=== PATIENT | female | born 1935 | race Caucasian/White ===

== ENCOUNTER 2017-03-09 10:00 | Emergency (ER) | payer MEDICARE ==
[2017-03-09] MEDS ORDERED: Hydromorphone 1 mg/ml Ampule IV ONE (10:33)
[2017-03-09] MEDS ORDERED: Hydromorphone 1 mg/ml Ampule ONE (10:43)
--- NOTE | 2017-03-09 10:46 | ERPHSYRPT ---
- History of Present Illness Time Seen by Provider: 03/09/17 10:02 Source: patient, family () Patient Subjective Stated Complaint: Pt c/o lower back pain radiating into BLEs for 6-8 months. She said the last couple of days it has gotten to where she just can't take the pain anymore. She had an MRI and CT scan here several months ago and was referred to alan ricardo for a possible epidural, but she got to feeling a little better so she cancelled it. Denies any tingling/numbness or loss of bowel or bladder control. States the pain gets better when she stands up. Triage Nursing Assessment: Pt alert and oriented x3. skin pink warm and dry. afebrile. no bruising or swelling noted Physician History: CC: back pain Hx: 82 y/o with hx of back pain in the past for which she had MRI and saw Dr Serrato. Was supposed to have injections but that fell thru and her pain was improved. She has not been treated with opioids. She had prior MRI. She has no fall or injury. No fever or chills. Normal urination. No rash. Pain worse for the past few days. No N/T/W. She is scheduled to have her legs check next week for arterial disease. Timing/Duration: day(s) (few) Allergies/Adverse Reactions: No Known Drug Allergies Allergy (Verified 03/09/17 10:16) Home Medications: Amlodipine Besylate 10 mg [Norvasc 10 MG] 10 mg PO DAILY 08/29/15 [History] Benazepril HCl 20 mg PO DAILY 08/29/15 [History] Clonidine HCl 0.1 mg [Catapres 0.1 MG] 0.1 mg PO BID 08/29/15 [History] Hydrochlorothiazide 25 mg [hydroDIURIL 25 MG] 25 mg PO DAILY 08/29/15 [ History] Nateglinide 60 mg PO TID 11/22/16 [History] Hx Tetanus, Diphtheria Vaccination/Date Given: Yes Hx Influenza Vaccination/Date Given: Yes Hx Pneumococcal Vaccination/Date Given: Yes - Review of Systems Constitutional: No Fever, No Chills Cardiac: No Chest Pain Abdominal/Gastrointestinal: No Abdominal Pain Genitourinary Symptoms: No Dysuria, No Incontinence Musculoskeletal: Back Pain Skin: No Rash Neurological: No Focal Weakness, No Headache, No Parasthesia - Past Medical History Pertinent Past Medical History: Yes Cardiac History: Hypertension Endocrine Medical History: Diabetes Type II History: Renal Disease - Past Surgical History Past Surgical History: Yes Gastrointestinal: Cholecystectomy Other Surgical History: Tonsils out, cataract surgery bilat - Social History Smoking Status: Never smoker Exposure to second hand smoke: Yes Drug Use: none Patient Lives Alone: No - Nursing Vital Signs Temperature: 97.8 F Temperature Source: Oral Pulse Rate: 81 Respiratory Rate: 16 Pain Intensity: 7 - Physical Exam General Appearance: alert Eye Exam: PERRL/EOMI Ears, Nose, Throat Exam: moist mucous membranes Neck Exam: normal inspection, non-tender, supple Respiratory Exam: normal breath sounds, lungs clear Cardiovascular Exam: regular rate/rhythm Gastrointestinal Exam: soft, No tenderness, No distention Back Exam: normal inspection, vertebral tenderness (mild low point) Extremity Exam: normal inspection, normal range of motion Neurologic Exam: alert, oriented x 3, cooperative, 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 tested, sensation nml, other (2+ patellar MSR's), No motor deficits Skin Exam: warm, dry, No rash SpO2 Interpretation: normal SpO2: 98 Oxygen Delivery: Room Air - Course Nursing assessment & vital signs reviewed: Yes - Radiology Exams lumbar X-ray Interpretation: Reviewed by me, No Fracture, Other (mild scoliosis and degenerative change) Ordered Tests: Active Orders 24 hr Category Date Time Status IV Insertion STAT Care 03/09/17 10:33 Active LUMBAR LIMITED (2 OR 3 VIEWS) Stat Exams 03/09/17 10:34 Taken Medication Summary Discontinued Medications Generic Name Dose Route Start Last Admin Trade Name Carlo PRN Reason Stop Dose Admin Hydromorphone HCl 0.5 mg 03/09/17 10:33 03/09/17 10:45 Hydromorphone 1 Mg/Ml Ampule IV 03/09/17 10:34 0.5 mg STAT ONE Administration Hydromorphone HCl Confirm 03/09/17 10:43 Hydromorphone 1 Mg/Ml Ampule Administered 03/09/17 10:44 Dose 1 mg .ROUTE .STK-MED ONE - Progress Progress Note: 03/09/17 11:04 Pt medicated for pain. This appears to be re-exacerbation of her chronic pain. She was formerly enrolled to have pain injections but doctor left town. Referred to Dr Roper whom has seen in past. Counseled pt/family regarding: diagnosis, need for follow-up, rad results - Departure Time of Disposition: 11:05 Departure Disposition: Home Clinical Impression: Lumbago Qualifiers: Chronicity: chronic Back pain laterality: midline Sciatica presence: without sciatica Qualified Code(s): M54.5 - Low back pain; G89.29 - Other chronic pain Condition: Stable Critical Care Time: No Referrals: SIVA RODRIGUES [Primary Care Provider] - ETHAN ROPER MD [CONSULTING PHYSICIAN] - Instructions: Low Back Pain Additional Instructions: BACK INJURY 1. May apply moist heat frequently for relief of pain. Take care not to burn the skin. Do not use heat for more than 30 minutes at a time. 2. Try to sleep on a firm bed, flat on your back. 3. If no improvement is noticed in 2-3 days, follow up with your family physician. 4. If you notice any numbness, tingling, weakness, or problems with your bowel or bladder, you should call your family physician or return to the emergency department. No driving. Return for problems or concerns. Rx norco. Follow up with Dr Roper as instructed. Prescriptions: Hydrocodone Bit/Acetaminophen [[address] 5-325 Tablet] 1 each PO Q6H PRN PRN #20 tablet PRN Reason: Pain
[2017-03-09 11:32] VITALS: BP 119/78; PULSE 78; O2SAT 97
--- NOTE | 2017-03-09 23:02 | XRAY ---
Indication: Low back pain radiating down legs. Comparison: September 19, 2016. 3 views of the lumbar spine unchanged again demonstrating 5 lumbar vertebral segments with osteopenia, mild lower lumbar levorotoscoliosis, and multilevel degenerative disc disease greatest at the L4-S1 levels. Again no acute fracture or subluxation. Stable mild scattered vascular calcifications and cholecystectomy clips. Impression: Stable nonacute lumbar spine again with chronic features.
== END 2017-03-09 11:30 | disposition home or self-care (01) ==
LOC: ED 10:00
DX: M54.5 Low back pain (principal); G89.29 Other chronic pain; I10 Essential (primary) hypertension; E11.9 Type 2 diabetes mellitus without complications; Z79.899 Other long term (current) drug therapy
CPT/HCPCS: 36000; 72100; 96374; 99284; J1170

== ENCOUNTER 2017-05-23 20:44 | Emergency (ER) | payer MEDICARE ==
--- NOTE | 2017-05-23 21:36 | ERPHSYRPT ---
- History of Present Illness Time Seen by Provider: 05/23/17 21:16 Source: patient, family Exam Limitations: no limitations Patient Subjective Stated Complaint: pt states she has been having pain in her rt lower leg rated a 9/10 prior to arrival. Triage Nursing Assessment: pt alert and oriented, answers qeustins approp. pt transfer from wheelchair to stretcher with minimal asisst. respirations nonlabored with lungs cta. mild edema to bilat ankles and feet, pt states normal for her. no injury to rt leg. pedal pulse wnl. Physician History: The patient is an 82-year-old female with her and daughter complaining of worsening right lower leg pain today. She has chronic leg pain in both legs for the past 8-[address] Roper today for follow-up of the leg pain and was told to walk and exercise more. She had a CT scan of the lower extremities of June 2016. She had an MRI of the L-spine in September 2016. She had L-spine x-ray in March 2017. Then she had an arterial ultrasound of both lower legs in March 2017. She had an epidural in her lower spine which helped her back pain for 3 months but it is now started to return. Today she took [place] when the pain worsen. The [place] did not relieve the pain. Tonight she comes in wanting some relief. Past medical history is significant for chronic bilateral leg pain, back pain, hypertension. Method of Injury: unknown Occurred: other (8 to 10 months) Quality: intermittent, aching Lower Extremities Pain: leg: right Modifying Factors: Improves With: pain medication Associated Symptoms: other (hurts to walk ) Allergies/Adverse Reactions: No Known Drug Allergies Allergy (Verified 05/23/17 21:08) Home Medications: Amlodipine Besylate 10 mg [Norvasc 10 MG] 10 mg PO DAILY 08/29/15 [History] Benazepril HCl 20 mg PO DAILY 08/29/15 [History] Clonidine HCl 0.1 mg [Catapres 0.1 MG] 0.1 mg PO BID 08/29/15 [History] Hydrochlorothiazide 25 mg [hydroDIURIL 25 MG] 25 mg PO DAILY 08/29/15 [ History] Nateglinide 60 mg PO TID 11/22/16 [History] Hx Tetanus, Diphtheria Vaccination/Date Given: Yes Hx Influenza Vaccination/Date Given: Yes Hx Pneumococcal Vaccination/Date Given: Yes Immunizations Up to Date: Yes - Review of Systems Constitutional: No Fever, No Chills Eyes: No Symptoms Ears, Nose, & Throat: No Symptoms Respiratory: No Cough, No Dyspnea Cardiac: No Chest Pain, No Edema, No Syncope Abdominal/Gastrointestinal: No Abdominal Pain, No Nausea, No Vomiting, No Diarrhea Genitourinary Symptoms: No Dysuria Musculoskeletal: Back Pain, Myalgias Skin: No Rash Neurological: No Dizziness, No Focal Weakness, No Sensory Changes Psychological: No Symptoms Endocrine: No Symptoms Hematologic/Lymphatic: No Symptoms Immunological/Allergic: No Symptoms All Other Systems: Reviewed and Negative - Past Medical History Pertinent Past Medical History: Yes Cardiac History: Hypertension Endocrine Medical History: Diabetes Type II History: Renal Disease Other Medical History: chronic pain- sees dr roper - Past Surgical History Past Surgical History: Yes Gastrointestinal: Cholecystectomy Other Surgical History: Tonsils out, cataract surgery bilat - Social History Smoking Status: Never smoker Exposure to second hand smoke: Yes Drug Use: none Patient Lives Alone: No - Female History Hx Last Menstrual Period: post - Nursing Vital Signs Nursing Vital Signs: Initial Vital Signs Temperature 98.1 F Temperature Source Oral Pulse Rate 74 Respiratory Rate 16 Blood Pressure [Right Arm] 142/63 Pain Intensity [Left Lower 5 Calf] Pain Intensity 5 - Physical Exam General Appearance: alert Eyes, Ears, Nose, Throat Exam: moist mucous membranes Neck Exam: non-tender, supple Cardiovascular/Respiratory Exam: chest non-tender, normal breath sounds, regular rate/rhythm, no respiratory distress Gastrointestinal/Abdominal Exam: non-tender, guarding Back Exam: normal inspection, No vertebral tenderness Hips Exam: bilateral: non-tender, normal inspection Legs Exam: right leg: soft tissue tenderness (Physical examination of the right lower leg is significant for tenderness to palpation in the mid section of the lateral aspect of the musculature. Palpation reproduces the pain she was having before entry into the ER. Physical examination does not reveal any cords , swelling or mass. Flexion extension lateral or medial movement of the foot does not elicit any pain response in that region.), left leg: non-tender, normal inspection Knees Exam: bilateral knee: non-tender, normal inspection Ankle Exam: bilateral ankle: non-tender, normal inspection Foot Exam: bilateral foot: non-tender, normal inspection Neuro/Tendon Exam: normal sensation, normal motor functions Mental Status Exam: alert, oriented x 3, cooperative Skin Exam: normal color, warm, dry SpO2 Interpretation: normal SpO2: 96 Oxygen Delivery: Room Air Ordered Tests: Active Orders 24 hr Category Date Time Status IV Insertion STAT Care 05/23/17 21:55 Active Medication Summary Discontinued Medications Generic Name Dose Route Start Last Admin Trade Name Carlo PRN Reason Stop Dose Admin Hydromorphone HCl 1 mg 05/23/17 21:55 05/23/17 22:04 Hydromorphone 1 Mg/Ml Ampule IV 05/23/17 21:56 1 mg STAT ONE Administration Hydromorphone HCl Confirm 05/23/17 22:03 Hydromorphone 1 Mg/Ml Ampule Administered 05/23/17 22:04 Dose 1 mg .ROUTE .STK-MED ONE Ondansetron HCl 4 mg 05/23/17 21:55 05/23/17 22:06 Zofran 4 Mg/2 Ml Vial IV 05/23/17 21:56 4 mg STAT ONE Administration Ondansetron HCl Confirm 05/23/17 22:02 Zofran 4 Mg/2 Ml Vial Administered 05/23/17 22:03 Dose 4 mg .ROUTE .STK-MED ONE - Progress Progress: improved Progress Note: 05/23/17 21:53 I reviewed the past ER visit dated 03/09/17 as well as the imaging studies. The patient was given Dilaudid 1 mg by IV. Counseled pt/family regarding: diagnosis, need for follow-up - Departure Time of Disposition: 22:52 Departure Disposition: Home Clinical Impression: Muscle pain Condition: Stable Critical Care Time: No Additional Instructions: You have right leg muscle pain from an unknown cause. You were given Dilaudid 1 mg IV and Zofran 4 mg IV in the ER. Follow-up with physical therapy for evaluation and treatment of your leg pain. Continue with all other medications as directed. Follow-up with your doctor for the abdominal pain.
[2017-05-23] MEDS ORDERED: Hydromorphone 1 mg/ml Ampule IV ONE (21:55)
[2017-05-23] MEDS ORDERED: Zofran 4 MG/2 ML VIAL IV ONE (21:55)
[2017-05-23] MEDS ORDERED: Zofran 4 MG/2 ML VIAL ONE (22:02)
[2017-05-23] MEDS ORDERED: Hydromorphone 1 mg/ml Ampule ONE (22:03)
[2017-05-23 23:15] VITALS: BP 128/72; PULSE 78; O2SAT 94
== END 2017-05-23 23:16 | disposition home or self-care (01) ==
LOC: ED 20:44
DX: M79.1 Myalgia (principal); M79.661 Pain in right lower leg; M54.9 Dorsalgia, unspecified; I10 Essential (primary) hypertension; Z79.891 Long term (current) use of opiate analgesic; Z79.899 Other long term (current) drug therapy; E11.9 Type 2 diabetes mellitus without complications
CPT/HCPCS: 36000; 96374; 96375; 99283; 99284; J1170; J2405

== ENCOUNTER 2017-06-14 12:52 | Emergency (ER) | payer MEDICARE ==
[2017-06-14] MEDS ORDERED: Hydromorphone 1 mg/ml Ampule IV ONE (13:25)
[2017-06-14] MEDS ORDERED: Zofran 4 MG/2 ML VIAL IV ONE (13:26)
[2017-06-14] MEDS ORDERED: Zofran 4 MG/2 ML VIAL ONE (13:31)
--- NOTE | 2017-06-14 13:31 | ERPHSYRPT ---
- History of Present Illness Time Seen by Provider: 06/14/17 13:26 Source: patient Exam Limitations: no limitations Patient Subjective Stated Complaint: Pt c/o lower back and right lower leg pain. Pt states it has gotten worse over the last 2 weeks. Triage Nursing Assessment: Pt alert and oriented x3. skin pink warm and dry. afebrile. no bruising/ swelling noted to RLE. pt ambulated from waiting room to exam room 4 without difficulties Physician History: 82 y/o female with history of herniated disc who has had multiple imaging of lower back and legs comes to the ER with complaints of right anterior lower leg pain since yesterday. Pt describes the pain as sharp, constant, 8/10, and not relieved by norco 5/325. Pt had an epidural done 3 weeks ago. Pt has been taking norco 10/325 but started feeling sick on this dose. Pt denies any fever, chills, leg weakness or bowel/urinary incontinence. Pt also admits to having right sided buttock pain that she rates as a 5/10. Timing/Duration: yesterday Method of Injury: unknown Quality: sharp Back Pain Radiation: buttocks, lower legs Severity of Pain-Max: severe Severity of Pain-Current: severe Modifying Factors: Improves With: nothing Allergies/Adverse Reactions: No Known Drug Allergies Allergy (Verified 05/23/17 21:08) Home Medications: Amlodipine Besylate 10 mg [Norvasc 10 MG] 10 mg PO DAILY 08/29/15 [History] Benazepril HCl 20 mg PO DAILY 08/29/15 [History] Clonidine HCl 0.1 mg [Catapres 0.1 MG] 0.1 mg PO BID 08/29/15 [History] Hydrochlorothiazide 25 mg [hydroDIURIL 25 MG] 25 mg PO DAILY 08/29/15 [ History] Nateglinide 60 mg PO TID 11/22/16 [History] Hx Tetanus, Diphtheria Vaccination/Date Given: Yes Hx Influenza Vaccination/Date Given: Yes Hx Pneumococcal Vaccination/Date Given: Yes - Review of Systems Constitutional: No Fever, No Chills Eyes: No Symptoms Ears, Nose, & Throat: No Symptoms Respiratory: No Cough, No Dyspnea Cardiac: No Chest Pain, No Edema, No Syncope Abdominal/Gastrointestinal: No Abdominal Pain, No Nausea, No Vomiting, No Diarrhea Genitourinary Symptoms: No Dysuria Musculoskeletal: Back Pain, Myalgias, No Neck Pain Skin: No Rash Neurological: No Dizziness, No Focal Weakness, No Sensory Changes Psychological: No Symptoms Endocrine: No Symptoms All Other Systems: Reviewed and Negative - Past Medical History Pertinent Past Medical History: Yes Cardiac History: Hypertension Endocrine Medical History: Diabetes Type II History: Renal Disease Other Medical History: chronic pain- sees dr frost - Past Surgical History Past Surgical History: Yes Gastrointestinal: Cholecystectomy Other Surgical History: Tonsils out, cataract surgery bilat - Social History Smoking Status: Never smoker Exposure to second hand smoke: Yes Drug Use: none Patient Lives Alone: No - Nursing Vital Signs Nursing Vital Signs: Initial Vital Signs Temperature 98.0 F Temperature Source Oral Pulse Rate 74 Respiratory Rate 16 Blood Pressure [Right Arm] 136/56 Pain Intensity 5 - Physical Exam General Appearance: no apparent distress, alert Eye Exam: PERRL/EOMI, eyes nml inspection Neck Exam: normal inspection, non-tender, supple, full range of motion, No meningismus, No midline tenderness Respiratory Exam: normal breath sounds, lungs clear, No respiratory distress Cardiovascular Exam: regular rate/rhythm, normal heart sounds Gastrointestinal Exam: soft, No tenderness, No mass Back Exam: normal inspection, decreased range of motion, No CVA tenderness Extremity Exam: normal inspection, normal range of motion, tenderness, No calf tenderness, No pedal edema Neurologic Exam: alert, oriented x 3, cooperative, labor expediter II-XII nml as tested, normal mood/affect, nml station & gait, sensation nml, No motor deficits Skin Exam: normal color, warm, dry, No rash SpO2: 97 Oxygen Delivery: Room Air - Course Nursing assessment & vital signs reviewed: Yes Ordered Tests: Active Orders 24 hr Category Date Time Status IV Insertion STAT Care 06/14/17 13:26 Active Medication Summary Discontinued Medications Generic Name Dose Route Start Last Admin Trade Name Freq PRN Reason Stop Dose Admin Hydromorphone HCl 1 mg 06/14/17 13:25 06/14/17 13:32 Hydromorphone 1 Mg/Ml Ampule IV 06/14/17 13:26 1 mg STAT ONE Administration Hydromorphone HCl Confirm 06/14/17 13:32 Hydromorphone 1 Mg/Ml Ampule Administered 06/14/17 13:33 Dose 1 mg .ROUTE .STK-MED ONE Ondansetron HCl 4 mg 06/14/17 13:26 06/14/17 13:32 Zofran 4 Mg/2 Ml Vial IV 06/14/17 13:27 4 mg STAT ONE Administration Ondansetron HCl Confirm 06/14/17 13:31 Zofran 4 Mg/2 Ml Vial Administered 06/14/17 13:32 Dose 4 mg .ROUTE .STK-MED ONE - Progress Progress: improved Progress Note: 06/14/17 14:22 Pt rates her leg pain 5/10 after receiving dilaudid. Pt was advised to start on norco 10/325 and will need to start on miralax and senna as a bowel regimen. Pt was also advised to F/U with her pain doctor in the next few days. - Departure Time of Disposition: 14:24 Departure Disposition: Home Clinical Impression: Leg pain Qualifiers: Laterality: right Qualified Code(s): M79.604 - Pain in right leg Condition: Stable Critical Care Time: No Referrals: SIVA RODRIGUES [Primary Care Provider] - Additional Instructions: Follow up with your pain doctor in the next few days. Start taking [place] 10/325 after starting the following bowel regimen: 1) Miralax 17 grams once daily 2) Senna 1 tablet twice daily Prescriptions: Polyethylene Glycol 3350 17 gm [Miralax Powder 17GM PACKET] 17 gm PO DAILY # 30 packet Sennosides [Senna] 8.6 mg PO BID #60 tablet
[2017-06-14] MEDS ORDERED: Hydromorphone 1 mg/ml Ampule ONE (13:32)
[2017-06-14 14:55] VITALS: BP 129/72; PULSE 67; O2SAT 100
== END 2017-06-14 14:55 | disposition home or self-care (01) ==
LOC: ED 12:52
DX: M79.604 Pain in right leg (principal); M54.5 Low back pain; I10 Essential (primary) hypertension; E11.9 Type 2 diabetes mellitus without complications; Z79.899 Other long term (current) drug therapy
CPT/HCPCS: 36000; 96374; 96375; 99283; 99284; J1170; J2405

== ENCOUNTER 2017-06-30 03:14 | Emergency (ER) | payer MEDICARE ==
[2017-06-30] MEDS ORDERED: Sodium Chloride 0.9% 1000 ML 1,000 ML IV STA (03:44)
[2017-06-30] MEDS ORDERED: Zofran 4 MG/2 ML VIAL IV ONE (03:44)
[2017-06-30] MEDS ORDERED: MORPHINE SULFATE 2 MG INJ IV ONE (03:44)
[2017-06-30] MEDS ORDERED: Sodium Chloride 0.9% 1000 ML 1,000 ML ONE (03:48)
[2017-06-30] MEDS ORDERED: Zofran 4 MG/2 ML VIAL ONE (03:48)
[2017-06-30] MEDS ORDERED: MORPHINE SULFATE 2 MG INJ ONE (03:48)
--- NOTE | 2017-06-30 03:48 | ERPHSYRPT ---
- History of Present Illness Time Seen by Provider: 06/30/17 03:46 Historian: patient, family Exam Limitations: no limitations Patient Subjective Stated Complaint: Pt C/O supra pubic pain for several days, unsure of exact onset with worsening tonight. Pt unable to sleep due to discomfort. Denies pain with urination or urinary symptoms. Describes as a burning sensation rating 7-8/10. Dx with urine infection, given Keflex abx but pt cannot tolerate due to diarrhea. Triage Nursing Assessment: Pt alert, answers questions appropriately. Ambulatory to tx room holding suprapubic area. Steady gait noted. Lung sounds CTA bilat non-labored. ABD soft, non-tender x 4 quadrants, no increased pain with palpation suprapubic area. + bowel sounds noted. Physician History: Pt C/O supra pubic pain for several days, unsure of exact onset with worsening tonight. Pt unable to sleep due to discomfort. Denies pain with urination or urinary symptoms. Describes as a burning sensation rating 7-8/10. Dx with urine infection, given Keflex abx but pt cannot tolerate due to diarrhea. Timing/Duration: day(s), gradual onset Activities at Onset: none Quality: cramping, stabbing Abdominal Pain Onset Location: suprapubic Pain Radiation: no radiation Severity of Pain-Max: moderate Severity of Pain-Current: moderate Modifying Factors: Improves With: nothing Associated Symptoms: diarrhea, weakness Previous symptoms: no prior history Allergies/Adverse Reactions: cephalexin [From Keflex] Adverse Reaction (Intermediate, Verified 06/30/17 03:33 ) Diarrhea Home Medications: Amlodipine Besylate 10 mg [Norvasc 10 MG] 10 mg PO DAILY 08/29/15 [History] Benazepril HCl 20 mg PO DAILY 08/29/15 [History] Clonidine HCl 0.1 mg [Catapres 0.1 MG] 0.1 mg PO BID 08/29/15 [History] Hydrochlorothiazide 25 mg [hydroDIURIL 25 MG] 25 mg PO DAILY 08/29/15 [ History] Nateglinide 60 mg PO TID 11/22/16 [History] Hx Tetanus, Diphtheria Vaccination/Date Given: Yes Hx Influenza Vaccination/Date Given: Yes Hx Pneumococcal Vaccination/Date Given: Yes Immunizations Up to Date: Yes - Review of Systems Constitutional: No Fever, No Chills Eyes: No Symptoms Ears, Nose, & Throat: No Symptoms Respiratory: No Cough, No Dyspnea Cardiac: No Chest Pain, No Edema, No Syncope Abdominal/Gastrointestinal: Abdominal Pain, Diarrhea, No Nausea, No Vomiting Genitourinary Symptoms: No Dysuria Musculoskeletal: No Back Pain, No Neck Pain Skin: No Rash Neurological: No Dizziness, No Focal Weakness, No Sensory Changes Psychological: No Symptoms Endocrine: No Symptoms All Other Systems: Reviewed and Negative - Past Medical History Pertinent Past Medical History: Yes Cardiac History: Hypertension Endocrine Medical History: Diabetes Type II History: Renal Disease Other Medical History: chronic pain- sees dr frost - Past Surgical History Past Surgical History: Yes Gastrointestinal: Cholecystectomy Other Surgical History: Tonsils out, cataract surgery bilat - Social History Smoking Status: Never smoker Exposure to second hand smoke: No Drug Use: none Patient Lives Alone: No - Nursing Vital Signs Nursing Vital Signs: Initial Vital Signs Temperature 97.6 F 06/30/17 03:18 Pulse Rate 79 06/30/17 03:18 Respiratory Rate 20 06/30/17 03:18 Blood Pressure 165/66 06/30/17 03:18 O2 Sat by Pulse Oximetry 95 06/30/17 03:18 Pain Scale Pain Intensity 4 - Physical Exam General Appearance: no apparent distress, alert Eye Exam: PERRL/EOMI, eyes nml inspection Ears, Nose, Throat Exam: normal ENT inspection, pharynx normal, moist mucous membranes Neck Exam: normal inspection, non-tender, supple, full range of motion Respiratory Exam: normal breath sounds, lungs clear, No respiratory distress Cardiovascular Exam: regular rate/rhythm, normal heart sounds Gastrointestinal/Abdomen Exam: soft, No tenderness, No mass Back Exam: normal inspection, normal range of motion, No CVA tenderness, No vertebral tenderness Extremity Exam: normal inspection, normal range of motion, pelvis stable Neurologic Exam: alert, oriented x 3, cooperative, normal mood/affect, nml cerebellar function, sensation nml, No motor deficits Skin Exam: normal color, warm, dry SpO2: 95 Oxygen Delivery: Room Air - Course Nursing assessment & vital signs reviewed: Yes - CT Exams Abdomen/Pelvis CT Interpretation: Tele-radiologist Report (no acute changes) Ordered Tests: Active Orders 24 hr Category Date Time Status ABDOMEN AND PELVIS W/0 CONTRAS [CT] Stat Exams 06/30/17 03:45 Taken AMYLASE Stat Lab 06/30/17 03:55 Completed CBC W DIFF Stat Lab 06/30/17 03:55 Completed CMP Stat Lab 06/30/17 03:55 Completed CULTURE,URINE Stat Lab 06/30/17 03:55 Received LIPASE Stat Lab 06/30/17 03:55 Completed Lactic Acid Stat Lab 06/30/17 03:51 Completed UA W/ MICROSCOPIC Stat Lab 06/30/17 03:55 Completed Medication Summary Generic Name Dose Route Start Last Admin Trade Name Freq PRN Reason Stop Dose Admin Ceftriaxone Sodium/Dextrose 1 g in 50 mls @ 100 mls/hr 06/30/17 04:50 04:56 Rocephin 1 Gm-D5w 50 Ml Bag IV 06/30/17 05:19 100 mls/hr STAT STA Administration Discontinued Medications Generic Name Dose Route Start Last Admin Trade Name Freq PRN Reason Stop Dose Admin Sodium Chloride 1,000 mls @ 999 mls/hr 06/30/17 03:44 06/30/17 03:51 Sodium Chloride 0.9% 1000 Ml IV 06/30/17 04:44 999 mls/hr .Q1H1M STA Administration Sodium Chloride Confirm 06/30/17 03:48 Sodium Chloride 0.9% 1000 Ml Administered 06/30/17 03:49 Dose 1,000 mls @ ud .ROUTE .STK-MED ONE Ceftriaxone Sodium/Dextrose Confirm 06/30/17 04:49 Rocephin 1 Gm-D5w 50 Ml Bag Administered 06/30/17 04:50 Dose 1 g in 50 mls @ ud IV .STK-MED ONE Morphine Sulfate 2 mg 06/30/17 03:44 06/30/17 03:51 Morphine Sulfate 2 Mg Inj IV 06/30/17 03:45 2 mg STAT ONE Administration Morphine Sulfate Confirm 06/30/17 03:48 Morphine Sulfate 2 Mg Inj Administered 06/30/17 03:49 Dose 2 mg .ROUTE .STK-MED ONE Ondansetron HCl 4 mg 06/30/17 03:44 06/30/17 03:50 Zofran 4 Mg/2 Ml Vial IV 06/30/17 03:45 4 mg STAT ONE Administration Ondansetron HCl Confirm 06/30/17 03:48 Zofran 4 Mg/2 Ml Vial Administered 06/30/17 03:49 Dose 4 mg .ROUTE .STK-MED ONE Lab/Rad Data: Laboratory Result Diagrams 06/30/17 03:55 06/30/17 03:55 Laboratory Results 06/30/17 06/30/17 06/30/17 Range/Units 03:55 03:55 03:55 WBC 7.2 (4.0-10.5) K/mm3 RBC 3.83 L (4.1-5.4) M/mm3 Hgb 11.7 L (12.0-16.0) gm/dl Hct 35.4 (35-47) % MCV 92.4 (78-100) fl MCH 30.5 (26-32) pg MCHC 33.1 (32-36) g/dl RDW 14.3 H (11.5-14.0) % Plt Count 247 (150-450) K/mm3 MPV 11.0 H (6-9.5) fl Gran % 61.3 (36.0-66.0) % Lymphocytes % 24.8 (24.0-44.0) % Monocytes % 9.6 (0.0-12.0) % Eosinophils % 3.9 (0.00-5.0) % Basophils % 0.4 (0.0-0.4) % Basophils # 0.03 (0-0.4) Sodium 136 (136-145) mEq/L Potassium 4.0 (3.5-5.1) mEq/L Chloride 100 (98-107) mEq/L Carbon Dioxide 24.1 (21-32) mEq/L Anion Gap 15.8 H (5-15) MEQ/L BUN 23 H (9-20) mg/dL Creatinine 1.39 H (0.55-1.30) mg/dl Estimated GFR 39 ML/MIN Glucose 145 H (70-110) MG/DL Lactic Acid (0.4-2.0) Calcium 9.5 (8.5-10.1) mg/dL Total Bilirubin 0.30 (0.2-1.0) mg/dL AST 14 L (15-37) U/L ALT 21 (12-78) U/L Alkaline Phosphatase 85 (46-116) U/L Serum Total Protein 7.4 (6.4-8.2) gm/dL Albumin 3.9 (3.4-5.0) g/dL Amylase 78 (25-115) U/L Lipase 216 (73-393) U/L Ur Collection Type CLEAN CATCH Urine Color LT.YELLOW (YELLOW) Urine Appearance SLIGHTLY CLOUDY (CLEAR) Urine pH 6.0 (5-6) Ur Specific [place] 1.010 (1.005-1.025) Urine Protein NEGATIVE (Negative) Urine Ketones NEGATIVE (NEGATIVE) Urine Blood NEGATIVE (0-5) Rafita/ul Urine Nitrite NEGATIVE (NEGATIVE) Urine Bilirubin NEGATIVE (NEGATIVE) Urine Urobilinogen NORMAL (0-1) mg/dL Ur Leukocyte Esterase 1+ (NEGATIVE) Urine Microscopic RBC 5-10 (0-2) /HPF Urine Microscopic WBC 15-25 (0-5) /HPF Ur Epithelial Cells MANY (FEW) /HPF Urine Bacteria MODERATE (NEGATIVE) /HPF Urine Yeast FEW (NEGATIVE) /HPF Urine Glucose NEGATIVE (NEGATIVE) mg/dL Specimen Received 06/30/17 0400 06/30/17 Range/Units 03:51 WBC (4.0-10.5) K/mm3 RBC (4.1-5.4) M/mm3 Hgb (12.0-16.0) gm/dl Hct (35-47) % MCV (78-100) fl MCH (26-32) pg MCHC (32-36) g/dl RDW (11.5-14.0) % Plt Count (150-450) K/mm3 MPV (6-9.5) fl Gran % (36.0-66.0) % Lymphocytes % (24.0-44.0) % Monocytes % (0.0-12.0) % Eosinophils % (0.00-5.0) % Basophils % (0.0-0.4) % Basophils # (0-0.4) Sodium (136-145) mEq/L Potassium (3.5-5.1) mEq/L Chloride (98-107) mEq/L Carbon Dioxide (21-32) mEq/L Anion Gap (5-15) MEQ/L BUN (9-20) mg/dL Creatinine (0.55-1.30) mg/dl Estimated GFR ML/MIN Glucose (70-110) MG/DL Lactic Acid 1.5 (0.4-2.0) Calcium (8.5-10.1) mg/dL Total Bilirubin (0.2-1.0) mg/dL AST (15-37) U/L ALT (12-78) U/L Alkaline Phosphatase (46-116) U/L Serum Total Protein (6.4-8.2) gm/dL Albumin (3.4-5.0) g/dL Amylase (25-115) U/L Lipase (73-393) U/L Ur Collection Type Urine Color (YELLOW) Urine Appearance (CLEAR) Urine pH (5-6) Ur Specific [place] (1.005-1.025) Urine Protein (Negative) Urine Ketones (NEGATIVE) Urine Blood (0-5) Rafita/ul Urine Nitrite (NEGATIVE) Urine Bilirubin (NEGATIVE) Urine Urobilinogen (0-1) mg/dL Ur Leukocyte Esterase (NEGATIVE) Urine Microscopic RBC (0-2) /HPF Urine Microscopic WBC (0-5) /HPF Ur Epithelial Cells (FEW) /HPF Urine Bacteria (NEGATIVE) /HPF Urine Yeast (NEGATIVE) /HPF Urine Glucose (NEGATIVE) mg/dL Specimen Received - Progress Progress: improved Counseled pt/family regarding: lab results, diagnosis, need for follow-up, rad results - Departure Time of Disposition: 04:51 Departure Disposition: Home Clinical Impression: UTI (urinary tract infection), bacterial Condition: Stable Critical Care Time: Yes Critical Care Time(excluding separately billable procedures): 30-74 minutes Referrals: SIVA RODRIGUES [Primary Care Provider] - Instructions: Pelvic Pain, Urinary Tract Infection (UTI) Additional Instructions: URINARY TRACT INFECTION 1. You will need to drink plenty of fluids in order to keep your urinary system flushed. These fluids should mainly consist of water and juices. 2. Take medications as directed. You need to completely finish any antiobiotic prescription given. 3. Try to avoid coffee, tea, alcohol, and seasoned foods as they may cause bladder irritation. 4. If signs and symptoms persist after 3-4 days, you will need to follow up with your family physician. 5. Female Patients: A. Avoid intercourse for 3-4 days. B. Empty bladder before and after intercourse to reduce risk of re- infection. C. After emptying bladder, wipe from front to back to reduce the risk of re- infection. Prescriptions: Ciprofloxacin [Cipro 500 MG] 500 mg PO BIDAC #15 tablet
[2017-06-30 04:08] LABS: BASOPHIL % 0.4 % (0.0-0.4); Eosinophil % 3.9 % (0.00-5.0); Granulocytes % 61.3 % (36.0-66.0); Lymphocytes % 24.8 % (24.0-44.0); Mean Cell Volume 92.4 fl (78-100); Mean Corpuscular Hemoglobin 30.5 pg (26-32); Monocytes % 9.6 % (0.0-12.0); Platelet Count 247 K/mm3 (150-450); Red Blood Count 3.83 M/mm3 (4.1-5.4); Red Cell Distribution Width 14.3 % (11.5-14.0); White Blood Count 7.2 K/mm3 (4.0-10.5)
[2017-06-30 04:19] LABS: ALBUMIN 3.9 g/dL (3.4-5.0); ANION GAP 15.8 MEQ/L (5-15); BILIRUBIN,TOTAL 0.3 mg/dL (0.2-1.0); Carbon Dioxide 24.1 mEq/L (21-32); Total Protein 7.4 gm/dL (6.4-8.2)
[2017-06-30 04:35] LABS: Collection Type CLEAN CATCH
[2017-06-30 04:36] LABS: ADD URINE CULTURE? YES (NO); Bacteria MODERATE /HPF (NEGATIVE); Bilirubin NEGATIVE (NEGATIVE); Blood NEGATIVE Ery/ul (0-5); COMPLETE URINE MICROSCOPIC? YES; Epithelial Cells MANY /HPF (FEW); Glucose NEGATIVE (NEGATIVE); Leukocyte Esterase 1+ (NEGATIVE); WBC 15-25 /HPF (0-5); Yeast FEW /HPF (NEGATIVE)
[2017-06-30] MEDS ORDERED: ROCEPHIN 1 Gm-D5w 50 ml Bag** 1 G/50 ML IVPB IV ONE (04:49)
[2017-06-30] MEDS ORDERED: ROCEPHIN 1 Gm-D5w 50 ml Bag** 1 G/50 ML IVPB IV STA (04:50)
[2017-06-30 05:26] VITALS: BP 128/60; PULSE 68; O2SAT 93
--- NOTE | 2017-06-30 09:26 | XRAY ---
Indication: Suprapubic pain for 4 days. Diagnosed bladder infection. Multiple contiguous axial images obtained through the abdomen and pelvis without contrast as ordered. Comparison: None Lung bases demonstrates minimal bibasilar atelectasis/scarring and left lower lobe calcified granuloma. Heart is not enlarged. Small hiatal hernia. Noncontrasted systolic and bowel loops appear nonobstructed. No free fluid/air. 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 No renal calculus in either system. 1 cm left adrenal adenoma. Previous cholecystectomy. Remaining liver, pancreas, spleen, right adrenal gland, left kidney, left ureter, bladder, and uterus appear unremarkable for noncontrast exam. Minimal aortoiliac calcifications without AAA. Calcifications at the origin of the left and right main renal arteries. Osseous structures intact with moderate degenerative changes of the L3-S1 levels. Impression: 1. 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 Findings can be seen with passage of calculus or reflux. Correlate clinically. 2. Incidental left adrenal adenoma and small hiatal hernia. Comment: Preliminary interpretation was made by C. No critical discrepancy. CTDI 27.10
== END 2017-06-30 05:32 | disposition home or self-care (01) ==
LOC: ED 03:14
DX: N39.0 Urinary tract infection, site not specified (principal)
CPT/HCPCS: 36000; 36415; 74176; 80053; 81000; 82150; 83605; 83690; 85025; 87086; 96360; 96365; 96374; 96375; 99284; J0696; J2270; J2405

== ENCOUNTER 2017-07-02 11:14 | Inpatient (IN) | payer MEDICARE ==
[2017-07-02] MEDS ORDERED: Zofran 4 MG/2 ML VIAL IV PRN (11:20)
[2017-07-02 11:56] LABS: BASOPHIL % 0.3 % (0.0-0.4); Eosinophil % 2.2 % (0.00-5.0); Granulocytes % 67.2 % (36.0-66.0); Lymphocytes % 21.2 % (24.0-44.0); Mean Corpuscular Hemoglobin 30.5 pg (26-32); Mean Platelet Volume 10.7 fl (6-9.5); Monocytes % 9.1 % (0.0-12.0); Platelet Count 239 K/mm3 (150-450); Red Cell Distribution Width 14.1 % (11.5-14.0); White Blood Count 6.4 K/mm3 (4.0-10.5)
[2017-07-02 12:27] LABS: ALBUMIN 3.9 g/dL (3.4-5.0); ANION GAP 12.3 MEQ/L (5-15); BILIRUBIN,TOTAL 0.4 mg/dL (0.2-1.0); Carbon Dioxide 25.1 mEq/L (21-32); Potassium 4.3 mEq/L (3.5-5.1); Total Protein 7.4 gm/dL (6.4-8.2)
[2017-07-02] MEDS: ROCEPHIN 1 Gm-D5w 50 ml Bag** 1 G/50 ML IVPB IV SCH (12:33)
[2017-07-02] MEDS: Sodium Chloride 0.9% 1000 ML 1,000 ML IV SCH ×2 (12:33→23:06)
--- NOTE | 2017-07-02 13:19 | XRAY ---
Indication: Abdomen, back, and left leg pain. UTI. Comparison: None 2 views of the abdomen nonacute and nonobstructed with previous cholecystectomy. Solid organs unremarkable. Osseous structures intact with mild osteopenia and degenerative changes of the mid to lower lumbar spine. Lung bases clear with incidental left base calcified granuloma. Impression: Nonacute nonobstructed abdomen.
[2017-07-02] MEDS: MORPHINE SULFATE 4 MG INJ IV PRN ×3 (15:11→23:42)
[2017-07-02 16:06] LABS: Bilirubin NEGATIVE (NEGATIVE); Blood NEGATIVE Ery/ul (0-5); COMPLETE URINE MICROSCOPIC? YES; Collection Type CCMS; Glucose 50 mg/dL (NEGATIVE); Leukocyte Esterase 1+ (NEGATIVE)
[2017-07-02 16:07] LABS: Bacteria RARE /HPF (NEGATIVE); Epithelial Cells FEW /HPF (FEW)
[2017-07-02] MEDS ORDERED: STARLIX 120 MG PO SCH (16:30)
[2017-07-02] MEDS ORDERED: MEDICATION INTERVENTION MC PRN (16:43)
[2017-07-02] MEDS ORDERED: Restoril 15 MG PO PRN (17:13)
[2017-07-02] MEDS ORDERED: xanAX 0.25 MG PO PRN (17:15)
[2017-07-02] MEDS: PATIENT OWN MEDICATION PO SCH (17:52)
[2017-07-02] MEDS ORDERED: NATEGLINIDE 60 MG PO SCH (22:00)
[2017-07-02] MEDS: Catapres 0.1 MG PO SCH (23:06)
[2017-07-03] MEDS: PATIENT OWN MEDICATION PO PRN (00:06)
[2017-07-03] MEDS: MORPHINE SULFATE 4 MG INJ IV PRN ×2 (06:34→20:26)
[2017-07-03] MEDS: PATIENT OWN MEDICATION PO SCH ×3 (08:07→16:41)
--- NOTE | 2017-07-03 09:09 | PCM.NOTE ---
Date and Time: 07/03/17905 Subjective Assessment: Admitted from office wht abd pain, UTI has been treated but sx have not left. Also intractable L LE pain. This morning her abd pain is much better, still having leg pain, treated with IV pain medicine. Objective Exam General Appearance: no apparent distress Neurologic Exam: alert, oriented x 3, cooperative Skin Exam: normal color, warm, dry Neck Exam: normal inspection, supple Respiratory Exam: normal breath sounds, lungs clear, No crackles/rales, No rhonchi, No wheezing Cardiovascular Exam: regular rate/rhythm, normal heart sounds, No murmur Gastrointestinal/Abdomen Exam: soft, normal bowel sounds, No tenderness, No distention, No mass, No guarding, No rebound Extremity Exam: No pedal edema, No swelling OBJECTIVE DATA Vital Signs: Vital Signs - 24 hr Temp Pulse Resp BP Pulse Ox 07/03/17 07:00 98.0 F 74 18 145/65 97 07/03/17 03:59 98.6 F 68 17 125/61 93 L 07/03/17 00:00 98.6 F 78 18 161/72 93 L 07/02/17 19:55 98.5 F 78 18 143/65 91 L 07/02/17 16:00 98.9 F 73 18 141/66 97 07/02/17 11:38 98.6 F 79 20 141/69 95 07/02/17 11:25 98.6 F 79 141/69 07/02/17 11:16 98.6 F 79 18 141/69 95 Pain Assessment - Last Documented Pain Intensity 8 Pain Scale Used 0-10 Pain Scale Intake and Output: Intake & Output 06/30/17 07/01/17 07/02/17 07/03/17 11:59 11:59 11:59 11:59 Intake Total 2140 Output Total 2450 Balance -310 Weight 84.453 kg Lab Results: Lab Results-Last 24 Hours 07/02/17 07/02/17 07/02/17 Range/Units 11:49 11:49 11:50 WBC 6.4 (4.0-10.5) K/mm3 RBC 4.00 L (4.1-5.4) M/mm3 Hgb 12.2 (12.0-16.0) gm/dl Hct 36.8 (35-47) % MCV 92.0 (78-100) fl MCH 30.5 (26-32) pg MCHC 33.2 (32-36) g/dl RDW 14.1 H (11.5-14.0) % Plt Count 239 (150-450) K/mm3 MPV 10.7 H (6-9.5) fl Gran % 67.2 H (36.0-66.0) % Lymphocytes % 21.2 L (24.0-44.0) % Monocytes % 9.1 (0.0-12.0) % Eosinophils % 2.2 (0.00-5.0) % Basophils % 0.3 (0.0-0.4) % Basophils # 0.02 (0-0.4) Sodium 132 L (136-145) mEq/L Potassium 4.3 (3.5-5.1) mEq/L Chloride 99 (98-107) mEq/L Carbon Dioxide 25.1 (21-32) mEq/L Anion Gap 12.3 (5-15) MEQ/L BUN 18 (9-20) mg/dL Creatinine 1.42 H (0.55-1.30) mg/dl Estimated GFR 38 ML/MIN Glucose 104 (70-110) MG/DL Lactic Acid 0.9 (0.4-2.0) Calcium 9.6 (8.5-10.1) mg/dL Total Bilirubin 0.40 (0.2-1.0) mg/dL AST 26 (15-37) U/L ALT 34 (12-78) U/L Alkaline Phosphatase 77 (46-116) U/L Serum Total Protein 7.4 (6.4-8.2) gm/dL Albumin 3.9 (3.4-5.0) g/dL Amylase 61 (25-115) U/L Lipase 145 (73-393) U/L Ur Collection Type Urine Color (YELLOW) Urine Appearance (CLEAR) Urine pH (5-6) Ur Specific [place] (1.005-1.025) Urine Protein (Negative) Urine Ketones (NEGATIVE) Urine Blood (0-5) Rafita/ul Urine Nitrite (NEGATIVE) Urine Bilirubin (NEGATIVE) Urine Urobilinogen (0-1) mg/dL Ur Leukocyte Esterase (NEGATIVE) Urine Microscopic RBC (0-2) /HPF Urine Microscopic WBC (0-5) /HPF Ur Epithelial Cells (FEW) /HPF Urine Bacteria (NEGATIVE) /HPF Urine Glucose (NEGATIVE) mg/dL Specimen Received 07/02/17 Range/Units 15:45 WBC (4.0-10.5) K/mm3 RBC (4.1-5.4) M/mm3 Hgb (12.0-16.0) gm/dl Hct (35-47) % MCV (78-100) fl MCH (26-32) pg MCHC (32-36) g/dl RDW (11.5-14.0) % Plt Count (150-450) K/mm3 MPV (6-9.5) fl Gran % (36.0-66.0) % Lymphocytes % (24.0-44.0) % Monocytes % (0.0-12.0) % Eosinophils % (0.00-5.0) % Basophils % (0.0-0.4) % Basophils # (0-0.4) Sodium (136-145) mEq/L Potassium (3.5-5.1) mEq/L Chloride (98-107) mEq/L Carbon Dioxide (21-32) mEq/L Anion Gap (5-15) MEQ/L BUN (9-20) mg/dL Creatinine (0.55-1.30) mg/dl Estimated GFR ML/MIN Glucose (70-110) MG/DL Lactic Acid (0.4-2.0) Calcium (8.5-10.1) mg/dL Total Bilirubin (0.2-1.0) mg/dL AST (15-37) U/L ALT (12-78) U/L Alkaline Phosphatase (46-116) U/L Serum Total Protein (6.4-8.2) gm/dL Albumin (3.4-5.0) g/dL Amylase (25-115) U/L Lipase (73-393) U/L Ur Collection Type CCMS Urine Color YELLOW (YELLOW) Urine Appearance CLEAR (CLEAR) Urine pH 6.0 (5-6) Ur Specific [place] 1.010 (1.005-1.025) Urine Protein NEGATIVE (Negative) Urine Ketones NEGATIVE (NEGATIVE) Urine Blood NEGATIVE (0-5) Rafita/ul Urine Nitrite NEGATIVE (NEGATIVE) Urine Bilirubin NEGATIVE (NEGATIVE) Urine Urobilinogen NORMAL (0-1) mg/dL Ur Leukocyte Esterase 1+ (NEGATIVE) Urine Microscopic RBC 0-2 (0-2) /HPF Urine Microscopic WBC 5-10 (0-5) /HPF Ur Epithelial Cells FEW (FEW) /HPF Urine Bacteria RARE (NEGATIVE) /HPF Urine Glucose 50 (NEGATIVE) mg/dL Specimen Received 07-02-17 1605 Radiology Exams: Radiology Procedures Category Date Time Status ABDOMEN 2 VIEW Routine Exams 07/02/17 11:30 Completed Assessment/Plan (1) Abdominal pain Current Visit: Yes Status: Acute Assessment & Plan: much improved. Code(s): R10.9 - UNSPECIFIED ABDOMINAL PAIN (2) Failure of outpatient treatment Current Visit: Yes Status: Acute Assessment & Plan: on IV rocephin, will tx x 3d Code(s): Z78.9 - OTHER SPECIFIED HEALTH STATUS (3) UTI (urinary tract infection), bacterial Current Visit: Yes Status: Acute Code(s): N39.0 - URINARY TRACT INFECTION, SITE NOT SPECIFIED; A49.9 - BACTERIAL INFECTION, UNSPECIFIED (4) Leg pain Current Visit: No Status: Acute Assessment & Plan: will change to po pain meds, have PT consult. Chiropractic was helping before this UTI.
[2017-07-03] MEDS: Sodium Chloride 0.9% 1000 ML 1,000 ML IV SCH ×2 (09:47→20:55)
[2017-07-03] MEDS: hydroDIURIL 25 MG PO SCH (09:48)
[2017-07-03] MEDS: Lotensin 10 MG PO SCH (09:48)
[2017-07-03] MEDS: ROCEPHIN 1 Gm-D5w 50 ml Bag** 1 G/50 ML IVPB IV SCH (09:49)
[2017-07-03] MEDS: NORVASC 5 MG PO SCH (09:49)
[2017-07-03] MEDS: Catapres 0.1 MG PO SCH ×2 (09:50→20:56)
[2017-07-03] MEDS ORDERED: NON-FORMULARY ITEM (Amlodipine Besylate 10 Mg [Norvasc 10 Mg] 10 MG) PO SCH (10:00)
[2017-07-03] MEDS ORDERED: BENAZEPRIL HCL 20 MG PO SCH (10:00)
[2017-07-03] MEDS: Miralax Powder 17GM PACKET PO SCH (14:15)
[2017-07-03] MEDS ORDERED: Diflucan 100 MG PO ONE (20:15)
[2017-07-04] MEDS: PATIENT OWN MEDICATION PO PRN ×2 (00:31→21:30)
[2017-07-04] MEDS: Sodium Chloride 0.9% 1000 ML 1,000 ML IV SCH ×2 (06:57→19:37)
[2017-07-04] MEDS: Miralax Powder 17GM PACKET PO SCH (08:33)
[2017-07-04] MEDS: hydroDIURIL 25 MG PO SCH (08:33)
[2017-07-04] MEDS: NORVASC 5 MG PO SCH (08:34)
[2017-07-04] MEDS: Lotensin 10 MG PO SCH (08:34)
[2017-07-04] MEDS: PATIENT OWN MEDICATION PO SCH ×3 (08:35→15:51)
[2017-07-04] MEDS: Catapres 0.1 MG PO SCH ×3 (08:35→21:25)
[2017-07-04] MEDS: ROCEPHIN 1 Gm-D5w 50 ml Bag** 1 G/50 ML IVPB IV SCH ×2 (08:36→10:40)
[2017-07-04] MEDS ORDERED: Ativan 0.5 MG PO PRN (08:45)
[2017-07-04] MEDS: OXYCODONE-ACETAMINOPHEN 10-325 PO PRN ×2 (08:46→15:51)
--- NOTE | 2017-07-04 08:53 | PCM.NOTE ---
Date and Time: 07/04/17 0848 Subjective Assessment: She is still c/o lower abdominal pain an dburning. She got some vagisil last night and it helped a little. Was given a po diflucan last night. She still c/ o leg pain but is not concerned about that, was seeing chiropractor with some relief prior to admission. Feels that her walking is worsening, she has to use a walker all the time. Feels she can't totally empty her bladder. States she feels like she can go "through the roof" due to her increased anxiety. - Review of Systems Constitutional: No Fever Abdominal/Gastrointestinal: Abdominal Pain Objective Exam General Appearance: no apparent distress Neurologic Exam: alert, oriented x 3, cooperative Skin Exam: normal color, warm, dry Respiratory Exam: normal breath sounds, lungs clear, No crackles/rales, No rhonchi, No wheezing Cardiovascular Exam: regular rate/rhythm, normal heart sounds, No murmur Gastrointestinal/Abdomen Exam: soft, normal bowel sounds, No tenderness ( completely nttp), No distention, No mass Extremity Exam: No pedal edema, No swelling Back Exam: normal inspection OBJECTIVE DATA Vital Signs: Vital Signs - 24 hr Temp Pulse Resp BP Pulse Ox 07/04/17 07:16 96.8 F 75 20 157/69 96 07/04/17 04:00 98.4 F 74 17 150/67 96 07/04/17 00:24 98.6 F 83 17 159/72 94 L 07/03/17 23:46 16 07/03/17 19:56 98.5 F 80 18 161/72 94 L 07/03/17 16:00 97.9 F 79 17 179/75 96 07/03/17 11:51 98.5 F 81 18 162/67 96 Pain Assessment - Last Documented Pain Intensity 7 Pain Scale Used 0-10 Pain Scale Intake and Output: Intake & Output 07/01/17 07/02/17 07/03/17 07/04/17 11:59 11:59 11:59 11:59 Intake Total 2140 4088 Output Total 2450 2200 Balance -310 1888 Weight 84.453 kg Radiology Exams: Radiology Procedures Category Date Time Status ABDOMEN 2 VIEW Routine Exams 07/02/17 11:30 Completed BLADDER [US] Routine Exams 07/04/17 08:45 Ordered Assessment/Plan (1) Abdominal pain Current Visit: Yes Status: Acute Assessment & Plan: WIll do bladder scan (post void residual). On admission she had CT abd/pelvis and she had evidence of possible passage of renal stone recently. Code(s): R10.9 - UNSPECIFIED ABDOMINAL PAIN (2) Failure of outpatient treatment Current Visit: Yes Status: Acute Assessment & Plan: On IV rocephin for question of UTI. Will go ahead and change IV rocephin to IV unasyn (pt actually has listed allergy to cephalosporins). Code(s): Z78.9 - OTHER SPECIFIED HEALTH STATUS (3) UTI (urinary tract infection), bacterial Current Visit: Yes Status: Acute Assessment & Plan: Treating based on 06/25/17 UCx that was positive (cultures since then were done while she was on antibiotics). Code(s): N39.0 - URINARY TRACT INFECTION, SITE NOT SPECIFIED; A49.9 - BACTERIAL INFECTION, UNSPECIFIED (4) Leg pain Current Visit: No Status: Acute Assessment & Plan: with urinary retention; will re-MRI the lumbar spine. She hasn't taken any of the percocet for pain yet. (5) Urinary retention Current Visit: Yes Status: Acute Assessment & Plan: post void residual. Code(s): R33.9 - RETENTION OF URINE, UNSPECIFIED (6) HTN (hypertension) Current Visit: Yes Status: Acute Assessment & Plan: High here, 150s systolic. will increase clonidine to 0.2mg po BID. May need to decrease before discharging to home if her increased BP was due to increase in pain. Code(s): I10 - ESSENTIAL (PRIMARY) HYPERTENSION (7) Anxiety Current Visit: Yes Status: Acute Assessment & Plan: will add prn ativan. Code(s): F41.9 - ANXIETY DISORDER, UNSPECIFIED
--- NOTE | 2017-07-04 10:37 | XRAY ---
Indication: Low back pain radiating down right leg. Urinary retention. Sagittal and axial MRI lumbar spine performed without contrast using T1 and T2 weighted sequences. Comparison: September 24, 2016. Sagittal MRI images demonstrates normal lumbar lordosis with again mild levoscoliosis centered at the L3 level. There are stable multilevel degenerative disc desiccation signal with disc space narrowing at the L4-S1 levels and also opposing endplate degenerative discogenic signal changes, Modic type II. No acute fracture, subluxation, or abnormal bone marrow signal. Conus medullaris again terminates at the L1 level. Sagittal images through the T12-L3 levels again negative for disc herniation, spinal canal, or foraminal stenosis. Axial images at the L3-L4-L5 levels again demonstrates mild annular disc osteophyte complex effacing the thecal sac and producing foraminal narrowing, left greater than right. No disc herniation or spinal canal stenosis. Stable mild bilateral degenerative facet and ligament flavum hypertrophy. At the L5-S1 level, there is stable minimal broad-based left paracentral disc bulge with posterior annular tear effacing the thecal sac. Also stable left foraminal stenosis due to broad-based disc bulge and facet hypertrophy with again slight impingement of the exiting left L5 nerve root. No disc extrusion or canal stenosis. Right foramina patent. Impression: Stable MRI lumbar spine again demonstrating multilevel degenerative disc disease detailed level by level. Greatest extent again at L5-S1 level. Negative for disc herniation or spinal canal stenosis.
--- NOTE | 2017-07-04 12:13 | XRAY ---
Indication: Retention. Two-dimensional ultrasound of the urinary bladder was performed per Comparison: None Urinary bladder normally distended without focal mass or wall thickening. Prevoid volume is 109 cc. Postvoid volume is 67 cc. Impression: Urinary bladder residual on post void as detailed. Remaining bladder sonogram is negative.
[2017-07-04 15:12] LABS: Bilirubin NEGATIVE (NEGATIVE); COMPLETE URINE MICROSCOPIC? YES; Collection Type CCMS; Glucose 250 mg/dL (NEGATIVE); Leukocyte Esterase 2+ (NEGATIVE)
[2017-07-04 15:34] LABS: Bacteria MODERATE /HPF (NEGATIVE); Epithelial Cells PACKED /HPF (FEW); WBC >100 /HPF (0-5)
[2017-07-04] MEDS: NYSTOP 30 GM CREAM TOP SCH ×2 (15:47→21:28)
[2017-07-05] MEDS: OXYCODONE-ACETAMINOPHEN 10-325 PO PRN (02:13)
[2017-07-05] MEDS: Sodium Chloride 0.9% 1000 ML 1,000 ML IV SCH (05:26)
[2017-07-05] MEDS: PATIENT OWN MEDICATION PO SCH ×2 (07:16→11:05)
[2017-07-05] MEDS: ROCEPHIN 1 Gm-D5w 50 ml Bag** 1 G/50 ML IVPB IV SCH (09:57)
[2017-07-05] MEDS: NORVASC 5 MG PO SCH (09:58)
[2017-07-05] MEDS: Lotensin 10 MG PO SCH (09:58)
[2017-07-05] MEDS: NYSTOP 30 GM CREAM TOP SCH (09:59)
[2017-07-05] MEDS: Catapres 0.1 MG PO SCH (09:59)
[2017-07-05] MEDS: Miralax Powder 17GM PACKET PO SCH (09:59)
[2017-07-05] MEDS: hydroDIURIL 25 MG PO SCH (09:59)
[2017-07-05 12:51] VITALS: BP 127/61; PULSE 66; O2SAT 96
--- NOTE | 2017-07-05 15:15 | PCM.DS ---
Discharge Summary Date of Admission: 07/02/17 11:14 Admitting Physician: SIVA RODRIGUES Primary Care Provider: SIVA RODRIGUES Allergies Allergies cephalexin [From Keflex] Adverse Reaction (Intermediate, Verified 06/30/17 03:33 ) Diarrhea Hospital Summary - Hospital Course Hospital Course: Pt admitted with abdominal pain, recent UTI, and leg pain. She was put on IV rocephin and observed. Initially she said she was feeling better, then yesterday said she was not better (family is concerned about some dementia). RN saw that her labia were excoriated and red, so in addition to a diflucan po, nystatin cream was started. A bladder ultrasound was negative aside from a post void residual of 64 cc (in a bladder that was originally filled between 100 -150 cc urine). The urine had a lot of sediment, lots of WBC when sent to lab. Since then the urine is very light yellow and clear. Today the pt denies any discomfort and would like to go home. She is walking well with PT per pt report. She will be discharged on some pain medicine for the legs and follow up with me next week. - Vitals & Intake/Output Vital Signs: Vital Signs Temperature 98.3 F 07/05/17 12:00 Pulse Rate 66 07/05/17 12:00 Respiratory Rate 20 07/05/17 12:00 Blood Pressure 127/61 07/05/17 12:00 O2 Sat by Pulse Oximetry 96 07/05/17 12:00 Intake & Output: Intake & Output 07/03/17 07/04/17 07/05/17 07/06/17 11:59 11:59 11:59 11:59 Intake Total 2140 4208 3642 480 Output Total 2450 2200 4700 Balance -310 2007 -1057 480 Weight 84.453 kg - Lab Result Diagrams: 07/02/17 11:49 07/02/17 11:49 Lab Results-Last 24 Hrs: Lab Results-Last 24 Hours 07/04/17 Range/Units 14:45 Ur Collection Type CCMS Urine Color YELLOW (YELLOW) Urine Appearance HAZY (CLEAR) Urine pH 5.0 (5-6) Ur Specific [place] 1.010 (1.005-1.025) Urine Protein NEGATIVE (Negative) Urine Ketones NEGATIVE (NEGATIVE) Urine Blood 5-10 (0-5) Rafita/ul Urine Nitrite NEGATIVE (NEGATIVE) Urine Bilirubin NEGATIVE (NEGATIVE) Urine Urobilinogen NORMAL (0-1) mg/dL Ur Leukocyte Esterase 2+ (NEGATIVE) Urine Microscopic RBC 0-2 (0-2) /HPF Urine Microscopic WBC >100 (0-5) /HPF Ur Epithelial Cells PACKED (FEW) /HPF Urine Bacteria MODERATE (NEGATIVE) /HPF Urine Glucose 250 (NEGATIVE) mg/dL Specimen Received 07/04/17 1431 Micro Results-Entire Visit: Microbiology 07/04/17 14:45 - Preliminary Urine, Indwelling Catheter NO GROWTH TO DATE 07/02/17 16:15 - Final Urine, Void NO GROWTH - Radiology Exams Ordered Rad Exams-Entire Visit: Radiology Procedures Category Date Time Status BLADDER [US] Routine Exams 07/04/17 08:45 Completed MRI L-SPINE WITHOUT CONTRAST [MRI] Routine Exams 07/04/17 08:49 Completed - Procedures and Test Procedures and Tests throughout Hospitalization: Therapy Orders & Screens 07/03/17 09:07 PT Eval & Treat (MD Order) ROUTINE Evaluate: Yes Treat: Yes Reason for Eval:: leg pain Diagnosis: UTI,failed Outpatient,abd pain,back pain, left leg pain 07/04/17 08:46 PT Eval & Treat (MD Order) ROUTINE Evaluate: Yes Treat: Yes Reason for Eval:: Leg pain Diagnosis: UTI,failed Outpatient,abd pain,back pain, left leg pain Discharge Exam General Appearance: no apparent distress Neurologic Exam: alert, oriented x 3, cooperative Skin Exam: normal color, warm, dry Respiratory Exam: normal breath sounds, lungs clear, No crackles/rales, No rhonchi, No wheezing Cardiovascular Exam: regular rate/rhythm, normal heart sounds, No murmur Gastrointestinal/Abdomen Exam: soft, normal bowel sounds, No tenderness Extremity Exam: No pedal edema, No swelling Final Diagnosis/Problem List - Final Discharge Diagnosis/Problem (1) Abdominal pain Current Visit: Yes Status: Acute Assessment & Plan: Much improved. Likely from the UTI, or possibly related to urinary retention. She was treated for 4d with IV antibiotics so will not discharge her on any antibiotic. (2) Failure of outpatient treatment Current Visit: Yes Status: Acute (3) UTI (urinary tract infection), bacterial Current Visit: Yes Status: Acute (4) Leg pain Current Visit: No Status: Acute Assessment & Plan: MRI with some foraminal stenosis; she was seeing chiropracter on admission and fine to see after discharge. Will give a small amount of percocet po; concern for increased falls, increased respiratory depression, and addiction. (5) Urinary retention Current Visit: Yes Status: Acute Assessment & Plan: I have been unable to discuss with urology. Will try to remove the post; if pt doesn't urinate then would replace the post and have her d/c home with it; follow up with urology next week either way. (6) HTN (hypertension) Current Visit: Yes Status: Acute Assessment & Plan: Clonidine increased from 0.1mg po BID to 0.2mg po BID; BP have been well controlled since then, although she did have one in the 100s systolic. Would watch for dizziness/hypotension; could increase falls. Would encourage to help her rise very slowly from bed. (7) Anxiety Current Visit: Yes Status: Chronic Assessment & Plan: With acute exacerbation. Seemed to be better this morning. - Discharge Disposition: Home, Self-Care Condition: Stable Prescriptions: New Clonidine HCl 0.2 mg PO BID #60 tablet Polyethylene Glycol 3350 17 gm [Miralax Powder 17GM PACKET] 17 gm PO DAILY PRN #30 packet PRN Reason: Constipation Nystatin Cream 30 gm [Nystop 30 gm Cream] 1 gm TOP TID #01 tube Oxycodone HCl/Acetaminophen [Oxycodone-Acetaminophen 5-325] 1 each PO TID PRN #15 tablet PRN Reason: Severe Pain Continue Hydrochlorothiazide 25 mg [hydroDIURIL 25 MG] 25 mg PO DAILY Amlodipine Besylate 10 mg [Norvasc 10 MG] 10 mg PO DAILY Benazepril HCl 20 mg PO DAILY Nateglinide 60 mg PO TID Alprazolam 0.25 mg [xanAX 0.25 MG] 1 - 2 tab PO UD PRN PRN Reason: Anxiety Temazepam 15 mg [Restoril 15 MG] 7.5 mg PO HS PRN PRN #15 capsule PRN Reason: Insomnia Discontinued Clonidine HCl 0.1 mg [Catapres 0.1 MG] 0.1 mg PO BID Instructions: Care for Your Post Catheter -- Female, Urinary Retention in Women Follow up with: SIVA RODRIGUES [Primary Care Provider] - 07/12/17 10:45 am Forms: Discharge Instructions, Patient Portal Information
== END 2017-07-05 16:30 | disposition home or self-care (01) | DRG 690 ==
LOC: MED SURG 11:14
PROVIDERS: ADMIT Family Medicine; ATTEND Family Medicine
DX: N39.0 Urinary tract infection, site not specified (principal); A49.9 Bacterial infection, unspecified; R33.9 Retention of urine, unspecified; R10.9 Unspecified abdominal pain; M79.606 Pain in leg, unspecified; I10 Essential (primary) hypertension; F41.9 Anxiety disorder, unspecified; E11.9 Type 2 diabetes mellitus without complications; N28.9 Disorder of kidney and ureter, unspecified; Z78.9 Other specified health status
CPT/HCPCS: 36415; 72148; 74020; 76705; 80053; 81000; 82150; 83605; 83690; 85025; 87086; J0696; J2270; A9270-GY

== ENCOUNTER 2017-07-26 07:04 | Emergency (ER) | payer MEDICARE ==
[2017-07-26 07:30] LABS: Bilirubin NEGATIVE (NEGATIVE); Blood NEGATIVE Ery/ul (0-5); COMPLETE URINE MICROSCOPIC? YES; Collection Type VOID; Epithelial Cells MODERATE /HPF (FEW); Glucose NEGATIVE (NEGATIVE); Leukocyte Esterase TRACE (NEGATIVE)
[2017-07-26 07:31] LABS: ADD URINE CULTURE? YES (NO); Bacteria FEW /HPF (NEGATIVE)
--- NOTE | 2017-07-26 07:31 | ERPHSYRPT ---
- History of Present Illness Time Seen by Provider: 07/26/17 07:14 Source: patient Patient Subjective Stated Complaint: pt pink, warm, dry. pt ambulated into ER without difficulty. pt afebrile. abdomen soft. nontender. Triage Nursing Assessment: see above Physician History: CC: dysuria Hx: [address] Caba scheduled for back surgery procedure this AM per Dr Kurtz. She had recent UTI. She reports feeling anxious, burning with urination, and some bilateral flank pain since early AM today. No fever. Some nausea. No vomiting. No abd pain. No vaginal disch but has used yeast cream since prior hospitalization. Allergic to keflex. Timing/Duration: today Severity of Pain-Max: moderate Severity of Pain-Current: mild Allergies/Adverse Reactions: cephalexin [From Keflex] Adverse Reaction (Intermediate, Verified 07/26/17 07:24 ) Diarrhea Home Medications: Amlodipine Besylate 10 mg [Norvasc 10 MG] 10 mg PO DAILY 08/29/15 [History] Benazepril HCl 20 mg PO DAILY 08/29/15 [History] Hydrochlorothiazide 25 mg [hydroDIURIL 25 MG] 25 mg PO DAILY 08/29/15 [ History] Nateglinide 60 mg PO TID 11/22/16 [History] Alprazolam 0.25 mg [xanAX 0.25 MG] 1 - 2 tab PO UD PRN 07/02/17 [History] Hx Tetanus, Diphtheria Vaccination/Date Given: Yes (up to date) Hx Influenza Vaccination/Date Given: Yes Hx Pneumococcal Vaccination/Date Given: No - Review of Systems Constitutional: Malaise, No Fever, No Chills Eyes: No Symptoms Ears, Nose, & Throat: No Symptoms Respiratory: No Cough, No Dyspnea Cardiac: No Chest Pain Abdominal/Gastrointestinal: Nausea, No Abdominal Pain, No Vomiting, No Diarrhea Genitourinary Symptoms: Dysuria Musculoskeletal: Back Pain, No Fall, No Injury Neurological: No Focal Weakness, No Parasthesia All Other Systems: Reviewed and Negative - Past Medical History Pertinent Past Medical History: Yes Neurological History: No Pertinent History ENT History: Cataracts Cardiac History: Hypertension Respiratory History: No Pertinent History Endocrine Medical History: Diabetes Type II Musculoskeletal History: No Pertinent History GI Medical History: GERD History: No Pertinent History Psycho-Social History: No Pertinent History Female Reproductive Disorders: No Pertinent History Other Medical History: chronic pain- sees dr frost - Past Surgical History Past Surgical History: Yes Neuro Surgical History: No Pertinent History Cardiac: No Pertinent History Respiratory: No Pertinent History Gastrointestinal: Cholecystectomy Genitourinary: No Pertinent History Musculoskeletal: No Pertinent History Female Surgical History: No Pertinent History Other Surgical History: Tonsils out, cataract surgery bilat - Social History Smoking Status: Never smoker Exposure to second hand smoke: No Drug Use: none Patient Lives Alone: No - Nursing Vital Signs Nursing Vital Signs: Initial Vital Signs Temperature 98.5 F 07/26/17 07:17 Pulse Rate 59 L 07/26/17 07:17 Respiratory Rate 20 07/26/17 07:17 Blood Pressure 134/61 07/26/17 07:17 O2 Sat by Pulse Oximetry 96 07/26/17 07:17 Pain Scale Pain Intensity 7 - Physical Exam General Appearance: alert Eye Exam: PERRL/EOMI Ears, Nose, Throat Exam: normal ENT inspection, moist mucous membranes Neck Exam: normal inspection, non-tender, supple Respiratory Exam: normal breath sounds Cardiovascular Exam: regular rate/rhythm Gastrointestinal/Abdomen Exam: soft, No tenderness, No distention Extremity Exam: normal inspection, normal range of motion, No pedal edema Neurologic Exam: alert, oriented x 3, cooperative, sensation nml, No motor deficits Skin Exam: warm, dry, No rash SpO2 Interpretation: normal SpO2: 96 Oxygen Delivery: Room Air - Course Nursing assessment & vital signs reviewed: Yes Ordered Tests: Active Orders 24 hr Category Date Time Status Clean Catch Urine Specimen STAT Care 07/26/17 07:14 Active BMP Stat Lab 07/26/17 07:35 Completed CBC W DIFF Stat Lab 07/26/17 07:35 Completed CULTURE,URINE Stat Lab 07/26/17 07:14 Received Lactic Acid Stat Lab 07/26/17 07:40 Completed UA W/ MICROSCOPIC Stat Lab 07/26/17 07:14 Completed Lab/Rad Data: Laboratory Result Diagrams 07/26/17 07:35 07/26/17 07:35 Laboratory Results 07/26/17 07/26/17 07/26/17 Range/Units 07:40 07:35 07:35 WBC 5.8 (4.0-10.5) K/mm3 RBC 4.01 L (4.1-5.4) M/mm3 Hgb 12.1 (12.0-16.0) gm/dl Hct 37.5 (35-47) % MCV 93.5 (78-100) fl MCH 30.1 (26-32) pg MCHC 32.3 (32-36) g/dl RDW 14.3 H (11.5-14.0) % Plt Count 246 (150-450) K/mm3 MPV 11.3 H (6-9.5) fl Gran % 57.0 (36.0-66.0) % Lymphocytes % 29.0 (24.0-44.0) % Monocytes % 9.7 (0.0-12.0) % Eosinophils % 4.0 (0.00-5.0) % Basophils % 0.3 (0.0-0.4) % Basophils # 0.02 (0-0.4) Sodium 136 (136-145) mEq/L Potassium 4.8 (3.5-5.1) mEq/L Chloride 102 (98-107) mEq/L Carbon Dioxide 26.3 (21-32) mEq/L Anion Gap 12.9 (5-15) MEQ/L BUN 26 H (9-20) mg/dL Creatinine 1.50 H (0.55-1.30) mg/dl Estimated GFR 35 ML/MIN Glucose 162 H (70-110) MG/DL Lactic Acid 1.7 (0.4-2.0) Calcium 9.6 (8.5-10.1) mg/dL Ur Collection Type Urine Color (YELLOW) Urine Appearance (CLEAR) Urine pH (5-6) Ur Specific [place] (1.005-1.025) Urine Protein (Negative) Urine Ketones (NEGATIVE) Urine Blood (0-5) Rafita/ul Urine Nitrite (NEGATIVE) Urine Bilirubin (NEGATIVE) Urine Urobilinogen (0-1) mg/dL Ur Leukocyte Esterase (NEGATIVE) Urine Microscopic WBC (0-5) /HPF Ur Epithelial Cells (FEW) /HPF Urine Bacteria (NEGATIVE) /HPF Urine Glucose (NEGATIVE) mg/dL Specimen Received 07/26/17 Range/Units 07:14 WBC (4.0-10.5) K/mm3 RBC (4.1-5.4) M/mm3 Hgb (12.0-16.0) gm/dl Hct (35-47) % MCV (78-100) fl MCH (26-32) pg MCHC (32-36) g/dl RDW (11.5-14.0) % Plt Count (150-450) K/mm3 MPV (6-9.5) fl Gran % (36.0-66.0) % Lymphocytes % (24.0-44.0) % Monocytes % (0.0-12.0) % Eosinophils % (0.00-5.0) % Basophils % (0.0-0.4) % Basophils # (0-0.4) Sodium (136-145) mEq/L Potassium (3.5-5.1) mEq/L Chloride (98-107) mEq/L Carbon Dioxide (21-32) mEq/L Anion Gap (5-15) MEQ/L BUN (9-20) mg/dL Creatinine (0.55-1.30) mg/dl Estimated GFR ML/MIN Glucose (70-110) MG/DL Lactic Acid (0.4-2.0) Calcium (8.5-10.1) mg/dL Ur Collection Type VOID Urine Color YELLOW (YELLOW) Urine Appearance CLEAR (CLEAR) Urine pH 5.0 (5-6) Ur Specific [place] 1.010 (1.005-1.025) Urine Protein TRACE (Negative) Urine Ketones NEGATIVE (NEGATIVE) Urine Blood NEGATIVE (0-5) Rafita/ul Urine Nitrite NEGATIVE (NEGATIVE) Urine Bilirubin NEGATIVE (NEGATIVE) Urine Urobilinogen NORMAL (0-1) mg/dL Ur Leukocyte Esterase TRACE (NEGATIVE) Urine Microscopic WBC 5-10 (0-5) /HPF Ur Epithelial Cells MODERATE (FEW) /HPF Urine Bacteria FEW (NEGATIVE) /HPF Urine Glucose NEGATIVE (NEGATIVE) mg/dL Specimen Received 07/26/17 0730 - Progress Progress Note: 07/26/17 08:57 Pt is stable, afebrile, reassuring labs. Called Dr Kurtz and Dr Caba and will culture urine. She will have her preop abtx prior to OR. Will release for her normal preop care. Counseled pt/family regarding: lab results, diagnosis, need for follow-up - Departure Time of Disposition: 08:58 Departure Disposition: Home Clinical Impression: Dysuria Condition: Stable Critical Care Time: No Referrals: SIVA CABA [Primary Care Provider] - Instructions: Dysuria -- Adult Additional Instructions: Normal preoperative care. Your urine was sent for a culture and Dr Caba can follow up.
[2017-07-26 07:46] LABS: BASOPHIL % 0.3 % (0.0-0.4); Mean Cell Volume 93.5 fl (78-100); Mean Platelet Volume 11.3 fl (6-9.5); Monocytes % 9.7 % (0.0-12.0); Platelet Count 246 K/mm3 (150-450); Red Blood Count 4.01 M/mm3 (4.1-5.4); Red Cell Distribution Width 14.3 % (11.5-14.0); White Blood Count 5.8 K/mm3 (4.0-10.5)
[2017-07-26 07:49] LABS: Mean Corpuscular Hemoglobin 30.1 pg (26-32)
[2017-07-26 08:08] LABS: ANION GAP 12.9 MEQ/L (5-15); Carbon Dioxide 26.3 mEq/L (21-32); Potassium 4.8 mEq/L (3.5-5.1)
[2017-07-26] MEDS ORDERED: NORCO 5/325 MG PO ONE (09:01)
[2017-07-26] MEDS ORDERED: NORCO 5/325 MG ONE (09:04)
[2017-07-26 09:22] VITALS: BP 139/62; PULSE 80; O2SAT 97
== END 2017-07-26 09:23 | disposition home or self-care (01) ==
LOC: ED 07:04
DX: R30.0 Dysuria (principal); R10.9 Unspecified abdominal pain; R11.0 Nausea; Z87.440 Personal history of urinary (tract) infections
CPT/HCPCS: 36415; 80048; 81000; 83605; 85025; 87086; 99283; A9270-GY

== ENCOUNTER 2018-05-09 08:21 | Observation (INO) | payer MEDICARE ==
[2018-05-09] MEDS ORDERED: DUONEB 0.5-3 MG/3 ml Neb IH ONE ×2 (08:59→09:14)
--- NOTE | 2018-05-09 09:04 | ERPHSYRPT ---
- History of Present Illness Time Seen by Provider: 05/09/18 08:53 Source: patient Exam Limitations: no limitations Patient Subjective Stated Complaint: pt reports productive cough with yellow sputum-states it feels like it has settled in her chest-tx at [facility] a few days ago with no relief Triage Nursing Assessment: pt pink warm and dry-no sob noted-harsh deep cough noted intermittant throughout triage-no retractions noted Physician History: 83-year-old white female with history of cataracts, high blood pressure, diabetes, GERD, chronic pain She arrives with complaint of coughing since yesterday she was seen at [facility] she states she has no better she states she feels raw from her epigastric region up to her jugular notch. . She has not had any fever she states she's had a cough productive of white sputum. Past medical history includes cataracts, high blood pressure, diabetes, chronic pain. Past surgical history includes cholecystectomy tonsils cataracts Timing/Duration: yesterday Severity: moderate Modifying Factors: Improves With: nothing Associated Symptoms: cough, No nausea, No vomiting, No abdominal pain, No shortness of breath, No heartburn, No diaphoresis, No chills, No chest pain, No fever, No headaches, No loss of appetite, No malaise, No rash, No syncope, No seizure, No weakness Allergies/Adverse Reactions: cephalexin [From Keflex] Adverse Reaction (Intermediate, Verified 05/09/18 08:42 ) Diarrhea Home Medications: Dicyclomine HCl 10 mg PO UD 05/09/18 [History] Donepezil HCl [Donepezil HCl] 5 mg PO UD 05/09/18 [History] Glipizide Xl 10 mg [Glucotrol Xl 10 MG] 10 mg PO UD 05/09/18 [History] Lisinopril [Zestril] 2.5 mg PO UD 05/09/18 [History] Pramipexole Di-HCl [Pramipexole Dihydrochloride] 0.25 mg PO UD 05/09/18 [History ] Sertraline HCl [Sertraline HCl] 25 mg PO UD 05/09/18 [History] Sitagliptin Phosphate 50 MG [Januvia 50 MG] 50 mg PO UD 05/09/18 [History] Temazepam [Temazepam] 7.5 mg PO UD 05/09/18 [History] cloNIDine HCl [Clonidine HCl] 0.2 mg PO UD 05/09/18 [History] hydroCHLOROthiazide [Hydrochlorothiazide] 25 mg PO UD 05/09/18 [History] Hx Tetanus, Diphtheria Vaccination/Date Given: Yes Hx Influenza Vaccination/Date Given: Yes Hx Pneumococcal Vaccination/Date Given: No Immunizations Up to Date: Yes - Review of Systems Constitutional: No Fever, No Chills Eyes: No Symptoms Ears, Nose, & Throat: No Symptoms Respiratory: Cough, Dyspnea, Wheezing, No Cyanosis, No Dyspnea on Exertion (YI) Cardiac: Other (substernal region raw with breathing) Abdominal/Gastrointestinal: No Abdominal Pain, No Nausea, No Vomiting, No Diarrhea Genitourinary Symptoms: No Dysuria Musculoskeletal: No Back Pain, No Neck Pain Skin: No Rash Neurological: No Dizziness, No Focal Weakness, No Sensory Changes Psychological: No Symptoms Endocrine: No Symptoms All Other Systems: Reviewed and Negative - Past Medical History Pertinent Past Medical History: Yes Neurological History: No Pertinent History ENT History: Cataracts Cardiac History: Hypertension Respiratory History: No Pertinent History Endocrine Medical History: Adrenal Insufficiency, Diabetes Type II Musculoskeletal History: Degenerative Disk Disease, Osteoarthritis GI Medical History: GERD History: No Pertinent History Psycho-Social History: No Pertinent History Female Reproductive Disorders: No Pertinent History Other Medical History: chronic pain- sees dr frost - Past Surgical History Past Surgical History: Yes Neuro Surgical History: No Pertinent History Cardiac: No Pertinent History Respiratory: No Pertinent History Gastrointestinal: Cholecystectomy Genitourinary: No Pertinent History Musculoskeletal: No Pertinent History Female Surgical History: No Pertinent History Other Surgical History: Tonsils out, cataract surgery bilat - Social History Smoking Status: Never smoker Exposure to second hand smoke: No Drug Use: none Patient Lives Alone: No - Female History Hx Now: No - Nursing Vital Signs Nursing Vital Signs: Initial Vital Signs Respiratory Rate 20 05/09/18 08:38 O2 Sat by Pulse Oximetry 97 05/09/18 08:38 Pain Scale Pain Intensity 0 - Physical Exam General Appearance: no apparent distress, alert Eye Exam: PERRL/EOMI, eyes nml inspection Ears, Nose, Throat Exam: normal ENT inspection, TMs normal, pharynx normal, moist mucous membranes Neck Exam: normal inspection, non-tender, supple, full range of motion Respiratory Exam: other (Scattered wheezes forced wheezing) Cardiovascular Exam: regular rate/rhythm, normal heart sounds, normal peripheral pulses Gastrointestinal/Abdomen Exam: soft, normal bowel sounds, No tenderness, No mass Back Exam: normal inspection Extremity Exam: normal inspection, normal range of motion, pelvis stable Neurologic Exam: alert, oriented x 3, cooperative, house painter II-XII nml as tested, normal mood/affect, nml cerebellar function, nml station & gait, sensation nml, No motor deficits Skin Exam: normal color, warm, dry, No rash Lymphatic Exam: No adenopathy SpO2 Interpretation: normal (96%) SpO2: 96 Oxygen Delivery: Room Air - Course Nursing assessment & vital signs reviewed: Yes EKG Interpreted by Me: RATE (83 bpm), Sinus Rhythm, Left [place] Deviation, Other ( EKG sinus rhythm 83 beats for minute left axis deviation no acute ST or T wave changes noted) - Radiology Exams Chest X-ray Interpretation: Discussed w/ radiologist (stable nonacute chest with chronic features) Ordered Tests: Active Orders 24 hr Category Date Time Status EKG-ER Only STAT Care 05/09/18 08:59 Active IV Insertion STAT Care 05/09/18 08:59 Active CHEST 1 VIEW (PORTABLE) Stat Exams 05/09/18 09:00 Completed CBC W DIFF Stat Lab 05/09/18 08:59 Completed CMP Stat Lab 05/09/18 08:59 Completed Manual Differential NC Stat Lab 05/09/18 08:59 Completed TROPONIN Q3H Lab 05/09/18 09:00 Completed TROPONIN Q3H Lab 05/09/18 12:00 Ordered TROPONIN Q3H Lab 05/09/18 15:00 Ordered TROPONIN Q3H Lab 05/09/18 18:00 Ordered TROPONIN Q3H Lab 05/09/18 21:00 Ordered Respiratory Nebulizer STAT RT 05/09/18 09:01 Completed Medication Summary Discontinued Medications Generic Name Dose Route Start Last Admin Trade Name Freq PRN Reason Stop Dose Admin Albuterol/Ipratropium 3 ml 05/09/18 08:59 05/09/18 09:17 Duoneb 0.5-3 Mg/3 Ml Neb IH 05/09/18 09:00 3 ml STAT ONE Administration Albuterol/Ipratropium Confirm 05/09/18 09:14 Duoneb 0.5-3 Mg/3 Ml Neb Administered 05/09/18 09:15 Dose 3 ml IH .STK-MED ONE Methylprednisolone Sodium Succinate 125 mg 05/09/18 10:17 05/09/18 10:20 Solu-Medrol 125 Mg IV 05/09/18 10:18 125 mg STAT ONE Administration Methylprednisolone Sodium Succinate Confirm 05/09/18 10:20 Solu-Medrol 125 Mg Administered 05/09/18 10:21 Dose 125 mg .ROUTE .STK-MED ONE Lab/Rad Data: Laboratory Result Diagrams 05/09/18 08:59 05/09/18 08:59 Laboratory Results 05/09/18 05/09/18 05/09/18 Range/Units 09:00 08:59 08:59 WBC 10.1 (4.0-10.5) K/mm3 RBC 4.60 (4.1-5.4) M/mm3 Hgb 13.3 (12.0-16.0) gm/dl Hct 40.5 (35-47) % MCV 88.0 (78-100) fl MCH 28.9 (26-32) pg MCHC 32.8 (32-36) g/dl RDW 15.5 H (11.5-14.0) % Plt Count 282 (150-450) K/mm3 MPV 11.6 H (6-9.5) fl Absolute Granulocytes 6.90 (1.4-6.9) Segmented Neutrophils 57 (36.0-66.0) % Band Neutrophils 3 H (0.0-2.0) % Lymphocytes (Manual) 32 (24-44) % Monocytes (Manual) 8 (0.0-12.0) % Platelet Estimate NORMAL (NORMAL) RBC Morphology NORMAL Sodium 140 (137-145) mmol/L Potassium 4.2 (3.5-5.1) mmol/L Chloride 103 (98-107) mmol/L Carbon Dioxide 24 (22-30) mmol/L Anion Gap 17.5 H (5-15) MEQ/L BUN 28 H (7-17) mg/dL Creatinine 1.12 H (0.52-1.04) mg/dL Estimated GFR 49.5 ML/MIN Glucose 181 H (74-106) mg/dL Calcium 10.3 H (8.4-10.2) mg/dL Total Bilirubin 0.40 (0.2-1.3) mg/dL AST 22 (14-36) U/L ALT 23 (0-35) U/L Alkaline Phosphatase 110 (38-126) U/L Troponin I < 0.012 (0.000-0.034) ng/mL Serum Total Protein 8.4 H (6.3-8.2) g/dL Albumin 4.6 (3.5-5.0) g/dL - Progress Progress: improved Progress Note: 05/09/18 10:17 83-year-old white female she arrives with complaint of cough congestion symptoms for several days she states she was seen in [facility] clinic several days ago she states that she is continuing to cough she has a burning in her anterior sternal area with coughing she is not vomiting no diarrhea. She states she feels like she is having a hard time breathing. On physical examination patient had forced wheezes and some scattered wheezing bilaterally. Patient is given a DuoNeb treatment. She states she still doesn't feel good she states she was up all night. Will give patient Solu-Medrol 125 mg IV. Chest x-ray is unremarkable EKG shows sinus rhythm 83 beats per minute left axis deviation troponin is within normal limits Will discuss case with Dr. Garcia tongue presser for Dr. Caba 05/09/18 10:[address] Garcia. Will place patient on observation diagnosis shortness of breath. Bronchitis with bronchospasm. Will provide IV antibiotics, DuoNeb treatments. Will continue monitor. - Departure Time of Disposition: 10:40 Departure Disposition: Observation (Keep him a 6) Clinical Impression: Shortness of breath, Bronchitis with bronchospasm Condition: Fair Critical Care Time: No Referrals: SIVA CABA [Primary Care Provider] -
--- NOTE | 2018-05-09 09:25 | XRAY ---
Indication: Cough and congestion. Comparison: August 30, 2015. Portable chest remains clear with stable incidental left base calcified granuloma. Heart and mediastinal structures within normal limits. Bony thorax intact again with mild degenerative changes. Impression: Stable nonacute chest with chronic features.
[2018-05-09 09:37] LABS: Hematocrit 40.5 % (35-47); Hemoglobin 13.3 gm/dl (12.0-16.0); Mean Corpuscular Hemoglobin 28.9 pg (26-32); Mean Corpuscular Hgb Concent. 32.8 g/dl (32-36); Mean Platelet Volume 11.6 fl (6-9.5); Platelet Count 282 K/mm3 (150-450); Red Cell Distribution Width 15.5 % (11.5-14.0); White Blood Count 10.1 K/mm3 (4.0-10.5)
[2018-05-09 09:52] LABS: ALBUMIN 4.6 g/dL (3.5-5.0); ANION GAP 17.5 MEQ/L (5-15); BILIRUBIN,TOTAL 0.4 mg/dL (0.2-1.3); Calcium 10.3 mg/dL (8.4-10.2); Creatinine 1 1.12 mg/dL (0.52-1.04); Potassium 4.2 mmol/L (3.5-5.1); Total Protein 8.4 g/dL (6.3-8.2)
[2018-05-09] MEDS ORDERED: solu-MEDROL 125 MG IV ONE (10:17)
[2018-05-09] MEDS ORDERED: solu-MEDROL 125 MG ONE (10:20)
[2018-05-09 10:33] LABS: BAND 3 % (0.0-2.0); Lymphocytes 32 % (24-44); Monocyte 8 % (0.0-12.0); Neutrophils 57 % (36.0-66.0); Total Cells Counted 100
[2018-05-09 10:34] LABS: Platelet Estimate NORMAL (NORMAL)
[2018-05-09] MEDS ORDERED: Levofloxacin 500MG/100ML D5W 500 MG/100 ML BAG IV STA (10:41)
[2018-05-09] MEDS ORDERED: Levofloxacin 500MG/100ML D5W 500 MG/100 ML BAG IV ONE (10:46)
[2018-05-09] MEDS ORDERED: DUONEB 0.5-3 MG/3 ml Neb IH PRN (11:13)
[2018-05-09] MEDS ORDERED: PROVENTIL 2.5 MG/3 ML NEB IH PRN (11:41)
[2018-05-09] MEDS ORDERED: Sodium Chloride 0.9% 10 ML FLUSH Syringe IV PRN (11:50)
[2018-05-09] MEDS ORDERED: TEMAZEPAM 7.5 MG PO PRN (13:14)
[2018-05-09] MEDS ORDERED: BENTYL 20 MG PO PRN (13:20)
[2018-05-09] MEDS ORDERED: MEDICATION INTERVENTION MC SCH (13:30)
[2018-05-09] MEDS ORDERED: Zestril 5 MG PO SCH (13:30)
[2018-05-09] MEDS: Sodium Chloride 0.9% 10 ML FLUSH Syringe IV SCH ×2 (14:05→21:38)
[2018-05-09] MEDS: DUONEB 0.5-3 MG/3 ml Neb IH SCH ×3 (14:41→23:15)
--- NOTE | 2018-05-09 16:06 | PCM.HP ---
History of Present Illness - Chief Complaint Chief Complaint: Shortness of Breath History of Present Illness: is a 83 year old female patient of Dr Caba who presented to the ER with a 2 day history of cough productive of green sputum with wheezing and shortness of breath. She was seen at [facility] and given a shot and worsened over the last 2 days. No fever, no nausea, vomiting or diarrhea. No other complaints, no chest pain. - Review of Systems Constitutional: No Fever, No Chills Respiratory: Cough, Short Of Breath Cardiac: No Chest Pain, No Edema, No Syncope Abdominal/Gastrointestinal: No Symptoms Genitourinary Symptoms: No Dysuria Skin: No Rash All Other Systems: Reviewed and Negative Medications & Allergies Home Medications: Home Medication List Dicyclomine HCl 10 mg PO TID PRN PRN 05/09/18 [History Confirmed 05/09/18] Donepezil HCl [Donepezil HCl] 5 mg PO HS 05/09/18 [History Confirmed 05/09/18] Glipizide Xl 10 mg [Glucotrol Xl 10 MG] 10 mg PO DAILY 05/09/18 [History Confirmed 05/09/18] Lisinopril [Zestril] 2.5 mg PO DAILY 05/09/18 [History Confirmed 05/09/18] Pramipexole Di-HCl [Pramipexole Dihydrochloride] 0.25 mg PO HS 05/09/18 [ History Confirmed 05/09/18] Sertraline HCl [Sertraline HCl] 25 mg PO HS 05/09/18 [History Confirmed 05/09/18 ] Sitagliptin Phosphate 50 MG [Januvia 50 MG] 50 mg PO DAILY 05/09/18 [ History Confirmed 05/09/18] Temazepam [Temazepam] 7.5 mg PO HS PRN PRN 05/09/18 [History Confirmed 05/09/18] cloNIDine HCl [Clonidine HCl] 0.2 mg PO BID 05/09/18 [History Confirmed 05/09/18 ] hydroCHLOROthiazide [Hydrochlorothiazide] 25 mg PO DAILY 05/09/18 [History Confirmed 05/09/18] Allergies/Adverse Reactions: Allergies Allergy/AdvReac Type Severity Reaction Status Date / Time cephalexin [From Keflex] AdvReac Intermediate Diarrhea Verified 05/09/18 08:42 - Past Medical History Past Medical History: Yes Neurological History: No Pertinent History ENT History: Cataracts Cardiac History: Hypertension Respiratory History: No Pertinent History Endocrine Medical History: Adrenal Insufficiency, Diabetes Type II Musculoskelatal History: Degenerative Disk Disease, Osteoarthritis GI Medical History: GERD History: No Pertinent History Pyscho-Social History: No Pertinent History Reproductive Disorders: No Pertinent History Comment: chronic pain- sees dr frost - Female History Are you now?: No - Past Surgical History Past Surgical History: Yes Neuro Surgical History: No Pertinent History Cardiac History: No Pertinent History Respiratory Surgery: No Pertinent History GI Surgical History: Cholecystectomy Genitourinary Surgical Hx: No Pertinent History Musculskeletal Surgical Hx: No Pertinent History Female Surgical History: No Pertinent History Other Surgical History: Tonsils out, cataract surgery bilat - Social History Smoking Status: Never smoker Exposure to second hand smoke: No Alcohol: None Drug Use: none - Physical Exam Vital Signs: Vital Signs - 24 hr Temp Pulse Resp BP Pulse Ox 05/09/18 14:44 87 20 93 L 05/09/18 11:44 85 18 95 05/09/18 11:20 98.6 F 82 16 144/58 97 05/09/18 10:52 82 16 144/58 97 05/09/18 10:41 96 05/09/18 10:21 75 14 144/58 95 05/09/18 09:47 78 16 155/60 96 05/09/18 09:01 89 20 96 05/09/18 08:39 98.6 F 72 20 179/73 96 05/09/18 08:38 20 97 General Appearance: no apparent distress, alert Respiratory Exam: rhonchi, wheezing, No accessory muscle use Cardiovascular Exam: regular rate/rhythm, normal heart sounds, normal peripheral pulses Gastrointestinal/Abdomen Exam: soft, normal bowel sounds, No tenderness, No mass Extremity Exam: normal inspection, normal range of motion, pelvis stable Skin Exam: normal color, warm, dry, No rash Results - Labs Lab/Micro Results: Accuchecks Date 05/09/18 Time 11:30 Accucheck Value: 199 Lab Results-Last 24 Hours 05/09/18 05/09/18 Range/Units 12:00 15:14 Troponin I < 0.012 < 0.012 (0.000-0.034) ng/mL Accuchecks Date 05/09/18 Time 11:30 Accucheck Value: 199 - Other Procedures and Tests Respiratory Therapy 05/09/18 11:44 Respiratory Nebulizer UD 05/09/18 15:00 Respiratory Nebulizer Q4H Assessment/Plan (1) Bronchitis with bronchospasm Current Visit: Yes Status: Acute Assessment & Plan: continue levaquin, IV solu medrol and nebulizer therapy at this time. Code(s): J20.9 - ACUTE BRONCHITIS, UNSPECIFIED (2) Failure of outpatient treatment Current Visit: No Status: Acute Code(s): Z78.9 - OTHER SPECIFIED HEALTH STATUS
[2018-05-09] MEDS ORDERED: TYLENOL 325 MG PO PRN (16:07)
[2018-05-09] MEDS ORDERED: Zofran 4 MG/2 ML VIAL IV PRN (16:07)
[2018-05-09] MEDS: solu-MEDROL 125 MG IV SCH ×2 (17:49→23:30)
[2018-05-09] MEDS: NovoLOG Insulin SQ PRN ×2 (17:50→21:33)
[2018-05-09] MEDS ORDERED: Mirapex 0.5 MG Tablet PO SCH (22:00)
[2018-05-09] MEDS ORDERED: Aricept 10 MG PO SCH (22:00)
[2018-05-09] MEDS ORDERED: Catapres 0.1 MG PO SCH (22:00)
[2018-05-10] MEDS: DUONEB 0.5-3 MG/3 ml Neb IH SCH ×2 (03:11→08:20)
[2018-05-10] MEDS: Sodium Chloride 0.9% 10 ML FLUSH Syringe IV SCH (05:40)
[2018-05-10] MEDS: solu-MEDROL 125 MG IV SCH (05:40)
[2018-05-10 05:58] LABS: Granulocyte Absolute (ANC) 11.39 (1.4-6.9); Hematocrit 36.2 % (35-47); Hemoglobin 11.7 gm/dl (12.0-16.0); Mean Cell Volume 88.7 fl (78-100); Mean Corpuscular Hgb Concent. 32.3 g/dl (32-36); Mean Platelet Volume 11.4 fl (6-9.5); Platelet Count 269 K/mm3 (150-450); Red Blood Count 4.08 M/mm3 (4.1-5.4); Red Cell Distribution Width 15.6 % (11.5-14.0); White Blood Count 12.3 K/mm3 (4.0-10.5)
[2018-05-10 06:13] LABS: ALBUMIN 3.9 g/dL (3.5-5.0); ANION GAP 18.9 MEQ/L (5-15); BILIRUBIN,TOTAL 0.2 mg/dL (0.2-1.3); Calcium 9.4 mg/dL (8.4-10.2); Creatinine 1 1.37 mg/dL (0.52-1.04); Potassium 3.8 mmol/L (3.5-5.1); Total Protein 6.9 g/dL (6.3-8.2)
[2018-05-10 06:17] LABS: Mean Corpuscular Hemoglobin 28.6 pg (26-32)
[2018-05-10 06:52] VITALS: BP 140/66; O2SAT 94
[2018-05-10 08:27] VITALS: PULSE 99
[2018-05-10] MEDS: NovoLOG Insulin SQ PRN (08:45)
--- NOTE | 2018-05-10 09:15 | PCM.DS ---
Discharge Summary Date of Admission: 05/09/18 11:09 Admitting Physician: MONIQUE ABRAHAM Primary Care Provider: SIVA RODRIGUES Allergies Allergies cephalexin [From Keflex] Adverse Reaction (Intermediate, Verified 05/09/18 08:42 ) Diarrhea Hospital Summary - Hospital Course Hospital Course: patient was admitted with cough, wheezing and shortness of breath. has improved since admission. oxygen sats are normal, has no oxygen requirement. will d/c to home on po abx, steroids and albuterol hfa - Vitals & Intake/Output Vital Signs: Vital Signs Temperature 98.1 F 05/10/18 06:51 Pulse Rate 99 H 05/10/18 08:21 Respiratory Rate 18 05/10/18 08:21 Blood Pressure 140/66 05/10/18 06:51 O2 Sat by Pulse Oximetry 94 L 05/10/18 08:27 Intake & Output: Intake & Output 05/07/18 05/08/18 05/09/18 05/10/18 11:59 11:59 11:59 11:59 Intake Total 1620 Output Total 550 Balance 1070 Weight 87.543 kg 87.6 kg - Lab Result Diagrams: 05/10/18 05:40 05/10/18 05:40 Lab Results-Last 24 Hrs: Accuchecks Date 05/10/18 Date 05/09/18 Date 05/09/18 Time 07:30 Time 16:30 Time 11:30 Accucheck Value: 377 Accucheck Value: 384 Accucheck Value: 360 Accucheck Value: 199 Lab Results-Last 24 Hours 05/09/18 05/09/18 05/09/18 Range/Units 12:00 15:14 18:30 WBC (4.0-10.5) K/mm3 RBC (4.1-5.4) M/mm3 Hgb (12.0-16.0) gm/dl Hct (35-47) % MCV (78-100) fl MCH (26-32) pg MCHC (32-36) g/dl RDW (11.5-14.0) % Plt Count (150-450) K/mm3 MPV (6-9.5) fl Absolute Granulocytes (1.4-6.9) Sodium (137-145) mmol/L Potassium (3.5-5.1) mmol/L Chloride (98-107) mmol/L Carbon Dioxide (22-30) mmol/L Anion Gap (5-15) MEQ/L BUN (7-17) mg/dL Creatinine (0.52-1.04) mg/dL Estimated GFR ML/MIN Glucose (74-106) mg/dL Calcium (8.4-10.2) mg/dL Total Bilirubin (0.2-1.3) mg/dL AST (14-36) U/L ALT (0-35) U/L Alkaline Phosphatase (38-126) U/L Troponin I < 0.012 < 0.012 < 0.012 (0.000-0.034) ng/mL Serum Total Protein (6.3-8.2) g/dL Albumin (3.5-5.0) g/dL 05/09/18 05/10/18 05/10/18 Range/Units 21:14 05:40 05:40 WBC 12.3 H (4.0-10.5) K/mm3 RBC 4.08 L (4.1-5.4) M/mm3 Hgb 11.7 L (12.0-16.0) gm/dl Hct 36.2 (35-47) % MCV 88.7 (78-100) fl MCH 28.6 (26-32) pg MCHC 32.3 (32-36) g/dl RDW 15.6 H (11.5-14.0) % Plt Count 269 (150-450) K/mm3 MPV 11.4 H (6-9.5) fl Absolute Granulocytes 11.39 H (1.4-6.9) Sodium 136 L (137-145) mmol/L Potassium 3.8 (3.5-5.1) mmol/L Chloride 101 (98-107) mmol/L Carbon Dioxide 20 L (22-30) mmol/L Anion Gap 18.9 H (5-15) MEQ/L BUN 42 H (7-17) mg/dL Creatinine 1.37 H (0.52-1.04) mg/dL Estimated GFR 39.2 ML/MIN Glucose 376 H (74-106) mg/dL Calcium 9.4 (8.4-10.2) mg/dL Total Bilirubin 0.20 (0.2-1.3) mg/dL AST 20 (14-36) U/L ALT 25 (0-35) U/L Alkaline Phosphatase 98 (38-126) U/L Troponin I 0.012 (0.000-0.034) ng/mL Serum Total Protein 6.9 (6.3-8.2) g/dL Albumin 3.9 (3.5-5.0) g/dL Micro Results-Entire Visit: Accuchecks Date 05/10/18 Date 05/09/18 Date 05/09/18 Time 07:30 Time 16:30 Time 11:30 Accucheck Value: 377 Accucheck Value: 384 Accucheck Value: 360 Accucheck Value: 199 - Procedures and Test Procedures and Tests throughout Hospitalization: Therapy Orders & Screens 05/09/18 11:44 Respiratory Nebulizer UD Comment: ALBUTEROL Q2PRN Diagnosis: Shortness of Breath 05/09/18 15:00 Respiratory Nebulizer Q4H Comment: DUONEB Q4 Diagnosis: Shortness of Breath Discharge Exam General Appearance: no apparent distress, alert Skin Exam: normal color, warm, dry Respiratory Exam: normal breath sounds, lungs clear, No respiratory distress Cardiovascular Exam: regular rate/rhythm, normal heart sounds Gastrointestinal/Abdomen Exam: soft, No tenderness, No mass Extremity Exam: normal inspection, normal range of motion Final Diagnosis/Problem List - Final Discharge Diagnosis/Problem (1) Bronchitis with bronchospasm Current Visit: Yes Status: Acute (2) Failure of outpatient treatment Current Visit: No Status: Acute - Discharge Disposition: Home, Self-Care Condition: Fair Prescriptions: New Albuterol Sulfate [Albuterol Sulfate Hfa] 2 puffs IH Q4-6HPRN PRN #1 [id number] PRN Reason: Cough Levofloxacin [Levaquin] 500 mg PO DAILY #7 tablet Methylprednisolone Packet [Medrol Dosepack] 4 mg PO UD #30 packet Continue hydroCHLOROthiazide [Hydrochlorothiazide] 25 mg PO DAILY cloNIDine HCl [Clonidine HCl] 0.2 mg PO BID Temazepam 7.5 mg PO HS PRN PRN PRN Reason: Insomnia Sitagliptin Phosphate 50 MG [Januvia 50 MG] 50 mg PO DAILY Sertraline HCl 25 mg PO HS Pramipexole Di-HCl [Pramipexole Dihydrochloride] 0.25 mg PO HS Lisinopril [Zestril] 2.5 mg PO DAILY Glipizide Xl 10 mg [Glucotrol Xl 10 MG] 10 mg PO DAILY Donepezil HCl 5 mg PO HS Dicyclomine HCl 10 mg PO TID PRN PRN PRN Reason: Diarrhea Melatonin/Pyridoxine [Melatonin 5 mg Tablet] 2 each PO HS Follow up with: SIVA RODRIGUES [Primary Care Provider] - 1 Week
[2018-05-10 09:19] LABS: BAND 5 % (0.0-2.0); Lymphocytes 3 % (24-44); Monocyte 1 % (0.0-12.0); Neutrophils 91 % (36.0-66.0); Platelet Estimate NORMAL (NORMAL); Total Cells Counted 100
[2018-05-10 09:20] LABS: Hypochromia 1+
[2018-05-10] MEDS ORDERED: ZOLOFT 50 MG TABLET PO SCH (10:00)
[2018-05-10] MEDS ORDERED: hydroDIURIL 25 MG PO SCH (10:00)
[2018-05-10] MEDS ORDERED: ENOXAPARIN SODIUM SQ SCH (10:00)
[2018-05-11] MEDS ORDERED: Levofloxacin 500MG/100ML D5W 500 MG/100 ML BAG IV SCH (10:00)
== END 2018-05-10 09:56 | disposition home or self-care (01) ==
LOC: ED 08:21 → MED SURG 11:09
PROVIDERS: ADMIT Family Medicine; ATTEND Family Medicine
DX: J20.9 Acute bronchitis, unspecified (principal); Z78.9 Other specified health status; E11.9 Type 2 diabetes mellitus without complications; M19.90 Unspecified osteoarthritis, unspecified site; K21.9 Gastro-esophageal reflux disease without esophagitis
CPT/HCPCS: 36000; 36415; 71045; 80053; 84484; 85025; 93005; 93268; 94150; 94640; 94760; 96365; 96374; 99285; J1956; J2930; A9270-GY; G0378

== ENCOUNTER 2018-10-17 18:21 | Emergency (ER) | payer MEDICARE ==
--- NOTE | 2018-10-17 20:12 | ERPHSYRPT ---
- History of Present Illness Time Seen by Provider: 10/17/18 20:07 Source: patient Exam Limitations: no limitations Patient Subjective Stated Complaint: pt here for pain and swelling to left leg for a couple days now, had a doppler done at dr be office today, Triage Nursing Assessment: pt arrived per wc, alert, resp easy, skin w/d/p. edema to both legs, left lower leg tender totouch +2 edema and with hard area behind knee Physician History: The patient is an 83-year-old female with family complaining of pain on her left knee down to her left ankle. The pain has worsened over the last 3 days. She had some minor arthroscopic surgery 1 month ago to her left knee. The surgery was performed by Dr. Choi. The patient saw Dr. Choi today because of the pain. The patient states that a Doppler was performed in his office and was negative for blood clot. The patient states that in addition to the pain from her left knee down to her left ankle, she has a hard spot behind her knee towards the inside. She denies shortness of breath. She called her family doctor after seeing Dr. Choi and was told to come to the ER before she could obtain any narcotic medicines. Her past medical history is significant for recent left knee arthroscopic surgery, diabetes, hypertension, and asthma. Method of Injury: unknown Occurred: days ago (3) Quality: constant Severity of Pain-Max: severe Severity of Pain-Current: severe Lower Extremities Pain: leg: left, knee: left, ankle: left Modifying Factors: Improves With: nothing Associated Symptoms: none Allergies/Adverse Reactions: cephalexin [From Keflex] Adverse Reaction (Intermediate, Verified 10/17/18 18:54 ) Diarrhea Home Medications: Dicyclomine HCl 10 mg PO TID PRN PRN 05/09/18 [History] Donepezil HCl 5 mg PO HS 05/09/18 [History] Glipizide Xl 10 mg [Glucotrol Xl 10 MG] 10 mg PO DAILY 05/09/18 [History] Lisinopril [Zestril] 2.5 mg PO DAILY 05/09/18 [History] Pramipexole Di-HCl [Pramipexole Dihydrochloride] 0.25 mg PO HS 05/09/18 [History ] Sertraline HCl 25 mg PO HS 05/09/18 [History] Sitagliptin Phosphate 50 MG [Januvia 50 MG] 50 mg PO DAILY 05/09/18 [ History] Temazepam 7.5 mg PO HS PRN PRN 05/09/18 [History] cloNIDine HCl [Clonidine HCl] 0.2 mg PO BID 05/09/18 [History] hydroCHLOROthiazide [Hydrochlorothiazide] 25 mg PO DAILY 05/09/18 [History] Melatonin/Pyridoxine [Melatonin 5 mg Tablet] 2 each PO HS 05/10/18 [History] Hx Tetanus, Diphtheria Vaccination/Date Given: Yes Hx Influenza Vaccination/Date Given: Yes Hx Pneumococcal Vaccination/Date Given: No Immunizations Up to Date: Yes - Review of Systems Constitutional: No Fever, No Chills Eyes: No Symptoms Ears, Nose, & Throat: No Symptoms Respiratory: No Cough, No Dyspnea Cardiac: No Chest Pain, No Edema, No Syncope Abdominal/Gastrointestinal: No Abdominal Pain, No Nausea, No Vomiting, No Diarrhea Genitourinary Symptoms: No Dysuria Musculoskeletal: No Back Pain, No Neck Pain Skin: No Rash Neurological: No Dizziness, No Focal Weakness, No Sensory Changes Psychological: No Symptoms Endocrine: No Symptoms Hematologic/Lymphatic: No Symptoms Immunological/Allergic: No Symptoms All Other Systems: Reviewed and Negative - Past Medical History Pertinent Past Medical History: Yes Neurological History: No Pertinent History ENT History: Cataracts Cardiac History: Hypertension Respiratory History: No Pertinent History Endocrine Medical History: Adrenal Insufficiency, Diabetes Type II Musculoskeletal History: Degenerative Disk Disease, Osteoarthritis GI Medical History: GERD History: No Pertinent History Psycho-Social History: No Pertinent History Female Reproductive Disorders: No Pertinent History Other Medical History: chronic pain- sees dr frost - Past Surgical History Past Surgical History: Yes Neuro Surgical History: No Pertinent History Cardiac: No Pertinent History Respiratory: No Pertinent History Gastrointestinal: Cholecystectomy Genitourinary: No Pertinent History Musculoskeletal: No Pertinent History Female Surgical History: No Pertinent History Other Surgical History: Tonsils out, cataract surgery bilat - Social History Smoking Status: Never smoker Exposure to second hand smoke: No Drug Use: none Patient Lives Alone: No - Female History Hx Last Menstrual Period: post - Nursing Vital Signs Nursing Vital Signs: Initial Vital Signs Temperature 98.8 F 10/17/18 18:49 Pulse Rate 80 10/17/18 18:49 Respiratory Rate 18 10/17/18 18:49 Blood Pressure 167/54 10/17/18 18:49 O2 Sat by Pulse Oximetry 97 10/17/18 18:49 Pain Scale Pain Intensity 2 - Physical Exam General Appearance: alert Eyes, Ears, Nose, Throat Exam: moist mucous membranes Neck Exam: non-tender, supple Cardiovascular/Respiratory Exam: chest non-tender, normal breath sounds, regular rate/rhythm, no respiratory distress Gastrointestinal/Abdominal Exam: non-tender, guarding Back Exam: normal inspection, No vertebral tenderness Hips Exam: bilateral: non-tender, normal inspection Legs Exam: left leg: pain, soft tissue tenderness, swelling (3+ edema), other ( small hard tender mass to posterio-lateral knee) Neuro/Tendon Exam: normal sensation, normal motor functions Mental Status Exam: alert, oriented x 3, cooperative Skin Exam: normal color, warm, dry SpO2 Interpretation: normal SpO2: 97 Oxygen Delivery: Room Air - Course EKG Interpreted by Me: RATE, Sinus Rhythm, Left [place] Deviation, NORMAL INTERVALS , NORMAL QRS, NORMAL ST-T, Other (no change compared to EKG from 09/04/18.) - Radiology Ultrasound Exam Left Venous Lower Extremity Ultrasound: tele radiology report (per [facility] tech), negative (no DVT per [facility] tech) , Other (significant "pocketing" edema) Ordered Tests: Active Orders 24 hr Category Date Time Status EKG-ER Only STAT Care 10/17/18 20:14 Active IV Insertion STAT Care 10/17/18 20:16 Active VENOUS UNILAT/LIMITED EXTREMIT [US] Stat Exams 10/17/18 Ordered CBC W DIFF Stat Lab 10/17/18 20:30 Completed CMP Stat Lab 10/17/18 20:30 Completed D-DIMER QUANTITATION Stat Lab 10/17/18 20:30 Completed NT PRO BNP Stat Lab 10/17/18 20:30 Completed Lab/Rad Data: Laboratory Result Diagrams 10/17/18 20:30 10/17/18 20:30 Laboratory Results 10/17/18 10/17/18 10/17/18 Range/Units 20:30 20:30 20:30 WBC 6.8 (4.0-10.5) K/mm3 RBC 3.95 L (4.1-5.4) M/mm3 Hgb 11.5 L (12.0-16.0) gm/dl Hct 36.7 (35-47) % MCV 92.9 (78-100) fl MCH 29.1 (26-32) pg MCHC 31.3 L (32-36) g/dl RDW 16.0 H (11.5-14.0) % Plt Count 249 (150-450) K/mm3 MPV 10.5 H (6-9.5) fl Gran % 60.3 (36.0-66.0) % Eos # (Auto) 0.22 (0-0.5) Absolute Lymphs (auto) 1.93 (1.0-4.6) Absolute Monos (auto) 0.52 (0.0-1.3) Lymphocytes % 28.6 (24.0-44.0) % Monocytes % 7.7 (0.0-12.0) % Eosinophils % 3.3 (0.00-5.0) % Basophils % 0.1 (0.0-0.4) % Absolute Granulocytes 4.07 (1.4-6.9) Basophils # 0.01 (0-0.4) D-Dimer 1512 H* (215-500) ng/mL Sodium 139 (137-145) mmol/L Potassium 4.2 (3.5-5.1) mmol/L Chloride 103 (98-107) mmol/L Carbon Dioxide 25 (22-30) mmol/L Anion Gap 14.8 (5-15) MEQ/L BUN 20 H (7-17) mg/dL Creatinine 0.97 (0.52-1.04) mg/dL Estimated GFR 58.4 ML/MIN Glucose 111 H (74-106) mg/dL Calcium 10.0 (8.4-10.2) mg/dL Total Bilirubin 0.30 (0.2-1.3) mg/dL AST 19 (14-36) U/L ALT 16 (0-35) U/L Alkaline Phosphatase 100 (38-126) U/L NT-Pro-B Natriuret Pep 477 (0-1800) pg/mL Serum Total Protein 7.7 (6.3-8.2) g/dL Albumin 4.5 (3.5-5.0) g/dL - Progress Progress: improved Progress Note: 10/17/18 22:01 Pt's left lower leg is warm and with edema. Pt given clindamycin 600 mg IV for possible cellulitis. Counseled pt/family regarding: lab results, diagnosis, need for follow-up, rad results - Departure Time of Disposition: 22:02 Departure Disposition: Home Clinical Impression: Cellulitis Condition: Stable Critical Care Time: No Referrals: SIVA RODRIGUES [Primary Care Provider] - Additional Instructions: You have possible cellulitis of your left lower leg. The ultrasound of your leg did not show a DVT. You were given Toradol 15 mg and clindamycin 600 mg by IV in the ER. For tonight take one [place] every 4-6 hours as needed for pain. Tomorrow pickup the pain medicine prescription from the pharmacy that is waiting for you that was prescribed by your surgeon. Also start clindamycin 300 mg 4 times a day for 10 days. Follow-up with your primary medical doctor on Saturday. Prescriptions: Clindamycin HCl 1 cap PO QID #40 capsule
[2018-10-17 20:35] LABS: BASOPHIL % 0.1 % (0.0-0.4); Basophil (Absolute #) 0.01 (0-0.4); Eosinophil % 3.3 % (0.00-5.0); Eosinophil (Absolute #) 0.22 (0-0.5); Granulocyte Absolute (ANC) 4.07 (1.4-6.9); Granulocytes % 60.3 % (36.0-66.0); Hematocrit 36.7 % (35-47); Hemoglobin 11.5 gm/dl (12.0-16.0); Lymphocyte (Absolute #) 1.93 (1.0-4.6); Lymphocytes % 28.6 % (24.0-44.0); Mean Cell Volume 92.9 fl (78-100); Mean Corpuscular Hemoglobin 29.1 pg (26-32); Mean Corpuscular Hgb Concent. 31.3 g/dl (32-36); Mean Platelet Volume 10.5 fl (6-9.5); Monocyte (Absolute #) 0.52 (0.0-1.3); Monocytes % 7.7 % (0.0-12.0); Platelet Count 249 K/mm3 (150-450); Red Blood Count 3.95 M/mm3 (4.1-5.4); White Blood Count 6.8 K/mm3 (4.0-10.5)
[2018-10-17 21:02] LABS: ALBUMIN 4.5 g/dL (3.5-5.0); ANION GAP 14.8 MEQ/L (5-15); BILIRUBIN,TOTAL 0.3 mg/dL (0.2-1.3); Creatinine 1 0.97 mg/dL (0.52-1.04); Potassium 4.2 mmol/L (3.5-5.1); Total Protein 7.7 g/dL (6.3-8.2)
[2018-10-17] MEDS ORDERED: TORAdol 30 mg Injection IV ONE (22:00)
[2018-10-17] MEDS ORDERED: CLINDAMYCIN-D5W 600 MG/50 ML*** 600 MG/50 ML BAG IV STA (22:00)
[2018-10-17] MEDS ORDERED: NORCO 5/325 MG PO ONE (22:03)
[2018-10-17] MEDS ORDERED: TORAdol 30 mg Injection ONE (22:04)
[2018-10-17] MEDS ORDERED: CLINDAMYCIN-D5W 600 MG/50 ML*** 600 MG/50 ML BAG IV ONE (22:05)
[2018-10-17] MEDS ORDERED: NORCO 5/325 MG ONE (22:30)
[2018-10-17 22:43] VITALS: BP 152/60; PULSE 76; O2SAT 94
--- NOTE | 2018-10-18 09:04 | XRAY ---
Indication: Left leg pain and edema. Status post knee surgery 6 weeks ago. Two-dimensional sonogram and color Doppler imaging of the major venous vessels of the left leg was performed. Comparison: None No thrombus seen in the examined deep venous vessels of the left leg including greater saphenous vein. Veins demonstrate normal compressibility. Venous waveforms are normal with and without augmentation. Impression: Left leg negative for DVT. Comment: Preliminary report was given.
== END 2018-10-17 22:44 | disposition home or self-care (01) ==
LOC: ED 18:21
DX: L03.116 Cellulitis of left lower limb (principal); Z79.899 Other long term (current) drug therapy; E11.9 Type 2 diabetes mellitus without complications; Z79.84 Long term (current) use of oral hypoglycemic drugs; I10 Essential (primary) hypertension; Z98.890 Other specified postprocedural states; M79.605 Pain in left leg; M79.89 Other specified soft tissue disorders
CPT/HCPCS: 36000; 36415; 80053; 83880; 85025; 85379; 93005; 93971; 96365; 96374; 99284; J1885; A9270-GY

== ENCOUNTER 2018-11-03 04:31 | Observation (INO) | payer MEDICARE ==
[2018-11-03] MEDS ORDERED: Sodium Chloride 0.9% 1000 ML 1,000 ML IV SCH ×2 (04:45→08:08)
--- NOTE | 2018-11-03 04:49 | ERPHSYRPT ---
- History of Present Illness Time Seen by Provider: 11/03/18 04:43 Source: patient Exam Limitations: no limitations Patient Subjective Stated Complaint: Numbness to left side of tongue and face. Nausea. Difficulty swallowing. Falls x 2 at home - last fall 11/01/18. Symptoms began 2 weeks ago. S/S worse this morning than what it has been. Triage Nursing Assessment: Pt alert and answers questions appropriately. Face flushed. Bruise to left forehead. Physician History: 83-year-old white female arrives with complaint. Of paresthesia to the left side of her face and tongue symptoms since this morning patient also states that she's felt weak for the past 2 months she states that she fell hit her head one week ago and then again 2 days ago. She does not have any loss of consciousness. She is not having problems speaking she is not having any problems moving. Past medical history includes high blood pressure, cataracts, adrenal insufficiency, diabetes type 2, degenerative disc disease, osteoarthritis, reflux, chronic pain,. Past surgical history includes left knee arthroplasty, cholecystectomy, tonsils , cataracts. Timing/Duration: other (patient states felt weak left side x 2 months, states fell and hit her head a week ago fell again 2 days ago) Modifying Factors: Improves With: nothing Associated Symptoms: weakness ([place] weak on the left side 2 months felt weak on the left si), No nausea, No vomiting, No abdominal pain, No shortness of breath, No heartburn, No diaphoresis, No cough, No chills, No chest pain, No fever, No headaches, No loss of appetite, No malaise, No rash, No syncope, No seizure Allergies/Adverse Reactions: cephalexin [From Keflex] Adverse Reaction (Intermediate, Verified 11/03/18 05:26 ) Diarrhea Home Medications: Dicyclomine HCl 10 mg PO TID PRN PRN 05/09/18 [History] Donepezil HCl 5 mg PO HS 05/09/18 [History] Glipizide Xl 10 mg [Glucotrol Xl 10 MG] 10 mg PO DAILY 05/09/18 [History] Lisinopril [Zestril] 2.5 mg PO DAILY 05/09/18 [History] Pramipexole Di-HCl [Pramipexole Dihydrochloride] 0.25 mg PO HS 05/09/18 [History ] Sertraline HCl 25 mg PO HS 05/09/18 [History] Sitagliptin Phosphate 50 MG [Januvia 50 MG] 50 mg PO DAILY 05/09/18 [ History] Temazepam 7.5 mg PO HS PRN PRN 05/09/18 [History] cloNIDine HCl [Clonidine HCl] 0.2 mg PO BID 05/09/18 [History] hydroCHLOROthiazide [Hydrochlorothiazide] 25 mg PO DAILY 05/09/18 [History] Melatonin/Pyridoxine [Melatonin 5 mg Tablet] 2 each PO HS 05/10/18 [History] Hx Tetanus, Diphtheria Vaccination/Date Given: Yes Hx Influenza Vaccination/Date Given: Yes Hx Pneumococcal Vaccination/Date Given: No - Review of Systems Constitutional: Weakness ([place] weak on the left side x 2 months), No Fever, No Chills Eyes: No Symptoms Ears, Nose, & Throat: No Symptoms Respiratory: No Cough, No Dyspnea Cardiac: No Chest Pain, No Edema, No Syncope Abdominal/Gastrointestinal: No Abdominal Pain, No Nausea, No Vomiting, No Diarrhea Genitourinary Symptoms: No Dysuria Musculoskeletal: No Back Pain, No Neck Pain Skin: No Rash Neurological: No Symptoms, Focal Weakness (weak on left side x 2 months), Parasthesia (parasthesia to tongue and left side of face since this am), Other ( frequent falls for the last week), No Seizure Psychological: No Symptoms Endocrine: No Symptoms All Other Systems: Reviewed and Negative - Past Medical History Pertinent Past Medical History: Yes Neurological History: No Pertinent History ENT History: Cataracts Cardiac History: Hypertension Respiratory History: No Pertinent History Endocrine Medical History: Adrenal Insufficiency, Diabetes Type II Musculoskeletal History: Degenerative Disk Disease, Osteoarthritis GI Medical History: GERD History: No Pertinent History Psycho-Social History: No Pertinent History Female Reproductive Disorders: No Pertinent History Other Medical History: chronic pain- sees dr frost - Past Surgical History Past Surgical History: Yes Neuro Surgical History: No Pertinent History Cardiac: No Pertinent History Respiratory: No Pertinent History Gastrointestinal: Cholecystectomy Genitourinary: No Pertinent History Musculoskeletal: No Pertinent History Female Surgical History: No Pertinent History Other Surgical History: Tonsils out, cataract surgery bilat - Social History Smoking Status: Never smoker Exposure to second hand smoke: No Drug Use: none Patient Lives Alone: No - Nursing Vital Signs Nursing Vital Signs: Initial Vital Signs Temperature 97.6 F 11/03/18 04:32 Pulse Rate 79 11/03/18 04:32 Respiratory Rate 10 L 11/03/18 04:32 Blood Pressure 158/58 11/03/18 04:32 O2 Sat by Pulse Oximetry 96 11/03/18 04:32 Pain Scale Pain Intensity 0 - Physical Exam General Appearance: no apparent distress, alert, other (brown ecchymosis left forehead) Eye Exam: PERRL/EOMI, eyes nml inspection, other (fundi unremarkable) Ears, Nose, Throat Exam: normal ENT inspection, TMs normal, pharynx normal, moist mucous membranes Neck Exam: normal inspection, non-tender, supple, full range of motion Respiratory Exam: normal breath sounds, lungs clear, No respiratory distress Cardiovascular Exam: regular rate/rhythm, normal heart sounds, normal peripheral pulses Gastrointestinal/Abdomen Exam: soft, normal bowel sounds, No tenderness, No mass Back Exam: normal inspection, normal range of motion, No CVA tenderness, No vertebral tenderness Extremity Exam: normal inspection, normal range of motion, pelvis stable Neurologic Exam: alert, oriented x 3, cooperative, hvac lead II-XII nml as tested, normal mood/affect, nml cerebellar function, nml station & gait, sensation nml, other (patient alert, oriented x 3, ethnic studies professor equal 5/5. no facial droop , speech normal finger to nose bilaterally, no pronator drift , sensation intact to all extremities. full range of motion to all extremities. ), No motor deficits Skin Exam: ecchymosis (brown exxhymosis left forehead) SpO2 Interpretation: normal (99%) Oxygen Delivery: Room Air - Course Nursing assessment & vital signs reviewed: Yes EKG Interpreted by Me: RATE (74 bpm), Sinus Rhythm, NORMAL AXIS, LAFB, Other ( EKG: Sinus rhythm with artifact, 74 beats per minute. Left axis deviation, left anterior fascicular block, no acute ST or T wave changes. Compared to October 17, 2018) - CT Exams Head CT Interpretation: Tele-radiologist Report (head CT: Impression: No acute intracranial abnormality.) Ordered Tests: Active Orders 24 hr Category Date Time Status Accucheck STAT Care 11/03/18 04:42 Active EKG-ER Only STAT Care 11/03/18 04:41 Active IV Insertion STAT Care 11/03/18 04:41 Active Pulse Oximetry (ED) STAT Care 11/03/18 04:41 Active HEAD WITHOUT CONTRAST [CT] Stat Exams 11/03/18 04:41 Taken CBC W DIFF Stat Lab 11/03/18 05:11 Completed CMP Stat Lab 11/03/18 05:11 Completed PROTIME WITH INR Stat Lab 11/03/18 05:11 Completed PTT Stat Lab 11/03/18 05:11 Completed UA W/RFX UR CULTURE Stat Lab 11/03/18 04:41 Uncollected Medication Summary Generic Name Dose Route Start Last Admin Trade Name Freq PRN Reason Stop Dose Admin Sodium Chloride 1,000 mls @ 100 mls/hr 11/03/18 04:45 11/03/18 05:05 Sodium Chloride 0.9% 1000 Ml IV 12/03/18 04:44 100 mls/hr .Q10H [place] Administration Discontinued Medications Generic Name Dose Route Start Last Admin Trade Name Freq PRN Reason Stop Dose Admin Aspirin 162 mg 11/03/18 06:43 Baby Aspirin 81 Mg Chew PO 11/03/18 06:44 STAT ONE Lab/Rad Data: Laboratory Result Diagrams 11/03/18 05:11 11/03/18 05:11 Laboratory Results 11/03/18 11/03/18 11/03/18 Range/Units 05:11 05:11 05:11 WBC 5.8 (4.0-10.5) K/mm3 RBC 3.87 L (4.1-5.4) M/mm3 Hgb 11.3 L (12.0-16.0) gm/dl Hct 35.5 (35-47) % MCV 91.7 (78-100) fl MCH 29.1 (26-32) pg MCHC 31.8 L (32-36) g/dl RDW 15.8 H (11.5-14.0) % Plt Count 246 (150-450) K/mm3 MPV 11.0 H (6-9.5) fl Gran % 54.6 (36.0-66.0) % Eos # (Auto) 0.21 (0-0.5) Absolute Lymphs (auto) 1.69 (1.0-4.6) Absolute Monos (auto) 0.69 (0.0-1.3) Lymphocytes % 29.4 (24.0-44.0) % Monocytes % 12.0 (0.0-12.0) % Eosinophils % 3.7 (0.00-5.0) % Basophils % 0.3 (0.0-0.4) % Absolute Granulocytes 3.14 (1.4-6.9) Basophils # 0.02 (0-0.4) PT 13.3 H (9.95-12.35) SECONDS INR 1.14 (0.8-3.0) APTT 31.4 (25.3-37.0) SECONDS Sodium 136 L (137-145) mmol/L Potassium 3.8 (3.5-5.1) mmol/L Chloride 99 (98-107) mmol/L Carbon Dioxide 28 (22-30) mmol/L Anion Gap 12.7 (5-15) MEQ/L BUN 25 H (7-17) mg/dL Creatinine 1.22 H (0.52-1.04) mg/dL Estimated GFR 44.8 ML/MIN Glucose 90 (74-106) mg/dL Calcium 9.5 (8.4-10.2) mg/dL Total Bilirubin 0.40 (0.2-1.3) mg/dL AST 17 (14-36) U/L ALT 14 (0-35) U/L Alkaline Phosphatase 91 (38-126) U/L Serum Total Protein 6.9 (6.3-8.2) g/dL Albumin 4.1 (3.5-5.0) g/dL - Progress Progress: improved Progress Note: 11/03/18 06:37 This is an 83-year-old white female with history of high blood pressure, cataracts, adrenal insufficiency, diabetes type 2, degenerative disc disease, osteoarthritis and chronic pain. She has been complaining of weakness on her left side for 2 months she states that she has been falling frequently for the past 2 weeks and it actually fallen one week ago and 2 days ago. She arrives with some brown bruising on the left forehead. She states that she woke up this morning she felt paresthesias on the left side of her face and she had also paresthesias to her tongue. She was not having any trouble speaking she is moving all her extremities her ethnic studies professor are equal and symmetrical 5 over 5 there is no pronator drift no facial droop speech is normal Dariela Coma Scale is 15 she has full range of motion to all of her extremities cranial nerves II through XII are intact sensation intact to all extremities. Head CT is obtained remarkable for no acute intracranial abnormality patient's EKG is obtained noted to be of sinus rhythm 74 beats for minute left axis deviation left anterior fascicular block no acute ST or T wave changes. Patient's CBC remarkable for white count 5.8 hemoglobin 11.3 hematocrit 35.5 patient's chemistries sodium 136 potassium 3.8 chloride 99 bicarbonate 28 BUN 25 creatinine 1.22 glucose is 90 I have obtained a neurology consult through tele-neurology with Dr. Williams Zhu, he is recommended MRI of the patient's brain. I've discussed the case with Dr. Garcia will give patient aspirin [address] on telemetry observation we will order an MRI serial neuro checks every 4 hours Accu-Cheks. Urinalysis has been obtained on this patient results are pending. - Departure Time of Disposition: 06:42 Departure Disposition: Observation Clinical Impression: Facial paresthesia, Frequent falls, Left-sided weakness CVA (cerebral vascular accident) Qualifiers: CVA mechanism: unspecified Qualified Code(s): I63.9 - Cerebral infarction, unspecified Condition: Fair Critical Care Time: No Referrals: SIVA RODRIGUES [Primary Care Provider] -
[2018-11-03 05:20] LABS: BASOPHIL % 0.3 % (0.0-0.4); Basophil (Absolute #) 0.02 (0-0.4); Eosinophil % 3.7 % (0.00-5.0); Eosinophil (Absolute #) 0.21 (0-0.5); Granulocyte Absolute (ANC) 3.14 (1.4-6.9); Granulocytes % 54.6 % (36.0-66.0); Hematocrit 35.5 % (35-47); Hemoglobin 11.3 gm/dl (12.0-16.0); Lymphocyte (Absolute #) 1.69 (1.0-4.6); Lymphocytes % 29.4 % (24.0-44.0); Mean Cell Volume 91.7 fl (78-100); Mean Corpuscular Hgb Concent. 31.8 g/dl (32-36); Monocyte (Absolute #) 0.69 (0.0-1.3); Platelet Count 246 K/mm3 (150-450); Red Blood Count 3.87 M/mm3 (4.1-5.4); Red Cell Distribution Width 15.8 % (11.5-14.0); White Blood Count 5.8 K/mm3 (4.0-10.5)
[2018-11-03 05:23] LABS: Mean Corpuscular Hemoglobin 29.1 pg (26-32)
[2018-11-03 05:33] LABS: ALBUMIN 4.1 g/dL (3.5-5.0); ANION GAP 12.7 MEQ/L (5-15); BILIRUBIN,TOTAL 0.4 mg/dL (0.2-1.3); Calcium 9.5 mg/dL (8.4-10.2); Creatinine 1 1.22 mg/dL (0.52-1.04); Potassium 3.8 mmol/L (3.5-5.1); Total Protein 6.9 g/dL (6.3-8.2)
[2018-11-03 05:39] LABS: PTT 31.4 SECONDS (25.3-37.0)
[2018-11-03 05:50] LABS: INR 1.14 (0.8-3.0)
[2018-11-03] MEDS ORDERED: BABY ASPIRIN 81 MG CHEW PO ONE (06:43)
[2018-11-03 07:09] LABS: Appearance CLOUDY (CLEAR); Bilirubin NEGATIVE (NEGATIVE); Blood SMALL Ery/ul (0-5); Glucose NEGATIVE (NEGATIVE); Ketones NEGATIVE (NEGATIVE); Leukocyte Esterase LARGE (NEGATIVE); Nitrite NEGATIVE (NEGATIVE); Protein,Urine Dip NEGATIVE (Negative); Specific Gravity 1.004 (1.005-1.025); Urobilinogen NEGATIVE mg/dL (0-1)
[2018-11-03] MEDS ORDERED: NovoLOG Insulin SQ PRN (08:08)
--- NOTE | 2018-11-03 08:52 | XRAY ---
Indication: Left-sided weakness and headache. Tongue numbness. Multiple falls. Multiple contiguous axial images obtained through the head without contrast. Comparison: None Age-appropriate global atrophy and minimal periventricular degenerative micro-ischemia bilaterally. No acute intracranial hemorrhage, abnormal extra-axial fluid collection, or mass effect. Fourth ventricle is midline without hydrocephalus. Bony calvarium intact with hyperostosis frontalis interna. Visualized paranasal sinuses and mastoid air cells are clear. Impression: Nonacute senile brain. Comment: Preliminary interpretation was made by [facility]. No discrepancy. CT DI 64.68
[2018-11-03] MEDS ORDERED: Ventolin Hfa MDI IH PRN (09:26)
[2018-11-03] MEDS ORDERED: TEMAZEPAM 7.5 MG PO PRN (09:26)
[2018-11-03] MEDS ORDERED: BENTYL 20 MG PO PRN (09:30)
[2018-11-03] MEDS ORDERED: MEDICATION INTERVENTION MC PRN (09:34)
[2018-11-03] MEDS ORDERED: PROVENTIL COMMON CANISTER IH PRN (09:39)
[2018-11-03] MEDS ORDERED: MEDICATION INTERVENTION MC SCH (09:45)
[2018-11-03] MEDS: Catapres 0.1 MG PO SCH ×2 (11:03→20:47)
[2018-11-03] MEDS: Aricept 10 MG PO SCH ×2 (11:04→20:47)
[2018-11-03] MEDS: Januvia 50 MG PO SCH (11:04)
[2018-11-03] MEDS: Zestril 5 MG PO SCH (11:06)
[2018-11-03] MEDS: hydroDIURIL 25 MG PO SCH (11:07)
--- NOTE | 2018-11-03 11:21 | XRAY ---
Indication: Headache. Left facial numbness 2 weeks. Sagittal, coronal, and axial MRI brain was performed using T1, T2, FLAIR, diffusion, and ADC sequences. Comparison: None Age-appropriate global atrophy and minimal periventricular degenerative signal bilaterally. No acute intracranial hemorrhage, abnormal extra-axial fluid collection, or mass effect. Diffusion images negative for restricted signal. Fourth ventricle is midline without hydrocephalus. 7/8 cranial nerve complex bilaterally symmetric. Normal flow void signal within the major intercerebral circulation. Normal appearing craniocervical junction and sella turcica. Paranasal sinuses are clear. Impression: 1. Normal aging brain including atrophy and degenerative micro-ischemia. 2. No acute intracranial abnormalities or evidence evolving large vessel territorial stroke.
[2018-11-03] MEDS ORDERED: ENOXAPARIN SODIUM SQ SCH (13:45)
[2018-11-03] MEDS ORDERED: APRESOLINE 20 MG/ML INJ IV PRN (16:03)
--- NOTE | 2018-11-03 17:08 | PCM.HP ---
History of Present Illness - Chief Complaint Chief Complaint: CVA, Left sided weakness, frequent falls History of Present Illness: is a 83 year old female pt of mine from [facility] with dementia, HTN, adrenal insufficiency, DM II, DJD, OA, GERD, and chronic pain who was admitted to the ER with R sided facial and tongue tingling. She c/o the tingling for about 2 days, then it was worse about 4 am and she came to the ER. She denies any paresthesias in the rest of her body. C/o dizziness and feeling weak for the past 2 weeks. Her did not observe any slurred speech. In the past week or so she has fallen x 1, with no LOC. She states she gets lightheaded when she stands up and has to wait a minute until she walks. She's been using a cane at home. - Review of Systems Skin: Cellulitis (LLE recently; finished abx and much better) Neurological: Parasthesia, Other (lightheadedness on standing) All Other Systems: Reviewed and Negative (ROS somewhat difficult, pt has a hard time explaining at times) Medications & Allergies Home Medications: Home Medication List Dicyclomine HCl 10 mg PO TID PRN PRN 05/09/18 [History Confirmed 11/03/18] Donepezil HCl 5 mg PO HS 05/09/18 [History Confirmed 11/03/18] Glipizide Xl 10 mg [Glucotrol Xl 10 MG] 10 mg PO DAILY 05/09/18 [History Confirmed 11/03/18] Lisinopril [Zestril] 2.5 mg PO DAILY 05/09/18 [History Confirmed 11/03/18] Pramipexole Di-HCl [Pramipexole Dihydrochloride] 0.25 mg PO HS 05/09/18 [ History Confirmed 11/03/18] Sertraline HCl 25 mg PO HS 05/09/18 [History Confirmed 11/03/18] Sitagliptin Phosphate 50 MG [Januvia 50 MG] 50 mg PO DAILY 05/09/18 [ History Confirmed 11/03/18] Temazepam 7.5 mg PO HS PRN PRN 05/09/18 [History Confirmed 11/03/18] cloNIDine HCl [Clonidine HCl] 0.2 mg PO BID 05/09/18 [History Confirmed 11/03/18 ] hydroCHLOROthiazide [Hydrochlorothiazide] 25 mg PO DAILY 05/09/18 [History Confirmed 11/03/18] Albuterol Sulfate [Albuterol Sulfate Hfa] 2 puffs IH Q4-6HPRN PRN #1 [id number] 05/10/18 [Rx Confirmed 11/03/18] Melatonin/Pyridoxine [Melatonin 5 mg Tablet] 2 each PO HS 05/10/18 [History Confirmed 11/03/18] Allergies/Adverse Reactions: Allergies Allergy/AdvReac Type Severity Reaction Status Date / Time cephalexin [From Keflex] AdvReac Intermediate Diarrhea Verified 11/03/18 05:26 oats AdvReac Diarrhea Verified 11/03/18 08:34 wheat AdvReac Diarrhea Verified 11/03/18 08:34 - Past Medical History Past Medical History: Yes Neurological History: Dementia, Stroke ENT History: Cataracts Cardiac History: Hypertension Respiratory History: No Pertinent History Endocrine Medical History: Adrenal Insufficiency, Diabetes Type II Musculoskelatal History: Degenerative Disk Disease, Osteoarthritis GI Medical History: GERD History: Other Pyscho-Social History: Anxiety Reproductive Disorders: No Pertinent History Comment: chronic pain- sees dr frost, CKD, - Female History Are you now?: No - Past Surgical History Past Surgical History: Yes Neuro Surgical History: No Pertinent History Cardiac History: No Pertinent History Respiratory Surgery: No Pertinent History GI Surgical History: Cholecystectomy Genitourinary Surgical Hx: No Pertinent History Musculskeletal Surgical Hx: Orthopedic Surgery Female Surgical History: No Pertinent History Other Surgical History: Tonsils out, cataract surgery bilat , back surgery ( unsure of what kind) - Social History Smoking Status: Never smoker Exposure to second hand smoke: No Alcohol: None Drug Use: none - Physical Exam Vital Signs: Vital Signs - 24 hr Temp Pulse Resp BP Pulse Ox 11/03/18 16:00 18 11/03/18 15:48 98.7 F 70 18 156/69 94 L 11/03/18 12:00 18 11/03/18 11:58 98.7 F 74 18 158/67 96 11/03/18 11:55 96 11/03/18 09:00 95 11/03/18 08:57 98.6 F 80 18 183/77 94 L 11/03/18 08:08 98.6 F 80 18 183/77 94 L 11/03/18 07:35 73 16 116/76 97 11/03/18 06:40 79 18 175/83 94 L 11/03/18 05:50 68 18 126/53 95 11/03/18 05:22 74 12 150/75 93 L 11/03/18 04:45 96 11/03/18 04:32 97.6 F 79 10 L 158/58 96 General Appearance: no apparent distress, alert Neurologic Exam: cooperative, casino banker II-XII nml as tested, normal mood/affect, other (crystalizer 5/5 bilat. Quadriceps 5/5 bilat. Dorsi- and plantar-flexion 5/5 bilat. Sensation intact LE bilat.), No motor deficits, No agitation, No slurred speech Eye Exam: PERRL/EOMI, eyes nml inspection Ears, Nose, Throat Exam: normal ENT inspection (aside from red soft palate - pt states has been eating red mints) Neck Exam: normal inspection, non-tender, supple, No lymphadenopathy Respiratory Exam: normal breath sounds, lungs clear, No crackles/rales, No rhonchi, No wheezing Gastrointestinal/Abdomen Exam: soft, No normal bowel sounds (hyperactive), No tenderness, No distention, No mass, No guarding, No rebound Extremity Exam: other (L knee generally enlarge; mild ttp medially. no erythema distal LLE) Skin Exam: warm, dry, No rash Results - Labs Lab/Micro Results: Accuchecks Date 11/03/18 Time 11:30 Accucheck Value: 200 Accucheck Value: 83 Lab Results-Last 24 Hours 11/03/18 11/03/18 11/03/18 Range/Units 05:11 05:11 05:11 WBC 5.8 (4.0-10.5) K/mm3 RBC 3.87 L (4.1-5.4) M/mm3 Hgb 11.3 L (12.0-16.0) gm/dl Hct 35.5 (35-47) % MCV 91.7 (78-100) fl MCH 29.1 (26-32) pg MCHC 31.8 L (32-36) g/dl RDW 15.8 H (11.5-14.0) % Plt Count 246 (150-450) K/mm3 MPV 11.0 H (6-9.5) fl Gran % 54.6 (36.0-66.0) % Eos # (Auto) 0.21 (0-0.5) Absolute Lymphs (auto) 1.69 (1.0-4.6) Absolute Monos (auto) 0.69 (0.0-1.3) Lymphocytes % 29.4 (24.0-44.0) % Monocytes % 12.0 (0.0-12.0) % Eosinophils % 3.7 (0.00-5.0) % Basophils % 0.3 (0.0-0.4) % Absolute Granulocytes 3.14 (1.4-6.9) Basophils # 0.02 (0-0.4) PT 13.3 H (9.95-12.35) SECONDS INR 1.14 (0.8-3.0) APTT 31.4 (25.3-37.0) SECONDS Sodium 136 L (137-145) mmol/L Potassium 3.8 (3.5-5.1) mmol/L Chloride 99 (98-107) mmol/L Carbon Dioxide 28 (22-30) mmol/L Anion Gap 12.7 (5-15) MEQ/L BUN 25 H (7-17) mg/dL Creatinine 1.22 H (0.52-1.04) mg/dL Estimated GFR 44.8 ML/MIN Glucose 90 (74-106) mg/dL Calcium 9.5 (8.4-10.2) mg/dL Total Bilirubin 0.40 (0.2-1.3) mg/dL AST 17 (14-36) U/L ALT 14 (0-35) U/L Alkaline Phosphatase 91 (38-126) U/L Serum Total Protein 6.9 (6.3-8.2) g/dL Albumin 4.1 (3.5-5.0) g/dL Urine Color (YELLOW) Urine Appearance (CLEAR) Urine pH (5-6) Ur Specific Henderson (1.005-1.025) Urine Protein (Negative) Urine Ketones (NEGATIVE) Urine Blood (0-5) Rafita/ul Urine Nitrite (NEGATIVE) Urine Bilirubin (NEGATIVE) Urine Urobilinogen (0-1) mg/dL Ur Leukocyte Esterase (NEGATIVE) Urine WBC (Auto) (0-5) /HPF Urine RBC (Auto) (0-2) /HPF U Epithel Cells (Auto) (FEW) /HPF Urine Bacteria (Auto) (NEGATIVE) /HPF U Non-Squamous Epi Cells (FEW) /HPF Urine Mucus (Auto) (NEGATIVE) /HPF Urine Culture Reflexed (NO) Urine Glucose (NEGATIVE) mg/dL 11/03/18 Range/Units 06:53 WBC (4.0-10.5) K/mm3 RBC (4.1-5.4) M/mm3 Hgb (12.0-16.0) gm/dl Hct (35-47) % MCV (78-100) fl MCH (26-32) pg MCHC (32-36) g/dl RDW (11.5-14.0) % Plt Count (150-450) K/mm3 MPV (6-9.5) fl Gran % (36.0-66.0) % Eos # (Auto) (0-0.5) Absolute Lymphs (auto) (1.0-4.6) Absolute Monos (auto) (0.0-1.3) Lymphocytes % (24.0-44.0) % Monocytes % (0.0-12.0) % Eosinophils % (0.00-5.0) % Basophils % (0.0-0.4) % Absolute Granulocytes (1.4-6.9) Basophils # (0-0.4) PT (9.95-12.35) SECONDS INR (0.8-3.0) APTT (25.3-37.0) SECONDS Sodium (137-145) mmol/L Potassium (3.5-5.1) mmol/L Chloride (98-107) mmol/L Carbon Dioxide (22-30) mmol/L Anion Gap (5-15) MEQ/L BUN (7-17) mg/dL Creatinine (0.52-1.04) mg/dL Estimated GFR ML/MIN Glucose (74-106) mg/dL Calcium (8.4-10.2) mg/dL Total Bilirubin (0.2-1.3) mg/dL AST (14-36) U/L ALT (0-35) U/L Alkaline Phosphatase (38-126) U/L Serum Total Protein (6.3-8.2) g/dL Albumin (3.5-5.0) g/dL Urine Color STRAW (YELLOW) Urine Appearance CLOUDY (CLEAR) Urine pH 7.0 (5-6) Ur Specific Henderson 1.004 (1.005-1.025) Urine Protein NEGATIVE (Negative) Urine Ketones NEGATIVE (NEGATIVE) Urine Blood SMALL (0-5) Rafita/ul Urine Nitrite NEGATIVE (NEGATIVE) Urine Bilirubin NEGATIVE (NEGATIVE) Urine Urobilinogen NEGATIVE (0-1) mg/dL Ur Leukocyte Esterase LARGE (NEGATIVE) Urine WBC (Auto) >100 (0-5) /HPF Urine RBC (Auto) 6-10 (0-2) /HPF U Epithel Cells (Auto) FEW (FEW) /HPF Urine Bacteria (Auto) FEW (NEGATIVE) /HPF U Non-Squamous Epi Cells RARE (FEW) /HPF Urine Mucus (Auto) SLIGHT (NEGATIVE) /HPF Urine Culture Reflexed YES (NO) Urine Glucose NEGATIVE (NEGATIVE) mg/dL Accuchecks Date 11/03/18 Time 11:30 Accucheck Value: 200 Accucheck Value: 83 - Radiology Impressions Radiology Exams & Impressions: Radiology Procedures Category Date Time Status HEAD WITHOUT CONTRAST [CT] Stat Exams 11/03/18 04:41 Completed MRI BRAIN W/O CONTRAST [MRI] Routine Exams 11/03/18 09:25 Completed Assessment/Plan (1) Facial paresthesia Current Visit: Yes Status: Acute Onset Date: ~11/03/18 Assessment & Plan: concern for CVA; see below. Code(s): R20.9 - UNSPECIFIED DISTURBANCES OF SKIN SENSATION (2) CVA (cerebral vascular accident) Current Visit: Yes Status: Acute Onset Date: ~11/03/18 Qualifiers: CVA mechanism: unspecified Qualified Code(s): I63.9 - Cerebral infarction, unspecified Assessment & Plan: Dx by teleneurology, but MRI is neg. The neurologist suggested MRA neck/head - will recheck renal function in the morning then discuss with radiology. Ordering echo, lipid, a1c, tsh, cmp, esr, cpk, B12, and ua. PT to be consulted. Fall precautions. 325mg ASA daily. SCDs. Outpatient neurology f/u. Plan is to watch at least 24 hours, get the testing done, then likely d/c pt to home. Code(s): I63.9 - CEREBRAL INFARCTION, UNSPECIFIED (3) Diabetes mellitus Current Visit: Yes Status: Chronic Qualifiers: Diabetes mellitus type: type 2 Diabetes mellitus ferry terminal supervisor insulin use: without fdc use Diabetes mellitus complication detail: with chronic kidney disease Chronic kidney disease stage: stage 3 (moderate) Assessment & Plan: BS 83 and 200 here. Code(s): E11.9 - TYPE 2 DIABETES MELLITUS WITHOUT COMPLICATIONS (4) Frequent falls Current Visit: Yes Status: Acute Onset Date: ~11/03/18 Assessment & Plan: orthostats Code(s): R29.6 - REPEATED FALLS (5) Renal failure Current Visit: No Status: Chronic Qualifiers: Renal failure chronicity: chronic Chronic kidney disease stage: stage 3 ( moderate) Qualified Code(s): N18.3 - Chronic kidney disease, stage 3 (moderate ) Assessment & Plan: Will recheck renal function in the morning. Will set up outpatient appt with new medical secretary teacher.
[2018-11-03] MEDS ORDERED: Mirapex 0.5 MG Tablet PO SCH (22:00)
[2018-11-03] MEDS ORDERED: MELATONIN PO SCH (22:00)
[2018-11-03] MEDS ORDERED: PYRIDOXINE PO SCH (22:00)
[2018-11-03] MEDS ORDERED: ZOLOFT 50 MG TABLET PO SCH (22:00)
[2018-11-04 05:38] LABS: BASOPHIL % 0.3 % (0.0-0.4); Basophil (Absolute #) 0.02 (0-0.4); Eosinophil (Absolute #) 0.43 (0-0.5); Granulocyte Absolute (ANC) 3.82 (1.4-6.9); Granulocytes % 53.8 % (36.0-66.0); Hematocrit 32.4 % (35-47); Hemoglobin 10.1 gm/dl (12.0-16.0); Lymphocyte (Absolute #) 2.17 (1.0-4.6); Lymphocytes % 30.5 % (24.0-44.0); Mean Cell Volume 93.4 fl (78-100); Mean Corpuscular Hemoglobin 29.1 pg (26-32); Mean Corpuscular Hgb Concent. 31.2 g/dl (32-36); Mean Platelet Volume 11.2 fl (6-9.5); Monocyte (Absolute #) 0.67 (0.0-1.3); Monocytes % 9.4 % (0.0-12.0); Platelet Count 231 K/mm3 (150-450); Red Blood Count 3.47 M/mm3 (4.1-5.4); Red Cell Distribution Width 15.8 % (11.5-14.0); White Blood Count 7.1 K/mm3 (4.0-10.5)
[2018-11-04 05:59] LABS: ALBUMIN 3.2 g/dL (3.5-5.0); ANION GAP 12.5 MEQ/L (5-15); BILIRUBIN,TOTAL 0.2 mg/dL (0.2-1.3); Calcium 9.3 mg/dL (8.4-10.2); Creatinine 1 1.18 mg/dL (0.52-1.04); Total Protein 5.6 g/dL (6.3-8.2)
[2018-11-04 06:27] LABS: Risk Ratio 3.9; TSH, 3RD Generation 0.813 mIU/L (0.47-4.68)
[2018-11-04 06:50] LABS: Potassium 4.7 mmol/L (3.5-5.1)
--- NOTE | 2018-11-04 09:11 | PCM.DS ---
Discharge Summary Date of Admission: 11/03/18 08:01 Admitting Physician: SIVA RODRIGUES Primary Care Provider: SIVA RODRIGUES Allergies Allergies cephalexin [From Keflex] Adverse Reaction (Intermediate, Verified 11/03/18 05:26 ) Diarrhea oats Adverse Reaction (Verified 11/03/18 08:34) Diarrhea wheat Adverse Reaction (Verified 11/03/18 08:34) Diarrhea Hospital Summary - Hospital Course Hospital Course: Pt is 83 yo female pt of mine from [facility] with HTN, dementia, and DM who was admitted through ER with numbness and tingling of L face and tongue. She had also fallen x 2 this week. Neuro exam was nonfocal. CT head was nonacute. Teleneurology advised MRI brain, MRA brain, and additional lab work. UA showed UTI for which she is starting augmentin this morning. Pt is asymptomatic. MRI brain non acute. Vitamin B12 is low; pt opts for po supplementation. She is to work with PT today and if doing well can discharge to home. - Vitals & Intake/Output Vital Signs: Vital Signs Temperature 98.2 F 11/04/18 07:27 Pulse Rate 80 11/04/18 07:27 Respiratory Rate 16 11/04/18 08:00 Blood Pressure 144/67 11/04/18 07:27 O2 Sat by Pulse Oximetry 94 L 11/04/18 07:27 Intake & Output: Intake & Output 11/01/18 11/02/18 11/03/18 11/04/18 11:59 11:59 11:59 11:59 Intake Total 480 2712 Output Total 1000 2750 Balance -520 -38 Weight 89.9 kg 92.1 kg - Lab Result Diagrams: 11/04/18 05:13 11/04/18 05:13 Lab Results-Last 24 Hrs: Accuchecks Date 11/04/18 Date 11/03/18 Date 11/03/18 Date 11/03/18 Time 07:30 Time 22:00 Time 16:30 Time 11:30 Accucheck Value: 122 Accucheck Value: 139 Accucheck Value: 117 Accucheck Value: 200 Lab Results-Last 24 Hours 11/03/18 11/03/18 11/04/18 Range/Units 05:11 05:11 05:13 WBC 7.1 (4.0-10.5) K/mm3 RBC 3.47 L (4.1-5.4) M/mm3 Hgb 10.1 L (12.0-16.0) gm/dl Hct 32.4 L (35-47) % MCV 93.4 (78-100) fl MCH 29.1 (26-32) pg MCHC 31.2 L (32-36) g/dl RDW 15.8 H (11.5-14.0) % Plt Count 231 (150-450) K/mm3 MPV 11.2 H (6-9.5) fl Gran % 53.8 (36.0-66.0) % Eos # (Auto) 0.43 (0-0.5) Absolute Lymphs (auto) 2.17 (1.0-4.6) Absolute Monos (auto) 0.67 (0.0-1.3) Lymphocytes % 30.5 (24.0-44.0) % Monocytes % 9.4 (0.0-12.0) % Eosinophils % 6.0 H (0.00-5.0) % Basophils % 0.3 (0.0-0.4) % Absolute Granulocytes 3.82 (1.4-6.9) Basophils # 0.02 (0-0.4) ESR (0-20) mm/hr Sodium (137-145) mmol/L Potassium (3.5-5.1) mmol/L Chloride (98-107) mmol/L Carbon Dioxide (22-30) mmol/L Anion Gap (5-15) MEQ/L BUN (7-17) mg/dL Creatinine (0.52-1.04) mg/dL Estimated GFR ML/MIN Glucose (74-106) mg/dL Hemoglobin A1c 6.48 H (4.5-6.0) % Calcium (8.4-10.2) mg/dL Total Bilirubin (0.2-1.3) mg/dL AST (14-36) U/L ALT (0-35) U/L Alkaline Phosphatase (38-126) U/L Creatine Kinase (30-135) U/L Serum Total Protein (6.3-8.2) g/dL Albumin (3.5-5.0) g/dL Triglycerides (30-150) mg/dL Cholesterol (50-200) mg/dL LDL Cholesterol (30-100) mg/dL HDL Cholesterol (40-60) mg/dL Heart Disease Risk Ratio Vitamin B12 219 L (239-931) pg/mL TSH 3rd Generation (0.47-4.68) mIU/L 11/04/18 11/04/18 11/04/18 Range/Units 05:13 05:13 05:13 WBC (4.0-10.5) K/mm3 RBC (4.1-5.4) M/mm3 Hgb (12.0-16.0) gm/dl Hct (35-47) % MCV (78-100) fl MCH (26-32) pg MCHC (32-36) g/dl RDW (11.5-14.0) % Plt Count (150-450) K/mm3 MPV (6-9.5) fl Gran % (36.0-66.0) % Eos # (Auto) (0-0.5) Absolute Lymphs (auto) (1.0-4.6) Absolute Monos (auto) (0.0-1.3) Lymphocytes % (24.0-44.0) % Monocytes % (0.0-12.0) % Eosinophils % (0.00-5.0) % Basophils % (0.0-0.4) % Absolute Granulocytes (1.4-6.9) Basophils # (0-0.4) ESR 11 (0-20) mm/hr Sodium 137 (137-145) mmol/L Potassium 4.7 D (3.5-5.1) mmol/L Chloride 103 (98-107) mmol/L Carbon Dioxide 26 (22-30) mmol/L Anion Gap 12.5 (5-15) MEQ/L BUN 27 H (7-17) mg/dL Creatinine 1.18 H (0.52-1.04) mg/dL Estimated GFR 46.6 ML/MIN Glucose 122 H (74-106) mg/dL Hemoglobin A1c (4.5-6.0) % Calcium 9.3 (8.4-10.2) mg/dL Total Bilirubin 0.20 (0.2-1.3) mg/dL AST 13 L (14-36) U/L ALT 12 (0-35) U/L Alkaline Phosphatase 83 (38-126) U/L Creatine Kinase 53 (30-135) U/L Serum Total Protein 5.6 L (6.3-8.2) g/dL Albumin 3.2 L (3.5-5.0) g/dL Triglycerides 105 (30-150) mg/dL Cholesterol 133 (50-200) mg/dL LDL Cholesterol 73 (30-100) mg/dL HDL Cholesterol 34 L (40-60) mg/dL Heart Disease Risk Ratio 3.9 Vitamin B12 (239-931) pg/mL TSH 3rd Generation 0.813 (0.47-4.68) mIU/L Micro Results-Entire Visit: Microbiology 11/03/18 06:53 Urine Culture - Preliminary Clean Catch Midstream GRAM POSITIVE ID AND SENSITIVITY PENDING Accuchecks Date 11/04/18 Date 11/03/18 Date 11/03/18 Date 11/03/18 Time 07:30 Time 22:00 Time 16:30 Time 11:30 Accucheck Value: 122 Accucheck Value: 139 Accucheck Value: 117 Accucheck Value: 200 - Radiology Exams Ordered Rad Exams-Entire Visit: Radiology Procedures Category Date Time Status ECHO W/2D AND DOPPLER [US] Routine Exams 11/04/18 Ordered HEAD WITHOUT CONTRAST [CT] Stat Exams 11/03/18 04:41 Completed MRI BRAIN W/O CONTRAST [MRI] Routine Exams 11/03/18 09:25 Completed - Procedures and Test Procedures and Tests throughout Hospitalization: Therapy Orders & Screens 11/03/18 08:08 Respiratory Therapy Consult ROUTINE Comment: Reason For Exam: 11/03/18 09:22 ST Screen per Nursing Assess once Comment: Protocol Order Physician Instructions: Greater than [address] Admission Screening Reason For Exam: Triggered on Admission Diagnosis: CVA, Left sided weakness, frequent falls CVA/Dyshpagia/Aphasia: Yes Cognitive Deficits: No Dehydration/Nutrition Deficit: No Reflux: Yes Oral-Motor Difficulties: No Pneumonia: No Longterm Resident: No Total Points: 8 11/03/18 16:40 Speech Therapy Eval & Treat [ Eval & Treat ( Order)] .as ordered Comment: Physician Instructions: Reason For Exam: left sided weakness,cva,frequent falls,hemiparesis Evaluate: Yes Treat: Yes Reason for Eval: swallow eval Diagnosis: CVA, Left sided weakness, frequent falls 11/03/18 17:18 PT Eval & Treat (MD Order) ROUTINE Reason for Eval:: CVA - now asx. Also L knee pain(PT sched OP) Diagnosis: CVA, Left sided weakness, frequent falls Discharge Exam General Appearance: no apparent distress, alert Neurologic Exam: cooperative, No slurred speech Skin Exam: normal color, warm, dry, No rash Ears, Nose, Throat Exam: moist mucous membranes Respiratory Exam: normal breath sounds, lungs clear, No crackles/rales, No rhonchi, No wheezing Cardiovascular Exam: regular rate/rhythm, normal heart sounds, No murmur Gastrointestinal/Abdomen Exam: soft, normal bowel sounds, No tenderness, No distention, No mass, No guarding, No rebound Extremity Exam: normal inspection, No pedal edema, No swelling Final Diagnosis/Problem List - Final Discharge Diagnosis/Problem (1) Facial paresthesia Current Visit: Yes Status: Resolved Onset Date: ~11/03/18 (2) CVA (cerebral vascular accident) Current Visit: Yes Status: Acute Onset Date: ~11/03/18 Assessment & Plan: Doing well. Home on 325mg ASA daily, after cleared by PT. Discussed risk v benefit of MRA with pt and radiology and all agree we will not do the MRA. (3) UTI (urinary tract infection) Current Visit: Yes Status: Acute Assessment & Plan: Home on augmentin. (4) Diabetes mellitus Current Visit: Yes Status: Chronic (5) Frequent falls Current Visit: Yes Status: Acute Onset Date: ~11/03/18 Assessment & Plan: likely due to UTI. (6) Renal failure Current Visit: No Status: Chronic Assessment & Plan: improved this morning. - Discharge Disposition: Home, Self-Care Condition: Stable Prescriptions: No Action hydroCHLOROthiazide [Hydrochlorothiazide] 25 mg PO DAILY cloNIDine HCl [Clonidine HCl] 0.2 mg PO BID Temazepam 7.5 mg PO HS PRN PRN PRN Reason: Insomnia Sitagliptin Phosphate 50 MG [Januvia 50 MG] 50 mg PO DAILY Sertraline HCl 25 mg PO HS Pramipexole Di-HCl [Pramipexole Dihydrochloride] 0.25 mg PO HS Lisinopril [Zestril] 2.5 mg PO DAILY Glipizide Xl 10 mg [Glucotrol Xl 10 MG] 10 mg PO DAILY Donepezil HCl 5 mg PO HS Dicyclomine HCl 10 mg PO TID PRN PRN PRN Reason: Diarrhea Melatonin/Pyridoxine [Melatonin 5 mg Tablet] 2 each PO HS Albuterol Sulfate [Albuterol Sulfate Hfa] 2 puffs IH Q4-6HPRN PRN #1 [email or web address] PRN Reason: Cough Follow up with: SIVA RODRIGUES [Primary Care Provider] - 1 Week
[2018-11-04] MEDS: Aricept 10 MG PO SCH (09:33)
[2018-11-04] MEDS: Zestril 5 MG PO SCH (09:33)
[2018-11-04] MEDS: Januvia 50 MG PO SCH (09:33)
[2018-11-04] MEDS: Catapres 0.1 MG PO SCH (09:33)
[2018-11-04] MEDS: hydroDIURIL 25 MG PO SCH (09:34)
[2018-11-04] MEDS ORDERED: Ecotrin 325 MG PO SCH (10:00)
[2018-11-04] MEDS ORDERED: Augmentin 875-125 Tablet PO SCH (10:00)
[2018-11-04 11:52] VITALS: BP 130/60; PULSE 60; O2SAT 96
--- NOTE | 2018-11-04 15:33 | PCM.DCORD ---
- Discharge Disposition: Home, Self-Care Condition: Stable Prescriptions: New Amox Tr/Potass Clav. 875 mg [Augmentin 875-125 Tablet] 875 mg PO BID # 10 tablet Aspirin EC 325 mg [Ecotrin 325 MG] 325 mg PO QAM #30 tablet.ec Cyanocobalamin 500 Mcg [Vitamin B-12 500 MCG] 1,000 mcg PO DAILY #60 tablet Continue hydroCHLOROthiazide [Hydrochlorothiazide] 25 mg PO DAILY cloNIDine HCl [Clonidine HCl] 0.2 mg PO BID Temazepam 7.5 mg PO HS PRN PRN PRN Reason: Insomnia Sitagliptin Phosphate 50 MG [Januvia 50 MG] 50 mg PO DAILY Sertraline HCl 25 mg PO HS Pramipexole Di-HCl [Pramipexole Dihydrochloride] 0.25 mg PO HS Lisinopril [Zestril] 2.5 mg PO DAILY Glipizide Xl 10 mg [Glucotrol Xl 10 MG] 10 mg PO DAILY Donepezil HCl 5 mg PO HS Dicyclomine HCl 10 mg PO TID PRN PRN PRN Reason: Diarrhea Melatonin/Pyridoxine [Melatonin 5 mg Tablet] 2 each PO HS Albuterol Sulfate [Albuterol Sulfate Hfa] 2 puffs IH Q4-6HPRN PRN #1 [email or web address] PRN Reason: Cough Follow up with: DEVON KIMBLE [CONSULTING PHYSICIAN] - 12/22/18 2:40 pm ([facility] office) SIVA RODRIGUES [Primary Care Provider] - 11/12/18 10:45 am ([facility] )
== END 2018-11-04 16:20 | disposition home or self-care (01) ==
LOC: ED 04:31 → MED SURG 08:01
PROVIDERS: ADMIT Family Medicine; ATTEND Family Medicine
DX: R20.2 Paresthesia of skin (principal); I63.9 Cerebral infarction, unspecified; N39.0 Urinary tract infection, site not specified; R29.6 Repeated falls; F03.90 Unspecified dementia, unspecified severity, without behavioral disturbance, psychotic disturbance, mood disturbance, and anxiety; E11.9 Type 2 diabetes mellitus without complications; N18.9 Chronic kidney disease, unspecified; K21.9 Gastro-esophageal reflux disease without esophagitis; R42 Dizziness and giddiness; E27.40 Unspecified adrenocortical insufficiency; M19.90 Unspecified osteoarthritis, unspecified site; Z79.899 Other long term (current) drug therapy; F41.9 Anxiety disorder, unspecified
CPT/HCPCS: 36415; 70450; 70551; 80053; 80061; 81001; 82550; 82607; 82962; 83036; 83721; 84443; 85025; 85610; 85652; 85730; 87086; 93005; 93268; 93306; 94760; 96360; 96361; 99285; J1650; A9270-GY; G0378

== ENCOUNTER 2019-03-20 11:36 | Emergency (ER) | payer MEDICARE ==
[2019-03-20] MEDS ORDERED: Sodium Chloride 0.9% 1000 ML 1,000 ML IV SCH (12:45)
[2019-03-20 13:04] LABS: BASOPHIL % 0.1 % (0.0-0.4); Basophil (Absolute #) 0.01 (0-0.4); Eosinophil (Absolute #) 0 (0-0.5); Granulocyte Absolute (ANC) 6.94 (1.4-6.9); Granulocytes % 89.2 % (36.0-66.0); Hematocrit 38.4 % (35-47); Hemoglobin 12.4 gm/dl (12.0-16.0); Lymphocyte (Absolute #) 0.45 (1.0-4.6); Lymphocytes % 5.8 % (24.0-44.0); Mean Corpuscular Hgb Concent. 32.3 g/dl (32-36); Mean Platelet Volume 10.7 fl (6-9.5); Monocyte (Absolute #) 0.38 (0.0-1.3); Monocytes % 4.9 % (0.0-12.0); Platelet Count 231 K/mm3 (150-450); Red Blood Count 4.13 M/mm3 (4.1-5.4); Red Cell Distribution Width 15.5 % (11.5-14.0); White Blood Count 7.8 K/mm3 (4.0-10.5)
[2019-03-20] MEDS ORDERED: Sodium Chloride 0.9% 1000 ML 1,000 ML ONE (13:09)
[2019-03-20 13:14] LABS: Appearance CLEAR (CLEAR); Bilirubin NEGATIVE (NEGATIVE); Blood NEGATIVE Ery/ul (0-5); Glucose NEGATIVE (NEGATIVE); Ketones NEGATIVE (NEGATIVE); Leukocyte Esterase NEGATIVE (NEGATIVE); Nitrite NEGATIVE (NEGATIVE); Protein,Urine Dip NEGATIVE (Negative); Specific Gravity 1.015 (1.005-1.025); Urobilinogen NEGATIVE mg/dL (0-1)
[2019-03-20 13:16] LABS: ANION GAP 15.5 MEQ/L (5-15); Calcium 9.9 mg/dL (8.4-10.2); Creatinine 1 1.39 mg/dL (0.52-1.04); Potassium 3.8 mmol/L (3.5-5.1)
[2019-03-20 13:24] LABS: Bacteria NONE SEEN /HPF (NEGATIVE)
--- NOTE | 2019-03-20 13:25 | XRAY ---
Indication: Pain following fall. Multiple contiguous axial images obtained through the head without contrast. Comparison: November 03, 2018. Stable age-appropriate global atrophy and minimal periventricular degenerative micro-ischemia. No acute intracranial hemorrhage, abnormal extra-axial fluid collection, or mass effect. Fourth ventricle is midline without hydrocephalus. Bony calvarium intact again with hyperostosis frontalis interna. Visualized paranasal sinuses and mastoid air cells are clear. Impression: Stable nonacute senile brain. CT DI 50.23
--- NOTE | 2019-03-20 13:29 | XRAY ---
Indication: Pain following fall one day earlier. Comparison: None Single AP pelvis demonstrates osteopenia, mild degenerative changes of both hips, moderate L4-S1 degenerative spondylosis, L3-L4 posterior fusion, and scattered vascular calcifications. No other bony, articular, or soft tissue abnormalities.
--- NOTE | 2019-03-20 14:28 | ERPHSYRPT ---
- History of Present Illness Time Seen by Provider: 03/20/19 12:30 Source: patient Exam Limitations: clinical condition Patient Subjective Stated Complaint: states fell yesterday evening when going to bed. denies any injury but states lower legs have been hurting for several weeks and has had diarrhea and nausea for several weeks. is seeing dr. bui for these complaints but states she isnt getting any better. Triage Nursing Assessment: to room per w/c accompanied by . skin w/d, color normal, resp easy. patient denies any injury from fall last night. bilat pedal pulses normal. feet warm to touch. a/o times three. Physician History: PATIENT WITH A HISTORY OF CHRONIC BILATERAL LEG PAIN, NEUROPATHY FOR YEARS, AND CHRONIC DIARRHEA, AMBULATES USING CANE, FELL LAST NIGHT, DENIES INJURY TO HEAD, NECK OR HIPS. BROUGHT TO EMERGENCY PER SPOUSE WHO WANTS PATIENT CHECKED OUT. Timing/Duration: yesterday Modifying Factors: Improves With: other (DENIES PAIN DISCOMFORT) Associated Symptoms: denies symptoms Allergies/Adverse Reactions: cephalexin [From Keflex] Adverse Reaction (Intermediate, Verified 03/20/19 12:26 ) Diarrhea oats Adverse Reaction (Verified 03/20/19 12:26) Diarrhea wheat Adverse Reaction (Verified 03/20/19 12:26) Diarrhea Home Medications: Donepezil HCl 5 mg PO HS 05/09/18 [History] Glipizide Xl 10 mg [Glucotrol Xl 10 MG] 10 mg PO DAILY 05/09/18 [History] Lisinopril [Zestril] 2.5 mg PO DAILY 05/09/18 [History] Pramipexole Di-HCl [Pramipexole Dihydrochloride] 0.25 mg PO HS 05/09/18 [History ] Sertraline HCl 25 mg PO HS 05/09/18 [History] cloNIDine HCl [Clonidine HCl] 0.2 mg PO BID 05/09/18 [History] hydroCHLOROthiazide [Hydrochlorothiazide] 25 mg PO DAILY 05/09/18 [History] Amlodipine Besylate [Norvasc] 10 mg PO BID 03/20/19 [History] Cyanocobalamin 500 Mcg [Vitamin B-12 500 MCG] 500 mcg PO BID 03/20/19 [ History] Loratadine 10 mg [Claritin 10 mg] 10 mg PO DAILY 03/20/19 [History] Memantine HCl [Memantine HCl ER] 14 mg PO DAILY 03/20/19 [History] Pioglitazone HCl [Actos] 30 mg PO DAILY 03/20/19 [History] Hx Tetanus, Diphtheria Vaccination/Date Given: No Hx Influenza Vaccination/Date Given: Yes Hx Pneumococcal Vaccination/Date Given: Yes - Review of Systems Constitutional: No Fever, No Chills Eyes: No Symptoms Ears, Nose, & Throat: No Symptoms Respiratory: No Symptoms, No Cough, No Dyspnea Cardiac: No Symptoms, No Chest Pain, No Edema, No Syncope Abdominal/Gastrointestinal: No Symptoms, No Abdominal Pain, No Nausea, No Vomiting, No Diarrhea Genitourinary Symptoms: No Symptoms, No Dysuria Musculoskeletal: No Symptoms, No Back Pain, No Neck Pain Skin: No Symptoms, No Rash Neurological: No Dizziness, No Focal Weakness, No Sensory Changes Psychological: No Symptoms Endocrine: No Symptoms All Other Systems: Reviewed and Negative - Past Medical History Pertinent Past Medical History: Yes Neurological History: Dementia ENT History: Cataracts Cardiac History: Hypertension Respiratory History: No Pertinent History Endocrine Medical History: Adrenal Insufficiency, Diabetes Type II Musculoskeletal History: Degenerative Disk Disease, Osteoarthritis GI Medical History: GERD History: Other Psycho-Social History: Anxiety Female Reproductive Disorders: No Pertinent History Other Medical History: chronic pain- sees dr frost, CKD, - Past Surgical History Past Surgical History: Yes Neuro Surgical History: No Pertinent History Cardiac: No Pertinent History Respiratory: No Pertinent History Gastrointestinal: Cholecystectomy Genitourinary: No Pertinent History Musculoskeletal: Orthopedic Surgery Female Surgical History: No Pertinent History Other Surgical History: Tonsils out, cataract surgery bilat , back surgery ( unsure of what kind) - Social History Smoking Status: Never smoker Exposure to second hand smoke: No Drug Use: none Patient Lives Alone: No - Female History Hx Now: No - Nursing Vital Signs Nursing Vital Signs: Initial Vital Signs Temperature 98.8 F 03/20/19 12:16 Pulse Rate 66 03/20/19 12:16 Respiratory Rate 16 03/20/19 12:16 Blood Pressure 165/67 03/20/19 12:16 O2 Sat by Pulse Oximetry 98 03/20/19 12:16 Pain Scale Pain Intensity [Left Calf] 3 Pain Intensity 3 - Physical Exam General Appearance: no apparent distress, alert Eye Exam: PERRL/EOMI, eyes nml inspection Ears, Nose, Throat Exam: normal ENT inspection, TMs normal, pharynx normal, moist mucous membranes Neck Exam: normal inspection, non-tender, supple, full range of motion Respiratory Exam: normal breath sounds, lungs clear, No respiratory distress Cardiovascular Exam: regular rate/rhythm, normal heart sounds, normal peripheral pulses Gastrointestinal/Abdomen Exam: soft, normal bowel sounds, No tenderness, No mass Back Exam: normal inspection, normal range of motion, No CVA tenderness, No vertebral tenderness Extremity Exam: normal inspection, normal range of motion, pelvis stable Neurologic Exam: alert, oriented x 3, cooperative, normal mood/affect, nml cerebellar function, nml station & gait, sensation nml, No motor deficits Skin Exam: normal color, warm, dry, No rash Lymphatic Exam: No adenopathy SpO2 Interpretation: normal SpO2: 95 - Course EKG Interpreted by Me: RATE, Sinus Rhythm, Left [place] Deviation - Radiology Exams Pelvis X-ray Interpretation: Discussed w/ radiologist - CT Exams Head CT Interpretation: Discussed w/radiologist, No/Intracranial Hemorrhag Ordered Tests: Active Orders 24 hr Category Date Time Status Service Tech/Welder STAT Care 03/20/19 12:42 Active Clean Catch Urine Specimen STAT Care 03/20/19 12:41 Active EKG-ER Only STAT Care 03/20/19 12:41 Active HEAD WITHOUT CONTRAST [CT] Stat Exams 03/20/19 12:41 Completed PELVIS (1 OR 2 VIEWS) Stat Exams 03/20/19 12:45 Completed BMP Stat Lab 03/20/19 13:00 Completed CBC W DIFF Stat Lab 03/20/19 13:00 Completed CULTURE,URINE Stat Lab 03/20/19 13:00 Received MAGNESIUM Stat Lab 03/20/19 13:00 Completed UA W/RFX UR CULTURE Stat Lab 03/20/19 13:00 Completed Medication Summary Generic Name Dose Route Start Last Admin Trade Name Freq PRN Reason Stop Dose Admin Sodium Chloride 1,000 mls @ 100 mls/hr 03/20/19 12:45 03/20/19 13:22 Sodium Chloride 0.9% 1000 Ml IV 04/19/19 12:44 100 mls/hr .Q10H [place] Administration Lab/Rad Data: Laboratory Result Diagrams 03/20/19 13:00 03/20/19 13:00 Laboratory Results 03/20/19 03/20/19 03/20/19 Range/Units 13:00 13:00 13:00 WBC (4.0-10.5) K/mm3 RBC (4.1-5.4) M/mm3 Hgb (12.0-16.0) gm/dl Hct (35-47) % MCV (78-100) fl MCH (26-32) pg MCHC (32-36) g/dl RDW (11.5-14.0) % Plt Count (150-450) K/mm3 MPV (6-9.5) fl Gran % (36.0-66.0) % Eos # (Auto) (0-0.5) Absolute Lymphs (auto) (1.0-4.6) Absolute Monos (auto) (0.0-1.3) Lymphocytes % (24.0-44.0) % Monocytes % (0.0-12.0) % Eosinophils % (0.00-5.0) % Basophils % (0.0-0.4) % Absolute Granulocytes (1.4-6.9) Basophils # (0-0.4) Sodium 134 L (137-145) mmol/L Potassium 3.8 (3.5-5.1) mmol/L Chloride 97 L (98-107) mmol/L Carbon Dioxide 25 (22-30) mmol/L Anion Gap 15.5 H (5-15) MEQ/L BUN 23 H (7-17) mg/dL Creatinine 1.39 H (0.52-1.04) mg/dL Estimated GFR 38.5 ML/MIN Glucose 137 H (74-106) mg/dL Calcium 9.9 (8.4-10.2) mg/dL Magnesium 1.6 (1.6-2.3) mg/dL Urine Color YELLOW (YELLOW) Urine Appearance CLEAR (CLEAR) Urine pH 6.0 (5-6) Ur Specific [place] 1.015 (1.005-1.025) Urine Protein NEGATIVE (Negative) Urine Ketones NEGATIVE (NEGATIVE) Urine Blood NEGATIVE (0-5) Rafita/ul Urine Nitrite NEGATIVE (NEGATIVE) Urine Bilirubin NEGATIVE (NEGATIVE) Urine Urobilinogen NEGATIVE (0-1) mg/dL Ur Leukocyte Esterase NEGATIVE (NEGATIVE) Urine WBC (Auto) NONE (0-5) /HPF Urine RBC (Auto) NONE (0-2) /HPF U Epithel Cells (Auto) NONE (FEW) /HPF Urine Bacteria (Auto) NONE SEEN (NEGATIVE) /HPF Urine Culture Reflexed YES (NO) Urine Glucose NEGATIVE (NEGATIVE) mg/dL Slides for Path Review 03/20/19 Range/Units 13:00 WBC 7.8 (4.0-10.5) K/mm3 RBC 4.13 (4.1-5.4) M/mm3 Hgb 12.4 (12.0-16.0) gm/dl Hct 38.4 (35-47) % MCV 93.0 (78-100) fl MCH 30.0 (26-32) pg MCHC 32.3 (32-36) g/dl RDW 15.5 H (11.5-14.0) % Plt Count 231 (150-450) K/mm3 MPV 10.7 H (6-9.5) fl Gran % 89.2 H (36.0-66.0) % Eos # (Auto) 0 (0-0.5) Absolute Lymphs (auto) 0.45 L (1.0-4.6) Absolute Monos (auto) 0.38 (0.0-1.3) Lymphocytes % 5.8 L (24.0-44.0) % Monocytes % 4.9 (0.0-12.0) % Eosinophils % 0.0 (0.00-5.0) % Basophils % 0.1 (0.0-0.4) % Absolute Granulocytes 6.94 H (1.4-6.9) Basophils # 0.01 (0-0.4) Sodium (137-145) mmol/L Potassium (3.5-5.1) mmol/L Chloride (98-107) mmol/L Carbon Dioxide (22-30) mmol/L Anion Gap (5-15) MEQ/L BUN (7-17) mg/dL Creatinine (0.52-1.04) mg/dL Estimated GFR ML/MIN Glucose (74-106) mg/dL Calcium (8.4-10.2) mg/dL Magnesium (1.6-2.3) mg/dL Urine Color (YELLOW) Urine Appearance (CLEAR) Urine pH (5-6) Ur Specific [place] (1.005-1.025) Urine Protein (Negative) Urine Ketones (NEGATIVE) Urine Blood (0-5) Rafita/ul Urine Nitrite (NEGATIVE) Urine Bilirubin (NEGATIVE) Urine Urobilinogen (0-1) mg/dL Ur Leukocyte Esterase (NEGATIVE) Urine WBC (Auto) (0-5) /HPF Urine RBC (Auto) (0-2) /HPF U Epithel Cells (Auto) (FEW) /HPF Urine Bacteria (Auto) (NEGATIVE) /HPF Urine Culture Reflexed (NO) Urine Glucose (NEGATIVE) mg/dL Slides for Path Review - Progress Progress Note: 03/20/19 14:26 ALL LAB TEST REVIEWED AND ARE NORMAL EXCEPT FOR CREA-1.39 Counseled pt/family regarding: lab results, diagnosis, need for follow-up, rad results - Departure Departure Disposition: Home Clinical Impression: WEAKNESS Condition: Stable Critical Care Time: No Referrals: SIVA BUI [Primary Care Provider] - Additional Instructions: CONTINUE ALL CURRENT MEDICATIONS DIRECTED. CONSULT YOUR PRIMARY CARE PROVIDER FOR EVALUATION IN 1 WEEK. AMBULATE WITH WALKER ASSISTANCE.
[2019-03-20 15:40] VITALS: BP 110/78; PULSE 75; O2SAT 94
[2019-03-20 16:18] LABS: 027 TOX PROD PRESUMPTIVE NEGATIVE (NEGATIVE); TOXIGENIC C. DIFF ORG NEGATIVE (NEGATIVE)
[2019-03-21 11:08] LABS: Source: Feces
[2019-03-21 15:34] LABS: Giardia Antigen EIA Negative (Negative)
== END 2019-03-20 16:02 | disposition home or self-care (01) ==
LOC: ED 11:36
DX: R53.1 Weakness (principal); M79.662 Pain in left lower leg; M79.661 Pain in right lower leg; G62.9 Polyneuropathy, unspecified; Z79.899 Other long term (current) drug therapy; E11.9 Type 2 diabetes mellitus without complications; E27.40 Unspecified adrenocortical insufficiency; K21.9 Gastro-esophageal reflux disease without esophagitis; M19.90 Unspecified osteoarthritis, unspecified site; F41.9 Anxiety disorder, unspecified; N18.9 Chronic kidney disease, unspecified
CPT/HCPCS: 36000; 36415; 70450; 72170; 80048; 81001; 83735; 85025; 87045; 87046; 87086; 87177; 87209; 87335; 87493; 93005; 93041; 96360; 96361; 99285; P9612

== ENCOUNTER 2019-03-22 23:28 | Observation (INO) | payer MEDICARE ==
[2019-03-22] MEDS ORDERED: Sodium Chloride 0.9% 1000 ML 1,000 ML IV STA (23:52)
[2019-03-23] MEDS ORDERED: Sodium Chloride 0.9% 1000 ML 1,000 ML ONE ×2 (00:19→02:01)
[2019-03-23 00:27] LABS: BASOPHIL % 0.2 % (0.0-0.4); Basophil (Absolute #) 0.02 (0-0.4); Eosinophil % 2.8 % (0.00-5.0); Eosinophil (Absolute #) 0.26 (0-0.5); Granulocytes % 70.9 % (36.0-66.0); Hematocrit 36.3 % (35-47); Hemoglobin 11.7 gm/dl (12.0-16.0); Lymphocyte (Absolute #) 1.45 (1.0-4.6); Lymphocytes % 15.8 % (24.0-44.0); Mean Cell Volume 91.4 fl (78-100); Mean Corpuscular Hgb Concent. 32.2 g/dl (32-36); Mean Platelet Volume 10.8 fl (6-9.5); Monocyte (Absolute #) 0.94 (0.0-1.3); Monocytes % 10.3 % (0.0-12.0); Platelet Count 232 K/mm3 (150-450); Red Blood Count 3.97 M/mm3 (4.1-5.4); Red Cell Distribution Width 15.6 % (11.5-14.0); White Blood Count 9.2 K/mm3 (4.0-10.5)
[2019-03-23 00:33] LABS: Mean Corpuscular Hemoglobin 29.4 pg (26-32)
[2019-03-23 00:35] LABS: ANION GAP 15.8 MEQ/L (5-15); BILIRUBIN,TOTAL 0.3 mg/dL (0.2-1.3); Calcium 9.3 mg/dL (8.4-10.2); Creatinine 1 1.93 mg/dL (0.52-1.04); Potassium 3.1 mmol/L (3.5-5.1); Total Protein 7.4 g/dL (6.3-8.2)
[2019-03-23] MEDS: POTASSIUM CHLORIDE 20 mEq IN WATER 100ML 20 MEQ/100 ML BAG IV SCH ×2 (02:07→04:29)
[2019-03-23] MEDS: Sodium Chloride 0.9% 1000 ML 1,000 ML IV SCH ×3 (02:13→22:40)
[2019-03-23 02:26] LABS: C. Difficile Organism NEGATIVE (NEGATIVE); Campylobacter NEGATIVE (NEGATIVE); Cyclospora cayentanensis NEGATIVE (NEGATIVE); Enteroaggregative E.coli NEGATIVE (NEGATIVE); Salmonella NEGATIVE (NEGATIVE); Shiga-like toxin prod.E.coli NEGATIVE (NEGATIVE); Vibrio NEGATIVE (NEGATIVE)
[2019-03-23 02:27] LABS: Adenovirus F 40/41 NEGATIVE (NEGATIVE); Astrovirus POSITIVE (NEGATIVE); Entamoeaba histolytica NEGATIVE (NEGATIVE); Giardia lamblia NEGATIVE (NEGATIVE); Rotavirus A NEGATIVE (NEGATIVE); Sapovirus NEGATIVE (NEGATIVE)
--- NOTE | 2019-03-23 05:27 | ERPHSYRPT ---
- History of Present Illness Historian: patient, family Exam Limitations: no limitations Patient Subjective Stated Complaint: states that she hs had loose stools about every 30 minutes for the last 4 days. states that she has no other complaints Triage Nursing Assessment: pink/warm/dry able to answer simple questions appropriately. family in room with patient. pt has hx of dementia. hyperactive stools. pt reports no pain with palpating abdomen. no stool assessed at this time Physician History: Pt is an 84 y/o female that presented to the ED with severe diarrhea. She came to the ER a few days ago, and was d/c to home. She then went to [facility] ED and had a CT that diagnosed her with ileus and was placed on Bentyl caps, and was d/c. Today pt had complete watery diarrhea, and needed multiple changes , and secondary to lose of control completely, she presented here again. Pt denies F/C/S. No SOB or cough. No chest pain or palpitations. Pt denies vomiting. No abdominal pain. Timing/Duration: day(s) Activities at Onset: none Modifying Factors: Improves With: nothing Allergies/Adverse Reactions: cephalexin [From Keflex] Adverse Reaction (Intermediate, Verified 03/20/19 12:26 ) Diarrhea oats Adverse Reaction (Verified 03/20/19 12:26) Diarrhea wheat Adverse Reaction (Verified 03/20/19 12:26) Diarrhea Home Medications: Donepezil HCl 10 mg PO HS 05/09/18 [History] Glipizide Xl 10 mg [Glucotrol Xl 10 MG] 10 mg PO DAILY 05/09/18 [History] Lisinopril [Zestril] 2.5 mg PO DAILY 05/09/18 [History] Pramipexole Di-HCl [Pramipexole Dihydrochloride] 0.25 mg PO HS 05/09/18 [History ] Sertraline HCl 25 mg PO HS 05/09/18 [History] cloNIDine HCl [Clonidine HCl] 0.2 mg PO BID 05/09/18 [History] hydroCHLOROthiazide [Hydrochlorothiazide] 25 mg PO DAILY 05/09/18 [History] Amlodipine Besylate [Norvasc] 10 mg PO DAILY 03/20/19 [History] Cyanocobalamin 500 Mcg [Vitamin B-12 500 MCG] 500 mcg PO BID 03/20/19 [ History] Loratadine 10 mg [Claritin 10 mg] 10 mg PO DAILY 03/20/19 [History] Memantine HCl [Memantine HCl ER] 14 mg PO DAILY 03/20/19 [History] Pioglitazone HCl [Actos] 15 mg PO DAILY 03/20/19 [History] Dicyclomine HCl 20 mg [Bentyl 20 mg] 20 mg PO QID 03/23/19 [History] Hx Tetanus, Diphtheria Vaccination/Date Given: (unsure) Hx Influenza Vaccination/Date Given: Yes (09/2018) Hx Pneumococcal Vaccination/Date Given: (has had one but its been years) - Review of Systems Constitutional: Fatigue, Lethargy Eyes: No Symptoms Ears, Nose, & Throat: No Symptoms Respiratory: No Cough, No Dyspnea Cardiac: No Chest Pain, No Edema, No Syncope Abdominal/Gastrointestinal: Diarrhea, No Abdominal Pain, No Nausea, No Vomiting Genitourinary Symptoms: No Dysuria Musculoskeletal: No Back Pain, No Neck Pain Skin: No Rash Neurological: No Dizziness, No Focal Weakness, No Sensory Changes Psychological: No Symptoms - Past Medical History Pertinent Past Medical History: Yes Neurological History: Dementia ENT History: Cataracts Cardiac History: Hypertension Respiratory History: No Pertinent History Endocrine Medical History: Adrenal Insufficiency, Diabetes Type II Musculoskeletal History: Degenerative Disk Disease, Osteoarthritis GI Medical History: GERD History: Other Psycho-Social History: Anxiety Female Reproductive Disorders: No Pertinent History Other Medical History: Chronic kidney disease - Past Surgical History Past Surgical History: Yes Neuro Surgical History: No Pertinent History Cardiac: No Pertinent History Respiratory: No Pertinent History Gastrointestinal: Cholecystectomy Genitourinary: No Pertinent History Musculoskeletal: Orthopedic Surgery Female Surgical History: No Pertinent History Other Surgical History: Tonsils out, cataract surgery bilat , back surgery ( unsure of what kind) - Social History Smoking Status: Never smoker Exposure to second hand smoke: Yes (as a child) Drug Use: none Patient Lives Alone: No - Nursing Vital Signs Nursing Vital Signs: Initial Vital Signs Temperature 98 F 03/22/19 23:52 Pulse Rate 66 03/22/19 23:52 Respiratory Rate 20 03/22/19 23:52 Blood Pressure 135/52 03/22/19 23:52 O2 Sat by Pulse Oximetry 95 03/22/19 23:52 Pain Scale Pain Intensity 0 - Physical Exam General Appearance: no apparent distress, alert Eye Exam: PERRL/EOMI, eyes nml inspection Ears, Nose, Throat Exam: normal ENT inspection, pharynx normal, moist mucous membranes Neck Exam: normal inspection, non-tender, supple, full range of motion Respiratory Exam: normal breath sounds, lungs clear, No respiratory distress Cardiovascular Exam: regular rate/rhythm, normal heart sounds Gastrointestinal/Abdomen Exam: soft, No tenderness, No mass Back Exam: normal inspection, normal range of motion, No CVA tenderness, No vertebral tenderness Extremity Exam: normal inspection, normal range of motion, pelvis stable Neurologic Exam: alert, oriented x 3, cooperative, normal mood/affect, nml cerebellar function, sensation nml, No motor deficits SpO2: 98 - Course Nursing assessment & vital signs reviewed: Yes Ordered Tests: Active Orders 24 hr Category Date Time Status IV Insertion STAT Care 03/22/19 23:52 Active Orthostatic Vital Signs STAT Care 03/22/19 23:52 Active BMP Stat Lab 03/23/19 04:59 Ordered CULTURE,URINE Stat Lab 03/22/19 23:53 Ordered Medication Summary Generic Name Dose Route Start Last Admin Trade Name Freq PRN Reason Stop Dose Admin Potassium Chloride 20 meq in 100 mls @ 50 mls/hr 03/23/19 02:00 03/23/19 04: 29 Potassium Chloride 20 Meq In Water 100ml IV 03/23/19 05:59 50 mls/hr Q2H [place] Administration Sodium Chloride 1,000 mls @ 100 mls/hr 03/23/19 02:15 03/23/19 02:13 Sodium Chloride 0.9% 1000 Ml IV 04/22/19 02:14 100 mls/hr .Q10H [place] Administration Discontinued Medications Generic Name Dose Route Start Last Admin Trade Name Freq PRN Reason Stop Dose Admin Sodium Chloride 1,000 mls @ 999 mls/hr 03/22/19 23:52 03/23/19 01:20 Sodium Chloride 0.9% 1000 Ml IV 03/23/19 00:52 Infused .Q1H1M STA Infusion Sodium Chloride Confirm 03/23/19 00:19 Sodium Chloride 0.9% 1000 Ml Administered 03/23/19 00:20 Dose 1,000 mls @ ud .ROUTE .STK-MED ONE Sodium Chloride Confirm 03/23/19 02:01 Sodium Chloride 0.9% 1000 Ml Administered 03/23/19 02:02 Dose 1,000 mls @ ud .ROUTE .K-MED ONE Lab/Rad Data: Laboratory Result Diagrams 03/22/19 00:20 03/22/19 00:20 Laboratory Results 03/23/19 03/22/19 03/22/19 Range/Units 00:58 00:20 00:20 WBC 9.2 (4.0-10.5) K/mm3 RBC 3.97 L (4.1-5.4) M/mm3 Hgb 11.7 L (12.0-16.0) gm/dl Hct 36.3 (35-47) % MCV 91.4 (78-100) fl MCH 29.4 (26-32) pg MCHC 32.2 (32-36) g/dl RDW 15.6 H (11.5-14.0) % Plt Count 232 (150-450) K/mm3 MPV 10.8 H (6-9.5) fl Gran % 70.9 H (36.0-66.0) % Eos # (Auto) 0.26 (0-0.5) Absolute Lymphs (auto) 1.45 (1.0-4.6) Absolute Monos (auto) 0.94 (0.0-1.3) Lymphocytes % 15.8 L (24.0-44.0) % Monocytes % 10.3 (0.0-12.0) % Eosinophils % 2.8 (0.00-5.0) % Basophils % 0.2 (0.0-0.4) % Absolute Granulocytes 6.50 (1.4-6.9) Basophils # 0.02 (0-0.4) Sodium 135 L (137-145) mmol/L Potassium 3.1 L (3.5-5.1) mmol/L Chloride 104 (98-107) mmol/L Carbon Dioxide 18 L (22-30) mmol/L Anion Gap 15.8 H (5-15) MEQ/L BUN 28 H (7-17) mg/dL Creatinine 1.93 H (0.52-1.04) mg/dL Estimated GFR 26.4 ML/MIN Glucose 130 H (74-106) mg/dL Calcium 9.3 (8.4-10.2) mg/dL Total Bilirubin 0.30 (0.2-1.3) mg/dL AST 30 (14-36) U/L ALT 20 (0-35) U/L Alkaline Phosphatase 73 (38-126) U/L Serum Total Protein 7.4 (6.3-8.2) g/dL Albumin 4.0 (3.5-5.0) g/dL Stl C. cayetanensis PCR NEGATIVE (NEGATIVE) Stl Adenov F 40/41 PCR NEGATIVE (NEGATIVE) Stool Astrovirus (PCR) POSITIVE A (NEGATIVE) Stool Cryptosporidium PCR NEGATIVE (NEGATIVE) Stool EPEC (PCR) NEGATIVE (NEGATIVE) Stool EAEC (PCR) NEGATIVE (NEGATIVE) Stl E. histolytica PCR NEGATIVE (NEGATIVE) Stl P. shigelloides PCR NEGATIVE (NEGATIVE) Stool Sapovirus (PCR) NEGATIVE (NEGATIVE) St Y.enterocolitica PCR NEGATIVE (NEGATIVE) Stool Vibrio (PCR) NEGATIVE (NEGATIVE) Stl Vibrio cholerae PCR NEGATIVE (NEGATIVE) Stl Norovirus GI/GII PCR NEGATIVE (NEGATIVE) Campylobacter (PCR) NEGATIVE (NEGATIVE) C. difficile Toxin A&B NEGATIVE (NEGATIVE) Enterotoxigenic E. coli NEGATIVE (NEGATIVE) E.coli Shiga Toxins NEGATIVE (NEGATIVE) Giardia lamblia NEGATIVE (NEGATIVE) Rotavirus A (PCR) NEGATIVE (NEGATIVE) Salmonella (PCR) NEGATIVE (NEGATIVE) Shigella (PCR) NEGATIVE (NEGATIVE) - Progress Progress: unchanged Progress Note: 03/23/19 05:32 Pt had GI pannel that came positive for Astrovirus. The pt was somewhat dry with slightly elevated sCr, and hypokalemia. IV KCl 40meq was ordered. Pt was having diarrhea through the night. As pt did not improve, Dr Hull was contacted, and pt was accepted for Observation for hydration and electrolytes correction. 03/23/19 05:44 Discussed with : Della Will see patient in: hospital (observation) - Departure Departure Disposition: Observation Clinical Impression: Astrovirus enteritis Condition: Fair Critical Care Time: No Referrals: SIVA RODRIGUES [Primary Care Provider] -
[2019-03-23] MEDS ORDERED: Sodium Chloride 0.9% 1000 ML 1,000 ML IV SCH (05:45)
--- NOTE | 2019-03-23 09:07 | PCM.HP ---
History of Present Illness - Chief Complaint Chief Complaint: Astrovirus Enteritis History of Present Illness: is a 84 year old female pt of mine from [facility] with DM II, chronic diarrhea, and chronic renal insufficiency who was admitted through the ER for viral diarrhea. She was seen 5d ago in ER for some diarrhea and leg pain bilaterally from the knees down. She was discharged to home, then had much more diarrhea and was seen in [facility], diagnosed with ileus and discharged to home. When she continued having diarrhea and came to our ER last night, rapid GI panel showed Astrovirus. She was also found to be hypokalemic and her potassium was restored. She denies fever or abd pain. no vomiting. Last diarrhea was yesterday. Has been tolerating fluids. Her renal function is decreased from baseline - eGFR generally between 40-50, and this morning was 26.4. - Review of Systems Abdominal/Gastrointestinal: Diarrhea, Appetite Changes (eating bananas and apple sauce) Musculoskeletal: Other (leg pain, lower legs bilat; has resolved) Medications & Allergies Home Medications: Home Medication List Donepezil HCl 10 mg PO HS 05/09/18 [History Confirmed 03/23/19] Glipizide Xl 10 mg [Glucotrol Xl 10 MG] 10 mg PO DAILY 05/09/18 [History Confirmed 03/23/19] Lisinopril [Zestril] 2.5 mg PO DAILY 05/09/18 [History Confirmed 03/23/19] Pramipexole Di-HCl [Pramipexole Dihydrochloride] 0.25 mg PO HS 05/09/18 [ History Confirmed 03/23/19] Sertraline HCl 25 mg PO HS 05/09/18 [History Confirmed 03/23/19] cloNIDine HCl [Clonidine HCl] 0.2 mg PO BID 05/09/18 [History Confirmed 03/23/19 ] hydroCHLOROthiazide [Hydrochlorothiazide] 25 mg PO DAILY 05/09/18 [History Confirmed 03/23/19] Aspirin EC 325 mg [Ecotrin 325 MG] 325 mg PO QAM #30 tablet.ec 11/04/18 [ Rx Confirmed 03/23/19] Amlodipine Besylate [Norvasc] 10 mg PO DAILY 03/20/19 [History Confirmed ] Cyanocobalamin 500 Mcg [Vitamin B-12 500 MCG] 500 mcg PO BID 03/20/19 [ History Confirmed 03/23/19] Loratadine 10 mg [Claritin 10 mg] 10 mg PO DAILY 03/20/19 [History Confirmed 03/23/19] Memantine HCl [Memantine HCl ER] 14 mg PO DAILY 03/20/19 [History Confirmed ] Pioglitazone HCl [Actos] 15 mg PO DAILY 03/20/19 [History Confirmed 03/23/19] Dicyclomine HCl 20 mg [Bentyl 20 mg] 20 mg PO QID 03/23/19 [History Confirmed 03/23/19] Allergies/Adverse Reactions: Allergies Allergy/AdvReac Type Severity Reaction Status Date / Time cephalexin [From Keflex] AdvReac Intermediate Diarrhea Verified 03/20/19 12:26 oats AdvReac Diarrhea Verified 03/20/19 12:26 wheat AdvReac Diarrhea Verified 03/20/19 12:26 - Past Medical History Past Medical History: Yes Neurological History: Dementia ENT History: Cataracts Cardiac History: Hypertension Respiratory History: No Pertinent History Endocrine Medical History: Adrenal Insufficiency, Diabetes Type II Musculoskelatal History: Degenerative Disk Disease, Osteoarthritis GI Medical History: GERD History: Renal Disease, Other Pyscho-Social History: Anxiety Reproductive Disorders: No Pertinent History Comment: Chronic kidney disease - Female History Are you now?: No - Past Surgical History Past Surgical History: Yes Neuro Surgical History: No Pertinent History Cardiac History: No Pertinent History Respiratory Surgery: No Pertinent History GI Surgical History: Cholecystectomy Genitourinary Surgical Hx: No Pertinent History Musculskeletal Surgical Hx: Orthopedic Surgery Female Surgical History: No Pertinent History Other Surgical History: Tonsils out, cataract surgery bilat , back surgery ( unsure of what kind) - Social History Smoking Status: Never smoker Exposure to second hand smoke: No Alcohol: None Drug Use: none - Physical Exam Vital Signs: Vital Signs - 24 hr Temp Pulse Resp BP BP Pulse Ox 03/23/19 08:00 98.6 F 77 16 180/76 98 03/23/19 05:52 74 16 132/47 97 03/23/19 05:45 98 03/23/19 05:00 77 18 132/64 97 03/23/19 03:40 74 16 139/57 98 03/23/19 02:33 75 20 117/43 97 03/23/19 01:26 70 132/50 03/22/19 23:52 98 F 66 20 135/52 95 General Appearance: no apparent distress, alert Neurologic Exam: oriented x 3, cooperative Eye Exam: eyes nml inspection Ears, Nose, Throat Exam: moist mucous membranes Neck Exam: normal inspection Respiratory Exam: normal breath sounds, lungs clear, No crackles/rales, No rhonchi, No wheezing Cardiovascular Exam: regular rate/rhythm, normal heart sounds, No murmur Gastrointestinal/Abdomen Exam: soft, normal bowel sounds, No tenderness, No distention, No mass, No guarding, No rebound Back Exam: normal inspection, No rash Extremity Exam: normal inspection, No pedal edema, No swelling, No tenderness Skin Exam: normal color, warm, dry, No rash Results - Labs Lab/Micro Results: Lab Results-Last 24 Hours 03/22/19 03/22/19 03/23/19 Range/Units 00:20 00:20 00:58 WBC 9.2 (4.0-10.5) K/mm3 RBC 3.97 L (4.1-5.4) M/mm3 Hgb 11.7 L (12.0-16.0) gm/dl Hct 36.3 (35-47) % MCV 91.4 (78-100) fl MCH 29.4 (26-32) pg MCHC 32.2 (32-36) g/dl RDW 15.6 H (11.5-14.0) % Plt Count 232 (150-450) K/mm3 MPV 10.8 H (6-9.5) fl Gran % 70.9 H (36.0-66.0) % Eos # (Auto) 0.26 (0-0.5) Absolute Lymphs (auto) 1.45 (1.0-4.6) Absolute Monos (auto) 0.94 (0.0-1.3) Lymphocytes % 15.8 L (24.0-44.0) % Monocytes % 10.3 (0.0-12.0) % Eosinophils % 2.8 (0.00-5.0) % Basophils % 0.2 (0.0-0.4) % Absolute Granulocytes 6.50 (1.4-6.9) Basophils # 0.02 (0-0.4) Sodium 135 L (137-145) mmol/L Potassium 3.1 L (3.5-5.1) mmol/L Chloride 104 (98-107) mmol/L Carbon Dioxide 18 L (22-30) mmol/L Anion Gap 15.8 H (5-15) MEQ/L BUN 28 H (7-17) mg/dL Creatinine 1.93 H (0.52-1.04) mg/dL Estimated GFR 26.4 ML/MIN Glucose 130 H (74-106) mg/dL Calcium 9.3 (8.4-10.2) mg/dL Total Bilirubin 0.30 (0.2-1.3) mg/dL AST 30 (14-36) U/L ALT 20 (0-35) U/L Alkaline Phosphatase 73 (38-126) U/L Serum Total Protein 7.4 (6.3-8.2) g/dL Albumin 4.0 (3.5-5.0) g/dL Stl C. cayetanensis PCR NEGATIVE (NEGATIVE) Stl Adenov F 40/41 PCR NEGATIVE (NEGATIVE) Stool Astrovirus (PCR) POSITIVE A (NEGATIVE) Stool Cryptosporidium PCR NEGATIVE (NEGATIVE) Stool EPEC (PCR) NEGATIVE (NEGATIVE) Stool EAEC (PCR) NEGATIVE (NEGATIVE) Stl E. histolytica PCR NEGATIVE (NEGATIVE) Stl P. shigelloides PCR NEGATIVE (NEGATIVE) Stool Sapovirus (PCR) NEGATIVE (NEGATIVE) St Y.enterocolitica PCR NEGATIVE (NEGATIVE) Stool Vibrio (PCR) NEGATIVE (NEGATIVE) Stl Vibrio cholerae PCR NEGATIVE (NEGATIVE) Stl Norovirus GI/GII PCR NEGATIVE (NEGATIVE) Campylobacter (PCR) NEGATIVE (NEGATIVE) C. difficile Toxin A&B NEGATIVE (NEGATIVE) Enterotoxigenic E. coli NEGATIVE (NEGATIVE) E.coli Shiga Toxins NEGATIVE (NEGATIVE) Giardia lamblia NEGATIVE (NEGATIVE) Rotavirus A (PCR) NEGATIVE (NEGATIVE) Salmonella (PCR) NEGATIVE (NEGATIVE) Shigella (PCR) NEGATIVE (NEGATIVE) Assessment/Plan (1) Dehydration Current Visit: Yes Status: Acute Assessment & Plan: due to enteritis. Code(s): E86.0 - DEHYDRATION (2) Astrovirus enteritis Current Visit: Yes Status: Acute Assessment & Plan: appears to be improving. Will advance diet to bland. Code(s): A08.32 - ASTROVIRUS ENTERITIS (3) Hypokalemia Current Visit: Yes Status: Acute Assessment & Plan: recheck this afternoon. Code(s): E87.6 - HYPOKALEMIA (4) Renal failure Current Visit: No Status: Chronic Qualifiers: Renal failure chronicity: chronic Chronic kidney disease stage: stage 3 ( moderate) Qualified Code(s): N18.3 - Chronic kidney disease, stage 3 (moderate ) Assessment & Plan: worsened - likely secondary to dehydration. recheck this afternoon & in a.m. (5) Diabetes mellitus Current Visit: No Status: Chronic Qualifiers: Diabetes mellitus type: type 2 Diabetes mellitus termite control representative insulin use: without termite control representative use Diabetes mellitus complication detail: with chronic kidney disease Chronic kidney disease stage: stage 3 (moderate) Code(s): E11.9 - TYPE 2 DIABETES MELLITUS WITHOUT COMPLICATIONS
[2019-03-23 09:56] LABS: ANION GAP 13.2 MEQ/L (5-15); Calcium 9.4 mg/dL (8.4-10.2); Creatinine 1 1.41 mg/dL (0.52-1.04); Potassium 3.6 mmol/L (3.5-5.1)
[2019-03-23] MEDS ORDERED: NON-FORMULARY ITEM (Amlodipine Besylate [Norvasc] 10 MG) PO SCH (10:00)
[2019-03-23] MEDS ORDERED: MEMANTINE HCL 14 MG PO SCH (10:00)
[2019-03-23] MEDS ORDERED: MEDICATION INTERVENTION PO SCH (10:15)
[2019-03-23] MEDS: hydroDIURIL 25 MG PO SCH (10:51)
[2019-03-23] MEDS: Vitamin B-12 500 MCG PO SCH ×2 (10:51→21:39)
[2019-03-23] MEDS: Catapres 0.1 MG PO SCH ×2 (10:51→21:39)
[2019-03-23] MEDS: NORVASC 5 MG PO SCH (10:51)
[2019-03-23] MEDS: Ecotrin 325 MG PO SCH (10:51)
[2019-03-23] MEDS: CLARITIN 10 MG PO SCH (10:51)
[2019-03-23] MEDS: Zestril 5 MG PO SCH (10:51)
[2019-03-23] MEDS: Actos 30 MG PO SCH (10:52)
[2019-03-23 15:07] LABS: Calcium 9.2 mg/dL (8.4-10.2); Creatinine 1 1.31 mg/dL (0.52-1.04); MAGNESIUM 1.4 mg/dL (1.6-2.3); Potassium 3.5 mmol/L (3.5-5.1)
[2019-03-23 15:08] LABS: BASOPHIL % 0.2 % (0.0-0.4); Basophil (Absolute #) 0.02 (0-0.4); Eosinophil % 3.6 % (0.00-5.0); Eosinophil (Absolute #) 0.35 (0-0.5); Granulocyte Absolute (ANC) 6.69 (1.4-6.9); Granulocytes % 68.2 % (36.0-66.0); Hematocrit 37.4 % (35-47); Hemoglobin 12.2 gm/dl (12.0-16.0); Lymphocyte (Absolute #) 1.78 (1.0-4.6); Lymphocytes % 18.2 % (24.0-44.0); Mean Cell Volume 91.2 fl (78-100); Mean Corpuscular Hemoglobin 29.8 pg (26-32); Mean Corpuscular Hgb Concent. 32.6 g/dl (32-36); Mean Platelet Volume 11.4 fl (6-9.5); Monocyte (Absolute #) 0.96 (0.0-1.3); Monocytes % 9.8 % (0.0-12.0); Platelet Count 250 K/mm3 (150-450); Red Cell Distribution Width 15.7 % (11.5-14.0); White Blood Count 9.8 K/mm3 (4.0-10.5)
[2019-03-23] MEDS: ZOLOFT 50 MG TABLET PO SCH (21:39)
[2019-03-23] MEDS: Aricept 10 MG PO SCH (21:39)
[2019-03-23] MEDS: Mirapex 0.5 MG Tablet PO SCH (21:40)
[2019-03-23] MEDS ORDERED: DONEPEZIL HCL 10 MG PO SCH (22:00)
[2019-03-24 06:18] LABS: BASOPHIL % 0.5 % (0.0-0.4); Basophil (Absolute #) 0.04 (0-0.4); Eosinophil % 6.5 % (0.00-5.0); Eosinophil (Absolute #) 0.49 (0-0.5); Granulocyte Absolute (ANC) 4.49 (1.4-6.9); Granulocytes % 59.2 % (36.0-66.0); Hematocrit 32.1 % (35-47); Hemoglobin 10.4 gm/dl (12.0-16.0); Lymphocyte (Absolute #) 1.77 (1.0-4.6); Lymphocytes % 23.3 % (24.0-44.0); Mean Cell Volume 92.2 fl (78-100); Mean Corpuscular Hgb Concent. 32.4 g/dl (32-36); Mean Platelet Volume 11.3 fl (6-9.5); Monocytes % 10.5 % (0.0-12.0); Platelet Count 214 K/mm3 (150-450); Red Blood Count 3.48 M/mm3 (4.1-5.4); Red Cell Distribution Width 15.7 % (11.5-14.0); White Blood Count 7.6 K/mm3 (4.0-10.5)
[2019-03-24 06:30] LABS: ALBUMIN 3.2 g/dL (3.5-5.0); ANION GAP 12.4 MEQ/L (5-15); BILIRUBIN,TOTAL 0.3 mg/dL (0.2-1.3); Calcium 8.8 mg/dL (8.4-10.2); Creatinine 1 1.15 mg/dL (0.52-1.04); Potassium 3.5 mmol/L (3.5-5.1); Total Protein 6.2 g/dL (6.3-8.2)
[2019-03-24 06:38] LABS: Mean Corpuscular Hemoglobin 29.8 pg (26-32)
[2019-03-24] MEDS: Sodium Chloride 0.9% 1000 ML 1,000 ML IV SCH ×2 (09:00→19:39)
--- NOTE | 2019-03-24 09:08 | PCM.NOTE ---
Date and Time: 03/24/19905 Subjective Assessment: Pt was feeling good yesterday afternoon, but as she ate more she started having more grumling in the abdomen and had 3 stools overnight (was up with disomfort and itching from her Depends). Tolerated eggs so far this morning. Stools are liquid. - Review of Systems Constitutional: No Fever Abdominal/Gastrointestinal: Diarrhea Objective Exam General Appearance: no apparent distress, alert Neurologic Exam: cooperative, normal mood/affect Skin Exam: normal color, warm, dry, No rash Respiratory Exam: normal breath sounds, lungs clear, No crackles/rales, No rhonchi, No wheezing Cardiovascular Exam: regular rate/rhythm, normal heart sounds, No murmur Gastrointestinal/Abdomen Exam: soft, normal bowel sounds, No tenderness, No distention, No mass, No guarding, No rebound Extremity Exam: normal inspection, No pedal edema, No swelling OBJECTIVE DATA Vital Signs: Vital Signs - 24 hr Temp Pulse Resp BP Pulse Ox 03/24/19 07:13 98.0 F 70 18 150/61 93 L 03/24/19 03:00 20 03/24/19 02:52 98.4 F 77 20 140/52 95 03/24/19 01:51 98.4 F 64 18 124/54 95 03/23/19 23:00 20 03/23/19 20:00 98.7 F 72 20 141/51 97 03/23/19 19:59 18 03/23/19 16:00 18 03/23/19 14:00 98.2 F 86 18 152/67 98 03/23/19 12:00 16 Pain Assessment - Last Documented Pain Intensity 0 Pain Scale Used 0-10 Pain Scale Intake and Output: Intake & Output 03/21/19 03/22/19 03/23/19 03/24/19 11:59 11:59 11:59 11:59 Intake Total 1440 2850 Balance 1440 2850 Weight 90.5 kg Lab Results: Accuchecks Date 03/23/19 Date 03/23/19 Time 16:30 Time 11:30 Accucheck Value: 105 Accucheck Value: 109 Accucheck Value: 97 Lab Results-Last 24 Hours 03/23/19 03/23/19 03/23/19 Range/Units 09:00 14:35 14:35 WBC 9.8 (4.0-10.5) K/mm3 RBC 4.10 (4.1-5.4) M/mm3 Hgb 12.2 (12.0-16.0) gm/dl Hct 37.4 (35-47) % MCV 91.2 (78-100) fl MCH 29.8 (26-32) pg MCHC 32.6 (32-36) g/dl RDW 15.7 H (11.5-14.0) % Plt Count 250 (150-450) K/mm3 MPV 11.4 H (6-9.5) fl Gran % 68.2 H (36.0-66.0) % Eos # (Auto) 0.35 (0-0.5) Absolute Lymphs (auto) 1.78 (1.0-4.6) Absolute Monos (auto) 0.96 (0.0-1.3) Lymphocytes % 18.2 L (24.0-44.0) % Monocytes % 9.8 (0.0-12.0) % Eosinophils % 3.6 (0.00-5.0) % Basophils % 0.2 (0.0-0.4) % Absolute Granulocytes 6.69 (1.4-6.9) Basophils # 0.02 (0-0.4) Sodium 138 136 L (137-145) mmol/L Potassium 3.6 3.5 (3.5-5.1) mmol/L Chloride 109 H 107 (98-107) mmol/L Carbon Dioxide 19 L 18 L (22-30) mmol/L Anion Gap 13.2 15.0 (5-15) MEQ/L BUN 21 H 19 H (7-17) mg/dL Creatinine 1.41 H 1.31 H (0.52-1.04) mg/dL Estimated GFR 37.9 41.2 ML/MIN Glucose 89 128 H (74-106) mg/dL Calcium 9.4 9.2 (8.4-10.2) mg/dL Magnesium 1.4 L (1.6-2.3) mg/dL Total Bilirubin (0.2-1.3) mg/dL AST (14-36) U/L ALT (0-35) U/L Alkaline Phosphatase (38-126) U/L Serum Total Protein (6.3-8.2) g/dL Albumin (3.5-5.0) g/dL 03/24/19 03/24/19 03/24/19 Range/Units 05:20 05:20 08:09 WBC 7.6 (4.0-10.5) K/mm3 RBC 3.48 L (4.1-5.4) M/mm3 Hgb 10.4 L (12.0-16.0) gm/dl Hct 32.1 L (35-47) % MCV 92.2 (78-100) fl MCH 29.8 (26-32) pg MCHC 32.4 (32-36) g/dl RDW 15.7 H (11.5-14.0) % Plt Count 214 (150-450) K/mm3 MPV 11.3 H (6-9.5) fl Gran % 59.2 (36.0-66.0) % Eos # (Auto) 0.49 (0-0.5) Absolute Lymphs (auto) 1.77 (1.0-4.6) Absolute Monos (auto) 0.80 (0.0-1.3) Lymphocytes % 23.3 L (24.0-44.0) % Monocytes % 10.5 (0.0-12.0) % Eosinophils % 6.5 H (0.00-5.0) % Basophils % 0.5 (0.0-0.4) % Absolute Granulocytes 4.49 (1.4-6.9) Basophils # 0.04 (0-0.4) Sodium 138 (137-145) mmol/L Potassium 3.5 3.6 (3.5-5.1) mmol/L Chloride 111 H (98-107) mmol/L Carbon Dioxide 18 L (22-30) mmol/L Anion Gap 12.4 (5-15) MEQ/L BUN 15 (7-17) mg/dL Creatinine 1.15 H (0.52-1.04) mg/dL Estimated GFR 47.9 ML/MIN Glucose 95 (74-106) mg/dL Calcium 8.8 (8.4-10.2) mg/dL Magnesium (1.6-2.3) mg/dL Total Bilirubin 0.30 (0.2-1.3) mg/dL AST 23 (14-36) U/L ALT 16 (0-35) U/L Alkaline Phosphatase 65 (38-126) U/L Serum Total Protein 6.2 L (6.3-8.2) g/dL Albumin 3.2 L (3.5-5.0) g/dL Assessment/Plan (1) Astrovirus enteritis Current Visit: Yes Status: Acute Assessment & Plan: Continues to have liquid stool. I advised try small meals throughout the day. Code(s): A08.32 - ASTROVIRUS ENTERITIS (2) Hypokalemia Current Visit: Yes Status: Resolved Code(s): E87.6 - HYPOKALEMIA (3) Renal failure Current Visit: No Status: Chronic Qualifiers: Renal failure chronicity: chronic Chronic kidney disease stage: stage 3 ( moderate) Qualified Code(s): N18.3 - Chronic kidney disease, stage 3 (moderate ) Assessment & Plan: improved today. (4) Diabetes mellitus Current Visit: No Status: Chronic Qualifiers: Diabetes mellitus type: type 2 Diabetes mellitus termination clerk insulin use: without termination clerk use Diabetes mellitus complication detail: with chronic kidney disease Chronic kidney disease stage: stage 3 (moderate) Code(s): E11.9 - TYPE 2 DIABETES MELLITUS WITHOUT COMPLICATIONS (5) Dehydration Current Visit: Yes Status: Resolved Code(s): E86.0 - DEHYDRATION
[2019-03-24] MEDS ORDERED: Lomotil PO PRN (09:10)
[2019-03-24] MEDS: CLARITIN 10 MG PO SCH (09:36)
[2019-03-24] MEDS: Catapres 0.1 MG PO SCH ×2 (09:36→21:05)
[2019-03-24] MEDS: Vitamin B-12 500 MCG PO SCH ×2 (09:36→21:06)
[2019-03-24] MEDS: Ecotrin 325 MG PO SCH (09:36)
[2019-03-24] MEDS: Actos 30 MG PO SCH (09:37)
[2019-03-24] MEDS: hydroDIURIL 25 MG PO SCH (09:37)
[2019-03-24] MEDS: NORVASC 5 MG PO SCH (09:37)
[2019-03-24] MEDS: Zestril 5 MG PO SCH (09:37)
[2019-03-24] MEDS: Aricept 10 MG PO SCH (21:05)
[2019-03-24] MEDS: Mirapex 0.5 MG Tablet PO SCH (21:05)
[2019-03-24] MEDS: ZOLOFT 50 MG TABLET PO SCH (21:06)
[2019-03-25] MEDS: Sodium Chloride 0.9% 1000 ML 1,000 ML IV SCH (05:46)
[2019-03-25 07:36] VITALS: BP 159/67; PULSE 78; O2SAT 96
[2019-03-25] MEDS: Zestril 5 MG PO SCH (09:06)
[2019-03-25] MEDS: Vitamin B-12 500 MCG PO SCH (09:06)
[2019-03-25] MEDS: CLARITIN 10 MG PO SCH (09:06)
[2019-03-25] MEDS: Ecotrin 325 MG PO SCH (09:07)
[2019-03-25] MEDS: NORVASC 5 MG PO SCH (09:07)
[2019-03-25] MEDS: Actos 30 MG PO SCH (09:07)
[2019-03-25] MEDS: hydroDIURIL 25 MG PO SCH (09:07)
[2019-03-25] MEDS: Catapres 0.1 MG PO SCH (09:07)
--- NOTE | 2019-03-25 09:13 | PCM.DS ---
Discharge Summary Date of Admission: 03/23/19 05:58 Admitting Physician: SIVA RODRIGUES Primary Care Provider: SIVA RODRIGUES Allergies Allergies cephalexin [From Keflex] Adverse Reaction (Intermediate, Verified 03/20/19 12:26 ) Diarrhea oats Adverse Reaction (Verified 03/20/19 12:26) Diarrhea wheat Adverse Reaction (Verified 03/20/19 12:26) Diarrhea Hospital Summary - Hospital Course Hospital Course: Pt is an 84 yo female pt o fmine from [facility] with HTN, diabetes, chronic renal failure, and dementia who was admitted with watery diarrhea and dehydration, found to have Astrovirus. She was put in isolation and given IV fluids. She continued to have watery stools, more so with eating. I instructed her yesterday to eat small meals throughout the day and did start some lomotil. She did not have any stools overnight. Will be discharged to home for lomotil; after 3-4 d can transition back to bentyl prn. RTC in1 week. - Vitals & Intake/Output Vital Signs: Vital Signs Temperature 98.6 F 03/25/19 07:35 Pulse Rate 78 03/25/19 07:35 Respiratory Rate 18 03/25/19 07:35 Blood Pressure 159/67 03/25/19 07:35 O2 Sat by Pulse Oximetry 96 03/25/19 07:35 Intake & Output: Intake & Output 03/22/19 03/23/19 03/24/19 03/25/19 11:59 11:59 11:59 11:59 Intake Total 1440 3330 3728 Output Total 3000 Balance 1440 3330 728 Weight 90.5 kg - Lab Result Diagrams: 03/24/19 05:20 03/24/19 08:09 Lab Results-Last 24 Hrs: Accuchecks Date 03/25/19 Time 07:30 Accucheck Value: 105 Accucheck Value: 112 Accucheck Value: 144 Accucheck Value: 124 Micro Results-Entire Visit: Microbiology 03/22/19 23:53 Urine Culture - Preliminary Clean Catch Midstream GRAM NEGATIVE ID AND SENSITIVITY PENDING Accuchecks Date 03/25/19 Time 07:30 Accucheck Value: 105 Accucheck Value: 112 Accucheck Value: 144 Accucheck Value: 124 Discharge Exam General Appearance: no apparent distress, obese Neurologic Exam: alert, cooperative Skin Exam: normal color, warm, dry, No rash Ears, Nose, Throat Exam: moist mucous membranes Neck Exam: normal inspection Respiratory Exam: normal breath sounds, lungs clear, No crackles/rales, No rhonchi, No wheezing Cardiovascular Exam: regular rate/rhythm, normal heart sounds, No murmur Gastrointestinal/Abdomen Exam: soft, normal bowel sounds, No tenderness, No distention, No mass, No guarding, No rebound Extremity Exam: No pedal edema, No swelling Final Diagnosis/Problem List - Final Discharge Diagnosis/Problem (1) Astrovirus enteritis Current Visit: Yes Status: Acute Assessment & Plan: Much improved; home on lomotil prn. Eat small bland meals throughout the day for several days, returning to normal meal habits as tolerated. Code(s): A08.32 - ASTROVIRUS ENTERITIS (2) Hypokalemia Current Visit: Yes Status: Resolved Code(s): E87.6 - HYPOKALEMIA (3) Renal failure Current Visit: No Status: Chronic (4) Diabetes mellitus Current Visit: No Status: Chronic Code(s): E11.9 - TYPE 2 DIABETES MELLITUS WITHOUT COMPLICATIONS (5) Dehydration Current Visit: Yes Status: Resolved Code(s): E86.0 - DEHYDRATION - Discharge Disposition: Home, Self-Care Condition: Good Prescriptions: New Diphenoxylate HCl/Atropine [Lomotil] 1 tablet PO QID PRN PRN #16 tablet PRN Reason: Diarrhea Continue hydroCHLOROthiazide [Hydrochlorothiazide] 25 mg PO DAILY cloNIDine HCl [Clonidine HCl] 0.2 mg PO BID Sertraline HCl 25 mg PO HS Pramipexole Di-HCl [Pramipexole Dihydrochloride] 0.25 mg PO HS Lisinopril [Zestril] 2.5 mg PO DAILY Glipizide Xl 10 mg [Glucotrol Xl 10 MG] 10 mg PO DAILY Donepezil HCl 10 mg PO HS Aspirin EC 325 mg [Ecotrin 325 MG] 325 mg PO QAM #30 tablet.ec Loratadine 10 mg [Claritin 10 mg] 10 mg PO DAILY Memantine HCl [Memantine HCl ER] 14 mg PO DAILY Amlodipine Besylate [Norvasc] 10 mg PO DAILY Pioglitazone HCl [Actos] 15 mg PO DAILY Cyanocobalamin 500 Mcg [Vitamin B-12 500 MCG] 500 mcg PO BID Changed Dicyclomine HCl 20 mg [Bentyl 20 mg] 20 mg PO QID PRN #90 tablet PRN Reason: Diarrhea Follow up with: SIVA RODRIGUES [Primary Care Provider] - 03/31/19 10:15 am
== END 2019-03-25 10:20 | disposition home or self-care (01) ==
LOC: ED 23:28 → MED SURG 03-23 05:58
PROVIDERS: ADMIT Family Medicine; ATTEND Family Medicine
DX: A08.32 Astrovirus enteritis (principal); E87.6 Hypokalemia; E86.0 Dehydration; I12.9 Hypertensive chronic kidney disease with stage 1 through stage 4 chronic kidney disease, or unspecified chronic kidney disease; E11.22 Type 2 diabetes mellitus with diabetic chronic kidney disease; N18.9 Chronic kidney disease, unspecified; Z79.899 Other long term (current) drug therapy
CPT/HCPCS: 36415; 80048; 80053; 82962; 83735; 84132; 85025; 87077; 87086; 87186; 87507; 96360; 96361; 96365; 96366; 99285; G0378; J3480; A9270-GY

== ENCOUNTER 2019-12-15 21:13 | Emergency (ER) | payer MEDICARE ==
--- NOTE | 2019-12-15 21:23 | ERPHSYRPT ---
- History of Present Illness Time Seen by Provider: 12/15/19 21:23 Source: patient, family Exam Limitations: no limitations, clinical condition Physician History: 84 y/o white female presents with prior dx of bronchitis and placed on steroids after seen at [facility]. sx for at least a week. sx not improving. pt denies cp , denies n/v/d and denies abd pain. Timing/Duration: day(s) (7), worse Cough Quality/Degree: moderate, dry cough Possible Cause: occasional episodes Modifying Factors: Improves With: coughing Associated Symptoms: cough, shortness of breath Allergies/Adverse Reactions: cephalexin [From Keflex] Adverse Reaction (Intermediate, Verified 03/20/19 12:26 ) Diarrhea oats Adverse Reaction (Verified 03/20/19 12:26) Diarrhea wheat Adverse Reaction (Verified 03/20/19 12:26) Diarrhea Home Medications: Donepezil HCl 10 mg PO HS 05/09/18 [History] Glipizide Xl 10 mg [Glucotrol Xl 10 MG] 10 mg PO DAILY 05/09/18 [History] Pramipexole Di-HCl [Pramipexole Dihydrochloride] 0.25 mg PO HS 05/09/18 [History ] Sertraline HCl 25 mg PO HS 05/09/18 [History] cloNIDine HCL [Clonidine HCl] 0.2 mg PO BID 05/09/18 [History] hydroCHLOROthiazide [Hydrochlorothiazide] 25 mg PO DAILY 05/09/18 [History] lisinopriL [Zestril] 2.5 mg PO DAILY 05/09/18 [History] Amlodipine Besylate [Norvasc] 10 mg PO DAILY 03/20/19 [History] Cyanocobalamin 500 Mcg [Vitamin B-12 500 MCG] 500 mcg PO BID 03/20/19 [ History] Loratadine 10 mg [Claritin 10 mg] 10 mg PO DAILY 03/20/19 [History] Memantine HCl [Memantine HCl ER] 14 mg PO DAILY 03/20/19 [History] Pioglitazone HCl [Actos] 15 mg PO DAILY 03/20/19 [History] Hx Tetanus, Diphtheria Vaccination/Date Given: (unsure) Hx Influenza Vaccination/Date Given: Yes (09/2018) Hx Pneumococcal Vaccination/Date Given: (has had one but its been years) - Review of Systems Constitutional: No Symptoms Eyes: No Symptoms Ears, Nose, & Throat: No Symptoms Respiratory: Cough Cardiac: No Symptoms Abdominal/Gastrointestinal: No Symptoms Genitourinary Symptoms: No Symptoms Musculoskeletal: No Symptoms Skin: No Symptoms Neurological: No Symptoms Psychological: No Symptoms Endocrine: No Symptoms Hematologic/Lymphatic: No Symptoms Immunological/Allergic: No Symptoms All Other Systems: Reviewed and Negative - Past Medical History Pertinent Past Medical History: Yes Neurological History: Dementia ENT History: Cataracts Cardiac History: Hypertension Respiratory History: No Pertinent History Endocrine Medical History: Adrenal Insufficiency, Diabetes Type II Musculoskeletal History: Degenerative Disk Disease, Osteoarthritis GI Medical History: GERD History: Renal Disease, Other Psycho-Social History: Anxiety Female Reproductive Disorders: No Pertinent History Other Medical History: Chronic kidney disease - Past Surgical History Past Surgical History: Yes Neuro Surgical History: No Pertinent History Cardiac: No Pertinent History Respiratory: No Pertinent History Gastrointestinal: Cholecystectomy Genitourinary: No Pertinent History Musculoskeletal: Orthopedic Surgery Female Surgical History: No Pertinent History Other Surgical History: Tonsils out, cataract surgery bilat , back surgery ( unsure of what kind) - Social History Smoking Status: Never smoker Exposure to second hand smoke: No Drug Use: none Patient Lives Alone: No - Nursing Vital Signs Nursing Vital Signs: Initial Vital Signs Temperature 98.7 F 12/15/19 21:27 Pulse Rate 91 H 12/15/19 21:27 Respiratory Rate 20 12/15/19 21:27 Blood Pressure 215/82 12/15/19 21:27 O2 Sat by Pulse Oximetry 93 L 12/15/19 21:27 Pain Scale Pain Intensity 2 - Physical Exam General Appearance: mild distress, alert, anxiety Eye Exam: PERRL/EOMI, eyes nml inspection Ears, Nose, Throat Exam: normal ENT inspection, moist mucous membranes Neck Exam: normal inspection, non-tender, supple, full range of motion Respiratory Exam: respiratory distress (mild), airway intact, rhonchi, wheezing Cardiovascular Exam: regular rate/rhythm, normal heart sounds, normal peripheral pulses Gastrointestinal/Abdomen Exam: soft, normal bowel sounds, No tenderness Pelvic Exam: not done Rectal Exam: not done Back Exam: normal inspection, normal range of motion, No CVA tenderness, No vertebral tenderness Extremity Exam: normal inspection, normal range of motion, pelvis stable Neurologic Exam: alert, oriented x 3, cooperative, gizzard puller II-XII nml as tested Skin Exam: normal color, warm, dry Lymphatic Exam: No adenopathy SpO2 Interpretation: normal O2 Delivery: Room Air - Course Nursing assessment & vital signs reviewed: Yes Ordered Tests: Active Orders 24 hr Category Date Time Status [employer] STAT Care 12/15/19 22:52 Active IV Insertion STAT Care 12/15/19 22:51 Active Pulse Oximetry (ED) STAT Care 12/15/19 22:51 Active CHEST 1 VIEW (PORTABLE) Stat Exams 12/15/19 22:52 Taken CBC W DIFF Stat Lab 12/15/19 23:15 Completed CMP Stat Lab 12/15/19 23:15 Completed Lactic Acid Stat Lab 12/15/19 22:51 Completed Manual Differential NC Stat Lab 12/15/19 23:15 Completed Peak Expiratory Flow Rate ONCE RT 12/15/19 23:14 Active Respiratory Therapy Assessment DAILY RT 12/15/19 23:14 Active Medication Summary Generic Name Dose Route Start Last Admin Trade Name Freq PRN Reason Stop Dose Admin Levofloxacin/Dextrose 750 mg in 150 mls @ 100 mls/hr 12/16/19 00:13 Levofloxacin 750mg/150ml D5w IV 12/16/19 01:42 STAT STA Discontinued Medications Generic Name Dose Route Start Last Admin Trade Name Freq PRN Reason Stop Dose Admin Albuterol Sulfate 2.5 mg 12/15/19 23:04 12/15/19 23:10 Proventil 2.5 Mg/3 Ml Neb IH 12/15/19 23:05 2.5 mg STAT ONE Administration Albuterol Sulfate Confirm 12/15/19 23:02 Proventil 2.5 Mg/3 Ml Neb Administered 12/15/19 23:03 Dose 2.5 mg IH .STK-MED ONE Benzonatate 200 mg 12/15/19 22:54 12/15/19 23:08 Tessalon Perles 100 Mg PO 12/15/19 22:55 200 mg STAT ONE Administration Methylprednisolone Sodium Succinate 125 mg 12/15/19 22:53 12/15/19 23:08 Solu-Medrol 125 Mg IV 12/15/19 22:54 125 mg STAT ONE Administration Lab/Rad Data: Laboratory Result Diagrams 12/15/19 23:15 12/15/19 23:15 Laboratory Results 12/15/19 12/15/19 12/15/19 Range/Units 23:20 23:15 23:15 WBC 14.5 H (4.0-10.5) K/mm3 RBC 4.00 L (4.1-5.4) M/mm3 Hgb 11.9 L (12.0-16.0) gm/dl Hct 37.3 (35-47) % MCV 93.3 (78-100) fl MCH 29.8 (26-32) pg MCHC 31.9 L (32-36) g/dl RDW 15.2 H (11.5-14.0) % Plt Count 279 (150-450) K/mm3 MPV 11.0 (7.5-11.0) fl Sodium 134 L (137-145) mmol/L Potassium 4.1 (3.5-5.1) mmol/L Chloride 97 L (98-107) mmol/L Carbon Dioxide 25 (22-30) mmol/L Anion Gap 16.2 H (5-15) MEQ/L BUN 39 H (7-17) mg/dL Creatinine 1.16 H (0.52-1.04) mg/dL Estimated GFR 47.4 ML/MIN Glucose 137 H (74-106) mg/dL Lactic Acid (0.4-2.0) Calcium 9.1 (8.4-10.2) mg/dL Total Bilirubin 0.30 (0.2-1.3) mg/dL AST 25 (14-36) U/L ALT 18 (0-35) U/L Alkaline Phosphatase 105 (38-126) U/L Serum Total Protein 7.9 (6.3-8.2) g/dL Albumin 4.4 (3.5-5.0) g/dL Influenza Type A Ag NEGATIVE (NEGATIVE) Influenza Type B Ag NEGATIVE (NEGATIVE) RSV (PCR) POSITIVE (Negative) 12/15/19 Range/Units 22:51 WBC (4.0-10.5) K/mm3 RBC (4.1-5.4) M/mm3 Hgb (12.0-16.0) gm/dl Hct (35-47) % MCV (78-100) fl MCH (26-32) pg MCHC (32-36) g/dl RDW (11.5-14.0) % Plt Count (150-450) K/mm3 MPV (7.5-11.0) fl Sodium (137-145) mmol/L Potassium (3.5-5.1) mmol/L Chloride (98-107) mmol/L Carbon Dioxide (22-30) mmol/L Anion Gap (5-15) MEQ/L BUN (7-17) mg/dL Creatinine (0.52-1.04) mg/dL Estimated GFR ML/MIN Glucose (74-106) mg/dL Lactic Acid 1.6 (0.4-2.0) Calcium (8.4-10.2) mg/dL Total Bilirubin (0.2-1.3) mg/dL AST (14-36) U/L ALT (0-35) U/L Alkaline Phosphatase (38-126) U/L Serum Total Protein (6.3-8.2) g/dL Albumin (3.5-5.0) g/dL Influenza Type A Ag (NEGATIVE) Influenza Type B Ag (NEGATIVE) RSV (PCR) (Negative) - Progress Progress: improved Air Movement: fair Progress Note: 12/16/19 00:20 cxr-? right lower lobe infiltrate spoke with dr. maya de la cruz,. he accepts pt for transfer. we do not have any beds at our facility and pt and family want to transfer to [facility]. 12/16/19 00:22 bernabe de la cruz do [phone] cell, Counseled pt/family regarding: lab results, diagnosis, rad results - Departure Departure Disposition: Transfer Clinical Impression: Right lower lobe pneumonia, RSV (respiratory syncytial virus infection) Condition: Fair Critical Care Time: No Referrals: SIVA RODRIGUES [Primary Care Provider] -
[2019-12-15] MEDS ORDERED: solu-MEDROL 125 MG IV ONE (22:53)
[2019-12-15] MEDS ORDERED: Tessalon Perles 100 MG PO ONE (22:54)
[2019-12-15] MEDS ORDERED: PROVENTIL 2.5 MG/3 ML NEB IH ONE ×2 (23:02→23:04)
[2019-12-15 23:26] LABS: Hematocrit 37.3 % (35-47); Hemoglobin 11.9 gm/dl (12.0-16.0); Mean Cell Volume 93.3 fl (78-100); Mean Corpuscular Hemoglobin 29.8 pg (26-32); Mean Corpuscular Hgb Concent. 31.9 g/dl (32-36); Platelet Count 279 K/mm3 (150-450); Red Cell Distribution Width 15.2 % (11.5-14.0); White Blood Count 14.5 K/mm3 (4.0-10.5)
[2019-12-15 23:37] LABS: ALBUMIN 4.4 g/dL (3.5-5.0); ANION GAP 16.2 MEQ/L (5-15); BILIRUBIN,TOTAL 0.3 mg/dL (0.2-1.3); Calcium 9.1 mg/dL (8.4-10.2); Creatinine 1 1.16 mg/dL (0.52-1.04); Potassium 4.1 mmol/L (3.5-5.1); Total Protein 7.9 g/dL (6.3-8.2)
[2019-12-15 23:57] LABS: INFLUENZA A NEGATIVE (NEGATIVE); INFLUENZA B NEGATIVE (NEGATIVE)
[2019-12-15 23:58] LABS: RESPIRATORY SYNCTIAL VIRUS POSITIVE (Negative)
[2019-12-16] MEDS ORDERED: LEVOFLOXACIN 750MG/150ML D5W 750 MG/150 ML BAG IV STA (00:13)
[2019-12-16] MEDS ORDERED: LEVOFLOXACIN 750MG/150ML D5W 750 MG/150 ML BAG IV ONE (00:20)
[2019-12-16 00:35] VITALS: PULSE 88; O2SAT 94
[2019-12-16 00:49] VITALS: BP 161/67
[2019-12-16 02:52] LABS: Lymphocytes 13 % (24-44); Monocyte 6 % (0.0-12.0); Neutrophils 81 % (36.0-66.0); Platelet Estimate NORMAL (NORMAL); Total Cells Counted 100; Toxic Granulation RARE
--- NOTE | 2019-12-16 08:59 | XRAY ---
Indication: Cough and congestion. Comparison: May 09, 2018. Portable chest remains clear again with incidental left base calcified granuloma. Heart is not enlarged. Bony thorax intact with mild degenerative changes. Impression: Stable nonacute chest with chronic features.
== END 2019-12-16 01:13 | disposition critical access hospital (66) ==
LOC: ED 21:13
DX: J10.1 Influenza due to other identified influenza virus with other respiratory manifestations (principal); J12.1 Respiratory syncytial virus pneumonia
CPT/HCPCS: 36000; 36415; 71045; 80053; 83605; 85025; 87631; 93041; 94150; 94640; 94760; 96374; 99285; J1956; J2930; J7609; A9270-GY

== ENCOUNTER 2019-12-22 12:42 | Emergency (ER) | payer MEDICARE ==
--- NOTE | 2019-12-22 13:07 | ERPHSYRPT ---
- History of Present Illness Time Seen by Provider: 12/22/19 12:50 Patient Subjective Stated Complaint: Pt was in [facility] last week for pneumonia and is on Doxycycline and for about the past 3 days she has been hurting in her RLQ more with movement and not while laying Triage Nursing Assessment: Pt brought to the ER by her daughter, hypertensive, coughing, coughs up small yellow thick sputum, states that she has a lot of sinus drainage, pulses normal, bowel sounds heard in all 4, walks with a cane, decreased appetite, has been trying to consume fluids, no pain with palpatation of RLQ, rates her abdominal pain as 7/10 with movement Physician History: Patient is a 84yo F who presents to ED with c/o Rt. LQ pain. Pain started approximately 3 days ago and has progressively worsened. Pain described as an ache that is well localized. No radiation. Pain worse worse with movement and palpation. Pain improves with rest. No associated N/V/D. No trauma or fevers. No CP or SOB. Symptoms are moderate in intensity, but patient declined pain medication. Patient is currently being treated for pneumonia. She is on Doxycycline. Patient has a residual cough. Per patient the cough is exacerbating her pain. No history of appendectomy. No trauma. No dysuria or hematuria. Daugher at BS. They voice no other c/o at this time. Timing/Duration: day(s) Quality: aching Abdominal Pain Onset Location: RLQ Pain Radiation: no radiation, RUQ Severity of Pain-Max: moderate Severity of Pain-Current: moderate Modifying Factors: Improves With: movement Associated Symptoms: denies symptoms Allergies/Adverse Reactions: cephalexin [From Keflex] Adverse Reaction (Intermediate, Verified 12/22/19 13:03 ) Diarrhea oats Adverse Reaction (Verified 12/22/19 13:03) Diarrhea wheat Adverse Reaction (Verified 12/22/19 13:03) Diarrhea Home Medications: Donepezil HCl 10 mg PO HS 05/09/18 [History] Glipizide Xl 10 mg [Glucotrol Xl 10 MG] 10 mg PO DAILY 05/09/18 [History] Pramipexole Di-HCl [Pramipexole Dihydrochloride] 0.25 mg PO HS 05/09/18 [History ] Sertraline HCl 25 mg PO HS 05/09/18 [History] hydroCHLOROthiazide [Hydrochlorothiazide] 25 mg PO DAILY 05/09/18 [History] lisinopriL [Zestril] 10 mg PO DAILY 05/09/18 [History] Amlodipine Besylate [Norvasc] 10 mg PO DAILY 03/20/19 [History] Cyanocobalamin 500 Mcg [Vitamin B-12 500 MCG] 500 mcg PO BID 03/20/19 [ History] Loratadine 10 mg [Claritin 10 mg] 10 mg PO DAILY 03/20/19 [History] Memantine HCl [Memantine HCl ER] 14 mg PO DAILY 03/20/19 [History] Hx Tetanus, Diphtheria Vaccination/Date Given: (unsure) Hx Influenza Vaccination/Date Given: Yes (september 2019) Hx Pneumococcal Vaccination/Date Given: Yes - Review of Systems Constitutional: No Fever, No Chills Eyes: No Symptoms Ears, Nose, & Throat: No Symptoms Respiratory: No Cough, No Dyspnea Cardiac: No Chest Pain, No Edema, No Syncope Abdominal/Gastrointestinal: No Abdominal Pain, No Nausea, No Vomiting, No Diarrhea Genitourinary Symptoms: No Dysuria Musculoskeletal: No Back Pain, No Neck Pain Skin: No Rash Neurological: No Dizziness, No Focal Weakness, No Sensory Changes Psychological: No Symptoms Endocrine: No Symptoms All Other Systems: Reviewed and Negative - Past Medical History Pertinent Past Medical History: Yes Neurological History: Dementia ENT History: Cataracts Cardiac History: Hypertension Respiratory History: Pneumonia Endocrine Medical History: Adrenal Insufficiency, Diabetes Type II Musculoskeletal History: Degenerative Disk Disease, Osteoarthritis GI Medical History: GERD History: Renal Disease, Other Psycho-Social History: Anxiety Female Reproductive Disorders: No Pertinent History Other Medical History: Chronic kidney disease - Past Surgical History Past Surgical History: Yes Neuro Surgical History: No Pertinent History Cardiac: No Pertinent History Respiratory: No Pertinent History Gastrointestinal: Cholecystectomy Genitourinary: No Pertinent History Musculoskeletal: Orthopedic Surgery Female Surgical History: No Pertinent History Other Surgical History: Tonsils out, cataract surgery bilat , back surgery ( unsure of what kind) - Social History Smoking Status: Never smoker Exposure to second hand smoke: No Drug Use: none Patient Lives Alone: No - Female History Hx Now: No - Nursing Vital Signs Nursing Vital Signs: Initial Vital Signs Temperature 97.7 F 12/22/19 12:48 Pulse Rate 76 12/22/19 12:48 Respiratory Rate 18 12/22/19 12:48 Blood Pressure 166/73 12/22/19 12:48 O2 Sat by Pulse Oximetry 95 12/22/19 12:48 Pain Scale Pain Intensity 0 - Physical Exam General Appearance: no apparent distress, alert, No lethargy Ears, Nose, Throat Exam: normal ENT inspection Neck Exam: normal inspection Respiratory Exam: other Cardiovascular Exam: regular rate/rhythm, normal heart sounds, No capillary refill 2-3 sec, No edema Gastrointestinal/Abdomen Exam: tenderness, No distention, No guarding, No pulsatile mass Pelvic Exam: not done Back Exam: normal inspection Extremity Exam: normal inspection Neurologic Exam: alert, oriented x 3, cooperative, acquisitions librarian II-XII nml as tested, No motor deficits, No sensory deficit Skin Exam: normal color, warm, dry, No rash, No jaundice, No pale Lymphatic Exam: No adenopathy SpO2 Interpretation: normal SpO2: 95 O2 Delivery: Room Air Ordered Tests: Active Orders 24 hr Category Date Time Status IV Insertion STAT Care 12/22/19 13:13 Active NPO (ED) STAT Care 12/22/19 13:13 Active ABDOMEN AND PELVIS W/0 CONTRAS [CT] Stat Exams 12/22/19 13:14 Completed CBC W DIFF Stat Lab 12/22/19 13:13 Completed CMP Stat Lab 12/22/19 13:13 Completed LIPASE Stat Lab 12/22/19 13:13 Completed UA W/RFX UR CULTURE Stat Lab 12/22/19 15:00 Completed Medication Summary Generic Name Dose Route Start Last Admin Trade Name Freq PRN Reason Stop Dose Admin Sodium Chloride 1,000 mls @ 100 mls/hr 12/22/19 13:15 12/22/19 14:37 Sodium Chloride 0.9% 1000 Ml IV 01/21/20 13:14 100 mls/hr .Q10H [place] Administration Lab/Rad Data: Laboratory Result Diagrams 12/22/19 13:13 12/22/19 13:13 Laboratory Results 12/22/19 12/22/19 12/22/19 Range/Units 15:00 13:13 13:13 WBC 11.8 H (4.0-10.5) K/mm3 RBC 3.99 L (4.1-5.4) M/mm3 Hgb 12.2 (12.0-16.0) gm/dl Hct 37.2 (35-47) % MCV 93.2 (78-100) fl MCH 30.6 (26-32) pg MCHC 32.8 (32-36) g/dl RDW 15.3 H (11.5-14.0) % Plt Count 248 (150-450) K/mm3 MPV 10.7 (7.5-11.0) fl Gran % 75.1 H (36.0-66.0) % Eos # (Auto) 0.17 (0-0.5) Absolute Lymphs (auto) 2.00 (1.0-4.6) Absolute Monos (auto) 0.75 (0.0-1.3) Lymphocytes % 16.9 L (24.0-44.0) % Monocytes % 6.4 (0.0-12.0) % Eosinophils % 1.4 (0.00-5.0) % Basophils % 0.2 (0.0-0.4) % Absolute Granulocytes 8.87 H (1.4-6.9) Basophils # 0.02 (0-0.4) Sodium 131 L (137-145) mmol/L Potassium 4.4 (3.5-5.1) mmol/L Chloride 97 L (98-107) mmol/L Carbon Dioxide 24 (22-30) mmol/L Anion Gap 15.0 (5-15) MEQ/L BUN 24 H (7-17) mg/dL Creatinine 1.17 H (0.52-1.04) mg/dL Estimated GFR 47.0 ML/MIN Glucose 140 H (74-106) mg/dL Calcium 9.4 (8.4-10.2) mg/dL Total Bilirubin 0.50 (0.2-1.3) mg/dL AST 19 (14-36) U/L ALT 15 (0-35) U/L Alkaline Phosphatase 107 (38-126) U/L Serum Total Protein 7.4 (6.3-8.2) g/dL Albumin 4.1 (3.5-5.0) g/dL Lipase 205 (23-300) U/L Urine Color STRAW (YELLOW) Urine Appearance CLEAR (CLEAR) Urine pH 7.0 (5-6) Ur Specific [place] 1.004 (1.005-1.025) Urine Protein NEGATIVE (Negative) Urine Ketones NEGATIVE (NEGATIVE) Urine Blood NEGATIVE (0-5) Rafita/ul Urine Nitrite NEGATIVE (NEGATIVE) Urine Bilirubin NEGATIVE (NEGATIVE) Urine Urobilinogen NEGATIVE (0-1) mg/dL Ur Leukocyte Esterase NEGATIVE (NEGATIVE) Urine WBC (Auto) NONE (0-5) /HPF Urine RBC (Auto) NONE (0-2) /HPF U Epithel Cells (Auto) NONE (FEW) /HPF Urine Bacteria (Auto) NONE (NEGATIVE) /HPF Urine Mucus (Auto) SLIGHT (NEGATIVE) /HPF Urine Culture Reflexed NO (NO) Urine Glucose NEGATIVE (NEGATIVE) mg/dL - Progress Progress: re-examined (Patient re-examined. Pain minimal at this time. Patient decliced pain medication. Bladder was full at time of CT A/P but patient voided after returning from CT scan. We do not have a bladder scanner to assess for post void residual. Patient declined urinary catheter to assess post void residual. at BS. Patient requesting discharge. She states "Im ready to go home" Patient states she has pain medicaion at home and declined prescription. Patient currently on Doxycycline for pneumonia. She will follow up with PMD within 48 hours. 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 The patient was counseled regarding Diagnosis,Lab results, Imaging studies, need for follow up and when to return to the Emergency Room. Prescriptions given: Discharge Note I have spoken with the patient and/or caregivers. I have explained the patient' s condition, diagnosis and treatment plan based on the information available to me at this time. I have answered the patient's and/or caregiver's questions and addressed any concerns. The patient and/or caregivers have as good understanding of the patient's diagnosis, condition and treatment plan as can be expected at this point. The vital signs have been stable. The patient's condition is stable and appropriate for discharge from the emergency department. The patient will pursue further outpatient evaluation with the primary care physician or other designated or consulting physician as outlined in the discharge instructions. The patient and/or caregivers are agreeable to this plan of care and follow-up instructions have been explained in detail. The patient and/or caregivers have received these instruction. The patient/and or caregivers are aware that any significant change in condition or worsening of symptoms should prompt an immediate return to this or the closest emergency department or call 911.
[2019-12-22] MEDS ORDERED: Sodium Chloride 0.9% 1000 ML 1,000 ML IV SCH (13:15)
[2019-12-22 13:32] LABS: Absolute Neutrophil Ct (ANC) 8.87 (1.4-6.9); BASOPHIL % 0.2 % (0.0-0.4); Basophil (Absolute #) 0.02 (0-0.4); Eosinophil % 1.4 % (0.00-5.0); Eosinophil (Absolute #) 0.17 (0-0.5); Hematocrit 37.2 % (35-47); Hemoglobin 12.2 gm/dl (12.0-16.0); Lymphocytes % 16.9 % (24.0-44.0); Mean Cell Volume 93.2 fl (78-100); Mean Corpuscular Hemoglobin 30.6 pg (26-32); Mean Corpuscular Hgb Concent. 32.8 g/dl (32-36); Mean Platelet Volume 10.7 fl (7.5-11.0); Monocyte (Absolute #) 0.75 (0.0-1.3); Monocytes % 6.4 % (0.0-12.0); Neutrophil % 75.1 % (36.0-66.0); Platelet Count 248 K/mm3 (150-450); Red Blood Count 3.99 M/mm3 (4.1-5.4); Red Cell Distribution Width 15.3 % (11.5-14.0); White Blood Count 11.8 K/mm3 (4.0-10.5)
[2019-12-22 13:43] LABS: ALBUMIN 4.1 g/dL (3.5-5.0); BILIRUBIN,TOTAL 0.5 mg/dL (0.2-1.3); Calcium 9.4 mg/dL (8.4-10.2); Creatinine 1 1.17 mg/dL (0.52-1.04); Potassium 4.4 mmol/L (3.5-5.1); Total Protein 7.4 g/dL (6.3-8.2)
[2019-12-22] MEDS ORDERED: Sodium Chloride 0.9% 1000 ML 1,000 ML ONE (14:36)
--- NOTE | 2019-12-22 14:49 | XRAY ---
Indication: Right abdomen pain 1 week. Multiple contiguous axial images obtained through the abdomen and pelvis without contrast as ordered. Comparison: June 30, 2017. Lung bases again demonstrates bibasilar atelectasis/scarring and small left lower lobe calcified granuloma. No infiltrate or effusion. Heart is not enlarged. Stable small hiatal hernia. Noncontrasted stomach and bowel loops again nonobstructed. Normal appendix. There is increasing mild diffuse scattered colonic fecal debris throughout. No free fluid/air. Again previous cholecystectomy. No free fluid/air. 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 No distal ureteral calculus. Urinary bladder is now moderately distended possibly outlet obstruction versus neurogenic bladder. Stable small left adrenal adenoma. Remaining liver, pancreas, spleen, adrenal glands, kidneys, ureters, bladder, and uterus appear unremarkable for noncontrast exam. Stable minimal aortoiliac calcifications including both main renal arteries. Osseous structures again demonstrates osteopenia and mild/moderate degenerative changes throughout the thoracolumbar spine. New L3-L4 posterior spinous process fusion hardware. Impression: 1. Distended urinary bladder. Rule out outlet obstruction versus neurogenic bladder. 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 Query vesicoureteral reflux from distended bladder. 2. New mild diffuse fecal stasis without obstruction. 3. Stable small hiatal hernia, small left adrenal adenoma, and incidental chronic bony findings.
[2019-12-22 15:08] LABS: Appearance CLEAR (CLEAR); Bilirubin NEGATIVE (NEGATIVE); Blood NEGATIVE Ery/ul (0-5); Glucose NEGATIVE (NEGATIVE); Ketones NEGATIVE (NEGATIVE); Leukocyte Esterase NEGATIVE (NEGATIVE); Mucus SLIGHT /HPF (NEGATIVE); Nitrite NEGATIVE (NEGATIVE); Protein,Urine Dip NEGATIVE (Negative); Specific Gravity 1.004 (1.005-1.025); Urobilinogen NEGATIVE mg/dL (0-1)
[2019-12-22 15:27] VITALS: O2SAT 95
[2019-12-22 15:46] VITALS: BP 155/78; PULSE 80
== END 2019-12-22 15:58 | disposition home or self-care (01) ==
LOC: ED 12:42
DX: R10.31 Right lower quadrant pain (principal); E11.9 Type 2 diabetes mellitus without complications; F03.90 Unspecified dementia, unspecified severity, without behavioral disturbance, psychotic disturbance, mood disturbance, and anxiety; E86.0 Dehydration; E27.40 Unspecified adrenocortical insufficiency; F42.9 Obsessive-compulsive disorder, unspecified; I12.9 Hypertensive chronic kidney disease with stage 1 through stage 4 chronic kidney disease, or unspecified chronic kidney disease; N18.9 Chronic kidney disease, unspecified; J84.10 Pulmonary fibrosis, unspecified; K59.00 Constipation, unspecified; D35.02 Benign neoplasm of left adrenal gland; K44.9 Diaphragmatic hernia without obstruction or gangrene; Z79.899 Other long term (current) drug therapy
CPT/HCPCS: 36000; 36415; 74176; 80053; 81001; 83690; 85025; 96360; 96361; 99284

== ENCOUNTER 2020-10-12 07:34 | Observation (INO) | payer MEDICARE ==
[2020-10-12 08:02] LABS: Absolute Neutrophil Ct (ANC) 4.53 (1.4-6.9); BASOPHIL % 0.3 % (0.0-0.4); Basophil (Absolute #) 0.02 (0-0.4); Eosinophil % 3.7 % (0.00-5.0); Eosinophil (Absolute #) 0.26 (0-0.5); Hematocrit 42.1 % (35-47); Hemoglobin 13.4 gm/dl (12.0-16.0); Lymphocytes % 24.3 % (24.0-44.0); Mean Cell Volume 93.3 fl (78-100); Mean Corpuscular Hemoglobin 29.7 pg (26-32); Mean Corpuscular Hgb Concent. 31.8 g/dl (32-36); Monocyte (Absolute #) 0.48 (0.0-1.3); Monocytes % 6.9 % (0.0-12.0); Neutrophil % 64.8 % (36.0-66.0); Platelet Count 275 K/mm3 (150-450); Red Blood Count 4.51 M/mm3 (4.1-5.4); Red Cell Distribution Width 15.4 % (11.5-14.0)
[2020-10-12 08:13] LABS: ALBUMIN 4.7 g/dL (3.5-5.0); ANION GAP 10.6 MEQ/L (5-15); BILIRUBIN,TOTAL 0.5 mg/dL (0.2-1.3); Calcium 10.1 mg/dL (8.4-10.2); Creatinine 1 1.08 mg/dL (0.52-1.04); EST GLOMERULAR FILTRATION RATE 51.4 ML/MIN; MAGNESIUM 1.8 mg/dL (1.6-2.3); Potassium 4.1 mmol/L (3.5-5.1); Total Protein 8.4 g/dL (6.3-8.2)
--- NOTE | 2020-10-12 08:15 | ERPHSYRPT ---
- History of Present Illness Source: patient, family Exam Limitations: no limitations Patient Subjective Stated Complaint: dizziness since yesterday, fall yesterday Triage Nursing Assessment: Pt presents with CC of dizziness, onset last night. Dizziness is intermittent. Patient is A & Ox3, answers questions appropriately. Strength is appropriate. Patient denies WAHL, blurred vision, numbness/tingling, or other associated symptoms. Pupils reactive, but pinpoint. NSR noted on monitor. RR and effort WNL. Skin PWD. Physician History: Patient is an 85-year-old female with history of chronic renal failure, hypertension, dementia and type 2 diabetes. Patient is here in the ER for dizziness. Apparently had started after she got out of the shower yesterday evening. Patient apparently fell as well and hit her nose on the floor of the bathroom. Patient denies any loss of consciousness. Patient is not on any anticoagulation. She did have some nosebleed at that time which stopped with pressure. Since then she has been feeling dizzy especially this morning and so is here for evaluation. She recently had some ear issues or drainage where she was given an eardrop. She does not feel that it is helping. Patient denies fever, chest pain, shortness of breath, facial droop, slurring of speech or neurological deficits. Patient also denies any nausea or vomiting from her dizziness and feels that her dizziness is mainly positional as it is worse when she stands up. She states she drinks as much water as she can. She has 1 cup of coffee in the morning otherwise no other caffeinated drinks. She denies alcohol use. She states there has been no changes to her medication recently. Timing/Duration: yesterday, constant Severity: moderate Character of Deficits: general (difuse) Deficits: falling, off balance Baseline/Normal Cognition: alert oriented x 3 Current Cognition: alert oriented x 3 Baseline Gait: walks w/o assistance Associated Symptoms: denies symptoms Allergies/Adverse Reactions: cephalexin [From Keflex] Adverse Reaction (Intermediate, Verified 12/22/19 13:03) Diarrhea oats Adverse Reaction (Verified 12/22/19 13:03) Diarrhea wheat Adverse Reaction (Verified 12/22/19 13:03) Diarrhea Home Medications: Glipizide Xl 10 mg [Glucotrol Xl 10 MG] 10 mg PO DAILY 05/09/18 [History] Pramipexole Di-HCl [Pramipexole Dihydrochloride] 0.25 mg PO HS 05/09/18 [H istory] Sertraline HCl 25 mg PO HS 05/09/18 [History] hydroCHLOROthiazide [Hydrochlorothiazide] 25 mg PO DAILY 05/09/18 [History] lisinopriL [Zestril] 10 mg PO DAILY 05/09/18 [History] Amlodipine Besylate [Norvasc] 10 mg PO DAILY 03/20/19 [History] Cyanocobalamin 500 Mcg [Vitamin B-12 500 MCG] 500 mcg PO BID 03/20/19 [History] Loratadine 10 mg [Claritin 10 mg] 10 mg PO DAILY 03/20/19 [History] Memantine HCl [Memantine HCl ER] 14 mg PO DAILY 03/20/19 [History] Cholecalciferol (Vitamin D3) [Vitamin D3] 25 mcg PO DAILY 10/12/20 [History] Hx Tetanus, Diphtheria Vaccination/Date Given: Yes Hx Influenza Vaccination/Date Given: Yes Hx Pneumococcal Vaccination/Date Given: Yes Immunizations Up to Date: Yes Travel Risk - International Travel Have you traveled outside of the country in past 3 weeks: No - Coronavirus Screening Are you exhibiting any of the following symptoms?: No Close contact with a COVID-19 positive Pt in past 14-21 Days: No - Review of Systems Constitutional: No Fever, No Chills Eyes: No Symptoms Ears, Nose, & Throat: Nose Pain, Epistaxis Respiratory: No Cough, No Dyspnea Cardiac: No Chest Pain, No Edema, No Syncope Abdominal/Gastrointestinal: No Abdominal Pain, No Nausea, No Vomiting, No Diarrhea Genitourinary Symptoms: No Dysuria Musculoskeletal: No Back Pain, No Neck Pain Skin: No Rash Neurological: Dizziness, No Focal Weakness, No Sensory Changes Psychological: No Symptoms Endocrine: No Symptoms Hematologic/Lymphatic: No Symptoms All Other Systems: Reviewed and Negative - Past Medical History Pertinent Past Medical History: Yes Neurological History: Dementia ENT History: Cataracts Cardiac History: Hypertension Respiratory History: Pneumonia Endocrine Medical History: Adrenal Insufficiency, Diabetes Type II Musculoskeletal History: Degenerative Disk Disease, Osteoarthritis GI Medical History: GERD History: Renal Disease, Other Psycho-Social History: Anxiety Female Reproductive Disorders: No Pertinent History Other Medical History: Chronic kidney disease - Past Surgical History Past Surgical History: Yes Neuro Surgical History: No Pertinent History Cardiac: No Pertinent History Respiratory: No Pertinent History Gastrointestinal: Cholecystectomy Genitourinary: No Pertinent History Musculoskeletal: Orthopedic Surgery Female Surgical History: No Pertinent History Other Surgical History: Tonsils out, cataract surgery bilat , back surgery (unsure of what kind) - Social History Smoking Status: Never smoker Exposure to second hand smoke: No Drug Use: none Patient Lives Alone: No - Nursing Vital Signs Nursing Vital Signs: Initial Vital Signs Temperature 97.7 F 10/12/20 07:42 Pulse Rate 72 10/12/20 07:42 Respiratory Rate 12 10/12/20 07:42 Blood Pressure 159/73 10/12/20 07:42 O2 Sat by Pulse Oximetry 97 10/12/20 07:42 Pain Scale Pain Intensity 0 - Eden Coma Scale Best Eye Response (Eden): (4) open spontaneously Best Verbal Response (Dariela): (5) oriented Best Motor Response (Dariela): (6) obeys commands Eden Total: 15 - Physical Exam General Appearance: no apparent distress, alert Eye Exam: bilateral eye: PERRL, EOMI Ears, Nose, Throat Exam: TMs normal, pharynx normal, moist mucous membranes, other (Slight redness over bridge of nose. NO deformity or swelling noted. 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 Exam: tongue midline Coordination/Gait: normal finger to nose, normal gait Skin Exam: normal color, warm, dry, No rash SpO2 Interpretation: normal SpO2: 97 - Course Nursing assessment & vital signs reviewed: Yes EKG Interpreted by Me: Sinus Rhythm, NORMAL AXIS, NORMAL INTERVALS, NORMAL QRS Ordered Tests: Active Orders 24 hr Category Date Time Status Up With Assistance ROUTINE Activity 10/12/20 12:42 Ordered Ambulate Patient ROUTINE Care 10/12/20 11:42 Active Call Admit Doctor for Orders ON ADMISSION Care 10/12/20 12:44 Ordered Morale Officer STAT Care 10/12/20 07:37 Active Code Status Order ROUTINE Care 10/12/20 12:42 Ordered EKG-ER Only STAT Care 10/12/20 07:36 Active Fall Protocol ROUTINE Care 10/12/20 12:45 Ordered IV Care Q6H Care 10/12/20 12:42 Ordered IV Insertion STAT Care 10/12/20 07:37 Active Intake and Output Q12H Care 10/12/20 12:42 Ordered Neuro Checks Q4H Care 10/12/20 12:42 Ordered Orthostatic Vital Signs STAT Care 10/12/20 07:37 Active POCT Glucose Check ACHS Care 10/12/20 12:42 Ordered POCT Glucose Check STAT Care 10/12/20 07:[address] in Observation ROUTINE Care 10/12/20 12:42 Ordered Telemetry q6h Care 10/12/20 12:42 Ordered Heart-Healthy Diet Diet 10/12/20 Dinner Ordered CERVICAL SPINE WO CONTRAST [CT] Stat Exams 10/12/20 08:16 Completed CHEST 2 VIEWS (PA AND LAT) Stat Exams 10/12/20 09:06 Completed FACIAL BONES WO CONTRAST [CT] Stat Exams 10/12/20 08:16 Completed HEAD WITHOUT CONTRAST [CT] Stat Exams 10/12/20 08:16 Completed CBC W DIFF AM.LAB Lab 10/13/20 04:00 Ordered CBC W DIFF Stat Lab 10/12/20 07:59 Completed CMP AM.LAB Lab 10/13/20 04:00 Ordered CMP Stat Lab 10/12/20 07:59 Completed MAGNESIUM Stat Lab 10/12/20 07:59 Completed POCT GLUCOSE Stat Lab 10/12/20 07:49 Completed TROPONIN Q3H Lab 10/12/20 07:59 Completed TROPONIN Q3H Lab 10/12/20 11:00 Completed UA W/RFX UR CULTURE Stat Lab 10/12/20 10:50 Completed Pulse Oximetry CONTINUOUS RT 10/12/20 12:46 Ordered Medication Summary Discontinued Medications Generic Name Dose Route Start Last Admin Trade Name Freq PRN Reason Stop Dose Admin Sodium Chloride 1,000 mls @ 999 mls/hr 10/12/20 09:00 10/12/20 10:05 Sodium Chloride 0.9% 1000 Ml IV 10/12/20 10:00 Infused .Q1H1M STA Infusion Sodium Chloride Confirm 10/12/20 09:01 Sodium Chloride 0.9% 1000 Ml Administered 10/12/20 09:02 Dose 1,000 mls @ ud .ROUTE .STK-MED ONE Sodium Chloride 1,000 mls @ 999 mls/hr 10/12/20 11:01 10/12/20 11:05 Sodium Chloride 0.9% 1000 Ml IV 10/12/20 12:01 999 mls/hr .Q1H1M STA Administration Sodium Chloride Confirm 10/12/20 11:05 Sodium Chloride 0.9% 1000 Ml Administered 10/12/20 11:06 Dose 1,000 mls @ ud .ROUTE .STK-MED ONE Meclizine HCl 25 mg 10/12/20 11:01 10/12/20 11:05 Antivert 25 Mg PO 10/12/20 11:02 25 mg STAT ONE Administration Meclizine HCl Confirm 10/12/20 11:05 Antivert 25 Mg Administered 10/12/20 11:06 Dose 25 mg .ROUTE .STK-MED ONE Lab/Rad Data: Laboratory Result Diagrams 10/12/20 07:59 10/12/20 07:59 Laboratory Results 10/12/20 10/12/20 10/12/20 Range/Units 11:00 10:50 07:59 WBC (4.0-10.5) K/mm3 RBC (4.1-5.4) M/mm3 Hgb (12.0-16.0) gm/dl Hct (35-47) % MCV (78-100) fl MCH (26-32) pg MCHC (32-36) g/dl RDW (11.5-14.0) % Plt Count (150-450) K/mm3 MPV (7.5-11.0) fl Gran % (36.0-66.0) % Eos # (Auto) (0-0.5) Absolute Lymphs (auto) (1.0-4.6) Absolute Monos (auto) (0.0-1.3) Lymphocytes % (24.0-44.0) % Monocytes % (0.0-12.0) % Eosinophils % (0.00-5.0) % Basophils % (0.0-0.4) % Absolute Granulocytes (1.4-6.9) Basophils # (0-0.4) Sodium (137-145) mmol/L Potassium (3.5-5.1) mmol/L Chloride (98-107) mmol/L Carbon Dioxide (22-30) mmol/L Anion Gap (5-15) MEQ/L BUN (7-17) mg/dL Creatinine (0.52-1.04) mg/dL Estimated GFR ML/MIN Glucose (74-106) mg/dL POC Glucometer (74 to 106) mg/dL Calcium (8.4-10.2) mg/dL Magnesium (1.6-2.3) mg/dL Total Bilirubin (0.2-1.3) mg/dL AST (14-36) U/L ALT (0-35) U/L Alkaline Phosphatase (38-126) U/L Troponin I < 0.012 < 0.012 (0.000-0.034) ng/mL Serum Total Protein (6.3-8.2) g/dL Albumin (3.5-5.0) g/dL Urine Color STRAW (YELLOW) Urine Appearance CLEAR (CLEAR) Urine pH 7.0 (5-6) Ur Specific Warren 1.006 (1.005-1.025) Urine Protein NEGATIVE (Negative) Urine Ketones NEGATIVE (NEGATIVE) Urine Blood NEGATIVE (0-5) Rafita/ul Urine Nitrite NEGATIVE (NEGATIVE) Urine Bilirubin NEGATIVE (NEGATIVE) Urine Urobilinogen NEGATIVE (0-1) mg/dL Ur Leukocyte Esterase TRACE (NEGATIVE) Urine WBC (Auto) 3-5 (0-5) /HPF Urine RBC (Auto) 0-2 (0-2) /HPF U Epithel Cells (Auto) NONE (FEW) /HPF Urine Bacteria (Auto) NONE (NEGATIVE) /HPF Urine Culture Reflexed NO (NO) Urine Glucose NEGATIVE (NEGATIVE) mg/dL 10/12/20 10/12/20 10/12/20 Range/Units 07:59 07:59 07:49 WBC 7.0 (4.0-10.5) K/mm3 RBC 4.51 (4.1-5.4) M/mm3 Hgb 13.4 (12.0-16.0) gm/dl Hct 42.1 (35-47) % MCV 93.3 (78-100) fl MCH 29.7 (26-32) pg MCHC 31.8 L (32-36) g/dl RDW 15.4 H (11.5-14.0) % Plt Count 275 (150-450) K/mm3 MPV 11.0 (7.5-11.0) fl Gran % 64.8 (36.0-66.0) % Eos # (Auto) 0.26 (0-0.5) Absolute Lymphs (auto) 1.70 (1.0-4.6) Absolute Monos (auto) 0.48 (0.0-1.3) Lymphocytes % 24.3 (24.0-44.0) % Monocytes % 6.9 (0.0-12.0) % Eosinophils % 3.7 (0.00-5.0) % Basophils % 0.3 (0.0-0.4) % Absolute Granulocytes 4.53 (1.4-6.9) Basophils # 0.02 (0-0.4) Sodium 137 (137-145) mmol/L Potassium 4.1 (3.5-5.1) mmol/L Chloride 101 (98-107) mmol/L Carbon Dioxide 29 (22-30) mmol/L Anion Gap 10.6 (5-15) MEQ/L BUN 21 H (7-17) mg/dL Creatinine 1.08 H (0.52-1.04) mg/dL Estimated GFR 51.4 ML/MIN Glucose 139 H (74-106) mg/dL POC Glucometer 115 H (74 to 106) mg/dL Calcium 10.1 (8.4-10.2) mg/dL Magnesium 1.8 (1.6-2.3) mg/dL Total Bilirubin 0.50 (0.2-1.3) mg/dL AST 23 (14-36) U/L ALT 16 (0-35) U/L Alkaline Phosphatase 105 (38-126) U/L Troponin I (0.000-0.034) ng/mL Serum Total Protein 8.4 H (6.3-8.2) g/dL Albumin 4.7 (3.5-5.0) g/dL Urine Color (YELLOW) Urine Appearance (CLEAR) Urine pH (5-6) Ur Specific Warren (1.005-1.025) Urine Protein (Negative) Urine Ketones (NEGATIVE) Urine Blood (0-5) Rafita/ul Urine Nitrite (NEGATIVE) Urine Bilirubin (NEGATIVE) Urine Urobilinogen (0-1) mg/dL Ur Leukocyte Esterase (NEGATIVE) Urine WBC (Auto) (0-5) /HPF Urine RBC (Auto) (0-2) /HPF U Epithel Cells (Auto) (FEW) /HPF Urine Bacteria (Auto) (NEGATIVE) /HPF Urine Culture Reflexed (NO) Urine Glucose (NEGATIVE) mg/dL - Progress Progress: improved Progress Note: 10/12/20 12:48 Given patient's symptoms and her traumatic fall, will do cardiac work-up along with CT of head, facial bones and C-spine. IV fluids initiated. Orthostatics were positive. Her BUN and creatinine ratio was greater than 20. Patient ambulated to the bathroom and still felt dizzy. Second liter of IV fluids given. Antivert also given for possible symptomatic relief. Patient states she is somewhat better but still feels dizzy when we ambulated her for possible discharge home. Given her age and and having an elderly as well at home, it seems that sending patient home would be inappropriate. Discussed with Dr. Martinez who is in agreement to admit patient in observation and gently hydrate and monitor symptoms. Discussed with : Arin Will see patient in: hospital (observation) Counseled pt/family regarding: lab results, diagnosis, rad results - Departure Departure Disposition: Observation Clinical Impression: Dehydration, Orthostatic dizziness Condition: Stable Critical Care Time: No Referrals: SIVA MARTINEZ [Primary Care Provider] -
[2020-10-12] MEDS ORDERED: Sodium Chloride 0.9% 1000 ML 1,000 ML IV STA ×2 (09:00→11:01)
[2020-10-12] MEDS ORDERED: Sodium Chloride 0.9% 1000 ML 1,000 ML ONE ×2 (09:01→11:05)
--- NOTE | 2020-10-12 09:03 | XRAY ---
Indication: Facial injury following fall. Multiple contiguous axial images obtained through the cervical spine. Sagittal and coronal reformatted images obtained. Comparison: None. Axial images negative for acute fracture, suspicious bony lesions, or spinal canal stenosis. Mild/moderate C4-C7 and degenerative endplate spurring. Also mild/moderate multilevel bilateral degenerative facet hypertrophy. Sagittal and coronal reformatted images demonstrate normal alignment. Mild/moderate multilevel disc space loss greatest C4-C7 levels. No acute compression fracture, subluxation, or jumped facet. Normal appearing craniocervical junction. Visualized noncontrasted soft tissues demonstrates mild carotid calcifications bilaterally. CT head reported separately. Impression: 1. Negative acute fracture/subluxation. 2. Multilevel degenerative changes.
--- NOTE | 2020-10-12 09:03 | XRAY ---
Indication: Facial injury following fall. Multiple contiguous axial images obtained through the head without contrast. Comparison: March 20, 2019. Again age-appropriate global atrophy and minimal periventricular degenerative micro-ischemia bilaterally. No acute intracranial hemorrhage, abnormal extra-axial fluid collection, or mass effect. Fourth ventricle is midline without hydrocephalus. Bony calvarium intact again with hyperostosis frontalis interna. Visualized paranasal sinuses and mastoid air cells are clear. Impression: Continued nonacute senile brain.
--- NOTE | 2020-10-12 09:04 | XRAY ---
Indication: Facial injury following fall. Multiple contiguous axial images obtained through the facial bones. Sagittal and coronal reformatted images obtained. Comparison: None. Bilateral dental amalgams produces beam artifact. No acute fracture, suspicious bony lesions, or radiopaque foreign body. Orbits including roof, villatoro, and floors are intact. Paranasal sinuses and nasal passages are clear. Mild nasal septal deviation to the right. Visualized noncontrasted soft tissues are unremarkable. CT head and CT cervical spine reported separately. Impression: 1. Negative acute fracture. 2. Incidental nasal septal deviation.
--- NOTE | 2020-10-12 09:17 | XRAY ---
Indication: Dizziness. Comparison: December 15, 2019. PA/lateral chest demonstrates new lingula discoid atelectasis/scarring. Remaining heart and lungs normal again with incidental mediastinal/pulmonary calcified granulomas. Bony thorax intact again with mild degenerative changes. Impression: Nonacute chest with chronic features.
[2020-10-12 10:54] LABS: Appearance CLEAR (CLEAR); Bilirubin NEGATIVE (NEGATIVE); Blood NEGATIVE Ery/ul (0-5); Glucose NEGATIVE (NEGATIVE); Ketones NEGATIVE (NEGATIVE); Leukocyte Esterase TRACE (NEGATIVE); Nitrite NEGATIVE (NEGATIVE); Protein,Urine Dip NEGATIVE (Negative); RBC 0-2 /HPF (0-2); Specific Gravity 1.006 (1.005-1.025); Urobilinogen NEGATIVE mg/dL (0-1)
[2020-10-12] MEDS ORDERED: ANTIVERT 25 MG PO ONE (11:01)
[2020-10-12] MEDS ORDERED: ANTIVERT 25 MG ONE (11:05)
[2020-10-12] MEDS ORDERED: TYLENOL 325 MG PO PRN (12:42)
[2020-10-12] MEDS ORDERED: Zofran 4 MG/2 ML VIAL IV PRN (12:42)
[2020-10-12] MEDS: Sodium Chloride 0.9% 1000 ML 1,000 ML IV SCH (14:39)
[2020-10-12] MEDS ORDERED: PYRIDOXINE HCL PO PRN (15:39)
[2020-10-12] MEDS ORDERED: ACETAMINOPHEN PO PRN (15:39)
[2020-10-12] MEDS ORDERED: [UNRECOGNIZED DRUG - OTHER] PO PRN (15:39)
[2020-10-12] MEDS ORDERED: MELATONIN PO PRN (15:39)
[2020-10-12] MEDS ORDERED: DIPHENHYDRAMINE PO PRN (15:39)
[2020-10-12] MEDS ORDERED: TYLENOL EXTRA STRENGTH 500 MG PO PRN (15:49)
[2020-10-12] MEDS ORDERED: BENADRYL 25 MG CAPSULE PO PRN (15:50)
[2020-10-12] MEDS ORDERED: MEDICATION INTERVENTION PO SCH ×2 (16:00)
[2020-10-12] MEDS: CLARITIN 10 MG PO SCH (16:51)
[2020-10-12] MEDS: Ecotrin 325 MG PO SCH (16:51)
[2020-10-12] MEDS: Zestril 10 MG PO SCH (16:51)
[2020-10-12] MEDS: Aricept 10 MG PO SCH (16:51)
[2020-10-12] MEDS ORDERED: PATIENT OWN MEDICATION PO PRN (17:16)
[2020-10-12] MEDS: PATIENT OWN MEDICATION PO SCH (18:07)
[2020-10-12] MEDS: PATIENT OWN MEDICATION OT SCH (21:18)
[2020-10-12] MEDS ORDERED: Ciloxan OPHTH OT SCH (22:00)
[2020-10-12] MEDS ORDERED: ZOLOFT 50 MG TABLET PO SCH (22:00)
[2020-10-12] MEDS ORDERED: Mirapex 0.5 MG Tablet PO SCH (22:00)
[2020-10-13] MEDS: Sodium Chloride 0.9% 1000 ML 1,000 ML IV SCH (00:57)
[2020-10-13 04:54] LABS: Absolute Neutrophil Ct (ANC) 3.29 (1.4-6.9); BASOPHIL % 0.3 % (0.0-0.4); Basophil (Absolute #) 0.02 (0-0.4); Eosinophil % 5.2 % (0.00-5.0); Eosinophil (Absolute #) 0.33 (0-0.5); Hematocrit 37.1 % (35-47); Hemoglobin 11.6 gm/dl (12.0-16.0); Lymphocyte (Absolute #) 2.22 (1.0-4.6); Lymphocytes % 35.2 % (24.0-44.0); Mean Cell Volume 94.6 fl (78-100); Mean Corpuscular Hemoglobin 29.6 pg (26-32); Mean Corpuscular Hgb Concent. 31.3 g/dl (32-36); Mean Platelet Volume 10.9 fl (7.5-11.0); Monocyte (Absolute #) 0.45 (0.0-1.3); Monocytes % 7.1 % (0.0-12.0); Neutrophil % 52.2 % (36.0-66.0); Platelet Count 245 K/mm3 (150-450); Red Blood Count 3.92 M/mm3 (4.1-5.4); Red Cell Distribution Width 15.1 % (11.5-14.0); White Blood Count 6.3 K/mm3 (4.0-10.5)
[2020-10-13 05:18] LABS: ALBUMIN 3.8 g/dL (3.5-5.0); ALKALINE PHOSPHATASE 79 U/L (38-126); ANION GAP 8.2 MEQ/L (5-15); BLOOD UREA NITROGEN 19 mg/dL (7-17); CHLORIDE 105 mmol/L (98-107); Calcium 9.4 mg/dL (8.4-10.2); Carbon Dioxide 27 mmol/L (22-30); Creatinine 1 0.92 mg/dL (0.52-1.04); EST GLOMERULAR FILTRATION RATE > 60.0 ML/MIN; Glucose 122 mg/dL (74-106); Potassium 4.5 mmol/L (3.5-5.1); SGOT/AST 21 U/L (14-36); SGPT/ALT 13 U/L (0-35); SODIUM 136 mmol/L (137-145); Total Protein 6.9 g/dL (6.3-8.2)
[2020-10-13 07:18] VITALS: BP 143/66; PULSE 81; O2SAT 96
--- NOTE | 2020-10-13 09:01 | PCM.SSS ---
History of Present Illness - Chief Complaint Chief Complaint: DEHYDRATION, ORTHOSTASIS History of Present Illness: is a 85 year old female who presented to the ER yesterday, she was di zzy when standing and walking. she reports recent sinus symptoms, no fever, no cough. there was no visual changes, no headache, no numbness, tingling, weakness or paresthesias. she was hydrated and given meclizine in the ER, her symptoms are resolved, she feels steady on her feet and wants to go home today. - Review of Systems Constitutional: No Fever, No Chills Respiratory: No Cough, No Short Of Breath Cardiac: No Chest Pain, No Edema, No Syncope Abdominal/Gastrointestinal: No Abdominal Pain, No Nausea, No Vomiting, No Diarrhea Neurological: Dizziness, No Focal Weakness, No Gait Changes, No Headache Psychological: No Symptoms All Other Systems: Reviewed and Negative Medications & Allergies Home Medications: Home Medication List Glipizide Xl 10 mg [Glucotrol Xl 10 MG] 10 mg PO DAILY 05/09/18 [History Confirmed 10/12/20] Pramipexole Di-HCl [Pramipexole Dihydrochloride] 0.25 mg PO HS 05/09/18 [History Confirmed 10/12/20] Sertraline HCl 25 mg PO HS 05/09/18 [History Confirmed 10/12/20] hydroCHLOROthiazide [Hydrochlorothiazide] 25 mg PO DAILY 05/09/18 [History Confirmed 10/12/20] lisinopriL [Zestril] 10 mg PO DAILY 05/09/18 [History Confirmed 10/12/20] Aspirin EC 325 mg [Ecotrin 325 MG] 325 mg PO QAM #30 tablet.ec 11/04/18 [Rx Confirmed 10/12/20] Amlodipine Besylate [Norvasc] 10 mg PO DAILY 03/20/19 [History Confirmed 10/12/20] Cyanocobalamin 500 Mcg [Vitamin B-12 500 MCG] 500 mcg PO BID 03/20/19 [History Confirmed 10/12/20] Loratadine 10 mg [Claritin 10 mg] 10 mg PO DAILY 03/20/19 [History Confirmed 10/12/20] Memantine HCl [Memantine HCl ER] 21 mg PO DAILY 03/20/19 [History Confirmed 10/12/20] Acetaminophen/Diphenhydramine [Tylenol Pm Ex-Strength Caplet] 1 tablet PO HS PRN 10/12/20 [History Confirmed 10/12/20] Cholecalciferol (Vitamin D3) [Vitamin D3] 25 mcg PO DAILY 10/12/20 [History Confirmed 10/12/20] Ciprofloxacin 0.3% Ophth [Ciloxan OPHTH] 2 drops OP BID 10/12/20 [History Confirmed 10/12/20] Donepezil HCl 10 mg PO DAILY 10/12/20 [History Confirmed 10/12/20] Melatonin/Pyridoxine HCl (B6) [Melatonin 3 mg Tablet] 2 each PO HS PRN 10/12/20 [History Confirmed 10/12/20] Meclizine HCl 12.5 mg PO TID PRN #20 tablet 10/13/20 [Rx] Allergies/Adverse Reactions: Allergies Allergy/AdvReac Type Severity Reaction Status Date / Time cephalexin [From Keflex] AdvReac Intermediate Diarrhea Verified 12/22/19 13:03 oats AdvReac Diarrhea Verified 12/22/19 13:03 wheat AdvReac Diarrhea Verified 12/22/19 13:03 - Past Medical History Past Medical History: Yes Neurological History: Dementia ENT History: Cataracts Cardiac History: Hypertension Respiratory History: Pneumonia Endocrine Medical History: Diabetes Type II Musculoskelatal History: Arthritis, Degenerative Disk Disease, Osteoarthritis GI Medical History: GERD History: Renal Disease Pyscho-Social History: Anxiety Reproductive Disorders: No Pertinent History Comment: Chronic kidney disease - Female History Are you now?: No - Past Surgical History Past Surgical History: Yes Neuro Surgical History: No Pertinent History Cardiac History: No Pertinent History Respiratory Surgery: No Pertinent History GI Surgical History: Cholecystectomy Genitourinary Surgical Hx: No Pertinent History Musculskeletal Surgical Hx: Orthopedic Surgery Female Surgical History: No Pertinent History Other Surgical History: Tonsils out, cataract surgery bilat , back surgery (unsure of what kind) - Social History Smoking Status: Never smoker Exposure to second hand smoke: No Alcohol: None Drug Use: none - Physical Exam Vital Signs: Vital Signs - 24 hr Temp Pulse Resp BP Pulse Ox 10/13/20 08:32 96 10/13/20 07:17 97.8 F 81 22 143/66 96 10/13/20 03:48 98.2 F 79 18 160/69 94 L 10/12/20 23:37 98.5 F 82 19 151/65 93 L 10/12/20 19:28 98.2 F 81 21 175/75 93 L 10/12/20 15:57 99.2 F 79 18 129/70 94 L 10/12/20 15:50 95 10/12/20 13:35 99.4 F 71 18 160/72 92 L 10/12/20 12:50 97 10/12/20 12:46 70 16 171/80 95 10/12/20 11:16 67 16 146/83 97 10/12/20 10:03 68 13 171/71 98 10/12/20 09:00 81 20 167/77 99 General Appearance: no apparent distress, alert Neurologic Exam: alert, oriented x 3, cooperative, normal mood/affect, nml cerebellar function, nml station & gait, sensation nml, No motor deficits Respiratory Exam: normal breath sounds, lungs clear, No respiratory distress Cardiovascular Exam: regular rate/rhythm, normal heart sounds, normal peripheral pulses Gastrointestinal/Abdomen Exam: soft, normal bowel sounds, No tenderness, No mass Extremity Exam: normal inspection, normal range of motion, pelvis stable Skin Exam: normal color, warm, dry, No rash Results - Labs Lab/Micro Results: Lab Results-Last 24 Hours 10/12/20 10/12/20 10/12/20 Range/Units 10:50 11:00 16:38 WBC (4.0-10.5) K/mm3 RBC (4.1-5.4) M/mm3 Hgb (12.0-16.0) gm/dl Hct (35-47) % MCV (78-100) fl MCH (26-32) pg MCHC (32-36) g/dl RDW (11.5-14.0) % Plt Count (150-450) K/mm3 MPV (7.5-11.0) fl Gran % (36.0-66.0) % Eos # (Auto) (0-0.5) Absolute Lymphs (auto) (1.0-4.6) Absolute Monos (auto) (0.0-1.3) Lymphocytes % (24.0-44.0) % Monocytes % (0.0-12.0) % Eosinophils % (0.00-5.0) % Basophils % (0.0-0.4) % Absolute Granulocytes (1.4-6.9) Basophils # (0-0.4) Sodium (137-145) mmol/L Potassium (3.5-5.1) mmol/L Chloride (98-107) mmol/L Carbon Dioxide (22-30) mmol/L Anion Gap (5-15) MEQ/L BUN (7-17) mg/dL Creatinine (0.52-1.04) mg/dL Estimated GFR ML/MIN Glucose (74-106) mg/dL POC Glucometer 175 H (74 to 106) mg/dL Calcium (8.4-10.2) mg/dL Total Bilirubin (0.2-1.3) mg/dL AST (14-36) U/L ALT (0-35) U/L Alkaline Phosphatase (38-126) U/L Troponin I < 0.012 (0.000-0.034) ng/mL Serum Total Protein (6.3-8.2) g/dL Albumin (3.5-5.0) g/dL Urine Color STRAW (YELLOW) Urine Appearance CLEAR (CLEAR) Urine pH 7.0 (5-6) Ur Specific [place] 1.006 (1.005-1.025) Urine Protein NEGATIVE (Negative) Urine Ketones NEGATIVE (NEGATIVE) Urine Blood NEGATIVE (0-5) Rafita/ul Urine Nitrite NEGATIVE (NEGATIVE) Urine Bilirubin NEGATIVE (NEGATIVE) Urine Urobilinogen NEGATIVE (0-1) mg/dL Ur Leukocyte Esterase TRACE (NEGATIVE) Urine WBC (Auto) 3-5 (0-5) /HPF Urine RBC (Auto) 0-2 (0-2) /HPF U Epithel Cells (Auto) NONE (FEW) /HPF Urine Bacteria (Auto) NONE (NEGATIVE) /HPF Urine Culture Reflexed NO (NO) Urine Glucose NEGATIVE (NEGATIVE) mg/dL 10/12/20 10/13/20 10/13/20 Range/Units 20:55 04:35 04:35 WBC 6.3 (4.0-10.5) K/mm3 RBC 3.92 L (4.1-5.4) M/mm3 Hgb 11.6 L (12.0-16.0) gm/dl Hct 37.1 (35-47) % MCV 94.6 (78-100) fl MCH 29.6 (26-32) pg MCHC 31.3 L (32-36) g/dl RDW 15.1 H (11.5-14.0) % Plt Count 245 (150-450) K/mm3 MPV 10.9 (7.5-11.0) fl Gran % 52.2 (36.0-66.0) % Eos # (Auto) 0.33 (0-0.5) Absolute Lymphs (auto) 2.22 (1.0-4.6) Absolute Monos (auto) 0.45 (0.0-1.3) Lymphocytes % 35.2 (24.0-44.0) % Monocytes % 7.1 (0.0-12.0) % Eosinophils % 5.2 H (0.00-5.0) % Basophils % 0.3 (0.0-0.4) % Absolute Granulocytes 3.29 (1.4-6.9) Basophils # 0.02 (0-0.4) Sodium 136 L (137-145) mmol/L Potassium 4.5 (3.5-5.1) mmol/L Chloride 105 (98-107) mmol/L Carbon Dioxide 27 (22-30) mmol/L Anion Gap 8.2 (5-15) MEQ/L BUN 19 H (7-17) mg/dL Creatinine 0.92 (0.52-1.04) mg/dL Estimated GFR > 60.0 ML/MIN Glucose 122 H (74-106) mg/dL POC Glucometer 88 (74 to 106) mg/dL Calcium 9.4 (8.4-10.2) mg/dL Total Bilirubin 0.50 (0.2-1.3) mg/dL AST 21 (14-36) U/L ALT 13 (0-35) U/L Alkaline Phosphatase 79 (38-126) U/L Troponin I (0.000-0.034) ng/mL Serum Total Protein 6.9 (6.3-8.2) g/dL Albumin 3.8 (3.5-5.0) g/dL Urine Color (YELLOW) Urine Appearance (CLEAR) Urine pH (5-6) Ur Specific [place] (1.005-1.025) Urine Protein (Negative) Urine Ketones (NEGATIVE) Urine Blood (0-5) Rafita/ul Urine Nitrite (NEGATIVE) Urine Bilirubin (NEGATIVE) Urine Urobilinogen (0-1) mg/dL Ur Leukocyte Esterase (NEGATIVE) Urine WBC (Auto) (0-5) /HPF Urine RBC (Auto) (0-2) /HPF U Epithel Cells (Auto) (FEW) /HPF Urine Bacteria (Auto) (NEGATIVE) /HPF Urine Culture Reflexed (NO) Urine Glucose (NEGATIVE) mg/dL 10/13/20 Range/Units 06:56 WBC (4.0-10.5) K/mm3 RBC (4.1-5.4) M/mm3 Hgb (12.0-16.0) gm/dl Hct (35-47) % MCV (78-100) fl MCH (26-32) pg MCHC (32-36) g/dl RDW (11.5-14.0) % Plt Count (150-450) K/mm3 MPV (7.5-11.0) fl Gran % (36.0-66.0) % Eos # (Auto) (0-0.5) Absolute Lymphs (auto) (1.0-4.6) Absolute Monos (auto) (0.0-1.3) Lymphocytes % (24.0-44.0) % Monocytes % (0.0-12.0) % Eosinophils % (0.00-5.0) % Basophils % (0.0-0.4) % Absolute Granulocytes (1.4-6.9) Basophils # (0-0.4) Sodium (137-145) mmol/L Potassium (3.5-5.1) mmol/L Chloride (98-107) mmol/L Carbon Dioxide (22-30) mmol/L Anion Gap (5-15) MEQ/L BUN (7-17) mg/dL Creatinine (0.52-1.04) mg/dL Estimated GFR ML/MIN Glucose (74-106) mg/dL POC Glucometer 128 H (74 to 106) mg/dL Calcium (8.4-10.2) mg/dL Total Bilirubin (0.2-1.3) mg/dL AST (14-36) U/L ALT (0-35) U/L Alkaline Phosphatase (38-126) U/L Troponin I (0.000-0.034) ng/mL Serum Total Protein (6.3-8.2) g/dL Albumin (3.5-5.0) g/dL Urine Color (YELLOW) Urine Appearance (CLEAR) Urine pH (5-6) Ur Specific [place] (1.005-1.025) Urine Protein (Negative) Urine Ketones (NEGATIVE) Urine Blood (0-5) Rafita/ul Urine Nitrite (NEGATIVE) Urine Bilirubin (NEGATIVE) Urine Urobilinogen (0-1) mg/dL Ur Leukocyte Esterase (NEGATIVE) Urine WBC (Auto) (0-5) /HPF Urine RBC (Auto) (0-2) /HPF U Epithel Cells (Auto) (FEW) /HPF Urine Bacteria (Auto) (NEGATIVE) /HPF Urine Culture Reflexed (NO) Urine Glucose (NEGATIVE) mg/dL Accuchecks Date 10/13/20 Date 10/12/20 Date 10/12/20 Time 06:56 Time 22:00 Time 16:30 - Radiology Impressions Radiology Exams & Impressions: Radiology Procedures Category Date Time Status CERVICAL SPINE WO CONTRAST [CT] Stat Exams 10/12/20 08:16 Completed CHEST 2 VIEWS (PA AND LAT) Stat Exams 10/12/20 09:06 Completed FACIAL BONES WO CONTRAST [CT] Stat Exams 10/12/20 08:16 Completed HEAD WITHOUT CONTRAST [CT] Stat Exams 10/12/20 08:16 Completed Assessment/Plan (1) Dehydration Current Visit: Yes Status: Acute Assessment & Plan: rehydrated and symptoms are resolved Code(s): E86.0 - DEHYDRATION (2) Orthostatic dizziness Current Visit: Yes Status: Acute Assessment & Plan: resolved with hydration, will send meclizine for recurrence of symptoms since she responded to dose in ER yesterday Code(s): R42 - DIZZINESS AND GIDDINESS (3) Diabetes mellitus Current Visit: No Status: Chronic Qualifiers: Diabetes mellitus type: type 2 Diabetes mellitus senior care insulin use: without long term care social worker use Diabetes mellitus complication detail: with chronic kidney disease Chronic kidney disease stage: stage 3 (moderate) Code(s): E11.9 - TYPE 2 DIABETES MELLITUS WITHOUT COMPLICATIONS Hospital Summary - Vitals & Intake/Output Vital Signs: Vital Signs Temperature 97.8 F 10/13/20 07:17 Pulse Rate 81 10/13/20 07:17 Respiratory Rate 22 10/13/20 07:17 Blood Pressure 143/66 10/13/20 07:17 O2 Sat by Pulse Oximetry 96 10/13/20 08:32 Intake & Output: Intake & Output 10/10/20 10/11/20 10/12/20 10/13/20 11:59 11:59 11:59 11:59 Intake Total 960 Output Total 1400 Balance -440 Weight 86.183 kg 87.5 kg - Lab Result Diagrams: 10/13/20 04:35 10/13/20 04:35 Lab Results-Last 24 Hrs: Lab Results-Last 24 Hours 10/12/20 10/12/20 10/12/20 Range/Units 10:50 11:00 16:38 WBC (4.0-10.5) K/mm3 RBC (4.1-5.4) M/mm3 Hgb (12.0-16.0) gm/dl Hct (35-47) % MCV (78-100) fl MCH (26-32) pg MCHC (32-36) g/dl RDW (11.5-14.0) % Plt Count (150-450) K/mm3 MPV (7.5-11.0) fl Gran % (36.0-66.0) % Eos # (Auto) (0-0.5) Absolute Lymphs (auto) (1.0-4.6) Absolute Monos (auto) (0.0-1.3) Lymphocytes % (24.0-44.0) % Monocytes % (0.0-12.0) % Eosinophils % (0.00-5.0) % Basophils % (0.0-0.4) % Absolute Granulocytes (1.4-6.9) Basophils # (0-0.4) Sodium (137-145) mmol/L Potassium (3.5-5.1) mmol/L Chloride (98-107) mmol/L Carbon Dioxide (22-30) mmol/L Anion Gap (5-15) MEQ/L BUN (7-17) mg/dL Creatinine (0.52-1.04) mg/dL Estimated GFR ML/MIN Glucose (74-106) mg/dL POC Glucometer 175 H (74 to 106) mg/dL Calcium (8.4-10.2) mg/dL Total Bilirubin (0.2-1.3) mg/dL AST (14-36) U/L ALT (0-35) U/L Alkaline Phosphatase (38-126) U/L Troponin I < 0.012 (0.000-0.034) ng/mL Serum Total Protein (6.3-8.2) g/dL Albumin (3.5-5.0) g/dL Urine Color STRAW (YELLOW) Urine Appearance CLEAR (CLEAR) Urine pH 7.0 (5-6) Ur Specific [place] 1.006 (1.005-1.025) Urine Protein NEGATIVE (Negative) Urine Ketones NEGATIVE (NEGATIVE) Urine Blood NEGATIVE (0-5) Rafita/ul Urine Nitrite NEGATIVE (NEGATIVE) Urine Bilirubin NEGATIVE (NEGATIVE) Urine Urobilinogen NEGATIVE (0-1) mg/dL Ur Leukocyte Esterase TRACE (NEGATIVE) Urine WBC (Auto) 3-5 (0-5) /HPF Urine RBC (Auto) 0-2 (0-2) /HPF U Epithel Cells (Auto) NONE (FEW) /HPF Urine Bacteria (Auto) NONE (NEGATIVE) /HPF Urine Culture Reflexed NO (NO) Urine Glucose NEGATIVE (NEGATIVE) mg/dL 10/12/20 10/13/20 10/13/20 Range/Units 20:55 04:35 04:35 WBC 6.3 (4.0-10.5) K/mm3 RBC 3.92 L (4.1-5.4) M/mm3 Hgb 11.6 L (12.0-16.0) gm/dl Hct 37.1 (35-47) % MCV 94.6 (78-100) fl MCH 29.6 (26-32) pg MCHC 31.3 L (32-36) g/dl RDW 15.1 H (11.5-14.0) % Plt Count 245 (150-450) K/mm3 MPV 10.9 (7.5-11.0) fl Gran % 52.2 (36.0-66.0) % Eos # (Auto) 0.33 (0-0.5) Absolute Lymphs (auto) 2.22 (1.0-4.6) Absolute Monos (auto) 0.45 (0.0-1.3) Lymphocytes % 35.2 (24.0-44.0) % Monocytes % 7.1 (0.0-12.0) % Eosinophils % 5.2 H (0.00-5.0) % Basophils % 0.3 (0.0-0.4) % Absolute Granulocytes 3.29 (1.4-6.9) Basophils # 0.02 (0-0.4) Sodium 136 L (137-145) mmol/L Potassium 4.5 (3.5-5.1) mmol/L Chloride 105 (98-107) mmol/L Carbon Dioxide 27 (22-30) mmol/L Anion Gap 8.2 (5-15) MEQ/L BUN 19 H (7-17) mg/dL Creatinine 0.92 (0.52-1.04) mg/dL Estimated GFR > 60.0 ML/MIN Glucose 122 H (74-106) mg/dL POC Glucometer 88 (74 to 106) mg/dL Calcium 9.4 (8.4-10.2) mg/dL Total Bilirubin 0.50 (0.2-1.3) mg/dL AST 21 (14-36) U/L ALT 13 (0-35) U/L Alkaline Phosphatase 79 (38-126) U/L Troponin I (0.000-0.034) ng/mL Serum Total Protein 6.9 (6.3-8.2) g/dL Albumin 3.8 (3.5-5.0) g/dL Urine Color (YELLOW) Urine Appearance (CLEAR) Urine pH (5-6) Ur Specific [place] (1.005-1.025) Urine Protein (Negative) Urine Ketones (NEGATIVE) Urine Blood (0-5) Rafita/ul Urine Nitrite (NEGATIVE) Urine Bilirubin (NEGATIVE) Urine Urobilinogen (0-1) mg/dL Ur Leukocyte Esterase (NEGATIVE) Urine WBC (Auto) (0-5) /HPF Urine RBC (Auto) (0-2) /HPF U Epithel Cells (Auto) (FEW) /HPF Urine Bacteria (Auto) (NEGATIVE) /HPF Urine Culture Reflexed (NO) Urine Glucose (NEGATIVE) mg/dL 10/13/20 Range/Units 06:56 WBC (4.0-10.5) K/mm3 RBC (4.1-5.4) M/mm3 Hgb (12.0-16.0) gm/dl Hct (35-47) % MCV (78-100) fl MCH (26-32) pg MCHC (32-36) g/dl RDW (11.5-14.0) % Plt Count (150-450) K/mm3 MPV (7.5-11.0) fl Gran % (36.0-66.0) % Eos # (Auto) (0-0.5) Absolute Lymphs (auto) (1.0-4.6) Absolute Monos (auto) (0.0-1.3) Lymphocytes % (24.0-44.0) % Monocytes % (0.0-12.0) % Eosinophils % (0.00-5.0) % Basophils % (0.0-0.4) % Absolute Granulocytes (1.4-6.9) Basophils # (0-0.4) Sodium (137-145) mmol/L Potassium (3.5-5.1) mmol/L Chloride (98-107) mmol/L Carbon Dioxide (22-30) mmol/L Anion Gap (5-15) MEQ/L BUN (7-17) mg/dL Creatinine (0.52-1.04) mg/dL Estimated GFR ML/MIN Glucose (74-106) mg/dL POC Glucometer 128 H (74 to 106) mg/dL Calcium (8.4-10.2) mg/dL Total Bilirubin (0.2-1.3) mg/dL AST (14-36) U/L ALT (0-35) U/L Alkaline Phosphatase (38-126) U/L Troponin I (0.000-0.034) ng/mL Serum Total Protein (6.3-8.2) g/dL Albumin (3.5-5.0) g/dL Urine Color (YELLOW) Urine Appearance (CLEAR) Urine pH (5-6) Ur Specific [place] (1.005-1.025) Urine Protein (Negative) Urine Ketones (NEGATIVE) Urine Blood (0-5) Rafita/ul Urine Nitrite (NEGATIVE) Urine Bilirubin (NEGATIVE) Urine Urobilinogen (0-1) mg/dL Ur Leukocyte Esterase (NEGATIVE) Urine WBC (Auto) (0-5) /HPF Urine RBC (Auto) (0-2) /HPF U Epithel Cells (Auto) (FEW) /HPF Urine Bacteria (Auto) (NEGATIVE) /HPF Urine Culture Reflexed (NO) Urine Glucose (NEGATIVE) mg/dL Micro Results-Entire Visit: Accuchecks Date 10/13/20 Date 10/12/20 Date 10/12/20 Time 06:56 Time 22:00 Time 16:30 - Radiology Exams Ordered Rad Exams-Entire Visit: Radiology Procedures Category Date Time Status CERVICAL SPINE WO CONTRAST [CT] Stat Exams 10/12/20 08:16 Completed CHEST 2 VIEWS (PA AND LAT) Stat Exams 10/12/20 09:06 Completed FACIAL BONES WO CONTRAST [CT] Stat Exams 10/12/20 08:16 Completed HEAD WITHOUT CONTRAST [CT] Stat Exams 10/12/20 08:16 Completed - Discharge Disposition: Home, Self-Care Condition: Stable Prescriptions: New Meclizine HCl 12.5 mg PO TID PRN #20 tablet Continue hydroCHLOROthiazide [Hydrochlorothiazide] 25 mg PO DAILY Sertraline HCl 25 mg PO HS Pramipexole Di-HCl [Pramipexole Dihydrochloride] 0.25 mg PO HS lisinopriL [Zestril] 10 mg PO DAILY Glipizide Xl 10 mg [Glucotrol Xl 10 MG] 10 mg PO DAILY Aspirin EC 325 mg [Ecotrin 325 MG] 325 mg PO QAM #30 tablet.ec Loratadine 10 mg [Claritin 10 mg] 10 mg PO DAILY Memantine HCl [Memantine HCl ER] 21 mg PO DAILY Amlodipine Besylate [Norvasc] 10 mg PO DAILY Cyanocobalamin 500 Mcg [Vitamin B-12 500 MCG] 500 mcg PO BID Cholecalciferol (Vitamin D3) [Vitamin D3] 25 mcg PO DAILY Donepezil HCl 10 mg PO DAILY Ciprofloxacin 0.3% Ophth [Ciloxan OPHTH] 2 drops OP BID Melatonin/Pyridoxine HCl (B6) [Melatonin 3 mg Tablet] 2 each PO HS PRN PRN Reason: Insomnia Acetaminophen/Diphenhydramine [Tylenol Pm Ex-Strength Caplet] 1 tablet PO HS PRN PRN Reason: Insomnia Additional Instructions: use antivert as needed if dizziness returns, drink plenty of water. f/u with Dr Martinez in 1 week Follow up with: SIVA MARTINEZ [Primary Care Provider] -
[2020-10-13] MEDS: Aricept 10 MG PO SCH (09:03)
[2020-10-13] MEDS: Ecotrin 325 MG PO SCH (09:03)
[2020-10-13] MEDS: Zestril 10 MG PO SCH (09:03)
[2020-10-13] MEDS: CLARITIN 10 MG PO SCH (09:03)
[2020-10-13] MEDS: PATIENT OWN MEDICATION OT SCH (09:04)
[2020-10-13] MEDS: PATIENT OWN MEDICATION PO SCH (09:04)
[2020-10-13] MEDS ORDERED: MEMANTINE HCL 14 MG PO SCH (10:00)
[2020-10-13] MEDS ORDERED: LISINOPRIL 10 MG PO SCH (10:00)
[2020-10-13] MEDS ORDERED: NON-FORMULARY ITEM PO SCH (10:00)
== END 2020-10-13 10:00 | disposition home or self-care (01) ==
LOC: ED 07:34 → MED SURG 13:06
PROVIDERS: ADMIT Family Medicine; ATTEND Family Medicine
DX: E86.0 Dehydration (principal); R42 Dizziness and giddiness; I10 Essential (primary) hypertension; E11.9 Type 2 diabetes mellitus without complications; W19.XXXA Unspecified fall, initial encounter; Y93.9 Activity, unspecified; Y92.002 Bathroom of unspecified non-institutional (private) residence as the place of occurrence of the external cause; Z79.899 Other long term (current) drug therapy; J34.89 Other specified disorders of nose and nasal sinuses; R04.0 Epistaxis
CPT/HCPCS: 36000; 36415; 70450; 70486; 71046; 72125; 80053; 81001; 82947; 83735; 84484; 85025; 93005; 93041; 94762; 96360; 96361; 99285; G0378; A9270-GY

== ENCOUNTER 2021-09-26 19:37 | Emergency (ER) | payer MEDICARE ==
--- NOTE | 2021-09-26 20:02 | ERPHSYRPT ---
- History of Present Illness Time Seen by Provider: 09/26/21 19:41 Source: patient Exam Limitations: no limitations Physician History: 86 years old female with history of hypertension, hyperlipidemia, dementia presented to the ER with chief complaint of difficulty urination since morning. Patient reports she has been drinking but is unable to go. She feels fullness i n the lower abdomen with minimal discomfort. Denies any nausea vomiting or flank pain. Does report having some kidney problems in the past but no urinary retention. Timing/Duration: today, constant, gradual onset, worse Pain Radiation: suprapubic Severity of Pain-Max: mild Severity of Pain-Current: mild Sexual intercourse history: non-contributory Allergies/Adverse Reactions: cephalexin [From Keflex] Adverse Reaction (Intermediate, Verified 09/26/21 19:49) Diarrhea oats Adverse Reaction (Verified 09/26/21 19:49) Diarrhea wheat Adverse Reaction (Verified 09/26/21 19:49) Diarrhea Home Medications: Glipizide Xl 10 mg [Glucotrol Xl 10 MG] 10 mg PO DAILY 05/09/18 [History] Pramipexole Di-HCl [Pramipexole Dihydrochloride] 0.25 mg PO HS 05/09/18 [History] Sertraline HCl 25 mg PO HS 05/09/18 [History] hydroCHLOROthiazide [Hydrochlorothiazide] 25 mg PO DAILY 05/09/18 [History] lisinopriL [Zestril] 10 mg PO DAILY 05/09/18 [History] Amlodipine Besylate [Norvasc] 10 mg PO DAILY 03/20/19 [History] Cyanocobalamin 500 Mcg [Vitamin B-12 500 MCG] 500 mcg PO BID 03/20/19 [History] Loratadine 10 mg [Claritin 10 mg] 10 mg PO DAILY 03/20/19 [History] Memantine HCl [Memantine HCl ER] 21 mg PO DAILY 03/20/19 [History] Acetaminophen/Diphenhydramine [Tylenol Pm Ex-Strength Caplet] 1 tablet PO HS PRN 10/12/20 [History] Cholecalciferol (Vitamin D3) [Vitamin D3] 25 mcg PO DAILY 10/12/20 [History] Ciprofloxacin 0.3% Ophth [Ciloxan OPHTH] 2 drops OP BID 10/12/20 [History] Donepezil HCl 10 mg PO DAILY 10/12/20 [History] Melatonin/Pyridoxine HCl (B6) [Melatonin-Vit B6 3-10 mg Tab] 2 each PO HS PRN 10/12/20 [History] Hx Tetanus, Diphtheria Vaccination/Date Given: Yes Hx Influenza Vaccination/Date Given: Yes Hx Pneumococcal Vaccination/Date Given: Yes Travel Risk - Vaccine Status Have you recieved a Covid-19 vaccination: No - Review of Systems Constitutional: No Symptoms Ears, Nose, & Throat: No Symptoms Respiratory: No Symptoms Cardiac: No Symptoms Abdominal/Gastrointestinal: No Symptoms Genitourinary Symptoms: Other Musculoskeletal: No Symptoms Skin: No Symptoms Endocrine: No Symptoms Hematologic/Lymphatic: No Symptoms - Past Medical History Pertinent Past Medical History: Yes Neurological History: Dementia ENT History: Cataracts Cardiac History: Hypertension Respiratory History: Pneumonia Endocrine Medical History: Diabetes Type II Musculoskeletal History: Arthritis, Degenerative Disk Disease, Osteoarthritis GI Medical History: GERD History: Renal Disease Psycho-Social History: Anxiety Female Reproductive Disorders: No Pertinent History Other Medical History: Chronic kidney disease - Past Surgical History Past Surgical History: Yes Neuro Surgical History: No Pertinent History Cardiac: No Pertinent History Respiratory: No Pertinent History Gastrointestinal: Cholecystectomy Genitourinary: No Pertinent History Musculoskeletal: Orthopedic Surgery Female Surgical History: No Pertinent History Other Surgical History: Tonsils out, cataract surgery bilat , back surgery (unsure of what kind) - Social History Smoking Status: Never smoker Exposure to second hand smoke: No Drug Use: none Patient Lives Alone: No - Nursing Vital Signs Nursing Vital Signs: Initial Vital Signs Temperature 98.3 F 09/26/21 19:49 Pulse Rate 75 09/26/21 19:49 Respiratory Rate 20 09/26/21 19:49 Blood Pressure 166/79 09/26/21 19:49 O2 Sat by Pulse Oximetry 97 09/26/21 19:49 Pain Scale Pain Intensity 0 - Physical Exam General Appearance: no apparent distress, alert Eye Exam: PERRL/EOMI Neck Exam: normal inspection, full range of motion Respiratory Exam: normal breath sounds, lungs clear Cardiovascular Exam: regular rate/rhythm, normal heart sounds Gastrointestinal/Abdomen Exam: soft, normal bowel sounds, other (Palpable bladder), No tenderness Back Exam: normal inspection, normal range of motion, No CVA tenderness Extremity Exam: normal inspection Neurologic Exam: alert, oriented x 3, cooperative Skin Exam: normal color SpO2 Interpretation: normal SpO2: 96 O2 Delivery: Room Air Ordered Tests: Active Orders 24 hr Category Date Time Status CBC W DIFF Stat Lab 09/26/21 20:20 Completed CMP Stat Lab 09/26/21 20:20 Completed UA W/RFX UR CULTURE Stat Lab 09/26/21 20:17 Completed Medication Summary Discontinued Medications Generic Name Dose Route Start Last Admin Trade Name Carlo PRN Reason Stop Dose Admin Levofloxacin 250 mg 09/26/21 21:49 09/26/21 21:53 Levofloxacin 250 Mg Tab PO 09/26/21 21:50 250 mg STAT ONE Administration Levofloxacin Confirm 09/26/21 21:52 Levofloxacin 250 Mg Tab Administered 09/26/21 21:53 Dose 250 mg .ROUTE .STK-MED ONE Lab/Rad Data: Laboratory Result Diagrams 09/26/21 20:20 09/26/21 20:20 Laboratory Results 09/26/21 09/26/21 09/26/21 Range/Units 20:20 20:20 20:17 WBC 7.1 (4.0-10.5) K/mm3 RBC 3.90 L (4.1-5.4) M/mm3 Hgb 11.7 L (12.0-16.0) gm/dl Hct 36.9 (35-47) % MCV 94.6 (78-100) fl MCH 30.0 (26-32) pg MCHC 31.7 L (32-36) g/dl RDW 15.0 H (11.5-14.0) % Plt Count 226 (150-450) K/mm3 MPV 11.2 H (7.5-11.0) fl Gran % 54.6 (36.0-66.0) % Eos # (Auto) 0.34 (0-0.5) Absolute Lymphs (auto) 2.23 (1.0-4.6) Absolute Monos (auto) 0.65 (0.0-1.3) Lymphocytes % 31.2 (24.0-44.0) % Monocytes % 9.1 (0.0-12.0) % Eosinophils % 4.8 (0.00-5.0) % Basophils % 0.3 (0.0-0.4) % Absolute Granulocytes 3.90 (1.4-6.9) Basophils # 0.02 (0-0.4) Sodium 131 L (137-145) mmol/L Potassium 4.2 (3.5-5.1) mmol/L Chloride 96 L (98-107) mmol/L Carbon Dioxide 24 (22-30) mmol/L Anion Gap 15.7 H (5-15) MEQ/L BUN 26 H (7-17) mg/dL Creatinine 1.16 H (0.52-1.04) mg/dL Estimated GFR 47.2 ML/MIN Glucose 106 (74-106) mg/dL Calcium 9.5 (8.4-10.2) mg/dL Total Bilirubin 0.30 (0.2-1.3) mg/dL AST 23 (14-36) U/L ALT 15 (0-35) U/L Alkaline Phosphatase 109 (38-126) U/L Serum Total Protein 7.3 (6.3-8.2) g/dL Albumin 4.3 (3.5-5.0) g/dL Urine Color STRAW (YELLOW) Urine Appearance CLEAR (CLEAR) Urine pH 6.0 (5-6) Ur Specific Josephine 1.005 (1.005-1.025) Urine Protein NEGATIVE (Negative) Urine Ketones NEGATIVE (NEGATIVE) Urine Blood NEGATIVE (0-5) Rafita/ul Urine Nitrite NEGATIVE (NEGATIVE) Urine Bilirubin NEGATIVE (NEGATIVE) Urine Urobilinogen NEGATIVE (0-1) mg/dL Ur Leukocyte Esterase NEGATIVE (NEGATIVE) Urine WBC (Auto) NONE (0-5) /HPF Urine Culture Reflexed NO (NO) Urine Glucose NEGATIVE (NEGATIVE) mg/dL - Progress Progress: improved Air Movement: good Progress Note: 09/26/21 21:50 86 years old is evaluated for inability to urinate. Bedside ultrasound showed tented bladder. Indwelling catheter is placed and retrieved almost a liter. Baseline lab work grossly unremarkable. Placed on prophylactic antibiotics and outpatient primary care/urology follow-up recommended. Does not have any abdominal tenderness, do not think needs any imaging at this point. Discussed signs symptoms of worsening needing return to ER which patient seems understanding. Blood Culture(s) Obtained: No Antibiotics given: Yes Counseled pt/family regarding: lab results, diagnosis, need for follow-up - Departure Departure Disposition: Home Clinical Impression: Acute urinary retention Condition: Stable Critical Care Time: No Referrals: SIVA DYKES [Primary Care Provider] - (Call tomorrow for reevaluation) GERI NEVAREZ [COURTESY STAFF] - (Call tomorrow for reevaluation) Instructions: Urinary Retention (DC) Additional Instructions: Drink plenty of fluids. Follow-up with primary care and urology for reevaluation and catheter removal in 3 to 5 days. Continue with antibiotics. Return to ER for difficulty urination, flank pain, fever chills etc. Prescriptions: Ciprofloxacin HCl [Cipro] 250 mg PO BID 5 Days #9 tablet
[2021-09-26 20:35] LABS: BASOPHIL % 0.3 % (0.0-0.4); Basophil (Absolute #) 0.02 (0-0.4); Eosinophil % 4.8 % (0.00-5.0); Eosinophil (Absolute #) 0.34 (0-0.5); Hematocrit 36.9 % (35-47); Hemoglobin 11.7 gm/dl (12.0-16.0); Lymphocyte (Absolute #) 2.23 (1.0-4.6); Lymphocytes % 31.2 % (24.0-44.0); Mean Cell Volume 94.6 fl (78-100); Mean Corpuscular Hgb Concent. 31.7 g/dl (32-36); Mean Platelet Volume 11.2 fl (7.5-11.0); Monocyte (Absolute #) 0.65 (0.0-1.3); Monocytes % 9.1 % (0.0-12.0); Neutrophil % 54.6 % (36.0-66.0); Platelet Count 226 K/mm3 (150-450); White Blood Count 7.1 K/mm3 (4.0-10.5)
[2021-09-26 20:39] LABS: Appearance CLEAR (CLEAR); Bilirubin NEGATIVE (NEGATIVE); Blood NEGATIVE Ery/ul (0-5); Glucose NEGATIVE (NEGATIVE); Ketones NEGATIVE (NEGATIVE); Leukocyte Esterase NEGATIVE (NEGATIVE); Nitrite NEGATIVE (NEGATIVE); Protein,Urine Dip NEGATIVE (Negative); Specific Gravity 1.005 (1.005-1.025); Urobilinogen NEGATIVE mg/dL (0-1)
[2021-09-26 20:55] LABS: ALBUMIN 4.3 g/dL (3.5-5.0); ANION GAP 15.7 MEQ/L (5-15); BILIRUBIN,TOTAL 0.3 mg/dL (0.2-1.3); Calcium 9.5 mg/dL (8.4-10.2); Creatinine 1 1.16 mg/dL (0.52-1.04); EST GLOMERULAR FILTRATION RATE 47.2 ML/MIN; Potassium 4.2 mmol/L (3.5-5.1); Total Protein 7.3 g/dL (6.3-8.2)
[2021-09-26] MEDS ORDERED: Levofloxacin 250MG Tablet ONE (21:52)
[2021-09-26] MEDS: Levofloxacin 250MG Tablet PO ONE (21:53)
[2021-09-26 22:17] VITALS: BP 139/53; PULSE 73
[2021-09-26 22:32] VITALS: O2SAT 96
== END 2021-09-26 22:30 | disposition home or self-care (01) ==
LOC: ED 19:37
DX: R33.9 Retention of urine, unspecified (principal)
CPT/HCPCS: 36000; 36415; 51702; 80053; 81001; 85025; 99284; A9270-GY

== ENCOUNTER 2024-01-11 11:02 | Observation (INO) | payer MEDICARE ==
[2024-01-11] MEDS: Sodium Chloride 0.9% 1000 ML 1,000 ML IV SCH ×2 (11:52→16:00)
[2024-01-11 12:12] LABS: Absolute Neutrophil Ct (ANC) 14.34 x10^3/uL (1.4-6.9); BASOPHIL % 0.3 % (0.0-0.4); Basophil (Absolute #) 0.04 x10^3/uL (0-0.4); Eosinophil (Absolute #) 0 x10^3/uL (0-0.5); Hematocrit 38.5 % (35-47); Hemoglobin 12.1 g/dL (12.0-16.0); IMMATURE GRAN # 0.08 x10^3u/L (0.00-0.03); IMMATURE GRAN % 0.5 % (0.00-0.4); Lymphocytes % 3.2 % (24.0-44.0); Mean Cell Volume 94.1 fL (78-100); Mean Corpuscular Hemoglobin 29.6 pg (26-32); Mean Corpuscular Hgb Concent. 31.4 g/dL (32-36); Mean Platelet Volume 11.2 fL (7.5-11.0); Monocytes % 3.9 % (0.0-12.0); Neutrophil % 92.1 % (36.0-66.0); Platelet Count 238 x10^3/uL (150-450); Red Blood Count 4.09 x10^6/uL (4.1-5.4); Red Cell Distribution Width 15.2 % (11.5-14.0); White Blood Count 15.6 x10^3/uL (4.0-10.5)
[2024-01-11 12:28] LABS: Appearance Clear (Clear); Bacteria Rare /HPF (None Seen); Bilirubin Negative (Negative); Blood Large (Negative); Epithelial Cells None Seen /HPF (None Seen); Glucose, Urine 250 mg/dL (Negative); Ketones Trace (Negative); Leukocyte Esterase Negative (Negative); Nitrite Negative (Negative); Ph 5.5 (4.6-8.0); Protein,Urine Dip 100 (Negative); RBC 0-2 /HPF (0-5); Urobilinogen 0.2 mg/dL (0.2); WBC 0-2 /HPF (0-5)
[2024-01-11 12:29] LABS: ADD URINE CULTURE? ORDERED SEPARATELY (NO)
[2024-01-11 12:31] LABS: ALBUMIN 4.4 g/dL (3.5-5.0); BILIRUBIN,TOTAL 0.7 mg/dL (0.2-1.3); Calcium 9.7 mg/dL (8.4-10.2); Creatinine 1 1.6 mg/dL (0.52-1.04); MAGNESIUM 1.9 mg/dL (1.6-2.3); Potassium 3.8 mmol/L (3.5-5.1); Total Protein 7.8 g/dL (6.3-8.2)
[2024-01-11 12:53] LABS: INFLUENZA A NEGATIVE (NEGATIVE); INFLUENZA B NEGATIVE (NEGATIVE); RESPIRATORY SYNCTIAL VIRUS NEGATIVE (NEGATIVE); SARS-CoV-2 Xpert Express NEGATIVE (NEGATIVE)
--- NOTE | 2024-01-11 14:13 | ERPHSYRPT ---
- History of Present Illness Time Seen by Provider: 01/11/24 11:08 Source: patient, family, EMS Exam Limitations: no limitations Patient Subjective Stated Complaint: fall Triage Nursing Assessment: Patient reports to ER via [facility] after reports of falling at home twice. Patient denies pain at this time, is able to move all extremities, and states she uses a cane to ambulate. Patient states that she was weak and couldnt walk so she lowered herself down to the floor. Patient denies hitting her head. Patient does have purple bruising to bilateral knees. Patient has a history of dementia and is oriented to person and place. Patient reported the year as 2013. Per EMS report patient patients states she has had increased weakness over the last couple of days and fell out of bed twice. EMS checked glucose on route and report result of 316. Patient states that her sugar is never that high. Patient only complaint is dry mouth. Physician History: 88-year-old female with history of hypertension, diabetes mellitus, GERD, CKD, some element of dementia is brought in the ER with chief complaint of fall. Patient has multiple falls lately where she tries to get up and ambulate and collapses. She did twice today while walking around the bed without her cane. Did not hit her head. Per daughter patient was confused earlier but on presentation in the ER she is awake alert and oriented x 4. She is not in any distress. Denies any chest pain palpitations or shortness of breath. Denies hitting her head or LOC. No abdominal pain nausea or vomiting reported. Denies any focal numbness tingling or weakness. Not a good historian and history is limited. Family is concerned about patient safety because of repeated falls. Allergies/Adverse Reactions: cephalexin [From Keflex] Adverse Reaction (Intermediate, Verified 01/11/24 11:06) Diarrhea oats Adverse Reaction (Verified 01/11/24 11:06) Diarrhea wheat Adverse Reaction (Verified 01/11/24 11:06) Diarrhea Home Medications: Pramipexole Di-HCl [Pramipexole Dihydrochloride] 0.25 mg PO HS 05/09/18 [History] Sertraline HCl 25 mg PO HS 05/09/18 [History] Cyanocobalamin 500 Mcg [Vitamin B-12 500 MCG] 500 mcg PO BID 03/20/19 [History] Loratadine 10 mg [Claritin 10 mg] 10 mg PO DAILY 03/20/19 [History] Memantine HCl [Memantine HCl ER] 21 mg PO DAILY 03/20/19 [History] Cholecalciferol (Vitamin D3) [Vitamin D3] 25 mcg PO DAILY 10/12/20 [History] Donepezil HCl 10 mg PO HS 10/12/20 [History] Bumetanide 1 mg PO DAILY 09/02/23 [History] Aspirin EC 81 mg [Ecotrin 81 mg] 81 mg PO DAILY 01/11/24 [History] Colestipol HCl [Colestid] 5 gm PO DAILY PRN PRN 01/11/24 [History] Colestipol HCl [Colestid] 5 gm PO QAM 01/11/24 [History] Losartan Potassium 50 mg [Cozaar 50 MG] 25 mg PO DAILY 01/11/24 [History] glipiZIDE [Glipizide ER] 2.5 mg PO DAILY 01/11/24 [History] Hx Tetanus, Diphtheria Vaccination/Date Given: Yes Hx Influenza Vaccination/Date Given: Yes Hx Pneumococcal Vaccination/Date Given: Yes Travel Risk - International Travel Have you traveled outside of the country in past 3 weeks: No - Coronavirus Screening Are you exhibiting any of the following symptoms?: No Close contact with a COVID-19 positive Pt in past 14-21 Days: No - Vaccine Status Have you recieved a Covid-19 vaccination: No Child Development Professor: Unknown - Vaccination Dates Date of 2cond Vaccination (if applicable): 08/22 Dates if Unknown: unknown - Review of Systems Constitutional: No Symptoms Eyes: No Symptoms Ears, Nose, & Throat: No Symptoms Respiratory: No Symptoms Cardiac: No Symptoms Abdominal/Gastrointestinal: No Symptoms Genitourinary Symptoms: No Symptoms Musculoskeletal: Fall Skin: No Symptoms Neurological: No Symptoms Endocrine: No Symptoms Hematologic/Lymphatic: No Symptoms - Past Medical History Pertinent Past Medical History: Yes Neurological History: Dementia ENT History: Cataracts Cardiac History: Hypertension Respiratory History: No Pertinent History Endocrine Medical History: Diabetes Type II Musculoskeletal History: Arthritis, Degenerative Disk Disease, Osteoarthritis GI Medical History: GERD History: Renal Disease Psycho-Social History: Anxiety Female Reproductive Disorders: No Pertinent History Other Medical History: Chronic kidney disease - Past Surgical History Past Surgical History: Yes Neuro Surgical History: No Pertinent History Cardiac: No Pertinent History Respiratory: No Pertinent History Gastrointestinal: Cholecystectomy Genitourinary: No Pertinent History Musculoskeletal: Orthopedic Surgery Female Surgical History: No Pertinent History Other Surgical History: Tonsils out, cataract surgery bilat , back surgery (unsure of what kind) - Social History Smoking Status: Never smoker Exposure to second hand smoke: No Drug Use: none Patient Lives Alone: No - Nursing Vital Signs Nursing Vital Signs: Initial Vital Signs Pulse Rate 84 01/11/24 11:06 Respiratory Rate 21 01/11/24 11:06 Blood Pressure 149/55 01/11/24 11:06 O2 Sat by Pulse Oximetry 95 01/11/24 11:06 Pain Scale Pain Intensity 0 - Physical Exam General Appearance: no apparent distress, alert Eye Exam: PERRL/EOMI Ears, Nose, Throat Exam: normal ENT inspection Neck Exam: normal inspection, supple, full range of motion Respiratory Exam: normal breath sounds, lungs clear Cardiovascular Exam: regular rate/rhythm, normal heart sounds Back Exam: normal inspection, normal range of motion Extremity Exam: normal inspection, normal range of motion Neurologic Exam: alert, oriented x 3, cooperative, 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 as tested, nml cerebellar function, sensation nml, No normal mood/affect, No motor deficits Skin Exam: normal color SpO2 Interpretation: normal SpO2: 95 O2 Delivery: Room Air Ordered Tests: Active Orders 24 hr Category Date Time Status Bedrest ROUTINE Activity 01/11/24 14:41 Active Up With Assistance ROUTINE Activity 01/11/24 14:41 Active Call Admit Doctor for Orders ON ADMISSION Care 01/11/24 14:41 Active Tea And Spice Supervisor STAT Care 01/11/24 11:40 Completed Code Status Order ROUTINE Care 01/11/24 14:41 Active Fall Protocol Q1H Care 01/11/24 14:41 Active POCT Glucose Check ACHS Care 01/11/24 14:[address] in Observation ROUTINE Care 01/11/24 14:41 Active Consistent Carbohydrate Diet 1800 Calorie Diet 01/11/24 Dinner Active CHEST 1 VIEW (PORTABLE) Stat Exams 01/11/24 11:39 Taken BLOOD CULTURE Stat Lab 01/11/24 11:56 Received CBC W DIFF Stat Lab 01/11/24 11:39 Completed CMP Stat Lab 01/11/24 11:56 Completed CULTURE,URINE Stat Lab 01/11/24 11:43 Received Lactic Acid Stat Lab 01/11/24 11:39 Completed Lactic Acid Stat Lab 01/11/24 13:59 Completed MAGNESIUM Stat Lab 01/11/24 11:56 Completed NT PRO BNPII Stat Lab 01/11/24 11:56 Completed TROPONIN Q4H Lab 01/11/24 11:56 Completed TROPONIN Q4H Lab 01/11/24 17:21 Completed TROPONIN Q4H Lab 01/11/24 19:45 Ordered UA W/RFX UR CULTURE Stat Lab 01/11/24 11:43 Completed Respiratory Therapy Consult ONCE RT 01/11/24 14:41 Completed Transfer Order Routine Transfer 01/11/24 Completed Medication Summary Generic Name Dose Route Start Last Admin Trade Name Freq PRN Reason Stop Dose Admin Acetaminophen 650 mg 01/11/24 14:47 Acetaminophen 325 Mg Tablet PO 02/10/24 14:46 Q4H PRN PRN PAIN, FEVER, HEADACHE Aspirin 81 mg 01/12/24 10:00 Aspirin 81 Mg Tablet.Ec PO 02/11/24 09:59 DAILY [facility] Cholecalciferol 1,000 unit 01/12/24 10:00 Cholecalciferol (Vitamin D3) 1000 Unit Tablet PO 02/11/24 09:59 DAILY [place] Cyanocobalamin 500 mcg 01/11/24 22:00 Cyanocobalamin 500 Mcg Tablet PO 02/10/24 21:59 BID [place] Donepezil HCl 10 mg 01/11/24 22:00 Donepezil Hcl 10 Mg Tablet PO 02/10/24 21:59 HS [place] Sodium Chloride 1,000 mls @ 100 mls/hr 01/11/24 15:00 Sodium Chloride 0.9% 1000 Ml IV 02/10/24 14:59 .Q10H [place] Ceftriaxone Sodium 1 gm in 100 mls @ 200 mls/hr 01/11/24 16:00 01/11/24 16:50 Rocephin 1 Gm / 100 Ml Nacl IV 02/10/24 15:59 200 mls/hr Q24H [place] Administration Insulin Human Lispro 0 unit 01/11/24 14:47 Insulin Lispro 1 Unit SQ 02/10/24 14:46 UD PRN HYPERGLYCEMIA Loratadine 10 mg 01/12/24 10:00 Loratadine 10 Mg Tablet PO 02/11/24 09:59 DAILY [place] Losartan Potassium 25 mg 01/12/24 10:00 Losartan Potassium 50 Mg Tablet PO 02/11/24 09:59 DAILY [place] Memantine 7.5 mg 01/11/24 22:00 Memantine Hcl 5 Mg Tablet PO 02/10/24 21:59 BID [place] Ondansetron HCl 4 mg 01/11/24 14:47 Ondansetron Hcl 4 Mg/2 Ml Vial IV 02/10/24 14:46 Q6H PRN PRN NAUSEA/VOMITING Patient Own Med : 1 each 01/12/24 10:00 Colestipol 5 Gm PO 02/11/24 09:59 Powder QAM M[place] Patient Own Med : 1 each 01/11/24 16:38 Colestipol 5 Gram PO 02/10/24 16:37 Powder DAILY PRN PRN DIARRHEA Pramipexole Dihydrochloride 0.25 mg 01/11/24 22:00 Pramipexole Di-Hcl 0.5 Mg Tab PO 02/10/24 21:59 HS [place] Sertraline HCl 25 mg 01/11/24 22:00 Sertraline Hcl 50 Mg Tab PO 02/10/24 21:59 HS [facility] Discontinued Medications Generic Name Dose Route Start Last Admin Trade Name Freq PRN Reason Stop Dose Admin Sodium Chloride 1,000 mls @ 100 mls/hr 01/11/24 11:45 01/11/24 11:52 Sodium Chloride 0.9% 1000 Ml IV 02/10/24 11:44 100 mls/hr .Q10H [place] Administration Lab/Rad Data: Laboratory Result Diagrams 01/11/24 11:39 01/11/24 11:56 Laboratory Results 01/11/24 01/11/24 01/11/24 Range/Units 13:59 11:56 11:56 WBC (4.0-10.5) x10^3/uL RBC (4.1-5.4) x10^6/uL Hgb (12.0-16.0) g/dL Hct (35-47) % MCV (78-100) fL MCH (26-32) pg MCHC (32-36) g/dL RDW (11.5-14.0) % Plt Count (150-450) x10^3/uL MPV (7.5-11.0) fL Gran % (36.0-66.0) % Immature Gran % (Auto) (0.00-0.4) % Nucleat RBC Rel Count (0.00-0.1) % Eos # (Auto) (0-0.5) x10^3/uL Immature Gran # (Auto) (0.00-0.03) x10^3u/L Absolute Lymphs (auto) (1.0-4.6) x10^3/uL Absolute Monos (auto) (0.0-1.3) x10^3/uL Absolute Nucleated RBC (0.00-0.01) x10^3u/L Lymphocytes % (24.0-44.0) % Monocytes % (0.0-12.0) % Eosinophils % (0.00-5.0) % Basophils % (0.0-0.4) % Absolute Granulocytes (1.4-6.9) x10^3/uL Basophils # (0-0.4) x10^3/uL Sodium (137-145) mmol/L Potassium (3.5-5.1) mmol/L Chloride (98-107) mmol/L Carbon Dioxide (22-30) mmol/L Anion Gap (5-15) MEQ/L BUN (7-17) mg/dL Creatinine (0.52-1.04) mg/dL Estimated GFR ML/MIN Glucose (74-106) mg/dL Hemoglobin A1c 8.12 H (4.5-6.0) % Lactic Acid 1.5 (0.4-2.0) Calcium (8.4-10.2) mg/dL Magnesium (1.6-2.3) mg/dL Total Bilirubin (0.2-1.3) mg/dL AST (14-36) U/L ALT (0-35) U/L Alkaline Phosphatase (38-126) U/L Troponin I (0.000-0.034) ng/mL NT-Pro-B Natriuret Pep (<300) pg/mL Serum Total Protein (6.3-8.2) g/dL Albumin (3.5-5.0) g/dL Procalcitonin (0.030-0.080) ng/mL TSH 3rd Generation 3.250 (0.47-4.68) mIU/L Urine Color (Yellow) Urine Appearance (Clear) Urine pH (4.6-8.0) Ur Specific Drummond (1.005-1.030) Urine Protein (Negative) Urine Glucose (UA) (Negative) mg/dL Urine Ketones (Negative) Urine Blood (Negative) Urine Nitrite (Negative) Urine Bilirubin (Negative) Urine Urobilinogen (0.2) mg/dL Ur Leukocyte Esterase (Negative) U Hyaline Cast (Auto) (0-2) /LPF Urine Microscopic RBC (0-5) /HPF Urine Microscopic WBC (0-5) /HPF Ur Epithelial Cells (None Seen) /HPF Urine Bacteria (None Seen) /HPF Urine Culture Reflexed (NO) Influenza Type A Ag (NEGATIVE) Influenza Type B Ag (NEGATIVE) RSV (PCR) (NEGATIVE) SARS-CoV-2 (PCR) (NEGATIVE) Slides for Path Review 01/11/24 01/11/24 01/11/24 Range/Units 11:56 11:56 11:56 WBC (4.0-10.5) x10^3/uL RBC (4.1-5.4) x10^6/uL Hgb (12.0-16.0) g/dL Hct (35-47) % MCV (78-100) fL MCH (26-32) pg MCHC (32-36) g/dL RDW (11.5-14.0) % Plt Count (150-450) x10^3/uL MPV (7.5-11.0) fL Gran % (36.0-66.0) % Immature Gran % (Auto) (0.00-0.4) % Nucleat RBC Rel Count (0.00-0.1) % Eos # (Auto) (0-0.5) x10^3/uL Immature Gran # (Auto) (0.00-0.03) x10^3u/L Absolute Lymphs (auto) (1.0-4.6) x10^3/uL Absolute Monos (auto) (0.0-1.3) x10^3/uL Absolute Nucleated RBC (0.00-0.01) x10^3u/L Lymphocytes % (24.0-44.0) % Monocytes % (0.0-12.0) % Eosinophils % (0.00-5.0) % Basophils % (0.0-0.4) % Absolute Granulocytes (1.4-6.9) x10^3/uL Basophils # (0-0.4) x10^3/uL Sodium 136 L (137-145) mmol/L Potassium 3.8 (3.5-5.1) mmol/L Chloride 100 (98-107) mmol/L Carbon Dioxide 27 (22-30) mmol/L Anion Gap 13.0 (5-15) MEQ/L BUN 26 H (7-17) mg/dL Creatinine 1.60 H (0.52-1.04) mg/dL Estimated GFR 31.0 ML/MIN Glucose 233 H (74-106) mg/dL Hemoglobin A1c (4.5-6.0) % Lactic Acid (0.4-2.0) Calcium 9.7 (8.4-10.2) mg/dL Magnesium 1.9 (1.6-2.3) mg/dL Total Bilirubin 0.70 (0.2-1.3) mg/dL AST 39 H (14-36) U/L ALT 23 (0-35) U/L Alkaline Phosphatase 126 (38-126) U/L Troponin I 0.013 (0.000-0.034) ng/mL NT-Pro-B Natriuret Pep 281 (<300) pg/mL Serum Total Protein 7.8 (6.3-8.2) g/dL Albumin 4.4 (3.5-5.0) g/dL Procalcitonin (0.030-0.080) ng/mL TSH 3rd Generation (0.47-4.68) mIU/L Urine Color (Yellow) Urine Appearance (Clear) Urine pH (4.6-8.0) Ur Specific Drummond (1.005-1.030) Urine Protein (Negative) Urine Glucose (UA) (Negative) mg/dL Urine Ketones (Negative) Urine Blood (Negative) Urine Nitrite (Negative) Urine Bilirubin (Negative) Urine Urobilinogen (0.2) mg/dL Ur Leukocyte Esterase (Negative) U Hyaline Cast (Auto) (0-2) /LPF Urine Microscopic RBC (0-5) /HPF Urine Microscopic WBC (0-5) /HPF Ur Epithelial Cells (None Seen) /HPF Urine Bacteria (None Seen) /HPF Urine Culture Reflexed (NO) Influenza Type A Ag NEGATIVE (NEGATIVE) Influenza Type B Ag NEGATIVE (NEGATIVE) RSV (PCR) NEGATIVE (NEGATIVE) SARS-CoV-2 (PCR) NEGATIVE (NEGATIVE) Slides for Path Review 01/11/24 01/11/24 01/11/24 Range/Units 11:43 11:39 11:39 WBC 15.6 H (4.0-10.5) x10^3/uL RBC 4.09 L (4.1-5.4) x10^6/uL Hgb 12.1 (12.0-16.0) g/dL Hct 38.5 (35-47) % MCV 94.1 (78-100) fL MCH 29.6 (26-32) pg MCHC 31.4 L (32-36) g/dL RDW 15.2 H (11.5-14.0) % Plt Count 238 (150-450) x10^3/uL MPV 11.2 H (7.5-11.0) fL Gran % 92.1 H (36.0-66.0) % Immature Gran % (Auto) 0.5 H (0.00-0.4) % Nucleat RBC Rel Count 0.0 (0.00-0.1) % Eos # (Auto) 0 (0-0.5) x10^3/uL Immature Gran # (Auto) 0.08 H (0.00-0.03) x10^3u/L Absolute Lymphs (auto) 0.50 L (1.0-4.6) x10^3/uL Absolute Monos (auto) 0.60 (0.0-1.3) x10^3/uL Absolute Nucleated RBC 0.00 (0.00-0.01) x10^3u/L Lymphocytes % 3.2 L (24.0-44.0) % Monocytes % 3.9 (0.0-12.0) % Eosinophils % 0.0 (0.00-5.0) % Basophils % 0.3 (0.0-0.4) % Absolute Granulocytes 14.34 H (1.4-6.9) x10^3/uL Basophils # 0.04 (0-0.4) x10^3/uL Sodium (137-145) mmol/L Potassium (3.5-5.1) mmol/L Chloride (98-107) mmol/L Carbon Dioxide (22-30) mmol/L Anion Gap (5-15) MEQ/L BUN (7-17) mg/dL Creatinine (0.52-1.04) mg/dL Estimated GFR ML/MIN Glucose (74-106) mg/dL Hemoglobin A1c (4.5-6.0) % Lactic Acid 2.7 H (0.4-2.0) Calcium (8.4-10.2) mg/dL Magnesium (1.6-2.3) mg/dL Total Bilirubin (0.2-1.3) mg/dL AST (14-36) U/L ALT (0-35) U/L Alkaline Phosphatase (38-126) U/L Troponin I (0.000-0.034) ng/mL NT-Pro-B Natriuret Pep (<300) pg/mL Serum Total Protein (6.3-8.2) g/dL Albumin (3.5-5.0) g/dL Procalcitonin (0.030-0.080) ng/mL TSH 3rd Generation (0.47-4.68) mIU/L Urine Color Yellow (Yellow) Urine Appearance Clear (Clear) Urine pH 5.5 (4.6-8.0) Ur Specific Drummond 1.020 (1.005-1.030) Urine Protein 100 A (Negative) Urine Glucose (UA) 250 A (Negative) mg/dL Urine Ketones Trace A (Negative) Urine Blood Large A (Negative) Urine Nitrite Negative (Negative) Urine Bilirubin Negative (Negative) Urine Urobilinogen 0.2 (0.2) mg/dL Ur Leukocyte Esterase Negative (Negative) U Hyaline Cast (Auto) 3-5 A (0-2) /LPF Urine Microscopic RBC 0-2 (0-5) /HPF Urine Microscopic WBC 0-2 (0-5) /HPF Ur Epithelial Cells None Seen (None Seen) /HPF Urine Bacteria Rare A (None Seen) /HPF Urine Culture Reflexed ORDERED SEPARATELY (NO) Influenza Type A Ag (NEGATIVE) Influenza Type B Ag (NEGATIVE) RSV (PCR) (NEGATIVE) SARS-CoV-2 (PCR) (NEGATIVE) Slides for Path Review YES 01/11/24 Range/Units 06:50 WBC (4.0-10.5) x10^3/uL RBC (4.1-5.4) x10^6/uL Hgb (12.0-16.0) g/dL Hct (35-47) % MCV (78-100) fL MCH (26-32) pg MCHC (32-36) g/dL RDW (11.5-14.0) % Plt Count (150-450) x10^3/uL MPV (7.5-11.0) fL Gran % (36.0-66.0) % Immature Gran % (Auto) (0.00-0.4) % Nucleat RBC Rel Count (0.00-0.1) % Eos # (Auto) (0-0.5) x10^3/uL Immature Gran # (Auto) (0.00-0.03) x10^3u/L Absolute Lymphs (auto) (1.0-4.6) x10^3/uL Absolute Monos (auto) (0.0-1.3) x10^3/uL Absolute Nucleated RBC (0.00-0.01) x10^3u/L Lymphocytes % (24.0-44.0) % Monocytes % (0.0-12.0) % Eosinophils % (0.00-5.0) % Basophils % (0.0-0.4) % Absolute Granulocytes (1.4-6.9) x10^3/uL Basophils # (0-0.4) x10^3/uL Sodium (137-145) mmol/L Potassium (3.5-5.1) mmol/L Chloride (98-107) mmol/L Carbon Dioxide (22-30) mmol/L Anion Gap (5-15) MEQ/L BUN (7-17) mg/dL Creatinine (0.52-1.04) mg/dL Estimated GFR ML/MIN Glucose (74-106) mg/dL Hemoglobin A1c (4.5-6.0) % Lactic Acid (0.4-2.0) Calcium (8.4-10.2) mg/dL Magnesium (1.6-2.3) mg/dL Total Bilirubin (0.2-1.3) mg/dL AST (14-36) U/L ALT (0-35) U/L Alkaline Phosphatase (38-126) U/L Troponin I (0.000-0.034) ng/mL NT-Pro-B Natriuret Pep (<300) pg/mL Serum Total Protein (6.3-8.2) g/dL Albumin (3.5-5.0) g/dL Procalcitonin 0.090 H (0.030-0.080) ng/mL TSH 3rd Generation (0.47-4.68) mIU/L Urine Color (Yellow) Urine Appearance (Clear) Urine pH (4.6-8.0) Ur Specific Drummond (1.005-1.030) Urine Protein (Negative) Urine Glucose (UA) (Negative) mg/dL Urine Ketones (Negative) Urine Blood (Negative) Urine Nitrite (Negative) Urine Bilirubin (Negative) Urine Urobilinogen (0.2) mg/dL Ur Leukocyte Esterase (Negative) U Hyaline Cast (Auto) (0-2) /LPF Urine Microscopic RBC (0-5) /HPF Urine Microscopic WBC (0-5) /HPF Ur Epithelial Cells (None Seen) /HPF Urine Bacteria (None Seen) /HPF Urine Culture Reflexed (NO) Influenza Type A Ag (NEGATIVE) Influenza Type B Ag (NEGATIVE) RSV (PCR) (NEGATIVE) SARS-CoV-2 (PCR) (NEGATIVE) Slides for Path Review - Progress Progress: improved Progress Note: 01/11/24 14:11 0 58-year-old is evaluated in the ER for repeated falls lately. She is not confused or altered on presentation. No signs of distress. Nontoxic appearance. Lungs fairly clear to auscultation bilaterally. Chest x-ray negative for any acute cardiopulmonary findings reviewed by me, official report is pending. EKG negative for any acute ST elevations. Negative troponins. Chemistry shows mild ELIDA and has a white count of 15. No UTI. No obvious focus of infection. She is given gentle hydration. Patient with recurrent fall and generalized weakness, and believes she would benefit with PT OT, fluids and cultures are pending, discussed with Dr. Bray, reviewed history, workup and is being admitted for observation. Discussed with DrFilomena: Other (Dr. Bray 1400) Will see patient in: hospital (observation) Counseled pt/family regarding: lab results, diagnosis, rad results Medical Desision Making - Independent Historian Additional History obtained from: Child - Discussion of managment Care discussed with:: hospitalist Reviewed:: Test results Agreed on:: Treatment plan, place in obs Will see patient: in hospital - Diagnostic Testing Diagnostic test were ordered, analyzed, and reviewed by me: Yes Radiological Interpretation: Interpreted by me, Reviewed by me - Risk of complications The pt has a high risk of morbidity or mortality based on: Decision regarding hospitilization or escalation of hosp level of care - Departure Departure Disposition: Observation Clinical Impression: General weakness, Frequent falls Condition: Stable Critical Care Time: No
[2024-01-11 14:17] LABS: Slide Review 1 YES
[2024-01-11] MEDS ORDERED: Zofran 4 MG/2 ML VIAL IV PRN (14:47)
[2024-01-11] MEDS ORDERED: TYLENOL 325 MG PO PRN (14:47)
--- NOTE | 2024-01-11 14:47 | PCM.HP ---
<TREVOR SNELL - Last Filed: 01/11/24 15:10> History of Present Illness - Chief Complaint Chief Complaint: weakness/fall Date: 01/11/24 History of Present Illness: is a 88 year old female with pmhx of dementia, HTN, DMII, DJD, GERD, and CKD who presented to ED 01/11/24 via ambulance for evaluation of a fall at home. Patient states she was ambulating around her bed without her cane and she fell. She denies LOC, trauma to her head, or any dizziness. She does report that this happens to her occasionally where she "just falls." Daughter states that when she does have one of these episodes, she experiences confusion directly after, but then returns to baseline quickly. Denies fever,cough, sob, cp, abdominal pain, WAHL, dizziness, N/V/D. In ED, vitals unremarkable. Lab findings remarkable for leukocytosis with WBC at 15.6, ELIDA with BUN at 26, Creat at 1.60 (baseline around 11-1.3), GFR at 31.0, and lactic acid at 2.4. Patient being admitted for frequent falls, weakness, leukocytosis, and ELIDA. Patient given IVF in ED. - Review of Systems Constitutional: Fatigue, Weakness Eyes: No Symptoms Ears, Nose, & Throat: No Symptoms Respiratory: No Symptoms Cardiac: No Symptoms Abdominal/Gastrointestinal: No Symptoms Genitourinary Symptoms: No Symptoms Musculoskeletal: No Symptoms Skin: No Symptoms Neurological: No Symptoms Psychological: No Symptoms Endocrine: No Symptoms Hematologic/Lymphatic: No Symptoms Immunological/Allergic: No Symptoms Medications & Allergies Home Medications: Home Medication List Pramipexole Di-HCl [Pramipexole Dihydrochloride] 0.25 mg PO HS 05/09/18 [History Confirmed 01/11/24] Sertraline HCl 25 mg PO HS 05/09/18 [History Confirmed 01/11/24] Cyanocobalamin 500 Mcg [Vitamin B-12 500 MCG] 500 mcg PO BID 03/20/19 [History Confirmed 01/11/24] Loratadine 10 mg [Claritin 10 mg] 10 mg PO DAILY 03/20/19 [History Confirmed 01/11/24] Memantine HCl [Memantine HCl ER] 21 mg PO DAILY 03/20/19 [History Confirmed 01/11/24] Cholecalciferol (Vitamin D3) [Vitamin D3] 25 mcg PO DAILY 10/12/20 [History Confirmed 01/11/24] Donepezil HCl 10 mg PO HS 10/12/20 [History Confirmed 01/11/24] Bumetanide 1 mg PO DAILY 09/02/23 [History Confirmed 01/11/24] Aspirin EC 81 mg [Ecotrin 81 mg] 81 mg PO DAILY 01/11/24 [History Confirmed 01/11/24] Colestipol HCl [Colestid] 5 gm PO DAILY PRN PRN 01/11/24 [History Confirmed 01/11/24] Colestipol HCl [Colestid] 5 gm PO QAM 01/11/24 [History Confirmed 01/11/24] Losartan Potassium 50 mg [Cozaar 50 MG] 25 mg PO DAILY 01/11/24 [History Confirmed 01/11/24] glipiZIDE [Glipizide ER] 2.5 mg PO DAILY 01/11/24 [History Confirmed 01/11/24] Allergies/Adverse Reactions: Allergies Allergy/AdvReac Type Severity Reaction Status Date / Time cephalexin [From Keflex] AdvReac Intermediate Diarrhea Verified 01/11/24 11:06 oats AdvReac Diarrhea Verified 01/11/24 11:06 wheat AdvReac Diarrhea Verified 01/11/24 11:06 - Past Medical History Past Medical History: Yes Neurological History: Dementia ENT History: Cataracts Cardiac History: Hypertension Respiratory History: No Pertinent History Endocrine Medical History: Diabetes Type II Musculoskelatal History: Arthritis, Degenerative Disk Disease, Osteoarthritis GI Medical History: GERD History: Renal Disease Pyscho-Social History: Anxiety Reproductive Disorders: No Pertinent History Comment: Chronic kidney disease - Past Surgical History Past Surgical History: Yes Neuro Surgical History: No Pertinent History Cardiac History: No Pertinent History Respiratory Surgery: No Pertinent History GI Surgical History: Cholecystectomy Genitourinary Surgical Hx: No Pertinent History Musculskeletal Surgical Hx: Orthopedic Surgery Female Surgical History: No Pertinent History Other Surgical History: Tonsils out, cataract surgery bilat , back surgery (unsure of what kind) - Social History Smoking Status: Never smoker Exposure to second hand smoke: No Alcohol: None Drug Use: none - Physical Exam Vital Signs: Vital Signs - 24 hr Pulse Resp BP BP Pulse Ox 01/11/24 14:13 95 01/11/24 14:00 85 34 H 122/68 95 01/11/24 13:30 83 24 130/50 93 L 01/11/24 13:00 88 24 132/54 93 L 01/11/24 12:30 81 18 137/54 92 L 01/11/24 12:01 79 28 H 143/43 93 L 01/11/24 11:30 82 26 H 133/103 94 L 01/11/24 11:06 84 21 149/55 95 General Appearance: no apparent distress Neurologic Exam: alert, oriented x 3, cooperative Eye Exam: PERRL/EOMI Ears, Nose, Throat Exam: normal ENT inspection Neck Exam: normal inspection Respiratory Exam: normal breath sounds, lungs clear Cardiovascular Exam: regular rate/rhythm, normal heart sounds Gastrointestinal/Abdomen Exam: soft, normal bowel sounds Pelvic Exam: not done Rectal Exam: deferred Back Exam: normal inspection Extremity Exam: normal inspection Skin Exam: normal color Results - Labs Lab/Micro Results: Lab Results-Last 24 Hours 01/11/24 01/11/24 01/11/24 Range/Units 11:39 11:39 11:43 WBC 15.6 H (4.0-10.5) x10^3/uL RBC 4.09 L (4.1-5.4) x10^6/uL Hgb 12.1 (12.0-16.0) g/dL Hct 38.5 (35-47) % MCV 94.1 (78-100) fL MCH 29.6 (26-32) pg MCHC 31.4 L (32-36) g/dL RDW 15.2 H (11.5-14.0) % Plt Count 238 (150-450) x10^3/uL MPV 11.2 H (7.5-11.0) fL Gran % 92.1 H (36.0-66.0) % Immature Gran % (Auto) 0.5 H (0.00-0.4) % Nucleat RBC Rel Count 0.0 (0.00-0.1) % Eos # (Auto) 0 (0-0.5) x10^3/uL Immature Gran # (Auto) 0.08 H (0.00-0.03) x10^3u/L Absolute Lymphs (auto) 0.50 L (1.0-4.6) x10^3/uL Absolute Monos (auto) 0.60 (0.0-1.3) x10^3/uL Absolute Nucleated RBC 0.00 (0.00-0.01) x10^3u/L Lymphocytes % 3.2 L (24.0-44.0) % Monocytes % 3.9 (0.0-12.0) % Eosinophils % 0.0 (0.00-5.0) % Basophils % 0.3 (0.0-0.4) % Absolute Granulocytes 14.34 H (1.4-6.9) x10^3/uL Basophils # 0.04 (0-0.4) x10^3/uL Sodium (137-145) mmol/L Potassium (3.5-5.1) mmol/L Chloride (98-107) mmol/L Carbon Dioxide (22-30) mmol/L Anion Gap (5-15) MEQ/L BUN (7-17) mg/dL Creatinine (0.52-1.04) mg/dL Estimated GFR ML/MIN Glucose (74-106) mg/dL Lactic Acid 2.7 H (0.4-2.0) Calcium (8.4-10.2) mg/dL Magnesium (1.6-2.3) mg/dL Total Bilirubin (0.2-1.3) mg/dL AST (14-36) U/L ALT (0-35) U/L Alkaline Phosphatase (38-126) U/L Troponin I (0.000-0.034) ng/mL NT-Pro-B Natriuret Pep (<300) pg/mL Serum Total Protein (6.3-8.2) g/dL Albumin (3.5-5.0) g/dL Urine Color Yellow (Yellow) Urine Appearance Clear (Clear) Urine pH 5.5 (4.6-8.0) Ur Specific [place] 1.020 (1.005-1.030) Urine Protein 100 A (Negative) Urine Glucose (UA) 250 A (Negative) mg/dL Urine Ketones Trace A (Negative) Urine Blood Large A (Negative) Urine Nitrite Negative (Negative) Urine Bilirubin Negative (Negative) Urine Urobilinogen 0.2 (0.2) mg/dL Ur Leukocyte Esterase Negative (Negative) U Hyaline Cast (Auto) 3-5 A (0-2) /LPF Urine Microscopic RBC 0-2 (0-5) /HPF Urine Microscopic WBC 0-2 (0-5) /HPF Ur Epithelial Cells None Seen (None Seen) /HPF Urine Bacteria Rare A (None Seen) /HPF Urine Culture Reflexed ORDERED SEPARATELY (NO) Influenza Type A Ag (NEGATIVE) Influenza Type B Ag (NEGATIVE) RSV (PCR) (NEGATIVE) SARS-CoV-2 (PCR) (NEGATIVE) Slides for Path Review YES 01/11/24 01/11/24 01/11/24 Range/Units 11:56 11:56 11:56 WBC (4.0-10.5) x10^3/uL RBC (4.1-5.4) x10^6/uL Hgb (12.0-16.0) g/dL Hct (35-47) % MCV (78-100) fL MCH (26-32) pg MCHC (32-36) g/dL RDW (11.5-14.0) % Plt Count (150-450) x10^3/uL MPV (7.5-11.0) fL Gran % (36.0-66.0) % Immature Gran % (Auto) (0.00-0.4) % Nucleat RBC Rel Count (0.00-0.1) % Eos # (Auto) (0-0.5) x10^3/uL Immature Gran # (Auto) (0.00-0.03) x10^3u/L Absolute Lymphs (auto) (1.0-4.6) x10^3/uL Absolute Monos (auto) (0.0-1.3) x10^3/uL Absolute Nucleated RBC (0.00-0.01) x10^3u/L Lymphocytes % (24.0-44.0) % Monocytes % (0.0-12.0) % Eosinophils % (0.00-5.0) % Basophils % (0.0-0.4) % Absolute Granulocytes (1.4-6.9) x10^3/uL Basophils # (0-0.4) x10^3/uL Sodium 136 L (137-145) mmol/L Potassium 3.8 (3.5-5.1) mmol/L Chloride 100 (98-107) mmol/L Carbon Dioxide 27 (22-30) mmol/L Anion Gap 13.0 (5-15) MEQ/L BUN 26 H (7-17) mg/dL Creatinine 1.60 H (0.52-1.04) mg/dL Estimated GFR 31.0 ML/MIN Glucose 233 H (74-106) mg/dL Lactic Acid (0.4-2.0) Calcium 9.7 (8.4-10.2) mg/dL Magnesium 1.9 (1.6-2.3) mg/dL Total Bilirubin 0.70 (0.2-1.3) mg/dL AST 39 H (14-36) U/L ALT 23 (0-35) U/L Alkaline Phosphatase 126 (38-126) U/L Troponin I 0.013 (0.000-0.034) ng/mL NT-Pro-B Natriuret Pep 281 (<300) pg/mL Serum Total Protein 7.8 (6.3-8.2) g/dL Albumin 4.4 (3.5-5.0) g/dL Urine Color (Yellow) Urine Appearance (Clear) Urine pH (4.6-8.0) Ur Specific [place] (1.005-1.030) Urine Protein (Negative) Urine Glucose (UA) (Negative) mg/dL Urine Ketones (Negative) Urine Blood (Negative) Urine Nitrite (Negative) Urine Bilirubin (Negative) Urine Urobilinogen (0.2) mg/dL Ur Leukocyte Esterase (Negative) U Hyaline Cast (Auto) (0-2) /LPF Urine Microscopic RBC (0-5) /HPF Urine Microscopic WBC (0-5) /HPF Ur Epithelial Cells (None Seen) /HPF Urine Bacteria (None Seen) /HPF Urine Culture Reflexed (NO) Influenza Type A Ag NEGATIVE (NEGATIVE) Influenza Type B Ag NEGATIVE (NEGATIVE) RSV (PCR) NEGATIVE (NEGATIVE) SARS-CoV-2 (PCR) NEGATIVE (NEGATIVE) Slides for Path Review - Radiology Impressions Radiology Exams & Impressions: Radiology Procedures Category Date Time Status CHEST 1 VIEW (PORTABLE) Stat Exams 01/11/24 11:39 Taken - Other Procedures and Tests Respiratory Therapy 01/11/24 14:41 Respiratory Therapy Consult ONCE Assessment/Plan (1) Leukocytosis, unspecified Current Visit: Yes Status: Acute Assessment & Plan: -Unknown etiology, could be reactive from fall vs infective process -Blood and urine cultures pending, will add procal, ck -CXR pending -Will treat empirically with ceftriaxone for now, follow cultures Code(s): D72.829 - ELEVATED WHITE BLOOD CELL COUNT, UNSPECIFIED (2) Acute renal injury Current Visit: No Status: Acute Assessment & Plan: -Follows with Dr. Reed as OP -IVF -Avoid JABIER/ARB/NSAIDS/diruetics -Monitor renal/lytes daily Code(s): N17.9 - ACUTE KIDNEY FAILURE, UNSPECIFIED (3) Frequent falls Current Visit: Yes Status: Acute Onset Date: ~11/03/18 Assessment & Plan: -Orthostatic vitals -PT/OT -CT head Code(s): R29.6 - REPEATED FALLS (4) Diabetes mellitus Current Visit: Yes Status: Acute Assessment & Plan: -A1c -SSI - mod -ADA diet Code(s): E11.9 - TYPE 2 DIABETES MELLITUS WITHOUT COMPLICATIONS (5) HTN (hypertension) Current Visit: Yes Status: Acute Assessment & Plan: -Continue home medications Code(s): I10 - ESSENTIAL (PRIMARY) HYPERTENSION (6) Dementia Current Visit: Yes Status: Acute Assessment & Plan: -Continue home meds Code(s): F03.90 - UNSP DEMENTIA, UNSP SEVERITY, WITHOUT BEH/PSYCH/MOOD/ANX (7) General weakness Current Visit: Yes Status: Acute Assessment & Plan: -see frequent falls Code(s): R53.1 - WEAKNESS <AUDI BURRELL - Last Filed: 01/12/24 00:32> History of Present Illness - Chief Complaint History of Present Illness: is a 88 year old female. - Physical Exam Vital Signs: Vital Signs - 24 hr Temp Pulse Resp BP BP Pulse Ox 01/11/24 23:37 98.0 F 88 19 145/65 96 01/11/24 20:22 179/75 01/11/24 20:00 95 01/11/24 19:51 98.2 F 83 20 192/77 94 L 01/11/24 16:26 82 16 94 L 01/11/24 14:48 97.9 F 85 20 188/73 02/10/24 14:00 85 34 H 122/68 95 01/11/24 13:30 83 24 130/50 93 L 01/11/24 13:00 88 24 132/54 93 L 01/11/24 12:30 81 18 137/54 92 L 01/11/24 12:01 79 28 H 143/43 93 L 01/11/24 11:30 82 26 H 133/103 94 L 01/11/24 11:06 84 21 149/55 95 Results - Labs Lab/Micro Results: Lab Results-Last 24 Hours 01/11/24 01/11/24 01/11/24 Range/Units 06:50 11:39 11:39 WBC 15.6 H (4.0-10.5) x10^3/uL RBC 4.09 L (4.1-5.4) x10^6/uL Hgb 12.1 (12.0-16.0) g/dL Hct 38.5 (35-47) % MCV 94.1 (78-100) fL MCH 29.6 (26-32) pg MCHC 31.4 L (32-36) g/dL RDW 15.2 H (11.5-14.0) % Plt Count 238 (150-450) x10^3/uL MPV 11.2 H (7.5-11.0) fL Gran % 92.1 H (36.0-66.0) % Immature Gran % (Auto) 0.5 H (0.00-0.4) % Nucleat RBC Rel Count 0.0 (0.00-0.1) % Eos # (Auto) 0 (0-0.5) x10^3/uL Immature Gran # (Auto) 0.08 H (0.00-0.03) x10^3u/L Absolute Lymphs (auto) 0.50 L (1.0-4.6) x10^3/uL Absolute Monos (auto) 0.60 (0.0-1.3) x10^3/uL Absolute Nucleated RBC 0.00 (0.00-0.01) x10^3u/L Lymphocytes % 3.2 L (24.0-44.0) % Monocytes % 3.9 (0.0-12.0) % Eosinophils % 0.0 (0.00-5.0) % Basophils % 0.3 (0.0-0.4) % Absolute Granulocytes 14.34 H (1.4-6.9) x10^3/uL Basophils # 0.04 (0-0.4) x10^3/uL Sodium (137-145) mmol/L Potassium (3.5-5.1) mmol/L Chloride (98-107) mmol/L Carbon Dioxide (22-30) mmol/L Anion Gap (5-15) MEQ/L BUN (7-17) mg/dL Creatinine (0.52-1.04) mg/dL Estimated GFR ML/MIN Glucose (74-106) mg/dL POC Glucometer (74 to 106) mg/dL Hemoglobin A1c (4.5-6.0) % Lactic Acid 2.7 H (0.4-2.0) Calcium (8.4-10.2) mg/dL Magnesium (1.6-2.3) mg/dL Total Bilirubin (0.2-1.3) mg/dL AST (14-36) U/L ALT (0-35) U/L Alkaline Phosphatase (38-126) U/L Troponin I (0.000-0.034) ng/mL NT-Pro-B Natriuret Pep (<300) pg/mL Serum Total Protein (6.3-8.2) g/dL Albumin (3.5-5.0) g/dL Procalcitonin 0.090 H (0.030-0.080) ng/mL TSH 3rd Generation (0.47-4.68) mIU/L Urine Color (Yellow) Urine Appearance (Clear) Urine pH (4.6-8.0) Ur Specific [place] (1.005-1.030) Urine Protein (Negative) Urine Glucose (UA) (Negative) mg/dL Urine Ketones (Negative) Urine Blood (Negative) Urine Nitrite (Negative) Urine Bilirubin (Negative) Urine Urobilinogen (0.2) mg/dL Ur Leukocyte Esterase (Negative) U Hyaline Cast (Auto) (0-2) /LPF Urine Microscopic RBC (0-5) /HPF Urine Microscopic WBC (0-5) /HPF Ur Epithelial Cells (None Seen) /HPF Urine Bacteria (None Seen) /HPF Urine Culture Reflexed (NO) Influenza Type A Ag (NEGATIVE) Influenza Type B Ag (NEGATIVE) RSV (PCR) (NEGATIVE) SARS-CoV-2 (PCR) (NEGATIVE) Slides for Path Review YES 01/11/24 01/11/24 01/11/24 Range/Units 11:43 11:56 11:56 WBC (4.0-10.5) x10^3/uL RBC (4.1-5.4) x10^6/uL Hgb (12.0-16.0) g/dL Hct (35-47) % MCV (78-100) fL MCH (26-32) pg MCHC (32-36) g/dL RDW (11.5-14.0) % Plt Count (150-450) x10^3/uL MPV (7.5-11.0) fL Gran % (36.0-66.0) % Immature Gran % (Auto) (0.00-0.4) % Nucleat RBC Rel Count (0.00-0.1) % Eos # (Auto) (0-0.5) x10^3/uL Immature Gran # (Auto) (0.00-0.03) x10^3u/L Absolute Lymphs (auto) (1.0-4.6) x10^3/uL Absolute Monos (auto) (0.0-1.3) x10^3/uL Absolute Nucleated RBC (0.00-0.01) x10^3u/L Lymphocytes % (24.0-44.0) % Monocytes % (0.0-12.0) % Eosinophils % (0.00-5.0) % Basophils % (0.0-0.4) % Absolute Granulocytes (1.4-6.9) x10^3/uL Basophils # (0-0.4) x10^3/uL Sodium 136 L (137-145) mmol/L Potassium 3.8 (3.5-5.1) mmol/L Chloride 100 (98-107) mmol/L Carbon Dioxide 27 (22-30) mmol/L Anion Gap 13.0 (5-15) MEQ/L BUN 26 H (7-17) mg/dL Creatinine 1.60 H (0.52-1.04) mg/dL Estimated GFR 31.0 ML/MIN Glucose 233 H (74-106) mg/dL POC Glucometer (74 to 106) mg/dL Hemoglobin A1c (4.5-6.0) % Lactic Acid (0.4-2.0) Calcium 9.7 (8.4-10.2) mg/dL Magnesium 1.9 (1.6-2.3) mg/dL Total Bilirubin 0.70 (0.2-1.3) mg/dL AST 39 H (14-36) U/L ALT 23 (0-35) U/L Alkaline Phosphatase 126 (38-126) U/L Troponin I 0.013 (0.000-0.034) ng/mL NT-Pro-B Natriuret Pep 281 (<300) pg/mL Serum Total Protein 7.8 (6.3-8.2) g/dL Albumin 4.4 (3.5-5.0) g/dL Procalcitonin (0.030-0.080) ng/mL TSH 3rd Generation (0.47-4.68) mIU/L Urine Color Yellow (Yellow) Urine Appearance Clear (Clear) Urine pH 5.5 (4.6-8.0) Ur Specific [place] 1.020 (1.005-1.030) Urine Protein 100 A (Negative) Urine Glucose (UA) 250 A (Negative) mg/dL Urine Ketones Trace A (Negative) Urine Blood Large A (Negative) Urine Nitrite Negative (Negative) Urine Bilirubin Negative (Negative) Urine Urobilinogen 0.2 (0.2) mg/dL Ur Leukocyte Esterase Negative (Negative) U Hyaline Cast (Auto) 3-5 A (0-2) /LPF Urine Microscopic RBC 0-2 (0-5) /HPF Urine Microscopic WBC 0-2 (0-5) /HPF Ur Epithelial Cells None Seen (None Seen) /HPF Urine Bacteria Rare A (None Seen) /HPF Urine Culture Reflexed ORDERED SEPARATELY (NO) Influenza Type A Ag (NEGATIVE) Influenza Type B Ag (NEGATIVE) RSV (PCR) (NEGATIVE) SARS-CoV-2 (PCR) (NEGATIVE) Slides for Path Review 01/11/24 01/11/24 01/11/24 Range/Units 11:56 11:56 11:56 WBC (4.0-10.5) x10^3/uL RBC (4.1-5.4) x10^6/uL Hgb (12.0-16.0) g/dL Hct (35-47) % MCV (78-100) fL MCH (26-32) pg MCHC (32-36) g/dL RDW (11.5-14.0) % Plt Count (150-450) x10^3/uL MPV (7.5-11.0) fL Gran % (36.0-66.0) % Immature Gran % (Auto) (0.00-0.4) % Nucleat RBC Rel Count (0.00-0.1) % Eos # (Auto) (0-0.5) x10^3/uL Immature Gran # (Auto) (0.00-0.03) x10^3u/L Absolute Lymphs (auto) (1.0-4.6) x10^3/uL Absolute Monos (auto) (0.0-1.3) x10^3/uL Absolute Nucleated RBC (0.00-0.01) x10^3u/L Lymphocytes % (24.0-44.0) % Monocytes % (0.0-12.0) % Eosinophils % (0.00-5.0) % Basophils % (0.0-0.4) % Absolute Granulocytes (1.4-6.9) x10^3/uL Basophils # (0-0.4) x10^3/uL Sodium (137-145) mmol/L Potassium (3.5-5.1) mmol/L Chloride (98-107) mmol/L Carbon Dioxide (22-30) mmol/L Anion Gap (5-15) MEQ/L BUN (7-17) mg/dL Creatinine (0.52-1.04) mg/dL Estimated GFR ML/MIN Glucose (74-106) mg/dL POC Glucometer (74 to 106) mg/dL Hemoglobin A1c 8.12 H (4.5-6.0) % Lactic Acid (0.4-2.0) Calcium (8.4-10.2) mg/dL Magnesium (1.6-2.3) mg/dL Total Bilirubin (0.2-1.3) mg/dL AST (14-36) U/L ALT (0-35) U/L Alkaline Phosphatase (38-126) U/L Troponin I (0.000-0.034) ng/mL NT-Pro-B Natriuret Pep (<300) pg/mL Serum Total Protein (6.3-8.2) g/dL Albumin (3.5-5.0) g/dL Procalcitonin (0.030-0.080) ng/mL TSH 3rd Generation 3.250 (0.47-4.68) mIU/L Urine Color (Yellow) Urine Appearance (Clear) Urine pH (4.6-8.0) Ur Specific [place] (1.005-1.030) Urine Protein (Negative) Urine Glucose (UA) (Negative) mg/dL Urine Ketones (Negative) Urine Blood (Negative) Urine Nitrite (Negative) Urine Bilirubin (Negative) Urine Urobilinogen (0.2) mg/dL Ur Leukocyte Esterase (Negative) U Hyaline Cast (Auto) (0-2) /LPF Urine Microscopic RBC (0-5) /HPF Urine Microscopic WBC (0-5) /HPF Ur Epithelial Cells (None Seen) /HPF Urine Bacteria (None Seen) /HPF Urine Culture Reflexed (NO) Influenza Type A Ag NEGATIVE (NEGATIVE) Influenza Type B Ag NEGATIVE (NEGATIVE) RSV (PCR) NEGATIVE (NEGATIVE) SARS-CoV-2 (PCR) NEGATIVE (NEGATIVE) Slides for Path Review 01/11/24 01/11/24 01/11/24 Range/Units 13:59 16:49 17:21 WBC (4.0-10.5) x10^3/uL RBC (4.1-5.4) x10^6/uL Hgb (12.0-16.0) g/dL Hct (35-47) % MCV (78-100) fL MCH (26-32) pg MCHC (32-36) g/dL RDW (11.5-14.0) % Plt Count (150-450) x10^3/uL MPV (7.5-11.0) fL Gran % (36.0-66.0) % Immature Gran % (Auto) (0.00-0.4) % Nucleat RBC Rel Count (0.00-0.1) % Eos # (Auto) (0-0.5) x10^3/uL Immature Gran # (Auto) (0.00-0.03) x10^3u/L Absolute Lymphs (auto) (1.0-4.6) x10^3/uL Absolute Monos (auto) (0.0-1.3) x10^3/uL Absolute Nucleated RBC (0.00-0.01) x10^3u/L Lymphocytes % (24.0-44.0) % Monocytes % (0.0-12.0) % Eosinophils % (0.00-5.0) % Basophils % (0.0-0.4) % Absolute Granulocytes (1.4-6.9) x10^3/uL Basophils # (0-0.4) x10^3/uL Sodium (137-145) mmol/L Potassium (3.5-5.1) mmol/L Chloride (98-107) mmol/L Carbon Dioxide (22-30) mmol/L Anion Gap (5-15) MEQ/L BUN (7-17) mg/dL Creatinine (0.52-1.04) mg/dL Estimated GFR ML/MIN Glucose (74-106) mg/dL POC Glucometer 178 H (74 to 106) mg/dL Hemoglobin A1c (4.5-6.0) % Lactic Acid 1.5 (0.4-2.0) Calcium (8.4-10.2) mg/dL Magnesium (1.6-2.3) mg/dL Total Bilirubin (0.2-1.3) mg/dL AST (14-36) U/L ALT (0-35) U/L Alkaline Phosphatase (38-126) U/L Troponin I 0.023 (0.000-0.034) ng/mL NT-Pro-B Natriuret Pep (<300) pg/mL Serum Total Protein (6.3-8.2) g/dL Albumin (3.5-5.0) g/dL Procalcitonin (0.030-0.080) ng/mL TSH 3rd Generation (0.47-4.68) mIU/L Urine Color (Yellow) Urine Appearance (Clear) Urine pH (4.6-8.0) Ur Specific [place] (1.005-1.030) Urine Protein (Negative) Urine Glucose (UA) (Negative) mg/dL Urine Ketones (Negative) Urine Blood (Negative) Urine Nitrite (Negative) Urine Bilirubin (Negative) Urine Urobilinogen (0.2) mg/dL Ur Leukocyte Esterase (Negative) U Hyaline Cast (Auto) (0-2) /LPF Urine Microscopic RBC (0-5) /HPF Urine Microscopic WBC (0-5) /HPF Ur Epithelial Cells (None Seen) /HPF Urine Bacteria (None Seen) /HPF Urine Culture Reflexed (NO) Influenza Type A Ag (NEGATIVE) Influenza Type B Ag (NEGATIVE) RSV (PCR) (NEGATIVE) SARS-CoV-2 (PCR) (NEGATIVE) Slides for Path Review 01/11/24 01/11/24 Range/Units 20:10 21:30 WBC (4.0-10.5) x10^3/uL RBC (4.1-5.4) x10^6/uL Hgb (12.0-16.0) g/dL Hct (35-47) % MCV (78-100) fL MCH (26-32) pg MCHC (32-36) g/dL RDW (11.5-14.0) % Plt Count (150-450) x10^3/uL MPV (7.5-11.0) fL Gran % (36.0-66.0) % Immature Gran % (Auto) (0.00-0.4) % Nucleat RBC Rel Count (0.00-0.1) % Eos # (Auto) (0-0.5) x10^3/uL Immature Gran # (Auto) (0.00-0.03) x10^3u/L Absolute Lymphs (auto) (1.0-4.6) x10^3/uL Absolute Monos (auto) (0.0-1.3) x10^3/uL Absolute Nucleated RBC (0.00-0.01) x10^3u/L Lymphocytes % (24.0-44.0) % Monocytes % (0.0-12.0) % Eosinophils % (0.00-5.0) % Basophils % (0.0-0.4) % Absolute Granulocytes (1.4-6.9) x10^3/uL Basophils # (0-0.4) x10^3/uL Sodium (137-145) mmol/L Potassium (3.5-5.1) mmol/L Chloride (98-107) mmol/L Carbon Dioxide (22-30) mmol/L Anion Gap (5-15) MEQ/L BUN (7-17) mg/dL Creatinine (0.52-1.04) mg/dL Estimated GFR ML/MIN Glucose (74-106) mg/dL POC Glucometer 163 H (74 to 106) mg/dL Hemoglobin A1c (4.5-6.0) % Lactic Acid (0.4-2.0) Calcium (8.4-10.2) mg/dL Magnesium (1.6-2.3) mg/dL Total Bilirubin (0.2-1.3) mg/dL AST (14-36) U/L ALT (0-35) U/L Alkaline Phosphatase (38-126) U/L Troponin I 0.025 (0.000-0.034) ng/mL NT-Pro-B Natriuret Pep (<300) pg/mL Serum Total Protein (6.3-8.2) g/dL Albumin (3.5-5.0) g/dL Procalcitonin (0.030-0.080) ng/mL TSH 3rd Generation (0.47-4.68) mIU/L Urine Color (Yellow) Urine Appearance (Clear) Urine pH (4.6-8.0) Ur Specific [place] (1.005-1.030) Urine Protein (Negative) Urine Glucose (UA) (Negative) mg/dL Urine Ketones (Negative) Urine Blood (Negative) Urine Nitrite (Negative) Urine Bilirubin (Negative) Urine Urobilinogen (0.2) mg/dL Ur Leukocyte Esterase (Negative) U Hyaline Cast (Auto) (0-2) /LPF Urine Microscopic RBC (0-5) /HPF Urine Microscopic WBC (0-5) /HPF Ur Epithelial Cells (None Seen) /HPF Urine Bacteria (None Seen) /HPF Urine Culture Reflexed (NO) Influenza Type A Ag (NEGATIVE) Influenza Type B Ag (NEGATIVE) RSV (PCR) (NEGATIVE) SARS-CoV-2 (PCR) (NEGATIVE) Slides for Path Review Accuchecks Date 01/11/24 Time 17:04 - Radiology Impressions Radiology Exams & Impressions: Radiology Procedures Category Date Time Status CHEST 1 VIEW (PORTABLE) Stat Exams 01/11/24 11:39 Completed HEAD WITHOUT CONTRAST [CT] Stat Exams 01/11/24 14:50 Completed ANDREW Encounter - ANDREW Encounter Attestation ANDREW Encounter Attestation: "CHAD Castellano andhavediscussed pertinent aspects of their care with Trevor Neff agree with the history, physical exam (any modifications based on my personal exam will be noted below), assessment, and plan as outlined in original note. Please see immediately below for my summary of findings and additional assessment and plan along with any meaningful corrections/explanations to the Subjective/Objective portions of the ANDREW note will be noted." My portion of the encounter took place via telemedicine. -Dementia, mechanical falls, ELIDA. Elevated WBC with no apparent source of infection. Possibly due to dehydration, falls. Follow up labs tomorrow
[2024-01-11] MEDS ORDERED: COLESTIPOL HCL 5 GM PO PRN (16:27)
[2024-01-11] MEDS ORDERED: PATIENT OWN MEDICATION PO PRN (16:38)
[2024-01-11] MEDS: ROCEPHIN 1 GM / 100 ML NaCl 1 GM/100 ML IVPB IV SCH (16:50)
--- NOTE | 2024-01-11 17:25 | XRAY ---
CLINICAL HISTORY: Falls TECHNIQUE: An axial non-contrast CT scan of the brain was performed from the skull base to the high parietal region. COMPARISON: 09/02/2023 FINDINGS: No evidence of acute intracranial hemorrhage or major vascular territory infarct. 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 Patchy areas of parenchymal hypoattenuation are observed in the bilateral periventricular white matter regions, seaman radiata, and centrum semiovale, which are nonspecific and may relate to chronic microvascular ischemic changes. The cortical sulci, fissures, basal cisterns, and ventricles are widened, and the cerebellar folia are shrunken, consistent with volume loss. The atherosclerotic calcific disease is seen in the vertebral and internal carotid arteries. Fajardo-white matter differentiation is maintained. No midline shifts or deformity. Normal CT appearance of the posterior fossa structures namely the cerebellar hemispheres, brainstem, and cerebellar peduncles. The IACs are unremarkable. The cerebello-pontine angles are clear. There is hyperostosis frontalis interna. No definite calvarium fractures. The scanned paranasal sinuses are clear. small right-sided kat bullosa is seen. IMPRESSION: 1. No evidence of acute intracranial hemorrhage or major vascular territory infarct. 2. Chronic microvascular ischemic changes 3. 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 No significant interval change from the previous study. Electronically Signed by: Aide Clark MD. (01/11/2024 17:21:18 EST)
--- NOTE | 2024-01-11 20:39 | XRAY ---
Indication: General weakness. Comparison: January 15, 2023 Portable chest unchanged again demonstrating minimal left base subsegmental atelectasis/scarring and left base calcified granuloma. Remaining lungs clear. Heart not enlarged again with chunky subcarinal calcified nodes. Bony thorax intact again with osteopenia and mild degenerative changes. Impression: Continued nonacute chest with chronic features.
[2024-01-11] MEDS: ZOLOFT 50 MG TABLET PO SCH (21:18)
[2024-01-11] MEDS: Namenda 5 MG PO SCH (21:19)
[2024-01-11] MEDS: Mirapex 0.5 MG Tablet PO SCH (21:19)
[2024-01-11] MEDS: Aricept 10 MG PO SCH (21:19)
[2024-01-11] MEDS: Vitamin B-12 500 MCG PO SCH (21:20)
[2024-01-11] MEDS: HUMALOG SQ PRN (21:41)
[2024-01-11] MEDS ORDERED: SERTRALINE HCL 25 MG PO SCH (22:00)
[2024-01-11] MEDS ORDERED: NON-FORMULARY ITEM (Pramipexole Di-Hcl [Pramipexole Dihydrochloride] 0.25 MG Tablet) PO SCH (22:00)
[2024-01-12 05:40] LABS: Hematocrit 34.4 % (35-47); Hemoglobin 10.6 g/dL (12.0-16.0); Mean Cell Volume 94.5 fL (78-100); Mean Corpuscular Hemoglobin 29.1 pg (26-32); Mean Corpuscular Hgb Concent. 30.8 g/dL (32-36); Mean Platelet Volume 11.1 fL (7.5-11.0); Platelet Count 216 x10^3/uL (150-450); Red Blood Count 3.64 x10^6/uL (4.1-5.4); Red Cell Distribution Width 15.5 % (11.5-14.0); White Blood Count 9.4 x10^3/uL (4.0-10.5)
--- NOTE | 2024-01-12 05:43 | PCM.DS ---
Discharge Summary Date of Admission: 01/11/24 14:34 Date of Discharge: 01/12/24 Admitting Physician: AUDI BURRELL MD Primary Care Provider: JULIO STEINER DO <TREVOR SNELL - Last Filed: 01/12/24 10:52> Date of Admission: 01/11/24 14:34 Admitting Physician: AUDI BURRELL MD Primary Care Provider: JULIO STEINER DO <AUDI BURRELL - Last Filed: 01/12/24 16:50> Allergies <TREVOR SNELL - Last Filed: 01/12/24 10:52> <AUDI BURRELL - Last Filed: 01/12/24 16:50> Allergies cephalexin [From Keflex] Adverse Reaction (Intermediate, Verified 01/11/24 11:06) Diarrhea oats Adverse Reaction (Verified 01/11/24 11:06) Diarrhea wheat Adverse Reaction (Verified 01/11/24 11:06) Diarrhea Hospital Summary - Hospital Course Hospital Course: is a 88 year old female with pmhx of dementia, HTN, DMII, DJD, GERD, and CKD who presented to ED 01/11/24 via ambulance for evaluation of a fall at home. Patient states she was ambulating around her bed without her cane and she fell. She denies LOC, trauma to her head, or any dizziness. She does report that this happens to her occasionally where she "just falls." Daughter states that when she does have one of these episodes, she experiences confusion directly after, but then returns to baseline quickly. Denies fever,cough, sob, cp, abdominal pain, WAHL, dizziness, N/V/D. In ED, vitals unremarkable. Lab findings remarkable for leukocytosis with WBC at 15.6 most likely reactive from her fall, ELIDA with BUN at 26, Creat at 1.60 (baseline around 11-1.3), GFR at 31.0, and lactic acid at 2.4. Patient being admitted for frequent falls, weakness, leukoc ytosis, and ELIDA. Patient given IVF in ED. Treated empirically with ceftriaxone. Patient doing well overnight. Leukocytosis has resolved. ELIDA has resolved, patient now at baseline creat. Advised patient to ensure that she is using her cane and other assistive devices with ambulation. Follow up with PCP. Discharge Note New Diagnosis: Fall New Medications: none Follow Up: PCP Latest Assessment & Plan -Unknown etiology, could be reactive from fall vs infective process -Blood and urine cultures pending, will add procal, ck -CXR pending -Will treat empirically with ceftriaxone for now, follow cultures Code(s): D72.829 - ELEVATED WHITE BLOOD CELL COUNT, UNSPECIFIED (2) Acute renal injury Current Visit: No Status: Acute Assessment & Plan: -Follows with Dr. Reed as OP -IVF -Avoid JABIER/ARB/NSAIDS/diruetics -Monitor renal/lytes daily Code(s): N17.9 - ACUTE KIDNEY FAILURE, UNSPECIFIED (3) Frequent falls Current Visit: Yes Status: Acute Onset Date: ~11/03/18 Assessment & Plan: -Orthostatic vitals -PT/OT -CT head Code(s): R29.6 - REPEATED FALLS (4) Diabetes mellitus Current Visit: Yes Status: Acute Assessment & Plan: -A1c -SSI - mod -ADA diet Code(s): E11.9 - TYPE 2 DIABETES MELLITUS WITHOUT COMPLICATIONS (5) HTN (hypertension) Current Visit: Yes Status: Acute Assessment & Plan: -Continue home medications Code(s): I10 - ESSENTIAL (PRIMARY) HYPERTENSION (6) Dementia Current Visit: Yes Status: Acute Assessment & Plan: -Continue home meds Code(s): F03.90 - UNSP DEMENTIA, UNSP SEVERITY, WITHOUT BEH/PSYCH/MOOD/ANX (7) General weakness Current Visit: Yes Status: Acute Assessment & Plan: -see frequent falls I spent 35 minutes [id number] with the patient on the day of discharge performing discharge exam, discussing hospital stay and discharge instructions with patient and caregivers, preparation of discharge records, prescriptions & referral forms and addressing any questions/concerns the patient had as documented above. - Vitals & Intake/Output Vital Signs: Vital Signs Temperature 98.0 F 01/12/24 04:00 Pulse Rate 88 01/12/24 04:00 Respiratory Rate 20 01/12/24 04:00 Blood Pressure 131/88 01/12/24 04:00 O2 Sat by Pulse Oximetry 95 01/12/24 04:00 Intake & Output: Intake & Output 01/09/24 01/10/24 01/11/24 01/12/24 11:59 11:59 11:59 11:59 Intake Total 1306 Balance 1306 Weight 93.5 kg 90.5 kg - Lab Result Diagrams: 01/12/24 05:35 01/12/24 05:35 Lab Results-Last 24 Hrs: Lab Results-Last 24 Hours 01/11/24 01/11/24 01/11/24 Range/Units 06:50 11:39 11:39 WBC 15.6 H (4.0-10.5) x10^3/uL RBC 4.09 L (4.1-5.4) x10^6/uL Hgb 12.1 (12.0-16.0) g/dL Hct 38.5 (35-47) % MCV 94.1 (78-100) fL MCH 29.6 (26-32) pg MCHC 31.4 L (32-36) g/dL RDW 15.2 H (11.5-14.0) % Plt Count 238 (150-450) x10^3/uL MPV 11.2 H (7.5-11.0) fL Gran % 92.1 H (36.0-66.0) % Immature Gran % (Auto) 0.5 H (0.00-0.4) % Nucleat RBC Rel Count 0.0 (0.00-0.1) % Eos # (Auto) 0 (0-0.5) x10^3/uL Immature Gran # (Auto) 0.08 H (0.00-0.03) x10^3u/L Absolute Lymphs (auto) 0.50 L (1.0-4.6) x10^3/uL Absolute Monos (auto) 0.60 (0.0-1.3) x10^3/uL Absolute Nucleated RBC 0.00 (0.00-0.01) x10^3u/L Lymphocytes % 3.2 L (24.0-44.0) % Monocytes % 3.9 (0.0-12.0) % Eosinophils % 0.0 (0.00-5.0) % Basophils % 0.3 (0.0-0.4) % Absolute Granulocytes 14.34 H (1.4-6.9) x10^3/uL Basophils # 0.04 (0-0.4) x10^3/uL Sodium (137-145) mmol/L Potassium (3.5-5.1) mmol/L Chloride (98-107) mmol/L Carbon Dioxide (22-30) mmol/L Anion Gap (5-15) MEQ/L BUN (7-17) mg/dL Creatinine (0.52-1.04) mg/dL Estimated GFR ML/MIN Glucose (74-106) mg/dL POC Glucometer (74 to 106) mg/dL Hemoglobin A1c (4.5-6.0) % Lactic Acid 2.7 H (0.4-2.0) Calcium (8.4-10.2) mg/dL Magnesium (1.6-2.3) mg/dL Total Bilirubin (0.2-1.3) mg/dL AST (14-36) U/L ALT (0-35) U/L Alkaline Phosphatase (38-126) U/L Troponin I (0.000-0.034) ng/mL NT-Pro-B Natriuret Pep (<300) pg/mL Serum Total Protein (6.3-8.2) g/dL Albumin (3.5-5.0) g/dL Procalcitonin 0.090 H (0.030-0.080) ng/mL TSH 3rd Generation (0.47-4.68) mIU/L Urine Color (Yellow) Urine Appearance (Clear) Urine pH (4.6-8.0) Ur Specific [place] (1.005-1.030) Urine Protein (Negative) Urine Glucose (UA) (Negative) mg/dL Urine Ketones (Negative) Urine Blood (Negative) Urine Nitrite (Negative) Urine Bilirubin (Negative) Urine Urobilinogen (0.2) mg/dL Ur Leukocyte Esterase (Negative) U Hyaline Cast (Auto) (0-2) /LPF Urine Microscopic RBC (0-5) /HPF Urine Microscopic WBC (0-5) /HPF Ur Epithelial Cells (None Seen) /HPF Urine Bacteria (None Seen) /HPF Urine Culture Reflexed (NO) Influenza Type A Ag (NEGATIVE) Influenza Type B Ag (NEGATIVE) RSV (PCR) (NEGATIVE) SARS-CoV-2 (PCR) (NEGATIVE) Slides for Path Review YES 01/11/24 01/11/24 01/11/24 Range/Units 11:43 11:56 11:56 WBC (4.0-10.5) x10^3/uL RBC (4.1-5.4) x10^6/uL Hgb (12.0-16.0) g/dL Hct (35-47) % MCV (78-100) fL MCH (26-32) pg MCHC (32-36) g/dL RDW (11.5-14.0) % Plt Count (150-450) x10^3/uL MPV (7.5-11.0) fL Gran % (36.0-66.0) % Immature Gran % (Auto) (0.00-0.4) % Nucleat RBC Rel Count (0.00-0.1) % Eos # (Auto) (0-0.5) x10^3/uL Immature Gran # (Auto) (0.00-0.03) x10^3u/L Absolute Lymphs (auto) (1.0-4.6) x10^3/uL Absolute Monos (auto) (0.0-1.3) x10^3/uL Absolute Nucleated RBC (0.00-0.01) x10^3u/L Lymphocytes % (24.0-44.0) % Monocytes % (0.0-12.0) % Eosinophils % (0.00-5.0) % Basophils % (0.0-0.4) % Absolute Granulocytes (1.4-6.9) x10^3/uL Basophils # (0-0.4) x10^3/uL Sodium 136 L (137-145) mmol/L Potassium 3.8 (3.5-5.1) mmol/L Chloride 100 (98-107) mmol/L Carbon Dioxide 27 (22-30) mmol/L Anion Gap 13.0 (5-15) MEQ/L BUN 26 H (7-17) mg/dL Creatinine 1.60 H (0.52-1.04) mg/dL Estimated GFR 31.0 ML/MIN Glucose 233 H (74-106) mg/dL POC Glucometer (74 to 106) mg/dL Hemoglobin A1c (4.5-6.0) % Lactic Acid (0.4-2.0) Calcium 9.7 (8.4-10.2) mg/dL Magnesium 1.9 (1.6-2.3) mg/dL Total Bilirubin 0.70 (0.2-1.3) mg/dL AST 39 H (14-36) U/L ALT 23 (0-35) U/L Alkaline Phosphatase 126 (38-126) U/L Troponin I 0.013 (0.000-0.034) ng/mL NT-Pro-B Natriuret Pep 281 (<300) pg/mL Serum Total Protein 7.8 (6.3-8.2) g/dL Albumin 4.4 (3.5-5.0) g/dL Procalcitonin (0.030-0.080) ng/mL TSH 3rd Generation (0.47-4.68) mIU/L Urine Color Yellow (Yellow) Urine Appearance Clear (Clear) Urine pH 5.5 (4.6-8.0) Ur Specific [place] 1.020 (1.005-1.030) Urine Protein 100 A (Negative) Urine Glucose (UA) 250 A (Negative) mg/dL Urine Ketones Trace A (Negative) Urine Blood Large A (Negative) Urine Nitrite Negative (Negative) Urine Bilirubin Negative (Negative) Urine Urobilinogen 0.2 (0.2) mg/dL Ur Leukocyte Esterase Negative (Negative) U Hyaline Cast (Auto) 3-5 A (0-2) /LPF Urine Microscopic RBC 0-2 (0-5) /HPF Urine Microscopic WBC 0-2 (0-5) /HPF Ur Epithelial Cells None Seen (None Seen) /HPF Urine Bacteria Rare A (None Seen) /HPF Urine Culture Reflexed ORDERED SEPARATELY (NO) Influenza Type A Ag (NEGATIVE) Influenza Type B Ag (NEGATIVE) RSV (PCR) (NEGATIVE) SARS-CoV-2 (PCR) (NEGATIVE) Slides for Path Review 01/11/24 01/11/24 01/11/24 Range/Units 11:56 11:56 11:56 WBC (4.0-10.5) x10^3/uL RBC (4.1-5.4) x10^6/uL Hgb (12.0-16.0) g/dL Hct (35-47) % MCV (78-100) fL MCH (26-32) pg MCHC (32-36) g/dL RDW (11.5-14.0) % Plt Count (150-450) x10^3/uL MPV (7.5-11.0) fL Gran % (36.0-66.0) % Immature Gran % (Auto) (0.00-0.4) % Nucleat RBC Rel Count (0.00-0.1) % Eos # (Auto) (0-0.5) x10^3/uL Immature Gran # (Auto) (0.00-0.03) x10^3u/L Absolute Lymphs (auto) (1.0-4.6) x10^3/uL Absolute Monos (auto) (0.0-1.3) x10^3/uL Absolute Nucleated RBC (0.00-0.01) x10^3u/L Lymphocytes % (24.0-44.0) % Monocytes % (0.0-12.0) % Eosinophils % (0.00-5.0) % Basophils % (0.0-0.4) % Absolute Granulocytes (1.4-6.9) x10^3/uL Basophils # (0-0.4) x10^3/uL Sodium (137-145) mmol/L Potassium (3.5-5.1) mmol/L Chloride (98-107) mmol/L Carbon Dioxide (22-30) mmol/L Anion Gap (5-15) MEQ/L BUN (7-17) mg/dL Creatinine (0.52-1.04) mg/dL Estimated GFR ML/MIN Glucose (74-106) mg/dL POC Glucometer (74 to 106) mg/dL Hemoglobin A1c 8.12 H (4.5-6.0) % Lactic Acid (0.4-2.0) Calcium (8.4-10.2) mg/dL Magnesium (1.6-2.3) mg/dL Total Bilirubin (0.2-1.3) mg/dL AST (14-36) U/L ALT (0-35) U/L Alkaline Phosphatase (38-126) U/L Troponin I (0.000-0.034) ng/mL NT-Pro-B Natriuret Pep (<300) pg/mL Serum Total Protein (6.3-8.2) g/dL Albumin (3.5-5.0) g/dL Procalcitonin (0.030-0.080) ng/mL TSH 3rd Generation 3.250 (0.47-4.68) mIU/L Urine Color (Yellow) Urine Appearance (Clear) Urine pH (4.6-8.0) Ur Specific [place] (1.005-1.030) Urine Protein (Negative) Urine Glucose (UA) (Negative) mg/dL Urine Ketones (Negative) Urine Blood (Negative) Urine Nitrite (Negative) Urine Bilirubin (Negative) Urine Urobilinogen (0.2) mg/dL Ur Leukocyte Esterase (Negative) U Hyaline Cast (Auto) (0-2) /LPF Urine Microscopic RBC (0-5) /HPF Urine Microscopic WBC (0-5) /HPF Ur Epithelial Cells (None Seen) /HPF Urine Bacteria (None Seen) /HPF Urine Culture Reflexed (NO) Influenza Type A Ag NEGATIVE (NEGATIVE) Influenza Type B Ag NEGATIVE (NEGATIVE) RSV (PCR) NEGATIVE (NEGATIVE) SARS-CoV-2 (PCR) NEGATIVE (NEGATIVE) Slides for Path Review 01/11/24 01/11/24 01/11/24 Range/Units 13:59 16:49 17:21 WBC (4.0-10.5) x10^3/uL RBC (4.1-5.4) x10^6/uL Hgb (12.0-16.0) g/dL Hct (35-47) % MCV (78-100) fL MCH (26-32) pg MCHC (32-36) g/dL RDW (11.5-14.0) % Plt Count (150-450) x10^3/uL MPV (7.5-11.0) fL Gran % (36.0-66.0) % Immature Gran % (Auto) (0.00-0.4) % Nucleat RBC Rel Count (0.00-0.1) % Eos # (Auto) (0-0.5) x10^3/uL Immature Gran # (Auto) (0.00-0.03) x10^3u/L Absolute Lymphs (auto) (1.0-4.6) x10^3/uL Absolute Monos (auto) (0.0-1.3) x10^3/uL Absolute Nucleated RBC (0.00-0.01) x10^3u/L Lymphocytes % (24.0-44.0) % Monocytes % (0.0-12.0) % Eosinophils % (0.00-5.0) % Basophils % (0.0-0.4) % Absolute Granulocytes (1.4-6.9) x10^3/uL Basophils # (0-0.4) x10^3/uL Sodium (137-145) mmol/L Potassium (3.5-5.1) mmol/L Chloride (98-107) mmol/L Carbon Dioxide (22-30) mmol/L Anion Gap (5-15) MEQ/L BUN (7-17) mg/dL Creatinine (0.52-1.04) mg/dL Estimated GFR ML/MIN Glucose (74-106) mg/dL POC Glucometer 178 H (74 to 106) mg/dL Hemoglobin A1c (4.5-6.0) % Lactic Acid 1.5 (0.4-2.0) Calcium (8.4-10.2) mg/dL Magnesium (1.6-2.3) mg/dL Total Bilirubin (0.2-1.3) mg/dL AST (14-36) U/L ALT (0-35) U/L Alkaline Phosphatase (38-126) U/L Troponin I 0.023 (0.000-0.034) ng/mL NT-Pro-B Natriuret Pep (<300) pg/mL Serum Total Protein (6.3-8.2) g/dL Albumin (3.5-5.0) g/dL Procalcitonin (0.030-0.080) ng/mL TSH 3rd Generation (0.47-4.68) mIU/L Urine Color (Yellow) Urine Appearance (Clear) Urine pH (4.6-8.0) Ur Specific [place] (1.005-1.030) Urine Protein (Negative) Urine Glucose (UA) (Negative) mg/dL Urine Ketones (Negative) Urine Blood (Negative) Urine Nitrite (Negative) Urine Bilirubin (Negative) Urine Urobilinogen (0.2) mg/dL Ur Leukocyte Esterase (Negative) U Hyaline Cast (Auto) (0-2) /LPF Urine Microscopic RBC (0-5) /HPF Urine Microscopic WBC (0-5) /HPF Ur Epithelial Cells (None Seen) /HPF Urine Bacteria (None Seen) /HPF Urine Culture Reflexed (NO) Influenza Type A Ag (NEGATIVE) Influenza Type B Ag (NEGATIVE) RSV (PCR) (NEGATIVE) SARS-CoV-2 (PCR) (NEGATIVE) Slides for Path Review 01/11/24 01/11/24 Range/Units 20:10 21:30 WBC (4.0-10.5) x10^3/uL RBC (4.1-5.4) x10^6/uL Hgb (12.0-16.0) g/dL Hct (35-47) % MCV (78-100) fL MCH (26-32) pg MCHC (32-36) g/dL RDW (11.5-14.0) % Plt Count (150-450) x10^3/uL MPV (7.5-11.0) fL Gran % (36.0-66.0) % Immature Gran % (Auto) (0.00-0.4) % Nucleat RBC Rel Count (0.00-0.1) % Eos # (Auto) (0-0.5) x10^3/uL Immature Gran # (Auto) (0.00-0.03) x10^3u/L Absolute Lymphs (auto) (1.0-4.6) x10^3/uL Absolute Monos (auto) (0.0-1.3) x10^3/uL Absolute Nucleated RBC (0.00-0.01) x10^3u/L Lymphocytes % (24.0-44.0) % Monocytes % (0.0-12.0) % Eosinophils % (0.00-5.0) % Basophils % (0.0-0.4) % Absolute Granulocytes (1.4-6.9) x10^3/uL Basophils # (0-0.4) x10^3/uL Sodium (137-145) mmol/L Potassium (3.5-5.1) mmol/L Chloride (98-107) mmol/L Carbon Dioxide (22-30) mmol/L Anion Gap (5-15) MEQ/L BUN (7-17) mg/dL Creatinine (0.52-1.04) mg/dL Estimated GFR ML/MIN Glucose (74-106) mg/dL POC Glucometer 163 H (74 to 106) mg/dL Hemoglobin A1c (4.5-6.0) % Lactic Acid (0.4-2.0) Calcium (8.4-10.2) mg/dL Magnesium (1.6-2.3) mg/dL Total Bilirubin (0.2-1.3) mg/dL AST (14-36) U/L ALT (0-35) U/L Alkaline Phosphatase (38-126) U/L Troponin I 0.025 (0.000-0.034) ng/mL NT-Pro-B Natriuret Pep (<300) pg/mL Serum Total Protein (6.3-8.2) g/dL Albumin (3.5-5.0) g/dL Procalcitonin (0.030-0.080) ng/mL TSH 3rd Generation (0.47-4.68) mIU/L Urine Color (Yellow) Urine Appearance (Clear) Urine pH (4.6-8.0) Ur Specific [place] (1.005-1.030) Urine Protein (Negative) Urine Glucose (UA) (Negative) mg/dL Urine Ketones (Negative) Urine Blood (Negative) Urine Nitrite (Negative) Urine Bilirubin (Negative) Urine Urobilinogen (0.2) mg/dL Ur Leukocyte Esterase (Negative) U Hyaline Cast (Auto) (0-2) /LPF Urine Microscopic RBC (0-5) /HPF Urine Microscopic WBC (0-5) /HPF Ur Epithelial Cells (None Seen) /HPF Urine Bacteria (None Seen) /HPF Urine Culture Reflexed (NO) Influenza Type A Ag (NEGATIVE) Influenza Type B Ag (NEGATIVE) RSV (PCR) (NEGATIVE) SARS-CoV-2 (PCR) (NEGATIVE) Slides for Path Review Micro Results-Entire Visit: Accuchecks Date 01/11/24 Time 17:04 - Radiology Exams Ordered Rad Exams-Entire Visit: Radiology Procedures Category Date Time Status CHEST 1 VIEW (PORTABLE) Stat Exams 01/11/24 11:39 Completed HEAD WITHOUT CONTRAST [CT] Stat Exams 01/11/24 14:50 Completed - Procedures and Test Procedures and Tests throughout Hospitalization: Therapy Orders & Screens 01/11/24 14:41 Respiratory Therapy Consult ONCE Comment: Reason For Exam: 01/11/24 14:47 PT Eval & Treat (MD Order) ONCE Reason for Eval:: frequent falls Diagnosis: weakness/fall OT Eval and Treat (MD Order) ONCE Comment: Physician Instructions: Reason For Exam: Diagnosis: weakness/fall <TREVOR SNELL - Last Filed: 01/12/24 10:52> - Vitals & Intake/Output Vital Signs: Vital Signs Temperature 98.1 F 01/12/24 12:00 Pulse Rate 70 01/12/24 12:00 Respiratory Rate 18 01/12/24 12:00 Blood Pressure 178/75 01/12/24 12:00 O2 Sat by Pulse Oximetry 96 01/12/24 12:00 Intake & Output: Intake & Output 01/10/24 01/11/24 01/12/24 01/13/24 11:59 11:59 11:59 11:59 Intake Total 1426 Balance 1426 Weight 93.5 kg 90.5 kg - Lab Result Diagrams: 01/12/24 05:35 01/12/24 05:35 Lab Results-Last 24 Hrs: Lab Results-Last 24 Hours 01/11/24 01/11/24 01/11/24 Range/Units 11:56 13:59 16:49 WBC (4.0-10.5) x10^3/uL RBC (4.1-5.4) x10^6/uL Hgb (12.0-16.0) g/dL Hct (35-47) % MCV (78-100) fL MCH (26-32) pg MCHC (32-36) g/dL RDW (11.5-14.0) % Plt Count (150-450) x10^3/uL MPV (7.5-11.0) fL Sodium (137-145) mmol/L Potassium (3.5-5.1) mmol/L Chloride (98-107) mmol/L Carbon Dioxide (22-30) mmol/L Anion Gap (5-15) MEQ/L BUN (7-17) mg/dL Creatinine (0.52-1.04) mg/dL Estimated GFR ML/MIN Glucose (74-106) mg/dL POC Glucometer 178 H (74 to 106) mg/dL Hemoglobin A1c 8.12 H (4.5-6.0) % Lactic Acid 1.5 (0.4-2.0) Calcium (8.4-10.2) mg/dL Total Bilirubin (0.2-1.3) mg/dL AST (14-36) U/L ALT (0-35) U/L Alkaline Phosphatase (38-126) U/L Troponin I (0.000-0.034) ng/mL Serum Total Protein (6.3-8.2) g/dL Albumin (3.5-5.0) g/dL 01/11/24 01/11/24 01/11/24 Range/Units 17:21 20:10 21:30 WBC (4.0-10.5) x10^3/uL RBC (4.1-5.4) x10^6/uL Hgb (12.0-16.0) g/dL Hct (35-47) % MCV (78-100) fL MCH (26-32) pg MCHC (32-36) g/dL RDW (11.5-14.0) % Plt Count (150-450) x10^3/uL MPV (7.5-11.0) fL Sodium (137-145) mmol/L Potassium (3.5-5.1) mmol/L Chloride (98-107) mmol/L Carbon Dioxide (22-30) mmol/L Anion Gap (5-15) MEQ/L BUN (7-17) mg/dL Creatinine (0.52-1.04) mg/dL Estimated GFR ML/MIN Glucose (74-106) mg/dL POC Glucometer 163 H (74 to 106) mg/dL Hemoglobin A1c (4.5-6.0) % Lactic Acid (0.4-2.0) Calcium (8.4-10.2) mg/dL Total Bilirubin (0.2-1.3) mg/dL AST (14-36) U/L ALT (0-35) U/L Alkaline Phosphatase (38-126) U/L Troponin I 0.023 0.025 (0.000-0.034) ng/mL Serum Total Protein (6.3-8.2) g/dL Albumin (3.5-5.0) g/dL 01/12/24 01/12/24 01/12/24 Range/Units 05:35 05:35 07:48 WBC 9.4 (4.0-10.5) x10^3/uL RBC 3.64 L (4.1-5.4) x10^6/uL Hgb 10.6 L (12.0-16.0) g/dL Hct 34.4 L (35-47) % MCV 94.5 (78-100) fL MCH 29.1 (26-32) pg MCHC 30.8 L (32-36) g/dL RDW 15.5 H (11.5-14.0) % Plt Count 216 (150-450) x10^3/uL MPV 11.1 H (7.5-11.0) fL Sodium 135 L (137-145) mmol/L Potassium 3.8 (3.5-5.1) mmol/L Chloride 104 (98-107) mmol/L Carbon Dioxide 27 (22-30) mmol/L Anion Gap 8.3 (5-15) MEQ/L BUN 21 H (7-17) mg/dL Creatinine 1.25 H (0.52-1.04) mg/dL Estimated GFR 41.7 ML/MIN Glucose 156 H (74-106) mg/dL POC Glucometer 177 H (74 to 106) mg/dL Hemoglobin A1c (4.5-6.0) % Lactic Acid (0.4-2.0) Calcium 9.1 (8.4-10.2) mg/dL Total Bilirubin 0.90 (0.2-1.3) mg/dL AST 67 H (14-36) U/L ALT 25 (0-35) U/L Alkaline Phosphatase 93 (38-126) U/L Troponin I (0.000-0.034) ng/mL Serum Total Protein 6.4 (6.3-8.2) g/dL Albumin 3.5 (3.5-5.0) g/dL 01/12/24 Range/Units 11:45 WBC (4.0-10.5) x10^3/uL RBC (4.1-5.4) x10^6/uL Hgb (12.0-16.0) g/dL Hct (35-47) % MCV (78-100) fL MCH (26-32) pg MCHC (32-36) g/dL RDW (11.5-14.0) % Plt Count (150-450) x10^3/uL MPV (7.5-11.0) fL Sodium (137-145) mmol/L Potassium (3.5-5.1) mmol/L Chloride (98-107) mmol/L Carbon Dioxide (22-30) mmol/L Anion Gap (5-15) MEQ/L BUN (7-17) mg/dL Creatinine (0.52-1.04) mg/dL Estimated GFR ML/MIN Glucose (74-106) mg/dL POC Glucometer 186 H (74 to 106) mg/dL Hemoglobin A1c (4.5-6.0) % Lactic Acid (0.4-2.0) Calcium (8.4-10.2) mg/dL Total Bilirubin (0.2-1.3) mg/dL AST (14-36) U/L ALT (0-35) U/L Alkaline Phosphatase (38-126) U/L Troponin I (0.000-0.034) ng/mL Serum Total Protein (6.3-8.2) g/dL Albumin (3.5-5.0) g/dL Micro Results-Entire Visit: Microbiology 01/11/24 11:43 Urine Culture - Preliminary Catherized NO GROWTH TO DATE Accuchecks Date 01/12/24 Date 01/12/24 Time 12:00 Time 08:09 - Radiology Exams Ordered Rad Exams-Entire Visit: Radiology Procedures Category Date Time Status CHEST 1 VIEW (PORTABLE) Stat Exams 01/11/24 11:39 Completed HEAD WITHOUT CONTRAST [CT] Stat Exams 01/11/24 14:50 Completed - Procedures and Test Procedures and Tests throughout Hospitalization: Therapy Orders & Screens 01/11/24 14:41 Respiratory Therapy Consult ONCE Comment: Reason For Exam: 01/11/24 14:47 PT Eval & Treat (MD Order) ONCE Reason for Eval:: frequent falls Diagnosis: weakness/fall OT Eval and Treat (MD Order) ONCE Comment: Physician Instructions: Reason For Exam: Diagnosis: weakness/fall <AUDI BURRELL - Last Filed: 01/12/24 16:50> Discharge Exam General Appearance: no apparent distress Neurologic Exam: alert, oriented x 3, cooperative Eye Exam: PERRL Ears, Nose, Throat Exam: normal ENT inspection Neck Exam: normal inspection Respiratory Exam: normal breath sounds, lungs clear Cardiovascular Exam: regular rate/rhythm, normal heart sounds Gastrointestinal/Abdomen Exam: soft, normal bowel sounds Pelvic Exam: deferred Rectal Exam: deferred Back Exam: normal inspection Extremity Exam: normal inspection Skin Exam: normal color <TREVOR SNELL - Last Filed: 01/12/24 10:52> Final Diagnosis/Problem List - Final Discharge Diagnosis/Problem (1) Leukocytosis, unspecified Status: Resolved Code(s): D72.829 - ELEVATED WHITE BLOOD CELL COUNT, UNSPECIFIED (2) Acute renal injury Status: Resolved Code(s): N17.9 - ACUTE KIDNEY FAILURE, UNSPECIFIED (3) Frequent falls Status: Chronic Onset Date: ~11/03/18 Code(s): R29.6 - REPEATED FALLS (4) Diabetes mellitus Status: Chronic Code(s): E11.9 - TYPE 2 DIABETES MELLITUS WITHOUT COMPLICATIONS (5) HTN (hypertension) Status: Chronic Code(s): I10 - ESSENTIAL (PRIMARY) HYPERTENSION (6) Dementia Status: Chronic Code(s): F03.90 - UNSP DEMENTIA, UNSP SEVERITY, WITHOUT BEH/PSYCH/MOOD/ANX (7) General weakness Status: Chronic Code(s): R53.1 - WEAKNESS <TREVOR SNELL - Last Filed: 01/12/24 10:52> <TREVOR SNELL - Last Filed: 01/12/24 10:52> <AUDI BURRELL - Last Filed: 01/12/24 16:50> - Discharge Disposition: Home, Self-Care Condition: Stable Prescriptions: Continue Sertraline HCl 25 mg PO HS Pramipexole Di-HCl [Pramipexole Dihydrochloride] 0.25 mg PO HS Loratadine 10 mg [Claritin 10 mg] 10 mg PO DAILY Memantine HCl [Memantine HCl ER] 21 mg PO DAILY Cyanocobalamin 500 Mcg [Vitamin B-12 500 MCG] 500 mcg PO BID Cholecalciferol (Vitamin D3) [Vitamin D3] 25 mcg PO DAILY Donepezil HCl 10 mg PO HS Bumetanide 1 mg PO DAILY glipiZIDE [Glipizide ER] 2.5 mg PO DAILY Losartan Potassium 50 mg [Cozaar 50 MG] 25 mg PO DAILY Aspirin EC 81 mg [Ecotrin 81 mg] 81 mg PO DAILY Colestipol HCl [Colestid] 5 gm PO QAM Colestipol HCl [Colestid] 5 gm PO DAILY PRN PRN PRN Reason: Diarrhea Instructions: Preventing falls in adults Follow up with: JULIO STEINER DO [Primary Care Provider] - Call for Appointment ANDREW Encounter - ANDREW Encounter Attestation ANDREW Encounter Attestation: "CHAD Castellano andhavediscussed pertinent aspects of their care with Trevor Neff agree with the history, physical exam (any modifications based on my personal exam will be noted below), assessment, and plan as outlined in original note. Please see immediately below for my summary of findings and additional assessment and plan along with any m eaningful corrections/explanations to the Subjective/Objective portions of the ANDREW note will be noted." My portion of the encounter took place via telemedicine. <AUDI BURRELL - Last Filed: 01/12/24 16:50>
[2024-01-12 06:00] LABS: ALBUMIN 3.5 g/dL (3.5-5.0); ANION GAP 8.3 MEQ/L (5-15); BILIRUBIN,TOTAL 0.9 mg/dL (0.2-1.3); Calcium 9.1 mg/dL (8.4-10.2); Creatinine 1 1.25 mg/dL (0.52-1.04); EST GLOMERULAR FILTRATION RATE 41.7 ML/MIN; Potassium 3.8 mmol/L (3.5-5.1); Total Protein 6.4 g/dL (6.3-8.2)
[2024-01-12 08:10] VITALS: O2SAT 96
[2024-01-12] MEDS: Cozaar 50 MG PO SCH (09:29)
[2024-01-12] MEDS: VITAMIN D PO SCH (09:29)
[2024-01-12] MEDS: CLARITIN 10 MG PO SCH (09:29)
[2024-01-12] MEDS: ECOTRIN 81 MG PO SCH (09:30)
[2024-01-12] MEDS: PATIENT OWN MEDICATION PO SCH (09:31)
[2024-01-12] MEDS ORDERED: MEMANTINE HCL 14 MG PO SCH (10:00)
[2024-01-12] MEDS ORDERED: COLESTIPOL HCL 5 GM PO SCH (10:00)
[2024-01-12] MEDS: FLUZONE HIGH-DOSE QUAD 2023-24 IM ONE (11:56)
[2024-01-12 12:01] VITALS: BP 178/75; PULSE 70; RESP 18; TEMP 98.1
== END 2024-01-12 12:20 | disposition home or self-care (01) ==
LOC: ED 11:02 → MED SURG 14:34
PROVIDERS: ADMIT Internal Medicine; ATTEND Internal Medicine
DX: D72.829 Elevated white blood cell count, unspecified (principal); N17.9 Acute kidney failure, unspecified; R29.6 Repeated falls; E11.9 Type 2 diabetes mellitus without complications; I10 Essential (primary) hypertension; F03.90 Unspecified dementia, unspecified severity, without behavioral disturbance, psychotic disturbance, mood disturbance, and anxiety; R53.1 Weakness; W19.XXXA Unspecified fall, initial encounter; Z79.899 Other long term (current) drug therapy; Z20.828 Contact with and (suspected) exposure to other viral communicable diseases; Z23 Encounter for immunization
CPT/HCPCS: 0241U; 36415; 70450; 71045; 80053; 81001; 82947; 83036; 83605; 83735; 83880; 84145; 84443; 84484; 85025; 85027; 87040; 87086; 93005; 93041; 93268; 99284; G0008; G0378; Q3014; 90662; J0696; J1817; A9270-GY

== ENCOUNTER 2024-10-30 13:04 | Emergency (ER) | payer MEDICARE ==
--- NOTE | 2024-10-30 13:11 | ERPHSYRPT ---
- History of Present Illness Time Seen by Provider: 10/30/24 13:10 Source: patient, family Exam Limitations: no limitations Physician History: 89 yr old pt with right heel pain, going on for weeks to months , but pain disturbs sleep. Denies any known injury and has not stepped on anything. No fevers. No known gout. No prior workup but follows with Dr. Melendez senior systems programmer for diabetes foot care. No CP, SObreath, abd pain, dizziness or any other symptoms. Discussed with pt and available family risks and benefits of testing/Tx including CBC, sed rate, Uric acid, X-ray, , pain med ( none for right now) , and they wish to proceed so these are ordered. Results discussed with pt and available family. Spouse / family was present in ER to serve as independent source to confirm/collaborate the History. Method of Injury: unknown Occurred: other (weeks ago) Quality: constant, aching, burning, sharpness, throbbing Severity of Pain-Max: moderate Severity of Pain-Current: moderate Lower Extremities Pain: heel: right Modifying Factors: Improves With: immobilization, movement Associated Symptoms: none Allergies/Adverse Reactions: cephalexin [From Keflex] Adverse Reaction (Intermediate, Verified 01/11/24 11:06) Diarrhea oats Adverse Reaction (Verified 01/11/24 11:06) Diarrhea wheat Adverse Reaction (Verified 01/11/24 11:06) Diarrhea Home Medications: Pramipexole Di-HCl [Pramipexole Dihydrochloride] 0.25 mg PO HS 05/09/18 [History] Sertraline HCl 25 mg PO HS 05/09/18 [History] Cyanocobalamin 500 Mcg [Vitamin B-12 500 MCG] 500 mcg PO BID 03/20/19 [History] Loratadine 10 mg [Claritin 10 mg] 10 mg PO DAILY 03/20/19 [History] Memantine HCl [Memantine HCl ER] 21 mg PO DAILY 03/20/19 [History] Cholecalciferol (Vitamin D3) [Vitamin D3] 25 mcg PO DAILY 10/12/20 [History] Donepezil HCl 10 mg PO HS 10/12/20 [History] Bumetanide 1 mg PO DAILY 09/02/23 [History] Aspirin EC 81 mg [Ecotrin 81 mg] 81 mg PO DAILY 01/11/24 [History] Colestipol HCl [Colestid] 5 gm PO DAILY PRN PRN 01/11/24 [History] Colestipol HCl [Colestid] 5 gm PO QAM 01/11/24 [History] Losartan Potassium 50 mg [Cozaar 50 MG] 25 mg PO DAILY 01/11/24 [History] glipiZIDE [Glipizide ER] 2.5 mg PO DAILY 01/11/24 [History] Hx Tetanus, Diphtheria Vaccination/Date Given: Yes Hx Influenza Vaccination/Date Given: Yes Hx Pneumococcal Vaccination/Date Given: Yes - Review of Systems Constitutional: No Fever, No Chills Eyes: No Symptoms Ears, Nose, & Throat: No Symptoms Respiratory: No Cough, No Dyspnea Cardiac: No Chest Pain, No Edema, No Syncope Abdominal/Gastrointestinal: No Abdominal Pain, No Nausea, No Vomiting, No Diarrhea Genitourinary Symptoms: No Dysuria Musculoskeletal: Joint Pain, No Back Pain, No Neck Pain, No Fall Skin: No Rash Neurological: No Dizziness, No Focal Weakness, No Sensory Changes Psychological: No Symptoms Endocrine: No Symptoms Hematologic/Lymphatic: No Symptoms Immunological/Allergic: No Symptoms All Other Systems: Reviewed and Negative - Past Medical History Pertinent Past Medical History: Yes Neurological History: Dementia ENT History: Cataracts Cardiac History: Hypertension Respiratory History: No Pertinent History Endocrine Medical History: Diabetes Type II Musculoskeletal History: Arthritis, Degenerative Disk Disease, Osteoarthritis GI Medical History: GERD History: Renal Disease Psycho-Social History: Anxiety Female Reproductive Disorders: No Pertinent History Other Medical History: Chronic kidney disease - Past Surgical History Past Surgical History: Yes Neuro Surgical History: No Pertinent History Cardiac: No Pertinent History Respiratory: No Pertinent History Gastrointestinal: Cholecystectomy Genitourinary: No Pertinent History Musculoskeletal: Orthopedic Surgery Female Surgical History: No Pertinent History Other Surgical History: Tonsils out, cataract surgery bilat , back surgery (unsure of what kind) - Social History Smoking Status: Never smoker Exposure to second hand smoke: No Drug Use: none Patient Lives Alone: No - Social Determinants of Health Will the patient participate in the screening: Yes Do you worry about a steady place to live?: No In the past 12 months,have you had to go without utilities?: No Transportation Issues: No Has anyone in your support network made you feel unsafe?: No Have you or anyone in your house had to go without enough: No - Nursing Vital Signs Nursing Vital Signs: Initial Vital Signs Temperature 97.6 F 10/30/24 13:10 Pulse Rate 72 10/30/24 13:10 Respiratory Rate 18 10/30/24 13:10 Blood Pressure 184/78 10/30/24 13:10 O2 Sat by Pulse Oximetry 98 10/30/24 13:10 Pain Scale Pain Intensity 5 - Physical Exam General Appearance: no apparent distress, alert Eyes, Ears, Nose, Throat Exam: moist mucous membranes Neck Exam: non-tender, supple Cardiovascular/Respiratory Exam: chest non-tender, normal breath sounds, regular rate/rhythm, no respiratory distress Gastrointestinal/Abdominal Exam: non-tender, guarding Back Exam: normal inspection, No vertebral tenderness Hips Exam: bilateral: non-tender, normal inspection, normal range of motion, no evidence of injury Legs Exam: bilateral leg: non-tender, normal inspection, normal range of motion, no evidence of injury Knees Exam: bilateral knee: non-tender, normal inspection, normal range of motion, no evidence of injury Ankle Exam: bilateral ankle: non-tender, normal inspection, normal range of motion, no evidence of injury Foot Exam: right foot: bone tenderness, pain, soft tissue tenderness, left foot: non-tender, normal inspection, normal range of motion, no evidence of injury DTR - Lower Extremities Exam: knee (R): 2+, knee (L): 2+, ankle (R): 2+, ankle (L): 2+ Neuro/Tendon Exam: normal sensation, normal motor functions, normal tendon funct ions Mental Status Exam: alert, oriented x 3, cooperative Skin Exam: normal color, warm, dry SpO2 Interpretation: normal SpO2: 98 O2 Delivery: Room Air - Course Nursing assessment & vital signs reviewed: Yes - Radiology Exams Right Foot X-ray Interpretation: Interpreted by me, Reviewed by me, Other (heel spurs) Ordered Tests: Active Orders 24 hr Category Date Time Status FOOT (MINIMUM 3 VIEWS) Stat Exams 10/30/24 13:20 Completed CBC W DIFF Stat Lab 10/30/24 13:46 Completed SED RATE [Erythrocyte Sedimentation Rate] Stat Lab 10/30/24 13:46 Completed Uric Acid Stat Lab 10/30/24 13:46 Completed Lab/Rad Data: Laboratory Result Diagrams 10/30/24 13:46 Laboratory Results 10/30/24 10/30/24 10/30/24 Range/Units 13:46 13:46 13:46 WBC 8.6 (3.98-10.04) x10^3/uL RBC 4.12 (3.93-5.22) x10^6/uL Hgb 12.1 (11.2-15.7) g/dL Hct 38.4 (34.1-44.9) % MCV 93.2 (79.4-94.8) fL MCH 29.4 (25.6-32.2) pg MCHC 31.5 L (32.2-35.5) g/dL RDW 15.1 H (11.7-14.4) % Plt Count 253 (182-369) x10^3/uL MPV 11.1 (9.4-12.3) fL Gran % 62.4 (34.0-71.1) % Immature Gran % (Auto) 0.2 (0.001-0.429) % Nucleat RBC Rel Count 0.0 (0.00-0.2) % Eos # (Auto) 0.25 (0.04-0.36) x10^3/uL Immature Gran # (Auto) 0.02 (0.001-0.031) x10^3u/L Absolute Lymphs (auto) 2.37 (1.18-3.74) x10^3/uL Absolute Monos (auto) 0.54 (0.24-0.86) x10^3/uL Absolute Nucleated RBC 0.00 (0.00-0.012) x10^3u/L Lymphocytes % 27.7 (19.3-51.7) % Monocytes % 6.3 (4.7-12.5) % Eosinophils % 2.9 (0.7-5.8) % Basophils % 0.5 (0.1-1.2) % Absolute Granulocytes 5.35 (1.56-6.13) x10^3/uL Basophils # 0.04 (0.01-0.08) x10^3/uL ESR 51 H (0-20) mm/hr Uric Acid 9.4 H (2.6-6.0) mg/dL - Progress Progress: improved, re-examined Progress Note: 10/30/24 14:55 discussed Tx plan with daughter and pt and to monitor glucose since the Steroids may aggravate that - they understand and wish to proceed and have the capacity to make this choice and agree that this is preferred for risk over colchicine and stronger pain meds at her age. . Counseled pt/family regarding: lab results, diagnosis, need for follow-up, rad results Medical Desision Making - Independent Historian Additional History obtained from: Spouse, Child - Discussion of managment Reviewed:: Test results, Need for additional workup Agreed on:: Treatment plan, need for follow-up - Diagnostic Testing Diagnostic test were ordered, analyzed, and reviewed by me: Yes Radiological Interpretation: Interpreted by me, Reviewed by me - Risk of complications The pt has a mod risk of morbidity or mortality based on: Need for prescription drug management - Departure Departure Disposition: Home Clinical Impression: Pain of right heel, Gout Condition: Good Critical Care Time: No Referrals: JULIO STEINER DO [Primary Care Provider] - Follow up/PCP as directed Instructions: Gout ED, Gout, Oral steroid medicines Additional Instructions: Follow-up with your Dr. Saturday for your gout and heel. Although we have not exactly determined that Gout is present it seems a likely possibility and needs to be confirmed with your Dr for further treatment to prevent further attacks. Monitor your glucose and return if getting too high or any symptoms. Followup with your Dr. for the elevated blood pressure as well. You may take alleve for the pain which will probably work better in this case than tylenol. But you can also take tylenol as well even at the same time. Prescriptions: Methylprednisolone Packet [Medrol Dosepack] 4 mg PO UD #30 packet
[2024-10-30 13:15] VITALS: TEMP 97.6
[2024-10-30 13:46] LABS: Absolute Neutrophil Ct (ANC) 5.35 x10^3/uL (1.56-6.13); BASOPHIL % 0.5 % (0.1-1.2); Basophil (Absolute #) 0.04 x10^3/uL (0.01-0.08); Eosinophil % 2.9 % (0.7-5.8); Eosinophil (Absolute #) 0.25 x10^3/uL (0.04-0.36); Hematocrit 38.4 % (34.1-44.9); Hemoglobin 12.1 g/dL (11.2-15.7); IMMATURE GRAN # 0.02 x10^3u/L (0.001-0.031); IMMATURE GRAN % 0.2 % (0.001-0.429); Lymphocyte (Absolute #) 2.37 x10^3/uL (1.18-3.74); Lymphocytes % 27.7 % (19.3-51.7); Mean Cell Volume 93.2 fL (79.4-94.8); Mean Corpuscular Hemoglobin 29.4 pg (25.6-32.2); Mean Corpuscular Hgb Concent. 31.5 g/dL (32.2-35.5); Mean Platelet Volume 11.1 fL (9.4-12.3); Monocyte (Absolute #) 0.54 x10^3/uL (0.24-0.86); Monocytes % 6.3 % (4.7-12.5); Neutrophil % 62.4 % (34.0-71.1); Platelet Count 253 x10^3/uL (182-369); Red Blood Count 4.12 x10^6/uL (3.93-5.22); Red Cell Distribution Width 15.1 % (11.7-14.4); White Blood Count 8.6 x10^3/uL (3.98-10.04)
[2024-10-30 14:05] VITALS: RESP 20
--- NOTE | 2024-10-30 14:10 | XRAY ---
Indication: Pain. No known injury. Comparison: None 3 portable views right foot demonstrate osteopenia, small posterior/tiny plantar heel spurs, and small cuboid accessory ossicle. No other bony, articular, or soft tissue abnormalities.
[2024-10-30 15:02] VITALS: O2SAT 98
[2024-10-30 15:04] VITALS: BP 175/70; PULSE 62
== END 2024-10-30 15:21 | disposition home or self-care (01) ==
LOC: ED 13:04
DX: M10.9 Gout, unspecified (principal); M79.671 Pain in right foot; I12.9 Hypertensive chronic kidney disease with stage 1 through stage 4 chronic kidney disease, or unspecified chronic kidney disease; E11.22 Type 2 diabetes mellitus with diabetic chronic kidney disease; N18.9 Chronic kidney disease, unspecified; Z79.52 Long term (current) use of systemic steroids; Z79.84 Long term (current) use of oral hypoglycemic drugs; Z79.899 Other long term (current) drug therapy
CPT/HCPCS: 36415; 73630; 84550; 85025; 85652; 99283; 99284

== ENCOUNTER 2025-02-25 15:55 | Emergency (ER) | payer MEDICARE ==
[2025-02-25 16:20] VITALS: TEMP 97.7; O2SAT 97
--- NOTE | 2025-02-25 16:38 | ERPHSYRPT ---
- History of Present Illness Time Seen by Provider: 02/25/25 15:57 Source: patient, family Exam Limitations: no limitations Patient Subjective Stated Complaint: States here to be checked out after a fall. Patient fell while getting out of her car and crawled to the steps of her home. Patient unable to get up on her own so her called for an ambulance. C/O head injury and bilateral knee pain related to fall. Triage Nursing Assessment: Patient brought back to ER in a W/C. Stand by assistance of one staff and a cane to transfer from chair to bed. Patient is able to bear weight to BLE without difficulties. FRANCO WNL. Dried blood noted to l eft side of forehead and face; washed away with a hematoma noted to left side of forehead. Small abrasion noted to hematoma with no active bleeding at this time. Bilateral knees are swollen, red, abrasions present; no active bleeding. Physician History: 89-year-old is brought in the ER with chief complaint of fall and injury to the left forehead and both knees. 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 No loss of consciousness. Patient was not able to get up and crawled to her doorsteps. Patient complaining of moderate intensity sharp pain in both knees and forehead area. Has abrasions with hematoma on the left forehead. Denies any visual changes, difficulty movements of eyeball, numbness tingling focal weakness. Denies any neck pain. No chest pain palpitations or shortness of breath before or after the fall. Denies any dizziness or lightheadedness. Patient does have a history of recurrent falls with chronic balance issues. Allergies/Adverse Reactions: No Known Drug Allergies Allergy (Verified 02/25/25 16:20) Home Medications: Pramipexole Di-HCl [Pramipexole Dihydrochloride] 0.25 mg PO HS 05/09/18 [History] Sertraline HCl 25 mg PO HS 05/09/18 [History] Cyanocobalamin 500 Mcg [Vitamin B-12 500 MCG] 500 mcg PO BID 03/20/19 [History] Loratadine 10 mg [Claritin 10 mg] 10 mg PO DAILY 03/20/19 [History] Memantine HCl [Memantine HCl ER] 21 mg PO DAILY 03/20/19 [History] Cholecalciferol (Vitamin D3) [Vitamin D3] 25 mcg PO DAILY 10/12/20 [History] Donepezil HCl 10 mg PO HS 10/12/20 [History] Bumetanide 1 mg PO DAILY 09/02/23 [History] Aspirin EC 81 mg [Ecotrin 81 mg] 81 mg PO DAILY 01/11/24 [History] Colestipol HCl [Colestid] 5 gm PO DAILY PRN PRN 01/11/24 [History] Colestipol HCl [Colestid] 5 gm PO QAM 01/11/24 [History] Losartan Potassium 50 mg [Cozaar 50 MG] 25 mg PO DAILY 01/11/24 [History] glipiZIDE [Glipizide ER] 2.5 mg PO DAILY 01/11/24 [History] Hx Tetanus, Diphtheria Vaccination/Date Given: Yes Hx Influenza Vaccination/Date Given: Yes Hx Pneumococcal Vaccination/Date Given: Yes Immunizations Up to Date: Yes Travel Risk - International Travel Have you traveled outside of the country in past 3 weeks: No - Emerging Infectious Disease Are you exhibiting symptoms associated with any current EIDs: No - Review of Systems Constitutional: No Symptoms Eyes: No Symptoms Ears, Nose, & Throat: No Symptoms Respiratory: No Symptoms Cardiac: No Symptoms Abdominal/Gastrointestinal: No Symptoms Genitourinary Symptoms: No Symptoms Musculoskeletal: Fall, Injury, Joint Redness, Joint Pain, Joint Swelling Skin: No Symptoms Neurological: Headache Endocrine: No Symptoms - Past Medical History Pertinent Past Medical History: Yes Neurological History: Dementia ENT History: Cataracts Cardiac History: Hypertension Respiratory History: No Pertinent History Endocrine Medical History: Diabetes Type II Musculoskeletal History: Arthritis, Degenerative Disk Disease, Osteoarthritis GI Medical History: GERD History: Renal Disease Psycho-Social History: Anxiety Female Reproductive Disorders: No Pertinent History Other Medical History: Chronic kidney disease - Past Surgical History Past Surgical History: Yes Neuro Surgical History: No Pertinent History Cardiac: No Pertinent History Respiratory: No Pertinent History Gastrointestinal: Cholecystectomy Genitourinary: No Pertinent History Musculoskeletal: Orthopedic Surgery Female Surgical History: No Pertinent History Other Surgical History: back surgery (unsure of what kind) - Social History Smoking Status: Never smoker Exposure to second hand smoke: No Drug Use: none - Social Determinants of Health Will the patient participate in the screening: Yes Do you worry about a steady place to live?: No Do you have any problems with any of the following?: No known problems In the past 12 months,have you had to go without utilities?: No Transportation Issues: No Has anyone in your support network made you feel unsafe?: No Have you or anyone in your house had to go w/o enough food: No - Nursing Vital Signs Nursing Vital Signs: Initial Vital Signs Temperature 97.7 F 02/25/25 16:08 Pulse Rate 75 02/25/25 16:08 Respiratory Rate 19 02/25/25 16:08 Blood Pressure 184/86 02/25/25 16:08 O2 Sat by Pulse Oximetry 97 02/25/25 16:08 Pain Scale Pain Intensity 0 - Newton Coma Score Best Eye Response (Dariela): (4) open spontaneously Best Verbal Response (Dariela): (5) oriented Best Motor Response (Dariela): (6) obeys commands Newton Total: 15 - Physical Exam General Appearance: no apparent distress, alert Head Injury: contusions, swelling (Left forehead abrasion with hematoma, no step in deformity), tenderness Eye Exam: PERRL/EOMI, eyes nml inspection ENT Exam: airway nml, No evidence of ENT injury, No dental injury Neck Exam: supple, trachea midline, full range of motion, normal alignment Respiratory/Chest Exam: normal breath sounds, No chest tenderness, No respiratory distress Cardiovascular Exam: normal heart sounds, regular rate/rhythm Gastrointestinal Exam: soft, normal bowel sounds, No tenderness Extremity Exam: normal range of motion, pelvis stable, joint swelling (Bilateral knee with superficial abrasions), pain with movement Neurologic Exam: alert, oriented x 3, cooperative Skin Exam: normal color SpO2 Interpretation: normal SpO2: 97 O2 Delivery: Room Air Ordered Tests: Active Orders 24 hr Category Date Time Status CERVICAL SPINE WO CONTRAST [CT] Stat Exams 02/25/25 16:27 Completed HEAD WITHOUT CONTRAST [CT] Stat Exams 02/25/25 16:27 Completed KNEE (3 VIEWS) Stat Exams 02/25/25 16:27 Completed KNEE (3 VIEWS) Stat Exams 02/25/25 16:28 Completed Medication Summary Discontinued Medications Generic Name Dose Route Start Last Admin Trade Name Freq PRN Reason Stop Dose Admin Acetaminophen 975 mg 02/25/25 16:37 02/25/25 17:11 Acetaminophen 325 Mg Tablet PO 02/25/25 16:38 975 mg STAT STA Administration Acetaminophen Confirm 02/25/25 17:08 Acetaminophen 325 Mg Tablet Administered 02/25/25 17:09 Dose 975 mg .ROUTE .artaculous-Trav[place] ONE - Progress Progress: improved, re-examined Progress Note: 02/25/25 18:06 89-year-old is evaluated in the ER for ground-level mechanical fall with injury to the left forehead and both knees. She has no loss of consciousness. Nonfocal neuroexam. No chest pain palpitations shortness of breath, dizziness or lightheadedness before or after the fall. Obtain CT head which is negative for any acute intracranial findings, no skull fracture. Has contusion with hematoma. Patient is up-to-date with tetanus. As superficial abrasion both knees and x-rays are negative for fracture dislocation reviewed by me followed by official read. Dillon wrap applied on both knees, recommended Tylenol for home and given 1 dose in here. It was a clear mechanical fall, do not think needs any workup and is stable for discharge. Recommended intermittent ice application and outpatient follow-up. Discussed results of workup with patient and family and plan of discharge and supportive care which they understand and agree. Complexity of problems addressed: Moderate acute Complexity of data reviewed/analyzed: Moderate Risk of complication/morbidity/mortality: Moderate Counseled pt/family regarding: diagnosis, need for follow-up, rad results Medical Desision Making - Independent Historian Additional History obtained from: Child - Diagnostic Testing Diagnostic test were ordered, analyzed, and reviewed by me: Yes Radiological Interpretation: Interpreted by me, Reviewed by me - Departure Departure Disposition: Home Clinical Impression: Contusion of forehead, Contusion of knee, Fall Condition: Stable Critical Care Time: No Referrals: JULIO STEINER DO [Primary Care Provider] - Follow up with PCP 1 day Instructions: Contusion (DC), Head injury observation in adults Additional Instructions: Intermittent ice application. Take Tylenol as needed. Use cane/walker for ambulation to avoid a fall. Follow-up with primary care for reevaluation. Follow head injury instructions, return to ER for any worsening.
[2025-02-25] MEDS ORDERED: TYLENOL 325 MG ONE (17:08)
[2025-02-25] MEDS: TYLENOL 325 MG PO STA (17:11)
--- NOTE | 2025-02-25 17:14 | XRAY ---
Indication: Pain and swelling following fall. Multiple contiguous axial images obtained through the head without contrast. Comparison: October 11, 2024 Again age-appropriate global atrophy and minimal periventricular degenerative micro-ischemia. New remote lacunar infarct right basal ganglia. No acute intracranial hemorrhage, abnormal extra-axial fluid collection, or mass effect. Fourth ventricles midline without hydrocephalus. New small left frontal scalp soft tissue swelling. Bony calvarium intact again with hyperostosis frontalis interna. Impression: Continued nonacute senile brain. New remote lacunar infarct right basal ganglia.
--- NOTE | 2025-02-25 17:16 | XRAY ---
Indication: Pain and swelling following fall. Comparison: None 3 view right knee demonstrates osteopenia, mild/moderate tricompartmental degenerative changes greatest medial compartment, tiny posterior fabella, and moderate scattered vascular calcifications. No acute bony, articular, or soft tissue abnormalities.
--- NOTE | 2025-02-25 17:16 | XRAY ---
Indication: Pain and swelling following fall. Multiple contiguous axial images obtained through the cervical spine. Sagittal and coronal reformatted images obtained. Comparison: September 02, 2023 Axial images again negative for acute fracture, suspicious bony lesions, or spinal canal stenosis. Stable moderate C4-C7 degenerative endplate spurring. Again moderate multilevel bilateral degenerative facet hypertrophy. Sagittal and coronal reformatted images again demonstrates normal alignment with C4-C7 disc space narrowing. No acute compression fracture, subluxation, or jumped facet. Normal appearing craniocervical junction. Visualized noncontrasted soft tissues again demonstrates mild bilateral carotid calcifications. Impression: Stable multilevel degenerative spondylosis. Remaining CT cervical spine is again negative.
--- NOTE | 2025-02-25 17:18 | XRAY ---
Indication: Pain and swelling following fall. Comparison: None 3 view left knee demonstrates osteopenia, moderate/advanced tricompartmental degenerative changes greatest lateral compartment, small posterior fabella, and moderate scattered vascular calcifications. No acute bony, articular, or soft tissue abnormalities.
[2025-02-25 18:15] VITALS: BP 176/75; PULSE 82; RESP 15
== END 2025-02-25 18:40 | disposition home or self-care (01) ==
LOC: ED 15:55
DX: S00.83XA Contusion of other part of head, initial encounter (principal); S80.02XA Contusion of left knee, initial encounter; S80.01XA Contusion of right knee, initial encounter; W01.0XXA Fall on same level from slipping, tripping and stumbling without subsequent striking against object, initial encounter; Y92.007 Garden or yard of unspecified non-institutional (private) residence as the place of occurrence of the external cause; R29.6 Repeated falls; I12.9 Hypertensive chronic kidney disease with stage 1 through stage 4 chronic kidney disease, or unspecified chronic kidney disease; E11.22 Type 2 diabetes mellitus with diabetic chronic kidney disease; N18.9 Chronic kidney disease, unspecified; Z79.84 Long term (current) use of oral hypoglycemic drugs; Z79.899 Other long term (current) drug therapy
CPT/HCPCS: 70450; 72125; 73562; 99284; A9270-GY